=== PATIENT | male | born 1960 | race Caucasian/White ===

== ENCOUNTER → 2017-09-14 07:49 | Outpatient (CLI) | payer OTHER, SELFPAY ==
[2017-09-14 10:32] LABS: Hematocrit 46.1 % (40-54); Hemoglobin 15.4 g/dl (13.0-16.5); Mean Corp Hgb Conc 33.4 g/gl (32-36); Mean Corpuscular Hgb 30.4 pg (27.0-32.0); Mean Corpuscular Volume 90.9 fL (80-94); Mean Platelet Vol. 9.5 fl (6.2-12.0); Platelet Count 170 K/mm3 (150-450); RBC Distribution Width CV 12.9 % (11.6-14.6); RBC Distribution Width SD 42.3 fl (35.1-43.9); Red Blood Count 5.07 M/mm3 (4.6-6.2); White Blood Count 3.5 K/mm3 (4.4-11.0)
[2017-09-14 10:35] LABS: Scan Indicated on CBC? Y/N NO
[2017-09-14 10:45] LABS: ALB/GLOB Ratio 1.1 RATIO (0.9-2.4); AST(SGOT) 22 U/L (15-37); Alanine Aminotransfer ALT/SGPT 38 U/L (16-61); Albumin, Serum 3.7 g/dL (3.2-5.0); Alkaline Phosphatase 56 U/L (45-117); Anion Gap 8 (5-15); BUN 15 mg/dL (7-18); BUN/Creat Ratio 12.9 RATIO (10-20); Calcium,Total 9.2 mg/dL (8.5-10.1); Chloride 107 mmol/L (98-107); Cholesterol 218 mg/dL (200); Creatinine, Serum 1.16 mg/dL (0.70-1.30); EST Glomerular Filtration Rate 69 mL/min (>60); Est Glom Filt Rate - Afr Amer 84 mL/min (>60); Globulin 3.4 g/dL (2.2-4.2); Glucose 93 mg/dL (74-106); High Density Lipoprotein 44 mg/dL; PSA,Total - Annual Screen 3.37 ng/mL (0.00-4.00); Potassium 4.2 mmol/L (3.5-5.1); Protein, Total 7.1 g/dL (6.4-8.2); Sodium Level 145 mmol/L (136-145); Triglycerides 137 mg/dL; Very Low Density Lipoprotein 27 mg/dL (5-40)
== END ==
PROVIDERS: Family Provider Family Medicine; PCP Family Medicine; Visit Provider Family Medicine
DX: Z00.00 Encounter for general adult medical examination without abnormal findings (principal); Z12.5 Encounter for screening for malignant neoplasm of prostate
CPT/HCPCS: 36415; 80053; 80061; 84153; 85027; G0103

== ENCOUNTER → 2020-12-05 | Outpatient (CLI) | payer OTHER, SELFPAY | END | disposition home or self-care (01) | PROVIDERS: PCP Family Medicine; Visit Provider Family Medicine | DX: U07.1 COVID-19 (principal) | CPT/HCPCS: 87635; U0005; U0003 ==

== ENCOUNTER → 2021-01-06 08:56 | Outpatient (CLI) | payer OTHER, SELFPAY ==
[2021-01-06 10:45] LABS: Hematocrit 46.4 % (40-54); Mean Corp Hgb Conc 32.3 g/dL (32-36); Mean Corpuscular Hgb 29.9 pg (27.0-32.0); Mean Corpuscular Volume 92.6 fL (80-94); Platelet Count 156 K/mm3 (150-450); RBC Distribution Width CV 13.3 % (11.6-14.6); RBC Distribution Width SD 45.5 fl (35.1-43.9); Red Blood Count 5.01 M/mm3 (4.6-6.2); White Blood Count 4.5 K/mm3 (4.4-11.0)
[2021-01-06 11:26] LABS: ALB/GLOB Ratio 1.1 RATIO (0.9-2.4); AST(SGOT) 21 U/L (15-37); Alanine Aminotransfer ALT/SGPT 33 U/L (16-61); Albumin, Serum 3.8 g/dL (3.2-5.0); Alkaline Phosphatase 57 U/L (45-117); Anion Gap 5 (5-15); BUN 17 mg/dL (7-18); BUN/Creat Ratio 15.3 RATIO (10-20); Calcium,Total 8.9 mg/dL (8.5-10.1); Chloride 106 mmol/L (98-107); Cholesterol 234 mg/dL (200); Creatinine, Serum 1.11 mg/dL (0.70-1.30); EST Glomerular Filtration Rate 72 mL/min (>60); Est Glom Filt Rate - Afr Amer 87 mL/min (>60); Globulin 3.5 g/dL (2.2-4.2); Glucose 89 mg/dL (74-106); High Density Lipoprotein 46 mg/dL; PSA,Total - Annual Screen 3.95 ng/mL (0.00-4.00); Protein, Total 7.3 g/dL (6.4-8.2); Sodium Level 141 mmol/L (136-145); Triglycerides 169 mg/dL; Very Low Density Lipoprotein 34 mg/dL (5-40)
== END ==
PROVIDERS: PCP Family Medicine; Referring Provider Family Medicine; Visit Provider Family Medicine
DX: Z00.00 Encounter for general adult medical examination without abnormal findings (principal); Z13.1 Encounter for screening for diabetes mellitus; Z12.5 Encounter for screening for malignant neoplasm of prostate; Z13.220 Encounter for screening for lipoid disorders
CPT/HCPCS: 36415; 80053; 80061; 84153; 85027; G0103

== ENCOUNTER → 2022-03-31 | Outpatient (CLI) | payer OTHER, SELFPAY ==
[2022-03-31 08:12] LABS: Absolute Lymphocyte Count 1.12 X10^3/uL (0.83-4.51); Absolute Neutrophil Count 2.3 X10^3/uL (2.0-7.7); Basophil# 0.01 X10^3/uL; Basophil% 0.3 % (0-1); Eosinophil# 0.04 X10^3/uL; Hematocrit 47.8 % (40-54); Hemoglobin 15.8 g/dL (13.0-16.5); Lymphocyte # 1.12 X10^3/ul (0.83-4.51); Lymphocyte % 29.2 % (19-41); Mean Corp Hgb Conc 33.1 g/dL (32-36); Mean Corpuscular Hgb 30.7 pg (27.0-32.0); Monocyte# 0.33 X10^3/uL; Monocyte% 8.6 % (0-10); NRBC Flagged by Analyzer 0 % (0-5); Neutrophil # 2.33 X10^3/uL (2.7-7.7); Neutrophil % 60.6 % (47-70); Platelet Count 165 K/mm3 (150-450); RBC Distribution Width CV 12.7 % (11.6-14.6); RBC Distribution Width SD 43.7 fl (35.1-43.9); Red Blood Count 5.14 M/mm3 (4.6-6.2); White Blood Count 3.8 K/mm3 (4.4-11.0)
[2022-03-31 09:00] LABS: ALB/GLOB Ratio 1.3 RATIO (0.9-2.4); AST(SGOT) 18 U/L (15-37); Alanine Aminotransfer ALT/SGPT 23 U/L (16-61); Albumin, Serum 3.9 g/dL (3.2-5.0); Alkaline Phosphatase 50 U/L (45-117); Anion Gap 5 (5-15); BUN 19 mg/dL (7-18); BUN/Creat Ratio 14.7 RATIO (10-20); Calcium,Total 9.4 mg/dL (8.5-10.1); Chloride 107 mmol/L (98-107); Cholesterol 215 mg/dL (200); Creatinine, Serum 1.29 mg/dL (0.70-1.30); EST Glomerular Filtration Rate 60 mL/min (>60); Est Glom Filt Rate - Afr Amer 73 mL/min (>60); Globulin 3.1 g/dL (2.2-4.2); Glucose 107 mg/dL (74-106); High Density Lipoprotein 48 mg/dL; PSA,Total - Annual Screen 3.14 ng/mL (0.00-4.00); Potassium 3.9 mmol/L (3.5-5.1); Sodium Level 141 mmol/L (136-145); Triglycerides 131 mg/dL; Very Low Density Lipoprotein 26 mg/dL (5-40)
== END | disposition home or self-care (01) ==
LOC: LAB 07:41
PROVIDERS: PCP Family Medicine; Referring Provider Family Medicine; Visit Provider Family Medicine
DX: Z00.00 Encounter for general adult medical examination without abnormal findings (principal); Z13.1 Encounter for screening for diabetes mellitus; Z13.220 Encounter for screening for lipoid disorders; Z12.5 Encounter for screening for malignant neoplasm of prostate
CPT/HCPCS: 36415; 80053; 80061; 84153; 85025; G0103

== ENCOUNTER 2023-11-24 11:13 | Emergency (ER) | payer OTHER, SELFPAY ==
[2023-11-24] VITALS (10 sets, daily range): BP systolic 82–128; BP diastolic 39–85; PULSE 70–86; RESP 15–18; TEMP 36.4–36.6; O2SAT 92–99; BMI 31.0
--- NOTE | 2023-11-24 11:29 | EKG12_ITS ---
Test Reason : NEAR SYNCOPE Blood Pressure : / mmHG Vent. Rate : 072 BPM Atrial Rate : 072 BPM P-R Int : 168 ms QRS Dur : 114 ms QT Int : 414 ms P-R-T Axes : 022 -36 016 degrees QTc Int : 453 ms Normal sinus rhythm Left axis deviation Incomplete right bundle branch block Cannot rule out Anterior infarct , age undetermined Abnormal ECG Confirmed by Humberto Franco ([id number]), editor at large KELSY WANG ([id number]) on 11/25/2023 1:35:03 PM Referred By: Confirmed By:Humberto Franco
--- NOTE | 2023-11-24 11:29 | RAD_ITS ---
HISTORY: dyspnea. TECHNIQUE: XR Chest 1 View. COMPARISON: 12/02/2012. FINDINGS: CARDIOMEDIASTINAL BORDERS: Cardiac silhouette within normal limits in size. Mediastinal contour unremarkable. LUNGS: Radiographically clear. PLEURA: No pleural effusion or pneumothorax seen. OSSEOUS STRUCTURES: Unremarkable. RAD/Chest 1 View (Portable) IMPRESSION: No acute cardiopulmonary process identified. Electronically Signed: Erin Ceja MD at 12:23 EDT ,
--- NOTE | 2023-11-24 11:30 | EX.ED.DYSGE1 ---
HPI History of Present Illness Chief Complaint: Dizziness Informant: patient and EMS Narrative Narrative: 63-year-old male had a syncopal episode this morning. States he woke up this morning and got out of bed and felt lightheaded like he would faint. Therefore he laid back down in bed for a while until he felt better then he got up and walked to the kitchen with the intent of making breakfast and felt worse and passed out prior to making it there in the hallway. His caught him, he did not injure himself. He knows he lost consciousness for an unclear period of time. Once he regained consciousness he tried to sit up and felt some tingling in both of his hands and lay back down it went away and 911 was called at that point. States he does not have any chest discomfort but maybe had some dyspnea prior to his episode and states he feels some mild nonfocal upper back discomfort right now. Denies feeling either 1 of those right now. States he was having some chest tightness off-and-on this past week, oftentimes in the mornings when he would wake up and then it would last an hour before it went away. He has not had any of that before. He states other than a remote DVT that he relates to varicose veins in his legs, he has had no medical problems and takes no medications right now including anticoagulants which he has been off of for a long time. [facility] Medical History (Updated 11/24/23 @ 15:[address] Prieto Goddard MD) Varicose veins of legs DVT (deep venous thrombosis) Home Medications ?Medication ?Instructions ?Recorded ?Last Taken ?Type NK 11/24/23 Unknown History Allergy/AdvReac Type Severity Reaction Status Date / Time No Known Allergies Allergy Verified 11/24/23 11:18 Social History Smoking Status: Never smoker ROS ROS ED Constitutional Constitutional ED: Denies chills or fever(s) Eyes Eyes: Denies change in vision or diplopia ENT ENT ED: Denies rhinorrhea or sore throat Cardiovascular Cardiovascular: Reports syncope and other Details: Chest tightness off and on see HPI ; Denies palpitations or radiating jaw, neck or arm pain Respiratory/Chest Respiratory/Chest: Reports other Details: Brief dyspnea earlier he thinks, not currently ; Denies cough Gastrointestinal Gastrointestinal: Denies abdominal pain, diarrhea, nausea or vomiting Genitourinary Genitourinary ED: Denies dysuria or hematuria Musculoskeletal Musculoskeletal: Reports other Details: Mild upper back discomfort ; Denies neck pain Integumentary Denies abscess or rash Neurologic Neurologic: Denies headache(s), paresthesias or weakness Psychiatric Psychiatric: Denies anxiety or suicidal thoughts EXAM Physical Exam Const Vital Signs: 11/24/23 11:14 11/24/23 11:22 11/24/23 11:54 Temperature 97.6 F L Temperature Source Axillary Pulse Rate 70 75 Pulse Rate [Lying] Pulse Rate [Sitting (for 1 minute prior to obtaining)] Pulse Rate [Standing (for 1 minute prior to obtaining)] Respiratory Rate 15 16 Blood Pressure 114/76 114/76 Blood Pressure [Lying] Blood Pressure [Sitting (for 1 minute prior to obtaining)] Blood Pressure [Standing (for 1 minute prior to obtaining)] Blood Pressure Mean 88 88 Blood Pressure Mean [Lying] Blood Pressure Mean [Sitting (for 1 minute prior to obtaining)] Blood Pressure Mean [Standing (for 1 minute prior to obtaining)] Pulse Ox 92 96 99 Oxygen Delivery Method Room Air Nasal Cannula Room Air Oxygen Flow Rate (L/min) 2 11/24/23 12:04 11/24/23 12:21 11/24/23 13:00 Temperature Temperature Source Pulse Rate 73 76 Pulse Rate [Lying] 75 Pulse Rate [Sitting (for 1 minute prior to obtaining)] 82 Pulse Rate [Standing (for 1 minute prior to obtaining)] 86 Respiratory Rate 15 18 Blood Pressure 123/78 H 126/84 H Blood Pressure [Lying] 119/85 H Blood Pressure [Sitting (for 1 minute prior to obtaining)] 115/77 Blood Pressure [Standing (for 1 minute prior to obtaining)] 82/39 L Blood Pressure Mean 93 98 Blood Pressure Mean [Lying] 96 Blood Pressure Mean [Sitting (for 1 minute prior to obtaining)] 89 Blood Pressure Mean [Standing (for 1 minute prior to obtaining)] 53 Pulse Ox 99 97 Oxygen Delivery Method Room Air Room Air Oxygen Flow Rate (L/min) 11/24/23 14:00 11/24/23 14:40 11/24/23 15:00 Temperature Temperature Source Pulse Rate 70 74 Pulse Rate [Lying] 83 Pulse Rate [Sitting (for 1 minute prior to obtaining)] 73 Pulse Rate [Standing (for 1 minute prior to obtaining)] 70 Respiratory Rate 16 16 Blood Pressure 124/75 H 128/77 H Blood Pressure [Lying] 118/79 Blood Pressure [Sitting (for 1 minute prior to obtaining)] 124/80 H Blood Pressure [Standing (for 1 minute prior to obtaining)] 124/75 H Blood Pressure Mean 91 94 Blood Pressure Mean [Lying] 92 Blood Pressure Mean [Sitting (for 1 minute prior to obtaining)] 94 Blood Pressure Mean [Standing (for 1 minute prior to obtaining)] 91 Pulse Ox 98 97 Oxygen Delivery Method Room Air Room Air Oxygen Flow Rate (L/min) Positive well nourished and well developed General Appearance ED: well developed and NAD HEENT Reports moist mucous membranes normocephalic and atraumatic Eyes PERRL and EOMs intact bilaterally Neck full ROM and supple Resp normal respiratory effort and clear to auscultation bilaterally Cardio regular rate, regular rhythm and no murmurs GI non-tender and non-distended Auscultation: normoactive bowel sounds Palpation: soft Back/Spine no CVA tenderness General Back: other FROM Extremity normal to inspection Extremity Narrative: No calf tenderness or palpable cord or tender varicosities General Extremety ED: Negative for edema, pulses abnormal or tenderness General Extremity: Negative for edema or pulses abnormal Neuro oriented x3, CN's II-XII intact bilaterally and no sensory deficits noted Neuro Narrative: Normal speech nonfocal normal neuroexam Sensorium / Orientation: awake and alert Motor Exam: strength 5/5 throughout Psych mental status grossly normal Skin no rashes or lesions noted and no wounds MDM MDM MDM Narrative Medical decision making narrative: In performing workup, his orthostatics are very positive, with him being very symptomatic and becoming transiently hypotensive. He did not lose consciousness we laid him back down and gave him a liter of IV fluids. In the meantime his EKG is interpreted by myself shows no acute injury pattern, interpretation otherwise as below. There is no old for comparison. His D-dimer returns within normal limits ruling out PE for all intents and purposes, as well as an acute DVT, and his initial troponin is normal. While awaiting a delta, he got the IV fluids and we obtained a 1 view chest x-ray which on my interpretation is normal with a narrow mediastinum; radiology in agreement. Delta returned negative. He felt better after IV fluids, we rechecked orthostatics and they are negative/normal now and he has no lightheadedness. He and significant other provided more history. States he was shoveling mulch all day yesterday. He was drinking fluids but in retrospect he does not think he was drinking enough to keep up. He thinks that is why his chest and back feel little sore today. He agrees that this does not necessarily explain the episodes of chest tightness he was having for the past week. At this time, it appears that his symptoms this morning were most likely related to being dehydrated. His BUN/creatinine ratio was borderline abnormal. At this time with 2 negative troponins with the second 1 actually going down, and no telemetry events, comfortable with him being discharged home as is he. I recommend following up closely as an outpatient regarding the intermittent chest pain he was having. He is in agreement with that plan. Lab Data Attestation: I reviewed the patient's lab results. Labs: Laboratory Results - last 24 hr 11/24/23 11/24/23 11:06 13:51 WBC 4.5 RBC 5.31 Hgb 16.1 Hct 48.1 MCV 90.6 MCH 30.3 MCHC 33.5 RDW Std Deviation 41.3 RDW Coeff of Arlyn 12.6 Plt Count 178 MPV 9.4 Immature Gran % (Auto) 0.700 Neut % (Auto) 53.4 Lymph % (Auto) 33.0 [place] % (Auto) 11.2 H Eos % (Auto) 1.3 Baso % (Auto) 0.4 Absolute Neuts (auto) 2.4 Absolute Lymphs (auto) 1.47 Nucleated RBC % 0 D-Dimer Quant (PE/DVT) 0.36 Sodium 142 Potassium 3.7 Chloride 109 H Carbon Dioxide 28.0 Anion Gap 5 BUN 18 Creatinine 1.27 Estim Creat Clear Calc 73.01 Est GFR (MDRD) Af Amer 74 Est GFR (MDRD) Non-Af 61 BUN/Creatinine Ratio 14.2 Glucose 118 H Calcium 9.1 Troponin I High Sens 6 3 Radiography Diagnostic Testing: Clinical Impression(s) from Imaging Studies Chest X-Ray 11/24/23 11:29 IMPRESSION: No acute cardiopulmonary process identified. Electronically Signed: Erin Ceja MD at 12:23 EDT , Rhythm Strip Rhythm Strip: Sinus Rhythm Rate: 70 Ectopy: None EKG Initial EKG: Attestation: I personally reviewed and interpreted this EKG as follows: Interpretation: Sinus Rhythm, No Acute Injury Pattern and LAFB Comments: RSR', narrow QRS; poor R wave transition Prior EKG tracings: not available for review Prior: No Prior Discharge Plan Triage Chief Complaint: Dizziness ED Provider: Prieto Goddard Dx/Rx/DC Orders Clinical Impression: Syncope due to orthostatic hypotension, Acute dehydration, Intermittent chest pain Instructions: ED Chest Pain, Uncertain Cause, ED Hypotension, Orthostatic Prescriptions: No Action NK Primary Care Provider: Guerrero Rao Referrals: Guerrero Rao MD [Primary Care Provider] - As soon as possible Print Language: Luxembourgish Disposition Disposition: Home, Self Care
[2023-11-24 11:52] LABS: Absolute Lymphocyte Count 1.47 X10^3/uL (0.83-4.51); Absolute Neutrophil Count 2.4 X10^3/uL (2.0-7.7); Basophil# 0.02 X10^3/uL; Basophil% 0.4 % (0-1); Eosinophil# 0.06 X10^3/uL; Eosinophils% 1.3 % (0-5); Hematocrit 48.1 % (40-54); Hemoglobin 16.1 g/dL (13.0-16.5); Lymphocyte # 1.47 X10^3/ul (0.83-4.51); Mean Corp Hgb Conc 33.5 g/dL (32-36); Mean Corpuscular Hgb 30.3 pg (27.0-32.0); Mean Corpuscular Volume 90.6 fL (80-94); Mean Platelet Vol. 9.4 fl (6.2-12.0); Monocyte% 11.2 % (0-10); NRBC Flagged by Analyzer 0 % (0-5); Neutrophil # 2.37 X10^3/uL (2.7-7.7); Neutrophil % 53.4 % (47-70); Platelet Count 178 K/mm3 (150-450); RBC Distribution Width CV 12.6 % (11.6-14.6); RBC Distribution Width SD 41.3 fl (35.1-43.9); Red Blood Count 5.31 M/mm3 (4.6-6.2); White Blood Count 4.5 K/mm3 (4.4-11.0)
[2023-11-24 12:06] LABS: D-Dimer Quantitative (DVT/PE) 0.36 FEU/ug/m (0.27-0.49)
[2023-11-24 12:14] LABS: Anion Gap 5 (5-15); BUN 18 mg/dL (7-18); BUN/Creat Ratio 14.2 RATIO (10-20); Calcium,Total 9.1 mg/dL (8.5-10.1); Chloride 109 mmol/L (98-107); Creatinine, Serum 1.27 mg/dL (0.70-1.30); EST Glomerular Filtration Rate 61 mL/min (>60); Est Glom Filt Rate - Afr Amer 74 mL/min (>60); Estimated Creatinine Clearance 73.01 ml/min; Glucose 118 mg/dL (74-106); Potassium 3.7 mmol/L (3.5-5.1); Sodium Level 142 mmol/L (136-145); Troponin-I HS (w/2H Reflex) 6 pg/mL (3.0-78.0)
[2023-11-24] MEDS: 0.9% Normal Saline (1000mL) 1,000 ML 999 ML IV (12:45)
[2023-11-24 13:41] LABS: Reflex Troponin-HS? (from REC) Y
[2023-11-24 14:24] LABS: Troponin-I HS 3 pg/mL (3.0-78.0)
== END 2023-11-24 15:47 | disposition home or self-care (01) ==
PROVIDERS: Emergency Provider Emergency Medicine; PCP Family Medicine; Visit Provider Emergency Medicine
DX: I95.1 Orthostatic hypotension (principal); E86.0 Dehydration; R07.89 Other chest pain; I83.93 Asymptomatic varicose veins of bilateral lower extremities; Z86.718 Personal history of other venous thrombosis and embolism
CPT/HCPCS: 71045; 80048; 84484; 85025; 85379; 93005; 96360; 99285; J7030; A4216

== ENCOUNTER → 2023-12-15 | Outpatient (CLI) | payer OTHER, SELFPAY | END | disposition home or self-care (01) | LOC: CVS 06:03 | PROVIDERS: PCP Family Medicine; Referring Provider Family Medicine; Visit Provider Family Medicine | DX: Z01.810 Encounter for preprocedural cardiovascular examination (principal); R55 Syncope and collapse | CPT/HCPCS: 78452; 93017; 93306; A9500; A4216 ==

== ENCOUNTER 2023-12-23 07:17 | Day surgery (SDC) | payer OTHER, SELFPAY ==
[2023-12-22 11:13] VITALS: BMI 29.9
--- NOTE | 2023-12-23 09:11 | CASEMGMT ---
Tertiary facilities in-network with patient's insurance: [facility], [facility], [facility], [facility]
--- NOTE | 2023-12-23 09:24 | CL.D_ITS ---
Patient Name: MIO ISRAEL Study Date: 12/23/2023 Performing: London Monroe MD Ht: 71 inches 180.34 cm : 1960 Wt: 214.99 lbs 97.52 kg Age: 63 Gender: male BSA: 2.17 PROCEDURE(S) PERFORMED [id number])LHC/COR/LV CLINICAL PROFILE AND INDICATIONS Indications: Suspected CAD Heart Failure: None Stress/Imaging Date: 12/15/23Stress Test with SPECT MPI: Negative CAD Presentations: No Sxs, no angina. CONCLUSIONS Single-vessel disease predominantly involving the proximal to mid left anterior descending artery and diagonal vessel with mild disease noted in the right coronary artery and circumflex artery. RECOMMENDATIONS Referred for immediate PCI DESCRIPTION OF PROCEDURE The patient arrived to the procedure lab. The risks and benefits of the procedure as well as a full description of our services here and current unavailability of surgical backup were fully explained to the patient and/or their significant other prior to the catheterization. The Timeout was completed, verifying the correct patient and procedure. The patient's procedural site was prepped and draped in the usual fashion. Local anesthetic was given subcutaneously to right radial region with Lidocaine 2%. Using a modified Seldinger technique, arterial access was obtained via the right radial artery, a 6Fr sheath was inserted. Left Coronary Artery selective angiography was performed in multiple views using a 5 Fr. 4.0 [place] catheter. Right Coronary Artery selective angiography was then performed in multiple views using a 5 Fr. 4.0 [place] catheter. Left Ventriculography was performed in MONTES projection using a 5 Fr. [place] catheter. CORONARY ANGIOGRAPHY DOMINANCE: Right Dominant LEFT HEART ASSESSMENT Left Ventricular Ejection Fraction: by LV Gram 50 % Anterior Hypokinesis - Mild Normal Left Ventricular systolic function LEFT MAIN: Angiographically normal LEFT ANTERIOR DESCENDING ARTERY: Moderate calcification, Medium size vessel with moderate calcification in the first diagonal with an ostial 70% stenosis and an 80% stenosis of the left anterior descending artery close to the takeoff of the diagonal. The rest of the vessel appears to have mild disease. CIRCUMFLEX ARTERY: Mild luminal irregularities RIGHT CORONARY ARTERY: Mild luminal irregularities less than 30% VALVE FINDINGS: Normal Aortic Valve function AORTIC ROOT: Angiographically normal COMPLICATIONS PROCEDURE MEDICATIONS Fentanyl 50 mcg IV Versed 1 mg IV Versed 1 mg IV Oxygen: 2 L/min via nasal cannula Brilinta 180 mg PO @ 12/23/2023 08:42:24 Heparin given IA 12/23/2023 08:25:20 Verapamil 2.5mg, Ntg 100mcgs, 3000 units of Heparin given IA 12/23/2023 08:25:20 SUMMARY OF HEMODYNAMIC DATA Time AIR REST ECG 07:36:34 AO 110/62 (84) SA 08:30:01 LV 109/3, 15 08:37:27 LV 113/2, 11 08:37:33 LV 102/3, 13 08:38:22 LVp 102/0, 12 08:38:25 AOp 122/64 (91) 08:38:30 09:12:16 Signed By London Monroe MD On 12/23/2023 09:24:05 London Monroe MD
== END 2023-12-23 11:10 | disposition home or self-care (01) ==
PROVIDERS: PCP Family Medicine; Referring Provider Internal Medicine Cardiovascular Disease; Visit Provider Internal Medicine Cardiovascular Disease
DX: I25.10 Atherosclerotic heart disease of native coronary artery without angina pectoris (principal); R07.9 Chest pain, unspecified; I95.1 Orthostatic hypotension; R94.31 Abnormal electrocardiogram [ECG] [EKG]; Z86.718 Personal history of other venous thrombosis and embolism
CPT/HCPCS: 93458; 99152; 99153; J7040; Q9967; C1769; C1894

== ENCOUNTER → 2024-01-30 | Outpatient (CLI) | payer OTHER, SELFPAY ==
--- NOTE | 2024-01-30 08:01 | PCM.CR.HP2 ---
CR - History & Physical General Arrival date:: 01/30/24 Arrival time:: 08:01 Date of Referral:: 01/18/24 Date of CR Evaluation:: 01/30/24 Referring Physician: Dr. Clay Campbell Primary Diagnosis: PTCA or stent History of Present Cardiac Event Onset Date PTCA or coronary stenting:: Yes (01/13/24 onset) Vessel: LAD Medications Ambulatory Orders ?Medication ?Instructions ?Recorded sildenafil 50 mg tablet 50 mg PO QDAY PRN erectile 12/01/23 dysfunction krill oil 500 mg capsule 500 mg PO DAILY 12/13/23 multivitamin 1 tab PO QAM 12/13/23 psyllium husk 0.4 gram capsule 0.4 g PO QDAY 12/13/23 (Daily Fiber) aspirin 81 mg tablet,delayed 81 mg PO QDAY 12/16/23 release (Adult Aspirin Regimen) Allergies Allergies No Known Allergies Allergy (Verified 12/13/23 14:24) Sleep Disorder Evaluation Hx of Sleep Apnea: No Do you snore loudly (louder than talking or can be heard through closed doors)?: No Do you often feel tired/ fatigued/ sleepy during daytime?: No Has anyone observed you stop breathing during sleep?: No History of Hypertension (for STOP score): No STOP Results: Negative Advanced Directives Advanced Directives Power of Home Organizer: Yes Living Will: Yes Advance Directives Information Provided: No Advance Directives on File: No DNR Order?:: No Past Medical History Covid-19 Screening Physicial Symptoms Other Clinical Concerns Exposure Risk Pertinent Comorbidities Has a serious heart condition:: Yes Past Medical Illness Past Medical History Intermittent chest pain R07.9 Syncope due to orthostatic hypotension I95.1 Varicose veins of legs I83.93 DVT (deep venous thrombosis) I82.409 Past Surgical History Past Surgical History History of oral surgery Z98.890 Surgical History: noncontributory Family History Summary Family History Father Heart disease Cancer Mother Atrial fibrillation Social History Alcohol Use Alcohol Usage: No Occupation Occupation (List type of work in comments):: Employed (Pt is a Inspector [employer] ) Hobbies, Recreation, Social Activities Hobbies: Farm Recreational Activities: I am able to engage in all my recreational activities Social Environment Status Marital Status: Current Living Arrangements Living Environment:: Spouse Children How many children do you have?: 3 Do any of your children live nearby?: Yes Safety Do you feel safe in your surroundings?: Yes Assistance Do you need any assistance at home?: no Review of Systems Review of Systems Hints Review of Present Symptoms: Reports Appetite - Normal, Appetite - Special Diet and Sleep - Normal; Denies Shortness of Breath at Rest, Shortness of Breath with Exertion, PVD, Operative Discomfort, Angina, Wound Healing, Dizziness/Lightheadedness, Fatigue, Heart Arrhythmia/Irregularities or Sexual Changes Pain Is Patient Pain Free?: Yes Risk Factor Assessment Vital Signs Pulse Ox: 94 Blood Pressure: 119/74 Pulse Pulse Rate: 66 Hypertension Blood Pressure Sitting - Right Arm: 119/74 Stress Stress: Work-related Obesity Height: 5 ft 11 in Weight:: 208 lb Weight in Pounds: 208.0 lbs Body Mass Index (BMI): 29.0 Nutritional Referral for Obesity: No Physical Inactivity Physical Inactivity: None Risk Stratification Risk Guidelines: Lowest Risk: Risk Factor for Smoking and Moderate Risk: Risk Factor for Dyslipidemia, Risk Factor for Diabetes, Risk Factor for Obesity, Risk Factor for Hypertension, Risk Factor for Sedentary Lifestyle and Risk Factor for Depression For Smoking Smoking Risk Guidelines For Dyslipidemia Dyslipidemia Risk Guidelines For Diabetes Mellitus Diabetes Risk Guidelines For Obesity/Overweight Obesity/Overweight Risk Guidelines For Hypertension Hypertension Risk Guidelines For Sedentary Lifestyle Sedentary Lifestyle Risk Guidelines For Depression Depression Risk Guidelines Family History Family History Father Heart disease Cancer Mother Atrial fibrillation Motivation Motivation to Participate On a scale of 1 to 10, how prepared are you to commit to attending program?: 10 What do you see as barriers to successfully being able to complete the program?: nothing What do you see as the benefits of succesfully completing the program? In other words, what do you hope to get out of participating in the program?: get back in shape Are there issues you are dealing with that will interfere with completing the program?: no Do you have a spouse or signficant other, family or friends who will help support you to complete the program?: yes
[2024-01-30 08:08] VITALS: BP 119/74; PULSE 66; O2SAT 94
--- NOTE | 2024-01-30 08:08 | PCM.CR.ITP ---
Diagnosis General Information Admitting Diagnosis: PTCA or stent Personal Learning Style:: Audio/Visual Barriers to Learning: No Barriers Stage of change r/t lifestyle modifications:: Contemplation Gave educational material for:: Treating Heart Disease, How The Heart Works, What it means to have Heart Disease, How Coronary Artery Disease is Diagnosed, Heart Procedures, What Heart Medications Do, Risk Factors & Modifications, Living an Active Life, Nutrition, Emotions & Heart Disease, Stress Management & Relaxation and Sleep Disorders & Heart Disease Education/Goals Cardiac Rehabilitation Goals Personal Goals: Initial Assessment: Improve energy level, Participate in home exercise program, Get back to work, or to resume activities faster, Improve knowledge of cardiac disease, Improve muscle strength and endurance, Improve diet and eating habits (eat healthier) and Control risk factors (learn risk factor modification) Scale for measuring improvement of personal goals Diagnosis & Disease Process Outcomes/Goals: Pt IDs own risk factors & lifestyle modifications by Session 10, Verbalizes symptoms of angina & response by session 3., Pt independently manages and Other Additional Outcomes/Goals: Plan/Interventions: Assist Pt to ID & engage in lifestyle modification to reduce CVD risk, Instruct on individual risk factors, Review symptoms of angina & emergency actions, Review secondary diagnosis & identify educational needs. and Other see comment 30 day Reassessments:: Not Met 30 day Reassessments:: Not Met 30 day Reassessments:: Not Met 30 day Reassessments:: Not Met Final Reassessments:: Not Met Safety Referral to Physical Therapy: No Referral to [facility] Case Management: No Fall Risk Assessed:: Yes Assistive Devices:: None Exercise - Initial Assessment Visit Date of Eval: 01/30/24 (initial eval ) Mets: Pre-: >3 METS for 30 minutes by discharge, >5 METS for 30 minutes by discharge, >7 METS for 30 minutes by discharge and Unable to meet goal due to: (see comment below) Physician Prescribed Exercise Modalities: Treadmill, Rower, Schwinn Airdyne AD-7, SciFit Stepper, SciFit Pro-II Ergometer and SciFit Lateral Mortuary Operations Manager Frequency: 3x/week for 12 weeks [36 sessions] Intensity: 60-80% of age predicted maximum heart rate reserve Duration: 30 - 45 minutes Current METSs:: 3 Target Heart Rate:: 95-119 Resting Blood Pressure: 119/74 EKG Type: SB left axis deviation RBBB Outcomes & Goals Goals:: Verbalizes understanding of THR, RPE & goal METS by session 6, Documents in home exercise log/reports 30 min aerobic 5 day/wk by DC, Demonstrates accurate pulse taking by DC and Other additional outcome/goals: see below Intervention & Plan Exercise Program Goals: Instruct on personal THR & RPE, Instruct on MET level & personal MET goal, Show patient to take own pulse /validate performance until accurate, Instruct on home exercise and Other additional plan/int Physical Activity Home Exercise Physical Activity - Home Exercise: Safe Exercise, Warm-up, Self-monitoring, Cool-Down, Home Exercise > 30 min Daily and Sitting Time <3 hours/daily Outcomes & Goals Outcomes/Goals: Demonstrates correct Warm-up/exercise Cool-Down (S3) if = 2.5 METs, Verbalizes symptoms of exercise intolerance by Session 3 (S3), Demonstrate safe equipment use (S3) & follows exercise prescrition (6) and Other: See below Intervention & Plan Plan/Intervention: Instruct warm-up & cool-down if exercising at > 2 METs, Instruct on symptoms of exercise intolerance & actions to take, Instruct & monitor on saf, Assess intial functional capacity & safety risk and Other See below Nutrition - Initial Assessment Visit Date of Eval: 01/30/24 (initial eval ) Cholesterol/Lipids (Other Core Measures) Determine presence & major risk factors that modify LDL goal: Hypertension or hypertensive medication, Low HDL cholesterol <40 mg/dL*, Family history of premature CHD in Male < 55 years: female <65 yearsFa and Age men > 45 years; women >/= 55 years Outcomes/Goals: Pt IDs own risk factors & lifestyle modifications by Session 10, Verbalizes symptoms of angina & response by session 3., Pt independently manages and Other Additional Outcomes/Goals: Intervention/Plan: Advocate for lipid panel cholesterol medication if applicable, Instruct on personal lipid levels & lipid goals/NCEP guidelines, Instruct on cholesterol and Other additional plan/int Referral to dietitian:: No Diabetes (Other Core Measures) Diabetes Type: Not Applicable Weight Mgt (Other Care) Height: 5 ft 11 in Weight:: 208 lb BMI: 29.0 Diagnosis Overweight/Obesity BMI> 30% ICD-10 E66: No Diagnosis High BMI/Morbid Obesity BMI> 35% ICD-10 Z68: No Outcomes/Goals: Pt sets, maintains & shows weight loss goal & trend during rehab and Other additional outcomes/goals Intervention/Plan: Instruct on ideal BMI & set weight loss goal w/patient, Assist pt to ID & incorporate diet changes for weight loss by S9, Refer to Structured Weight Loss program as appropriate, Encourage goal of using 250-300dcal per session for weight loss and Other additional plan/interventions Healthy Eating Habits Will attend diet classes:: Yes Outcomes/Goals:: Consume diet rich in vegs,fruits,whole grain/high fiber,fish,lean meat, Limit sat/trans fats,cholesterol & added salts & sugars and Other additional outcome/goals: Intervention/Plan:: Assess current eating habits and Other Additional plan/interventions Education Gave educational materials for:: Signs & symptoms of hypoglycemia, Signs & symptoms of hyperglycemia, Relate diabetes to coronary artery disease and Healthy eating Core - Initial Assessment Visit Date of Eval: 01/30/24 (initial eval ) Medication Compliance Preventative Medication(s):: Aspirin, Clopidogrel/P2Y12 inhibit, Statin/lipid and Beta jose a H/O mental health issues: depression, anxiety, or addiction?: No Doesn?t believe in the benefits of treatment?: No Believes medications are unnecessary or harmful?: No Has a concern about medication side effects?: No Expresses concern over the cost of medications?: No Outcomes/Goals: Verbalizes medications,desired effect & common side effects @ DC, Pt self-reports following medication regimen, Keeps card in wallet w/medications listed by DC and Other additional outcome/goals: Interventions/plans: Instruct on medication effects & side effects, Review medication list w/patient every two weeks, Instruct importance of taking meds as ordered & assist problem solving and Other additional Tobacco Use Tobacco Use: Non-smoker Hypertension Resting Blood Pressure:: 119/74 [place] [employer] Hypertension Guidelines Outcomes/Goals: Able to verbalize/achieve optimal blood pressure <130/80, Incorporates diet changes & exercise for blood pressure control by DC and Other additional outcomes/goals Interventions/plan: Instruct on optimal blood pressure, hypertension & medications, Instruct on effects of sodium, alcohol, stress, exercise &hypertension and Other additional plan/interventions Tobacco Cessation Referral Smoking Cessation Referral:: No Individual Education/Counseling:: No Education Schedule Given:: Yes Psychosocial - Initial Assess VIsit Date of Eval: 01/30/24 (initial eval ) History of previous Mental disease:: No Target Goals Target Goals Psychosocial Test Tool Used:: [employer] QOL Cardiac and PHQ-9 Questionnaire phq-9 Severity Referral to Behavioral Health PS - Interventions: Yes: Attend Stress Management Classes Outcomes/Goals: See list Psychosocial Outcomes/Goals:: ID's personal stressors & 2 strategies to manage stress by discharge and Other Additional outcome/goals: Intervention/Plan: See List Interventions/Plan:: Assess stressors,coping strategies & signs of derpression on admission, Instruct/assist pt to develop coping & personal stress Mgt strategies, Refer to Behavioral Health if appropriate, Refer to Physician if appropriate, Instruct patient to recognize signs & symptoms of depression, Instruct patient to recog and Other additional plan/intervention Patient Health Questionnaire PHQ-9 Screening Initial Assessment: 1. Little interest or pleasure in doing things: Not at all 2. Feeling down, depressed, or hopeless: Not at all 3. Trouble falling or staying asleep, or sleeping too much: Not at all 4. Feeling tired or having little energy: Several days 5. Poor appetite or overeating: Several days 6. Feeling bad about yourself -- or that you are a failure or have let yourself or your family down: Not at all 7. Trouble concentrating on things, such as reading the newspaper or watching television: Not at all 8. Moving or speaking so slowly that other people could have noticed. Or the opposite - being so fidgety or restless that you have been moving around a lot more than usual: Not at all 9. Thoughts that you would be better off , or of hurting yourself in some way: Not at all How difficult have these problems made it for you to do your work, take care of things at home, or get along with other people?: Not difficult at all Total Score: 2 YAMILE-Q SV Test Statements CAD is a disease of the arteries in the heart: False Examples of risk factors for heart disease: True Angina is chest pain or discomfort: True The benefits of resistance training include: True Eating more meat and dairy products: False Anti-platelet medications such as aspirin are important: True The only effective way to manage stress: False An exercise warm-up slowly increases heart rate: I Don't Know Prepared, processed foods usually have high sodium: True Depression is common after a heart attack: True The statin medications lower cholesterol: True To control blood pressure, lower the amount of sodium: True If someone gets chest discomfort during walking: False Transfats are partially hydrogenated vegetable oils: True Sleep apnea that is not treated increases the risk: I Don't Know To control cholesterol, one should become a vegetarian: True Someone knows if he/she is exercising at the right level: True Diabetes cannot be prevented with exercise & health eating: False Stress is a large risk for heart attack: I Don't Know A diet that can help lower blood pressure is rich in: True Total Score Total Correct Responses: 16 Self-Efficacy 6-Item Scale Initial Assessment: We would like to know how confident you are in doing certain activities. Please select your confidence level for: Fatigue Select Number: 8 Physical Discomfort or Pain Select Number: 8 Emotional Distress Select Number: 10 Other Symptoms or Health Problems Select Number: 8 Different Tasks and Activities Select Number: 10 Medication Select Number: 10 Total Score:: 9 Nutrition Survey Nutrition Survey Instructions Scoring Instructions Nutrition Survey Initial: Have you lost >10 lbs over the past 2 months without trying?: No Are you following a special diet at home for diabetes, low fat, or low salt?: Yes Are you interested in meeting with a dietitian for help understanding your diet?: No Do you eat less than 3 meals a day?: No Do you eat fatty meats (arroyo, sausage, ribs, etc), fried foods, desserts, large amounts of salad dressings, margarine, butter, or cheese most days?: No Do you have food allergies? [Enter types in comment field]: No Do you eat in restaurants more than 3 times a week?: Yes Do you season food with salt, seasoning salt, or garlic salt?: No Do you used canned, boxed, frozen meals, or soups, seasoning packets?: Yes Total Score:: 3 Exercise - 30-day Assessment Physician Prescribed Exercise Modalities: Treadmill, Rower, Schwinn Airdyne AD-7, SciFit Stepper, SciFit Pro-II Ergometer and SciFit Lateral Mortuary Operations Manager Exercise - 60-day Assessment Physician Prescribed Exercise Modalities: Treadmill, Rower, Schwinn Airdyne AD-7, SciFit Stepper, SciFit Pro-II Ergometer and SciFit Lateral Mortuary Operations Manager Exercise - 90-day Assessment Physician Prescribed Exercise Modalities: Treadmill, Rower, Schwinn Airdyne AD-7, SciFit Stepper, SciFit Pro-II Ergometer and SciFit Lateral Mortuary Operations Manager Exercise - Final/Discharge Physician Prescribed Exercise Modalities: Treadmill, Rower, Schwinn Airdyne AD-7, SciFit Stepper, SciFit Pro-II Ergometer and SciFit Lateral Mortuary Operations Manager Frequency: 3x/week for 12 weeks [36 sessions] Intensity: 60-80% of age predicted maximum heart rate reserve Current METSs:: 3 Target Heart Rate:: 95-119 Nutrition - 30-Day Assessment Weight Mgt (Other Care) Height: 5 ft 11 in Weight:: 208 lb BMI: 29.0 Nutrition - 60-Day Assessment Weight Mgt (Other Care) Height: 5 ft 11 in Weight:: 208 lb BMI: 29.0 Core - Final Assessment Hypertension Resting Blood Pressure:: 119/74 [place] [employer] Hypertension Guidelines Core - 60-Day Assessment Hypertension Resting Blood Pressure:: 119/74 [place] [employer] Hypertension Guidelines Psychosocial - 30-Day Assess Target Goals Target Goals Referral to Behavioral Health PS - Interventions: Yes: Attend Stress Management Classes Psychosocial - 60-Day Assess Target Goals Target Goals Referral to Behavioral Health PS - Interventions: Yes: Attend Stress Management Classes Psychosocial - 90-Day Assess Target Goals Target Goals Referral to Behavioral Health PS - Interventions: Yes: Attend Stress Management Classes Psychosocial - Final Assessmen Target Goals Target Goals Referral to Behavioral Health PS - Interventions: Yes: Attend Stress Management Classes Nutrition - 90-Day Assessment Weight Mgt (Other Care) Height: 5 ft 11 in Weight:: 208 lb BMI: 29.0 Nutrition - Final Assessment Weight Mgt (Other Care) Height: 5 ft 11 in Weight:: 208 lb BMI: 29.0
[2024-01-30 08:10] VITALS: BP 119/74
[2024-01-30 08:46] VITALS: BP 119/74; BMI 29.0
[2024-01-30 08:47] VITALS: BMI 29.0
== END | disposition home or self-care (01) ==
PROVIDERS: PCP Family Medicine
DX: I20.9 Angina pectoris, unspecified (principal); Z95.5 Presence of coronary angioplasty implant and graft

== ENCOUNTER 2024-02-06 08:00 | Outpatient (RCR) | payer OTHER, SELFPAY ==
[2024-01-30 08:46] VITALS: BMI 29.0
[2024-03-07 17:33] LABS: Bedside Glucose 106 mg/dL (74-106)
== END 2024-02-07 23:59 ==
LOC: CR 08:00
PROVIDERS: PCP Family Medicine
DX: I20.9 Angina pectoris, unspecified (principal)
CPT/HCPCS: 82962; 93798

== ENCOUNTER 2024-03-05 08:00 | Outpatient (RCR) | payer OTHER, SELFPAY ==
[2024-01-30 08:46] VITALS: BMI 29.0
--- NOTE | 2024-03-01 07:34 | CR.ITP_ITS ---
Exercise - Initial Assessment Visit Session #:: 10 Physician Prescribed Exercise Modalities: Treadmill, Schwinn Airdyne AD-7 and SciFit Stepper Nutrition - Initial Assessment Weight Mgt (Other Care) Height: 5 ft 11 in Weight:: 218 lb BMI: 30.4 Psychosocial - Initial Assess Target Goals Target Goals Referral to Behavioral Health PS - Interventions: Yes: Attend Stress Management Classes Patient Health Questionnaire PHQ-9 Screening 30-Day Re-eval Assessment: 1. Little interest or pleasure in doing things: Not at all 2. Feeling down, depressed, or hopeless: Not at all 3. Trouble falling or staying asleep, or sleeping too much: Not at all 4. Feeling tired or having little energy: Several days 5. Poor appetite or overeating: Several days 6. Feeling bad about yourself -- or that you are a failure or have let yourself or your family down: Not at all 7. Trouble concentrating on things, such as reading the newspaper or watching television: Not at all 8. Moving or speaking so slowly that other people could have noticed. Or the opposite - being so fidgety or restless that you have been moving around a lot more than usual: Not at all 9. Thoughts that you would be better off , or of hurting yourself in some way: Not at all How difficult have these problems made it for you to do your work, take care of things at home, or get along with other people?: Not difficult at all Total Score: 2 Self-Efficacy 6-Item Scale 30-Day Re-eval Assessment: We would like to know how confident you are in doing certain activities. Please select your confidence level for: Fatigue Select Number: 8 Physical Discomfort or Pain Select Number: 8 Emotional Distress Select Number: 10 Other Symptoms or Health Problems Select Number: 8 Different Tasks and Activities Select Number: 10 Medication Select Number: 10 Total Score:: 9 Nutrition Survey Nutrition Survey Instructions Scoring Instructions Exercise - 30-day Assessment Visit Date of Eval: 03/01/24 Session #:: 10 Physician Prescribed Exercise Modalities: Treadmill, Schwinn Airdyne AD-7 and SciFit Stepper Frequency: 3x/week for 12 weeks [36 sessions] Intensity: 60-80% of age predicted maximum heart rate reserve Duration: 30 - 45 minutes Current METSs:: 5.7 Target Heart Rate:: 95-119 Current RPE:: 12 Maximum Excercise HR:: 106 Resting Blood Pressure: 100/62 Maximum Exercise Blood Pressure: 138/70 EKG Type: NSR with rare PVC, frequent PAC's, bigeminy of PAC's Outcomes & Goals Goals:: Verbalizes understanding of THR, RPE & goal METS by session 6, Documents in home exercise log/reports 30 min aerobic 5 day/wk by DC and Demonstrates accurate pulse taking by DC Intervention & Plan Exercise Program Goals: Instruct on personal THR & RPE, Instruct on MET level & personal MET goal, Show patient to take own pulse /validate performance until accurate and Instruct on home exercise 30-day Reassessments 30 day Reassessments:: Progressing Physical Activity Home Exercise Physical Activity - Home Exercise: Safe Exercise, Warm-up, Self-monitoring, Cool-Down, Home Exercise > 30 min Daily and Sitting Time <3 hours/daily Outcomes & Goals Outcomes/Goals: Demonstrates correct Warm-up/exercise Cool-Down (S3) if = 2.5 METs, Verbalizes symptoms of exercise intolerance by Session 3 (S3), Demonstrate safe equipment use (S3) & follows exercise prescrition (6) and Other: See below Intervention & Plan Plan/Intervention: Instruct warm-up & cool-down if exercising at > 2 METs, Instruct on symptoms of exercise intolerance & actions to take, Instruct & monitor on saf, Assess intial functional capacity & safety risk and Other See below 30-day Reassessments 30 day Reassessments:: Progressing Reassessment Notes & Comments:: RPE scale explained. Pt demonstrates understanding. Exercise - 60-day Assessment Physician Prescribed Exercise Modalities: Treadmill, Schwinn Airdyne AD-7 and SciFit Stepper Exercise - 90-day Assessment Physician Prescribed Exercise Modalities: Treadmill, Schwinn Airdyne AD-7 and SciFit Stepper Exercise - Final/Discharge Physician Prescribed Exercise Modalities: Treadmill, Schwinn Airdyne AD-7 and SciFit Stepper Nutrition - 30-Day Assessment Visit Date of Eval: 03/01/24 Session #:: 10 Cholesterol/Lipids (Other Core Measures) Determine presence & major risk factors that modify LDL goal: Hypertension or hypertensive medication, Low HDL cholesterol <40 mg/dL*, Family history of premature CHD in Male < 55 years: female <65 yearsFa and Age men > 45 years; women >/= 55 years Outcomes/Goals: Pt IDs own risk factors & lifestyle modifications by Session 10, Verbalizes symptoms of angina & response by session 3., Pt independently manages and Other Additional Outcomes/Goals: Intervention/Plan: Advocate for lipid panel cholesterol medication if applicable, Instruct on personal lipid levels & lipid goals/NCEP guidelines, Instruct on cholesterol and Other additional plan/int Diabetes (Other Core Measures) Diabetes Type: Not Applicable Weight Mgt (Other Care) Height: 5 ft 11 in Weight:: 218 lb BMI: 30.4 Diagnosis Overweight/Obesity BMI> 30% ICD-10 E66: Yes Diagnosis High BMI/Morbid Obesity BMI> 35% ICD-10 Z68: No Outcomes/Goals: Pt sets, maintains & shows weight loss goal & trend during rehab and Other additional outcomes/goals Intervention/Plan: Instruct on ideal BMI & set weight loss goal w/patient, Assist pt to ID & incorporate diet changes for weight loss by S9, Refer to Structured Weight Loss program as appropriate, Encourage goal of using 250- 300dcal per session for weight loss and Other additional plan/interventions 30 day Reassessments:: Progressing Reassessment Notes & Comments:: Pt scheduled to attend nutrition class. Encourage a heart healthy low sodium diet. Healthy Eating Habits Will attend diet classes:: Yes Outcomes/Goals:: Consume diet rich in vegs,fruits,whole grain/high fiber,fish,lean meat, Limit sat/trans fats,cholesterol & added salts & sugars and Other additional outcome/goals: Intervention/Plan:: Assess current eating habits and Other Additional plan/interventions 30-day Reassessments:: Progressing Reassessment Notes & Comments:: Pt scheduled to attend nutrition class. Encourage a heart healthy low sodium diet. Education Gave educational materials for:: Signs & symptoms of hypoglycemia, Signs & symptoms of hyperglycemia, Relate diabetes to coronary artery disease and Healthy eating Nutrition - 60-Day Assessment Weight Mgt (Other Care) Height: 5 ft 11 in Weight:: 218 lb BMI: 30.4 Core - 30-Day Assessment Visit Date of Eval: 03/01/24 Session #:: 10 Medication Compliance Preventative Medication(s):: Aspirin, Clopidogrel/P2Y12 inhibit, Statin/lipid and Beta jose a H/O mental health issues: depression, anxiety, or addiction?: No Doesn?t believe in the benefits of treatment?: No Believes medications are unnecessary or harmful?: No Has a concern about medication side effects?: No Expresses concern over the cost of medications?: No Outcomes/Goals: Verbalizes medications,desired effect & common side effects @ DC, Pt self-reports following medication regimen, Keeps card in wallet w/medications listed by DC and Other additional outcome/goals: Interventions/plans: Instruct on medication effects & side effects, Review medication list w/patient every two weeks, Instruct importance of taking meds as ordered & assist problem solving and Other additional 30-day Reassessments:: Progressing Reassessment Notes & Comments:: Pt had an episode of A-fib. Pt was seen by Dr. Franco. Lopressor increased to 50 mg BID Tobacco Use Tobacco Use: Non-smoker Hypertension Resting Blood Pressure:: 100/62 [place] [employer] Hypertension Guidelines Peak Exercise Blood Pressure:: 138/70 Outcomes/Goals: Able to verbalize/achieve optimal blood pressure <130/80, Incorporates diet changes & exercise for blood pressure control by DC and Other additional outcomes/goals Interventions/plan: Instruct on optimal blood pressure, hypertension & medications, Instruct on effects of sodium, alcohol, stress, exercise &hypertension and Other additional plan/interventions 30 day Reassessments:: Progressing Reassessment Notes & Comments:: Pt taking meds as prescribed. Will continue to monitor. Tobacco Cessation Referral Smoking Cessation Referral:: No Individual Education/Counseling:: No Education Schedule Given:: Yes Psychosocial - 30-Day Assess VIsit Date of Eval: 03/01/24 Session #:: 10 History of previous Mental disease:: No Target Goals Target Goals Psychosocial Test Tool Used:: [employer] QOL Cardiac and PHQ-9 Questionnaire phq-9 Severity Referral to Behavioral Health PS - Interventions: Yes: Attend Stress Management Classes Outcomes/Goals: See list Psychosocial Outcomes/Goals:: ID's personal stressors & 2 strategies to manage stress by discharge and Other Additional outcome/goals: Intervention/Plan: See List Interventions/Plan:: Assess stressors,coping strategies & signs of derpression on admission, Instruct/assist pt to develop coping & personal stress Mgt strategies, Refer to Behavioral Health if appropriate, Refer to Physician if appropriate, Instruct patient to recognize signs & symptoms of depression, Instruct patient to recog and Other additional plan/intervention 30-day Reassessments: 30 day Reassessments:: Met Reassessment Notes & Comments:: Pt denies any psychosocial issues at this time. Will continue to monitor Psychosocial - 60-Day Assess Target Goals Target Goals Referral to Behavioral Health PS - Interventions: Yes: Attend Stress Management Classes Outcomes/Goals: See list Psychosocial Outcomes/Goals:: ID's personal stressors & 2 strategies to manage stress by discharge and Other Additional outcome/goals: Psychosocial - 90-Day Assess Target Goals Target Goals Referral to Behavioral Health PS - Interventions: Yes: Attend Stress Management Classes Psychosocial - Final Assessmen Target Goals Target Goals Referral to Behavioral Health PS - Interventions: Yes: Attend Stress Management Classes Nutrition - 90-Day Assessment Weight Mgt (Other Care) Height: 5 ft 11 in Weight:: 218 lb BMI: 30.4 Nutrition - Final Assessment Weight Mgt (Other Care) Height: 5 ft 11 in Weight:: 218 lb BMI: 30.4
[2024-03-01 07:40] VITALS: BP 100/62
[2024-03-01 07:50] VITALS: BP 100/62; BMI 30.4
== END 2024-03-09 23:59 ==
LOC: CR 08:00
PROVIDERS: PCP Family Medicine
DX: I20.9 Angina pectoris, unspecified (principal)

== ENCOUNTER 2024-03-05 08:45 | Emergency (ER) | payer OTHER, SELFPAY ==
[2024-03-01 07:50] VITALS: BMI 30.4
[2024-03-05 08:46] VITALS: BP 119/79; PULSE 82; RESP 18; TEMP 36.6; O2SAT 95
[2024-03-05 08:49] VITALS: BMI 31.5
--- NOTE | 2024-03-05 09:04 | EKG12_ITS ---
Test Reason : SYNCOPE Blood Pressure : */* mmHG Vent. Rate : 80 BPM Atrial Rate : 80 BPM P-R Int : 176 ms QRS Dur : 112 ms QT Int : 370 ms P-R-T Axes : 12 -28 14 degrees QTcB Int : 426 ms Normal sinus rhythm Incomplete right bundle branch block Borderline ECG Confirmed by RASHEL CHASE, TANMAY ([id number]), design editor KELSY WANG ([id number]) on 03/07/2024 6:19:01 AM Referred By: UG/BB Confirmed By: TANMAY KISER MD
[2024-03-05 09:39] LABS: Anion Gap 5 (5-15); BUN 17 mg/dL (7-18); BUN/Creat Ratio 13.3 RATIO (10-20); Calcium,Total 9.4 mg/dL (8.5-10.1); Chloride 107 mmol/L (98-107); Creatinine, Serum 1.28 mg/dL (0.70-1.30); EST Glomerular Filtration Rate 60 mL/min (>60); Est Glom Filt Rate - Afr Amer 73 mL/min (>60); Estimated Creatinine Clearance 72.97 ml/min; Glucose 146 mg/dL (74-106); Sodium Level 140 mmol/L (136-145)
[2024-03-05 09:55] VITALS: BP 115/78; PULSE 63; RESP 10; O2SAT 93
[2024-03-05 11:00] VITALS: BP 115/81; PULSE 63; RESP 24; O2SAT 98
--- NOTE | 2024-03-05 11:16 | EDS_ITS ---
HPI History of Present Illness Chief Complaint: Syncope Detail of Chief Complaint: Rapid response from cardiac rehab Informant: patient and other (Hospitalist, Dr. Vega) Onset/Context/Timing Onset: Today Context: Sudden Onset Timing: Intermittent Quality: Lightheadedness, change in vision, low blood pressure and syncopal episode Location: Cardiac rehab Current Severity: Gone Maximum Severity: Severe Worsened by: Patient had no symptoms other than he felt he was going to pass out Relieved by: Not applicable Associated Symptoms Associated Symptoms: Vagal like symptoms Narrative Narrative: Patient is a 63-year-old male. He has history of paroxysmal atrial fibrillation, coronary disease, stent placement due to non-STEMI. He is presently on Plavix, aspirin, atorvastatin and metoprolol. He was at cardiac rehab. He had half of a piece of toast. He has been going to rehab since January. He has had no change in routine. Apparently had syncopal episode in November and this was due to orthostatic hypotension. Patient denies headache, visual changes, speech or swallowing. He denies neck pain. [place] paresthesia, anesthesia or motor weakness upper lower extremity. He denies chest discomfort or respiratory symptoms. He denies black or maroon- colored stool. Prior similar symptoms: Yes (November 2023) Recent Illness/Hospitalization: Yes (January for non-ST elevation [place]) [facility] Medical History History of left heart catheterization Intermittent chest pain Syncope due to orthostatic hypotension Varicose veins of legs DVT (deep venous thrombosis) Home Medications ?Medication ?Instructions ?Recorded ?Last Taken ?Type krill oil 500 mg capsule 500 mg PO DAILY 12/13/23 Unknown History multivitamin 1 tab PO QAM 12/13/23 Unknown History psyllium husk 0.4 gram capsule 0.4 g PO QDAY 12/13/23 Unknown History (Daily Fiber) aspirin 81 mg tablet,delayed 81 mg PO QDAY 12/16/23 12/23/23 History release (Adult Aspirin Regimen) atorvastatin 40 mg tablet mg PO DAILY 02/24/24 Unknown History clopidogrel 75 mg tablet 75 mg PO QDAY 02/24/24 Unknown History metoprolol tartrate 25 mg tablet mg PO BID 02/24/24 Unknown History Allergy/AdvReac Type Severity Reaction Status Date / Time No Known Allergies Allergy Verified 02/24/24 08:46 Family History Father Heart disease Cancer Mother Atrial fibrillation Surgical History History of coronary artery stent placement History of oral surgery Social History Smoking Status: Never smoker alcohol intake: never substance use type: does not use caffeine: Yes ROS ROS ED Constitutional Constitutional ED: Denies chills, fever(s), subjective or sweats Eyes Eyes: Reports other Details: Vision became dark and black as he passed out ; Denies blurry vision, change in vision or diplopia Cardiovascular Cardiovascular: Denies chest pain, palpitations or racing heartbeat Respiratory/Chest Respiratory/Chest: Denies cough, dyspnea or dyspnea on exertion Gastrointestinal Gastrointestinal: Denies abdominal pain, diarrhea, melena, nausea or vomiting Genitourinary Genitourinary ED: Denies hematuria Musculoskeletal Musculoskeletal: Denies back pain or neck pain Integumentary Denies Abrasions or rash Neurologic Neurologic: Denies headache(s), paresthesias or weakness Psychiatric Psychiatric: Denies anxiety or depression Endocrine Endocrinology: Denies cold intolerance or heat intolerance EXAM Physical Exam Const Vital Signs: 03/05/24 08:46 03/05/24 08:51 03/05/24 09:55 Temperature 97.9 F Temperature Source Temporal Pulse Rate 82 63 Respiratory Rate 18 10 L Respiratory Effort Normal Blood Pressure 119/79 115/78 Blood Pressure Mean 92 90 Pulse Ox 95 93 Oxygen Delivery Method Room Air Room Air 03/05/24 11:00 Temperature Temperature Source Pulse Rate 63 Respiratory Rate 24 H Respiratory Effort Blood Pressure 115/81 H Blood Pressure Mean 92 Pulse Ox 98 Oxygen Delivery Method Positive well nourished and well developed Constitutional Narrative: BMI is 31.5. General Appearance ED: well developed; Negative for pallor HEENT Reports moist mucous membranes HEENT Narrative: Head is atraumatic normocephalic. There is no abnormality of the ears. Nares patent. No dental trauma. Eyes PERRL and EOMs intact bilaterally General Eye ED: Negative for pale conjunctiva or scleral icterus Neck no lymphadenopathy, supple and no JVD Resp normal respiratory effort and clear to auscultation bilaterally Cardio regular rate, regular rhythm, S1 normal heart sound, S2 normal heart sound and no murmurs GI normal to inspection, nondistended, normoactive bowel sounds and non-tender Palpation: soft Extremity normal to inspection Neuro oriented x3 and CN's II-XII intact bilaterally Neuro Narrative: He moves all extremities. Sensorium / Orientation: alert Psych mental status grossly normal Skin no rashes or lesions noted, no wounds and skin turgor normal General Skin Exam: elasticity normal; Negative for jaundice or pallor [facility] MDM MDM Narrative Medical decision making narrative: Patient presents with syncopal episode need to determine whether this is vasovagal or other cause. Patient was wearing a monitor during cardiac rehab. Patient had episode of no cardiac activity for 12 seconds followed by 5-second pause followed by 3-second pause prior to returning to a normal sinus rhythm. Patient's symptoms are consistent with vasovagal. EKG was obtained postevent. Blood work was obtained to assess electrolytes and specifically potassium. Troponin was not obtained since she has no cardiorespiratory symptoms. Case discussed with Dr. Monroe. He agrees this is vasovagal. Patient been instructed to drink more fluids. At the time of disposition informing that he had 4 episodes of apnea. Respiratory alarm went off. Patient states he did doze off. Patient never been assessed for sleep apnea. Will contact his primary care physician to discuss outpatient workup for sleep apnea. Lab Data Attestation: I reviewed the patient's lab results. Lab results narrative: Blood sugar slightly elevated 146. He has had elevated blood sugars on prior labs. Labs: Laboratory Results - last 24 hr 03/05/24 09:15 Sodium 140 Potassium 4.0 Chloride 107 Carbon Dioxide 28.0 Anion Gap 5 BUN 17 Creatinine 1.28 Estim Creat Clear Calc 72.97 Est GFR (MDRD) Af Amer 73 Est GFR (MDRD) Non-Af 60 BUN/Creatinine Ratio 13.3 Glucose 146 H Calcium 9.4 EKG Initial EKG: Attestation: I personally reviewed and interpreted this EKG as follows: Interpretation: Sinus Rhythm (Rate is 80. Patient has RR prime in V1 and may represent an incomplete right bundle branch block. [place] interval is under 76 ms. QRS duration 112 ms. QT duration 370 ms. There is no acute ischemic changes noted.) Management Discussion w/another healthcare provider: Sales Analytics Manager ([employer] as noted in the MDM portion of the EMR) and PCP (Paged to arrange for outpatient workup for sleep apnea) Discharge Plan Triage Chief Complaint: Syncope ED Provider: Danny Gilman Dx/Rx/DC Orders Clinical Impression: Vasovagal syncope, Abnormal ECG, Episode of apnea Instructions: ED Sleep Apnea, Obstructive, ED Fainting, Vagal Reaction Prescriptions: No Action multivitamin Tablet 1 tab PO QAM psyllium husk [Daily Fiber] 0.4 gram capsule 0.4 g PO QDAY krill oil 500 mg capsule 500 mg PO DAILY atorvastatin 40 mg tablet PO DAILY metoprolol tartrate 25 mg tablet PO BID aspirin [Adult Aspirin Regimen] 81 mg tablet,delayed release (DR/EC) 81 mg PO QDAY clopidogrel 75 mg tablet 75 mg PO QDAY Primary Care Provider: Guerrero Rao Referrals: Guerrero Rao MD [Primary Care Provider] - 3-5 Days Humberto Franco MD [Med Staff - Active Staff] - As Needed Print Language: Azeri Disposition Disposition: Home, Self Care
[2024-03-05 11:39] VITALS: BP 107/63; PULSE 66; RESP 19; TEMP 36.6; O2SAT 100
== END 2024-03-05 11:48 | disposition home or self-care (01) ==
PROVIDERS: Emergency Provider Emergency Medicine; PCP Family Medicine; Visit Provider Emergency Medicine
DX: R55 Syncope and collapse (principal); I48.0 Paroxysmal atrial fibrillation; Z79.82 Long term (current) use of aspirin; R94.31 Abnormal electrocardiogram [ECG] [EKG]; I25.10 Atherosclerotic heart disease of native coronary artery without angina pectoris; Z79.02 Long term (current) use of antithrombotics/antiplatelets; R06.81 Apnea, not elsewhere classified; Z95.5 Presence of coronary angioplasty implant and graft; Z79.899 Other long term (current) drug therapy; Z86.718 Personal history of other venous thrombosis and embolism
CPT/HCPCS: 80048; 93005; 99284; A4216

== ENCOUNTER 2024-04-06 08:00 | Outpatient (RCR) | payer OTHER, SELFPAY ==
[2024-03-01 07:50] VITALS: BMI 30.4
[2024-03-10 02:31] VITALS: BP 100/62
--- NOTE | 2024-03-29 07:48 | CR.ITP_ITS ---
Exercise - Initial Assessment Physician Prescribed Exercise Modalities: Treadmill and SciFit Stepper Nutrition - Initial Assessment Weight Mgt (Other Care) Height: 5 ft 11 in Weight:: 217 lb BMI: 30.2 Core - Initial Assessment Hypertension Resting Blood Pressure:: 108/68 [place] [employer] Hypertension Guidelines Psychosocial - Initial Assess Target Goals Target Goals Referral to Behavioral Health PS - Interventions: Yes: Attend Stress Management Classes Patient Health Questionnaire PHQ-9 Screening 60-Day Re-eval Assessment: 1. Little interest or pleasure in doing things: Not at all 2. Feeling down, depressed, or hopeless: Not at all 3. Trouble falling or staying asleep, or sleeping too much: Not at all 4. Feeling tired or having little energy: Several days 5. Poor appetite or overeating: Several days 6. Feeling bad about yourself -- or that you are a failure or have let yourself or your family down: Not at all 7. Trouble concentrating on things, such as reading the newspaper or watching television: Not at all 8. Moving or speaking so slowly that other people could have noticed. Or the opposite - being so fidgety or restless that you have been moving around a lot more than usual: Not at all 9. Thoughts that you would be better off , or of hurting yourself in some way: Not at all How difficult have these problems made it for you to do your work, take care of things at home, or get along with other people?: Not difficult at all Total Score: 2 Self-Efficacy 6-Item Scale 60-Day Re-eval Assessment: We would like to know how confident you are in doing certain activities. Please select your confidence level for: Fatigue Select Number: 8 Physical Discomfort or Pain Select Number: 8 Emotional Distress Select Number: 10 Other Symptoms or Health Problems Select Number: 8 Different Tasks and Activities Select Number: 10 Medication Select Number: 10 Total Score:: 9 Nutrition Survey Nutrition Survey Instructions Scoring Instructions Exercise - 30-day Assessment Physician Prescribed Exercise Modalities: Treadmill and SciFit Stepper Exercise - 60-day Assessment Visit Date of Eval: 03/29/24 Session #:: 18 Physician Prescribed Exercise Modalities: Treadmill and SciFit Stepper Frequency: 3x/week for 12 weeks [36 sessions] Intensity: 60-80% of age predicted maximum heart rate reserve Duration: 30 - 45 minutes Current METSs:: 5.8 Target Heart Rate:: 95-119 Current RPE:: 12-13 Maximum Excercise HR:: 107 Resting Blood Pressure: 120/60 Maximum Exercise Blood Pressure: 158/70 EKG Type: NSR to ST with rare PVC and PAC Outcomes & Goals Goals:: Verbalizes understanding of THR, RPE & goal METS by session 6, Documents in home exercise log/reports 30 min aerobic 5 day/wk by DC, Demonstrates accurate pulse taking by DC and Other additional outcome/goals: see below Intervention & Plan Exercise Program Goals: Instruct on personal THR & RPE, Instruct on MET level & personal MET goal, Show patient to take own pulse /validate performance until accurate, Instruct on home exercise and Other additional plan/int Physical Activity Home Exercise Physical Activity - Home Exercise: Safe Exercise, Warm-up, Self-monitoring, Cool-Down, Home Exercise > 30 min Daily and Sitting Time <3 hours/daily Outcomes & Goals Outcomes/Goals: Demonstrates correct Warm-up/exercise Cool-Down (S3) if = 2.5 METs, Verbalizes symptoms of exercise intolerance by Session 3 (S3), Demonstrate safe equipment use (S3) & follows exercise prescrition (6) and Other: See below Intervention & Plan Plan/Intervention: Instruct warm-up & cool-down if exercising at > 2 METs, Instruct on symptoms of exercise intolerance & actions to take, Instruct & monitor on saf, Assess intial functional capacity & safety risk and Other See below 30-day Reassessments 30 day Reassessments:: Progressing Reassessment Notes & Comments:: Slow warm up and cool down reviewed with pt due to episode of syncope in CR. Pt understands the importance. Exercise - 90-day Assessment Physician Prescribed Exercise Modalities: Treadmill and SciFit Stepper Exercise - Final/Discharge Physician Prescribed Exercise Modalities: Treadmill and SciFit Stepper Nutrition - 30-Day Assessment Weight Mgt (Other Care) Height: 5 ft 11 in Weight:: 217 lb BMI: 30.2 Nutrition - 60-Day Assessment Visit Date of Eval: 03/29/24 Session #:: 18 Cholesterol/Lipids (Other Core Measures) Determine presence & major risk factors that modify LDL goal: Hypertension or hypertensive medication, Low HDL cholesterol <40 mg/dL*, Family history of premature CHD in Male < 55 years: female <65 yearsFa and Age men > 45 years; women >/= 55 years Outcomes/Goals: Pt IDs own risk factors & lifestyle modifications by Session 10, Verbalizes symptoms of angina & response by session 3., Pt independently manages and Other Additional Outcomes/Goals: Intervention/Plan: Advocate for lipid panel cholesterol medication if applicable, Instruct on personal lipid levels & lipid goals/NCEP guidelines, Instruct on cholesterol and Other additional plan/int Diabetes (Other Core Measures) Diabetes Type: Not Applicable Weight Mgt (Other Care) Height: 5 ft 11 in Weight:: 217 lb BMI: 30.2 Diagnosis Overweight/Obesity BMI> 30% ICD-10 E66: Yes Diagnosis High BMI/Morbid Obesity BMI> 35% ICD-10 Z68: No Outcomes/Goals: Pt sets, maintains & shows weight loss goal & trend during rehab and Other additional outcomes/goals Intervention/Plan: Instruct on ideal BMI & set weight loss goal w/patient, Assist pt to ID & incorporate diet changes for weight loss by S9, Refer to Structured Weight Loss program as appropriate, Encourage goal of using 250- 300dcal per session for weight loss and Other additional plan/interventions Healthy Eating Habits Will attend diet classes:: Yes Outcomes/Goals:: Consume diet rich in vegs,fruits,whole grain/high fiber,fi sh,lean meat, Limit sat/trans fats,cholesterol & added salts & sugars and Other additional outcome/goals: Intervention/Plan:: Assess current eating habits and Other Additional plan/interventions 30-day Reassessments:: Progressing Reassessment Notes & Comments:: Pt is attending nutrition class this week. Heart healthy diet encouraged. Education Gave educational materials for:: Signs & symptoms of hypoglycemia, Signs & symptoms of hyperglycemia, Relate diabetes to coronary artery disease and Healthy eating Core - Final Assessment Hypertension Resting Blood Pressure:: 108/68 [place] [employer] Hypertension Guidelines Core - 60-Day Assessment Visit Date of Eval: 03/29/24 Session #:: 18 Medication Compliance Preventative Medication(s):: Aspirin, Clopidogrel/P2Y12 inhibit, Statin/lipid and Beta jose a H/O mental health issues: depression, anxiety, or addiction?: No Doesn?t believe in the benefits of treatment?: No Believes medications are unnecessary or harmful?: No Has a concern about medication side effects?: No Expresses concern over the cost of medications?: No Outcomes/Goals: Verbalizes medications,desired effect & common side effects @ DC, Pt self-reports following medication regimen, Keeps card in wallet w/medications listed by DC and Other additional outcome/goals: Interventions/plans: Instruct on medication effects & side effects, Review medication list w/patient every two weeks, Instruct importance of taking meds as ordered & assist problem solving and Other additional Reassessment Notes & Comments:: metoprolol tartrate decreased to 25 mg due to episode of syncope in CR. Tobacco Use Tobacco Use: Non-smoker Hypertension Resting Blood Pressure:: 120/60 Resting Blood Pressure:: 108/68 [place] [employer] Hypertension Guidelines Peak Exercise Blood Pressure:: 158/70 Outcomes/Goals: Able to verbalize/achieve optimal blood pressure <130/80, Incorporates diet changes & exercise for blood pressure control by DC and Other additional outcomes/goals Interventions/plan: Instruct on optimal blood pressure, hypertension & medications, Instruct on effects of sodium, alcohol, stress, exercise &hypertension and Other additional plan/interventions 30 day Reassessments:: Progressing Reassessment Notes & Comments:: metoprolol tartrate decreased to 25 mg due to episode of syncope in CR. Tobacco Cessation Referral Smoking Cessation Referral:: No Individual Education/Counseling:: No Psychosocial - 30-Day Assess Target Goals Target Goals Referral to Behavioral Health PS - Interventions: Yes: Attend Stress Management Classes Outcomes/Goals: See list Psychosocial Outcomes/Goals:: ID's personal stressors & 2 strategies to manage stress by discharge and Other Additional outcome/goals: Psychosocial - 60-Day Assess VIsit Date of Eval: 03/29/24 Session #:: 18 History of previous Mental disease:: No Target Goals Target Goals Psychosocial Test Tool Used:: [employer] QOL Cardiac and PHQ-9 Questionnaire phq-9 Severity Referral to Behavioral Health PS - Interventions: Yes: Attend Stress Management Classes Outcomes/Goals: See list Psychosocial Outcomes/Goals:: ID's personal stressors & 2 strategies to manage stress by discharge and Other Additional outcome/goals: Intervention/Plan: See List Interventions/Plan:: Assess stressors,coping strategies & signs of derpression on admission, Instruct/assist pt to develop coping & personal stress Mgt strategies, Refer to Behavioral Health if appropriate, Refer to Physician if appropriate, Instruct patient to recognize signs & symptoms of depression, Instruct patient to recog and Other additional plan/intervention 30-day Reassessments: 30 day Reassessments:: Met Reassessment Notes & Comments:: Pt denies any psychosocial issues at this time. Psychosocial - 90-Day Assess Target Goals Target Goals Referral to Behavioral Health PS - Interventions: Yes: Attend Stress Management Classes Psychosocial - Final Assessmen Target Goals Target Goals Referral to Behavioral Health PS - Interventions: Yes: Attend Stress Management Classes Nutrition - 90-Day Assessment Weight Mgt (Other Care) Height: 5 ft 11 in Weight:: 217 lb BMI: 30.2 Nutrition - Final Assessment Weight Mgt (Other Care) Height: 5 ft 11 in Weight:: 217 lb BMI: 30.2
[2024-03-29 08:12] VITALS: BP 120/60
[2024-03-29 08:28] VITALS: BP 108/68; BP 120/60; BMI 30.2
== END 2024-04-06 23:59 ==
LOC: CR 08:00
PROVIDERS: PCP Family Medicine
DX: Z95.5 Presence of coronary angioplasty implant and graft (principal)
CPT/HCPCS: 93798

== ENCOUNTER 2024-05-07 08:00 | Outpatient (RCR) | payer OTHER, SELFPAY ==
[2024-03-29 08:28] VITALS: BMI 30.2
[2024-04-07 02:34] VITALS: BP 100/62; BP 108/68; BP 120/60
--- NOTE | 2024-04-26 07:07 | CR.ITP_ITS ---
Exercise - Initial Assessment Physician Prescribed Exercise Modalities: Treadmill, Schwinn Airdyne AD-7 and SciFit Stepper Nutrition - Initial Assessment Weight Mgt (Other Care) Height: 5 ft 11 in Weight:: 222 lb BMI: 30.9 Psychosocial - Initial Assess Target Goals Target Goals Referral to Behavioral Health PS - Interventions: Yes: Attend Stress Management Classes Patient Health Questionnaire PHQ-9 Screening 90-Day Re-eval Assessment: 1. Little interest or pleasure in doing things: Not at all 2. Feeling down, depressed, or hopeless: Not at all 3. Trouble falling or staying asleep, or sleeping too much: Not at all 4. Feeling tired or having little energy: Several days 5. Poor appetite or overeating: Several days 6. Feeling bad about yourself -- or that you are a failure or have let yourself or your family down: Not at all 7. Trouble concentrating on things, such as reading the newspaper or watching television: Not at all 8. Moving or speaking so slowly that other people could have noticed. Or the opposite - being so fidgety or restless that you have been moving around a lot more than usual: Not at all 9. Thoughts that you would be better off , or of hurting yourself in some way: Not at all How difficult have these problems made it for you to do your work, take care of things at home, or get along with other people?: Not difficult at all Total Score: 2 Self-Efficacy 6-Item Scale 90-Day Re-eval Assessment: We would like to know how confident you are in doing certain activities. Please select your confidence level for: Fatigue Select Number: 8 Physical Discomfort or Pain Select Number: 8 Emotional Distress Select Number: 10 Other Symptoms or Health Problems Select Number: 8 Different Tasks and Activities Select Number: 10 Medication Select Number: 10 Total Score:: 9 Nutrition Survey Nutrition Survey Instructions Scoring Instructions Exercise - 30-day Assessment Physician Prescribed Exercise Modalities: Treadmill, Schwinn Airdyne AD-7 and SciFit Stepper Exercise - 60-day Assessment Physician Prescribed Exercise Modalities: Treadmill, Schwinn Airdyne AD-7 and SciFit Stepper Exercise - 90-day Assessment Visit Date of Eval: 04/26/24 Session #:: 30 Physician Prescribed Exercise Modalities: Treadmill, Schwinn Airdyne AD-7 and SciFit Stepper Frequency: 3x/week for 12 weeks [36 sessions] Intensity: 60-80% of age predicted maximum heart rate reserve Duration: 30 - 45 minutes Current METSs:: 6.6 Target Heart Rate:: 95-126 Current RPE:: 13 Maximum Excercise HR:: 97 Resting Blood Pressure: 104/70 Maximum Exercise Blood Pressure: 142/74 EKG Type: NSR with rare PVC, PAC. No Afib on monitor 04/25/24 Outcomes & Goals Goals:: Verbalizes understanding of THR, RPE & goal METS by session 6, Documents in home exercise log/reports 30 min aerobic 5 day/wk by DC, Demonstrates accurate pulse taking by DC and Other additional outcome/goals: see below Intervention & Plan Exercise Program Goals: Instruct on personal THR & RPE, Instruct on MET level & personal MET goal, Show patient to take own pulse /validate performance until accurate, Instruct on home exercise and Other additional plan/int Physical Activity Home Exercise Physical Activity - Home Exercise: Safe Exercise, Warm-up, Self-monitoring, Cool-Down, Home Exercise > 30 min Daily and Sitting Time <3 hours/daily Outcomes & Goals Outcomes/Goals: Demonstrates correct Warm-up/exercise Cool-Down (S3) if = 2.5 METs, Verbalizes symptoms of exercise intolerance by Session 3 (S3), Demonstrate safe equipment use (S3) & follows exercise prescrition (6) and Other: See below Intervention & Plan Plan/Intervention: Instruct warm-up & cool-down if exercising at > 2 METs, Instr uct on symptoms of exercise intolerance & actions to take, Instruct & monitor on saf, Assess intial functional capacity & safety risk and Other See below 30-day Reassessments 30 day Reassessments:: Met Reassessment Notes & Comments:: Pt is doing very well. No more episodes of syncope since med changes and proper hydration. Pt has 6 sessions remaining. Pt understands safe exercise. Pt understands the benefits of exercise. Will continue to monitor. Exercise - Final/Discharge Physician Prescribed Exercise Modalities: Treadmill, Schwinn Airdyne AD-7 and SciFit Stepper Nutrition - 30-Day Assessment Weight Mgt (Other Care) Height: 5 ft 11 in Weight:: 222 lb BMI: 30.9 Nutrition - 60-Day Assessment Weight Mgt (Other Care) Height: 5 ft 11 in Weight:: 222 lb BMI: 30.9 Core - 30-Day Assessment Hypertension [place] [employer] Hypertension Guidelines Reassessment Notes & Comments:: Pt's BP's are within AHA normal limits. Will continue to monitor. Core - Final Assessment Hypertension [place] [employer] Hypertension Guidelines Reassessment Notes & Comments:: Pt's BP's are within AHA normal limits. Will continue to monitor. Core - 90 Day Assessment Visit Date of Eval: 04/26/24 Session #:: 30 Medication Compliance Preventative Medication(s):: Aspirin, Clopidogrel/P2Y12 inhibit, Statin/lipid and Beta jose a H/O mental health issues: depression, anxiety, or addiction?: No Doesn?t believe in the benefits of treatment?: No Believes medications are unnecessary or harmful?: No Has a concern about medication side effects?: No Expresses concern over the cost of medications?: No Outcomes/Goals: Verbalizes medications,desired effect & common side effects @ DC, Pt self-reports following medication regimen, Keeps card in wallet w/medications listed by DC and Other additional outcome/goals: Interventions/plans: Instruct on medication effects & side effects, Review medication list w/patient every two weeks, Instruct importance of taking meds as ordered & assist problem solving and Other additional Tobacco Use Tobacco Use: Non-smoker Hypertension Resting Blood Pressure:: 104/70 [place] [employer] Hypertension Guidelines Peak Exercise Blood Pressure:: 142/74 Outcomes/Goals: Able to verbalize/achieve optimal blood pressure <130/80, Incorporates diet changes & exercise for blood pressure control by DC and Other additional outcomes/goals Interventions/plan: Instruct on optimal blood pressure, hypertension & medications, Instruct on effects of sodium, alcohol, stress, exercise &hypertension and Other additional plan/interventions 30 day Reassessments:: Met Reassessment Notes & Comments:: Pt's BP's are within AHA normal limits. Will continue to monitor. Tobacco Cessation Referral Smoking Cessation Referral:: No Individual Education/Counseling:: No Education Schedule Given:: Yes Psychosocial - 30-Day Assess Target Goals Target Goals Referral to Behavioral Health PS - Interventions: Yes: Attend Stress Management Classes Psychosocial - 60-Day Assess Target Goals Target Goals Referral to Behavioral Health PS - Interventions: Yes: Attend Stress Management Classes Psychosocial - -Day Assess VIsit Date of Eval: 04/26/24 Session #:: 30 History of previous Mental disease:: No Target Goals Target Goals Psychosocial Test Tool Used:: ev3, [employer] Power QOL Cardiac and PHQ-9 Questionnaire phq-9 Severity Referral to Behavioral Health PS - Interventions: Yes: Attend Stress Management Classes Outcomes/Goals: See list Psychosocial Outcomes/Goals:: ID's personal stressors & 2 strategies to manage stress by discharge and Other Additional outcome/goals: Intervention/Plan: See List Interventions/Plan:: Assess stressors,coping strategies & signs of derpression on admission, Instruct/assist pt to develop coping & personal stress Mgt strategies, Refer to Behavioral Health if appropriate, Refer to Physician if appropriate, Instruct patient to recognize signs & symptoms of depression, Instruct patient to recog and Other additional plan/intervention 30-day Reassessments: 30 day Reassessments:: Met Reassessment Notes & Comments:: Pt denies any psychosocial issues at this time. Will continue to monitor. Psychosocial - Final Assessmen Target Goals Target Goals Referral to Behavioral Health PS - Interventions: Yes: Attend Stress Management Classes Nutrition - 90-Day Assessment Program Goals Nutrition Program Goals Patient has diagnosis of Hyperlipidemia (ICD E78)?: No Visit Date of Eval: 04/26/24 Session #:: 30 Cholesterol/Lipids (Other Core Measures) Determine presence & major risk factors that modify LDL goal: Hypertension or hypertensive medication, Low HDL cholesterol <40 mg/dL*, Family history of premature CHD in Male < 55 years: female <65 yearsFa and Age men > 45 years; women >/= 55 years Outcomes/Goals: Pt IDs own risk factors & lifestyle modifications by Session 10, Verbalizes symptoms of angina & response by session 3., Pt independently manages and Other Additional Outcomes/Goals: Intervention/Plan: Advocate for lipid panel cholesterol medication if applicable, Instruct on personal lipid levels & lipid goals/NCEP guidelines, Instruct on cholesterol and Other additional plan/int Diabetes (Other Core Measures) Diabetes Type: Not Applicable Weight Mgt (Other Care) Height: 5 ft 11 in Weight:: 222 lb BMI: 30.9 Diagnosis Overweight/Obesity BMI> 30% ICD-10 E66: Yes Diagnosis High BMI/Morbid Obesity BMI> 35% ICD-10 Z68: No Outcomes/Goals: Pt sets, maintains & shows weight loss goal & trend during rehab and Other additional outcomes/goals Intervention/Plan: Instruct on ideal BMI & set weight loss goal w/patient, Assist pt to ID & incorporate diet changes for weight loss by S9, Refer to Structured Weight Loss program as appropriate, Encourage goal of using 250- 300dcal per session for weight loss and Other additional plan/interventions Healthy Eating Habits Outcomes/Goals:: Consume diet rich in vegs,fruits,whole grain/high fiber,fish,lean meat, Limit sat/trans fats,cholesterol & added salts & sugars and Other additional outcome/goals: Intervention/Plan:: Assess current eating habits and Other Additional plan/interventions 30-day Reassessments:: Progressing Reassessment Notes & Comments:: Pt with recent weight gain. Will reweigh in 2 days and report to physician if necessary. Pt states increased food intake due to family being back in town. Will continue to monitor. Education Gave educational materials for:: Signs & symptoms of hypoglycemia, Signs & symptoms of hyperglycemia, Relate diabetes to coronary artery disease and Healthy eating Nutrition - Final Assessment Weight Mgt (Other Care) Height: 5 ft 11 in Weight:: 222 lb BMI: 30.9
[2024-04-26 07:19] VITALS: BP 104/70; BMI 30.9
== END 2024-05-07 23:59 ==
LOC: CR 08:00
PROVIDERS: PCP Family Medicine
DX: Z95.5 Presence of coronary angioplasty implant and graft (principal)
CPT/HCPCS: 93798

== ENCOUNTER 2024-05-09 06:58 | Outpatient (RCR) | payer OTHER, SELFPAY ==
[2024-04-26 07:19] VITALS: BMI 30.9
[2024-05-08 00:56] VITALS: BP 100/62; BP 104/70; BP 108/68; BP 120/60
== END 2024-06-06 23:59 ==
LOC: CR 06:58
PROVIDERS: PCP Family Medicine
DX: Z95.5 Presence of coronary angioplasty implant and graft (principal)
CPT/HCPCS: 93798

== ENCOUNTER 2024-06-05 08:00 | Outpatient (RCR) | payer SELFPAY ==
[2024-04-26 07:19] VITALS: BMI 30.9
== END 2024-06-06 23:59 ==
LOC: CR 08:00
PROVIDERS: PCP Family Medicine; Referring Provider Internal Medicine Cardiovascular Disease; Visit Provider Internal Medicine Cardiovascular Disease
DX: Z00.00 Encounter for general adult medical examination without abnormal findings (principal)

== ENCOUNTER 2024-06-21 08:00 | Outpatient (RCR) | payer SELFPAY ==
[2024-04-26 07:19] VITALS: BMI 30.9
== END 2024-07-07 23:59 ==
LOC: CR 08:00
PROVIDERS: PCP Family Medicine; Referring Provider Internal Medicine Cardiovascular Disease; Visit Provider Internal Medicine Cardiovascular Disease
DX: Z00.00 Encounter for general adult medical examination without abnormal findings (principal)

== ENCOUNTER → 2024-07-06 | Outpatient (CLI) | payer OTHER, SELFPAY ==
[2024-04-26 07:19] VITALS: BMI 30.9
[2024-07-06 09:18] LABS: Mucous, Urine 0 SEEN /hpf (<or=2+); Red Blood Cells-Urine 0 SEEN /hpf (0-5); Squamous Epithelial Cells - UA 0 SEEN /hpf (0-5); White Blood Cells 0 SEEN /hpf (0-5)
[2024-07-06 10:59] LABS: Color, Urine Yellow (Yellow); Glucose, Dipstick Normal (Normal); Ketone-Dipstick Negative (Negative); Leukocyte Esterase-Dipstick Negative /ul (Negative); Nitrite-Dipstick Negative (Negative); Occult Blood-Urine Negative /ul (Negative); Protein-Dipstick 15 mg/dl (Negative); Urine Bilirubin Dipstick Negative (Negative); Urine Clarity Clear (Clear); Urine Urobilinogen Normal (Normal)
[2024-07-06 11:07] LABS: Absolute Lymphocyte Count 0.77 X10^3/uL (0.83-4.51); Absolute Neutrophil Count 2.2 X10^3/uL (2.0-7.7); Basophil# 0.02 X10^3/uL; Basophil% 0.6 % (0-1); Eosinophil# 0.05 X10^3/uL; Eosinophils% 1.5 % (0-5); Hematocrit 40.5 % (40-54); Hemoglobin 13.5 g/dL (13.0-16.5); Lymphocyte # 0.77 X10^3/ul (0.83-4.51); Lymphocyte % 22.7 % (19-41); Mean Corp Hgb Conc 33.3 g/dL (32-36); Mean Corpuscular Volume 93.1 fL (80-94); Mean Platelet Vol. 9.7 fl (6.2-12.0); Monocyte# 0.33 X10^3/uL; Monocyte% 9.7 % (0-10); NRBC Flagged by Analyzer 0 % (0-5); Neutrophil # 2.21 X10^3/uL (2.7-7.7); Neutrophil % 65.2 % (47-70); Platelet Count 136 K/mm3 (150-450); RBC Distribution Width SD 44.3 fl (35.1-43.9); Red Blood Count 4.35 M/mm3 (4.6-6.2); White Blood Count 3.4 K/mm3 (4.4-11.0)
[2024-07-06 11:20] LABS: Erythrocyte Sedimentation Rate < 1 mm/hr (0-20)
[2024-07-06 12:03] LABS: Bacteria RARE /hpf (None Seen)
[2024-07-06 12:07] LABS: ALB/GLOB Ratio 1.9 RATIO (0.9-2.4); AST(SGOT) 25 U/L (<=37); Alanine Aminotransfer ALT/SGPT 25 U/L (<=46); Albumin, Serum 4.1 g/dL (3.4-4.8); Alkaline Phosphatase 59 U/L (40-129); Anion Gap 10 (5-15); BUN 21 mg/dL (4-19); BUN/Creat Ratio 17.3 RATIO (10-20); Calcium,Total 9.6 mg/dL (7.6-11.0); Carbon Dioxide 24.7 mmol/L (21.0-32.0); Chloride 104 mmol/L (98-108); Cholesterol 120 mg/dL (<=200); Creatinine, Serum 1.24 mg/dL (0.70-1.20); EST Glomerular Filtration Rate 66 (>60); Globulin 2.2 g/dL (2.2-4.2); Glucose 118 mg/dL (70-99); High Density Lipoprotein 38 mg/dL; Low Density Lipoprotein Calc. 65 mg/dL; Magnesium 2.2 mg/dL (1.5-2.2); PSA,Total - Annual Screen 2.82 ng/mL (0.02-4.00); Potassium 4.9 mmol/L (3.3-5.1); Protein, Total 6.3 g/dL (5.9-8.4); Sodium Level 139 mmol/L (133-145); Total Bilirubin 0.44 mg/dL (0.00-1.30); Triglycerides 85 mg/dL; Very Low Density Lipoprotein 17 mg/dL (5-40); cholesterol:hdl ratio screen 3.14
== END | disposition home or self-care (01) ==
LOC: MFPLAB 09:12
PROVIDERS: PCP Family Medicine; Visit Provider Family Medicine
DX: Z13.220 Encounter for screening for lipoid disorders (principal); R55 Syncope and collapse; Z12.5 Encounter for screening for malignant neoplasm of prostate; R10.11 Right upper quadrant pain
CPT/HCPCS: 36415; 80053; 80061; 81001; 83735; 84153; 84443; 85025; 85652; G0103

== ENCOUNTER → 2024-07-13 | Outpatient (CLI) | payer OTHER, SELFPAY ==
[2024-04-26 07:19] VITALS: BMI 30.9
--- OUTSIDE RECORDS SUMMARY | 2024-07-13 07:44 | XMS RPT_ITS | CCD ---
Author Organization [facility] Care Team Providers Care Razor Sharpener Name Role Phone Bonita Rao MD Primary Care Provider NOMAN BARAJAS Admitting Unavailable BONITA RAO Primary Care Unavailabl e MARIELA PENA Attending Unavailable NOMAN BARAJAS Consulting Unavailable Bonita Rao MD Primary Care Provider Dr. Bonita Rao MD Primary Care Provider NOMAN BARAJAS Attending Provider [phone] NOMAN BARAJAS Referring Provider [phone] Bonita Rao MD Referring Provider [phone] Salvador CHASE, Dr. Paul Attending Provider Mukul CHASE, Dr. Delgado Attending Provider Mukul CHASE, Dr. Delgado Emergency Provider Salvador CHASE, Dr. Paul Referring Provider MERVAT HOFFMANN Referring Unavailable BONITA RAO Primary Care Unavailabl e MERVAT HOFFMANN Referring Unavailable BONITA RAO Primary Care Unavailabl e BONITA RAO Primary Care Unavailabl e BONITA RAO Primary Care Unavailabl e BONITA RAO Primary Care Unavailabl e BONITA RAO Primary Care Unavailabl e MADELIN SCHAFER Referring Unavailable BONITA RAO Primary Care Unavailabl e CONNIE TAYLOR Attending Unavailable BONITA RAO Referring Unavailabl e BONITA RAO Primary Care Unavailabl CONNIE Perea Referring Unavailable BONITA RAO Primary Care Unavailabl e MERVAT HOFFMANN Attending Unavailable MERVAT HOFFMANN Referring Unavailable RANNEY, CHRISTOPHER B Primary Care UnavailCONNIE Mchugh Attending Unavailable CONNIE TAYLOR Referring Unavailable RANNEY, CHRISTOPHER B Primary Care Unavailjoselito Rao MD, Dr. Masters Primary Care Provider NOMAN BARAJAS Attending Provider NOMAN BARAJAS Referring Provider [phone] Salvador CHASE, Dr. Paul Attending Provider Maira CHASE, Dr. Masters Attending Provider [phone] Navidney, Christopher Primary Care Unavailable KATHYA, ONE Attending Unavailable KATHAY, NOE Referring Unavailable Ranney, Christopher Primary Care Unavailable Danny Gilman Attending Unavailable Humberto Franco Referring Unavailable Salvador, Humberto Attending Unavailable Ranney, Christopher Primary Care Unavailable Fer, London Referring Unavailable Fer, London Attending Unavailable Ranney, Christopher Primary Care Unavailable Ranney, Christopher Primary Care Unavailable KATHYA, NOE Attending Unavailable KATHYA, NOE Referring Unavailable Ranney, Christopher Primary Care Unavailable Prieto Goddard Attending Unavailable Humberto Franco Attending Unavailable Salvador, Humberto Referring Unavailable Ranney, Christopher Primary Care Unavailable Salvador, Humberto Attending Unavailable Humberto Franco Referring Unavailable Ranney, Christopher Primary Care Unavailable Ranney, Christopher Primary Care Unavailable Ranney, Christopher Referring Unavailable Humberto Franco Attending Unavailable Ranney, Christopher Referring Unavailable Salvador, Humberto Attending Unavailable Ranney, Christopher Primary Care Unavailable Ranney, Christopher Referring Unavailable Ainsley Espinosa Attending Unavailable Ranney, Christopher Consulting Unavailable Ranney, Christopher Primary Care Unavailable Fer, London Attending Unavailable Ranney, Christopher Primary Care Unavailable Salvador, Humberto Attending Unavailable Salvador, Humberto Referring Unavailable Ranney, Christopher Primary Care Unavailable Ranney, Christopher Primary Care Unavailable Humberto Franco Attending Unavailable Salvador, Humberto Referring Unavailable Ranney, Christopher Primary Care Unavailable KATHYA, NOE Attending Unavailable KATHYA, NOE Referring Unavailable Ranney, Christopher Referring Unavailable Ranney, Christopher Attending Unavailable Ranney, Christopher Primary Care Unavailable Ranney, Christopher Attending Unavailable Ranney, Christopher Primary Care Unavailable Ranney, Christopher Primary Care Unavailable KATHYANOE Attending Unavailable KATHYA, NOE Referring Unavailable Bonita Rao Referring Unavailable Bonita Rao Attending Unavailable Navidspencer, [facility] Unavailable Randanica, [facility] Unavailable KATHYA, NOE Referring Unavailable KATHYA, NOE Attending Unavailable Salvador, Humberto Attending Unavailable Humberto Franco Referring Unavailable Maira, [facility] Unavailable Randanica, [facility] Unavailable KATHYA, NOE Attending Unavailable KATHYA, NOE Referring Unavailable Maira, [facility] Unavailable KATHYA, NOE Attending Unavailable KATHYA, NOE Referring Unavailable Medications Current Medications Medication Drug Class(es) Dates Sig (Normalized) Sig (Original) amoxicillin 875 mg oral tablet (1 source) Penicillin-class Antibacterial Start: 05-11-2021 End: 05-18-2021 take 1 tablet by mouth twice daily amoxicillin (AMOXIL) 875 mg tablet Take 1 tablet by mouth twice daily for 7 days. 14 tablet 0 05/11/2021 05/18/2021 Active Comment on above: Take 1 tablet by kaylan th twice daily for 7 days. aspirin 81 mg delayed release oral tablet (19 sources) Platelet Aggregation Inhibitor, Nonsteroidal Anti-inflammatory Drug Start: 12-16-2023 take 1 tablet by mouth once daily Aspirin (Adult Aspirin Regimen) 81 mg tablet,delayed release (DR/EC) Active 81 mg PO daily December 16, 2023 1:00am take 81 mg by mouth once daily a spirin (ASPIR-81 ORAL) Take 81 mg by mouth once daily. Active atorvastatin 40 mg oral tablet (20 sources) HMG-CoA Reductase Inhibitor Start: 04-20-2024 take 2 tablets by mouth once daily Atorvastatin 40 mg tablet Active 80 mg PO DAILY April 20, 2024 1:27pm Start: 04-11-2024 End: 04-11-2025 take 1 tablet by mouth once daily atorvastatin (LIPITOR) 80 mg tablet Take 1 tablet by mouth once daily. 90 tablet 3 04/11/2024 04/11/2025 Active Start: 01-02-2024 End: 04-03-2025 take 1 mg by mouth once daily Atorvastatin 40 mg table t Discontinued mg PO DAILY February 24, 2024 1:00am April 20, 2024 1:28pm clopidogrel 75 mg oral tablet (19 sources) [id number] Platelet Inhibitor Start: 01-02-2024 End: 06-30-2024 take 1 tablet by mouth once daily Clopidogrel 75 mg tablet Active 75 mg PO daily February 24, 2024 1:00am krill oil 500 mg oral capsule (19 sources) Start: 12-13-2023 take 1 capsule by mouth once daily Krill Oil 500 mg capsule Active 500 mg PO DAILY December 13, 2023 1:00am metoprolol tartrate 50 mg oral tablet (20 sources) beta-Adrenergic Jose A Start: 04-20-2024 take 1 tablet by mouth twice daily Metoprolol Tartrate 50 mg tablet Active 50 mg PO TWICE A DAY 180 April 20, 2024 1:27pm Start: 04-03-2024 metoprolol tar trate, short acting, (LOPRESSOR) 25 mg tablet Indications: Coronary artery disease involving [place] coronary artery of [place] heart without angina pectoris , PAF (paroxysmal atrial fibrillation) (HCC) 50 in the am, then 25 mg in the pm 04/03/2024 Active Start: 03-12-2024 End: 03-12-2024 take 2 tablets by mouth twice daily Metoprolol Tartrate 25 mg tablet Discontinued 50 mg PO TWICE A DAY March 12, 2024 11:12am March 12, 2024 11:14am Start: 02-27-2024 End: 04-03-2024 take 2 tablets by mouth every twelve hours metoprolol tartrate, short acting, (LOPRESSOR) 25 mg tablet Indications: Coronary artery disease involving [place] coronary artery of [place] heart without angina pectoris , PAF (paroxysmal atrial fibrillation) (HCC) Take 2 tablets by mouth every 12 hours. 02/27/2024 04/03/2024 Discontinued (Adjust Sig - Block E-Cancel) Start: 02-24-2024 End: 04-20-2024 take 1 tablet by mouth in the evening Metoprolol Tartrate 25 mg tablet Discontinued 25 mg PO .COMPLEX March 30, 2024 10:00am April 20, 2024 1:28pm 25 mg orally 2 tablets (50 mg) in am and 1 tablets in pm; Start: 01-14-2024 End: 02-10-2024 take 1 tablet by mouth every twelve hours metoprolol tartrate, short acting, (LOPRESSOR) 25 mg tablet Indications: Coronary artery disease involving [place] coronary artery of [place] heart without angina pectoris , PAF (paroxysmal atrial fibrillation) ([facility]) Take 1 tablet by mouth every 12 hours. 180 tablet 3 02/10/2024 Active MULTIVITAMIN ORAL (12 sources) MULTIVITAMIN ORA L Take by mouth. Active multivitamin tablet (2 sources) Start: 12-13-19 take 1 tablet by mouth once daily multivitamin tablet Take 1 tablet by mouth once daily. 12/13/2023 Active Multivitamin tablet (2 sources) Start: 12-13-19 Multivitamin tablet Active 1 {tbl} PO EVERY MORNING December 13, 2023 1:00am nitroglycerin 0.4 mg sublingual tablet (15 sources) Nitrate Vasodilator Start: 01-14-20 nitroglycerin sublingual (NITROQUICK) 0.4 mg SL tablet Dissolve 1 tablet under the tongue as needed for chest pain. 25 tablet 2 01/14/2024 Active predniSONE 20 mg oral tablet (6 sources) Start: 08-09-19 End: 08-13-19 take 2 tablets by mouth once daily at mealtime predniSONE (DELTASONE) 20 mg tablet Take 2 tablets by mouth once daily for 4 days. Take daily with food. 8 tablet 0 08/09/2023 08/13/2023 Active Start: 07-12-2023 End: 08-09-2023 predniSONE (DELTASONE) 10 mg tablet Take 4 tabs daily for 3 days, then 2 tabs daily for 3 days, then 1 tab daily for 3 days with food. 21 tablet 07/12/2023 08/09/2023 Discontinued (Course of therapy completed) Start: 07-28-2021 End: 08-06-2021 predniSONE (DELTASONE) 10 mg tablet Take 4 tabs daily for 3 days, then 2 tabs daily for 3 days, then 1 tab daily for 3 days with food. 21 tablet 0 07/28/2021 08/06/2021 Active Comment on above: Take 4 tabs daily fo r 3 days, then 2 tabs daily for 3 days, then 1 tab daily for 3 days with food. psyllium 400 mg oral capsule (19 sources) Start: 12-13-2023 Psyllium Husk (Daily Fiber) 0.4 gram capsule Active 0.4 g PO daily December 13, 2023 1:00am Completed/Discontinued Medications Medication Drug Class(es) Dates Sig (Normalized) Sig (Original) [id number] actuat albuterol 0.09 mg/actuat metered dose inhaler (7 sources) beta2-Adrenergic Agonist Start: 09-11-2015 End: 06-04-2023 take 2 puff(s) by inhalation every four hours as needed for wheezing albuterol HFA (VENTOLIN HFA) 90 mcg/actuation inhaler Inhale 2 Puffs as instructed every 4 hours as needed for Wheezing/Shortness of Breath. 1 Inhaler 0 09/11/2015 06/04/2023 Discontinued Comment on above: Inhale 2 Puffs as in structed every 4 hours as needed for Wheezing/Shortness of Breath. apixaban 5 mg oral tablet (3 sources) Factor Xa Inhibitor Start: 09-18-2016 End: 11-24-2023 take 2 tablets by mouth once daily Apixaban (Eliquis) 5 MG tablet Discontinued 10 mg PO TWICE A DAY September 18, 2016 12:00am November 24, 2023 12:38pm need to see PCP for further meds after first week of treatment benzonatate 100 mg oral capsule (10 sources) Non-narcotic Antitussive Start: 08-09-2023 End: 01-02-2024 take 1 capsule by mouth every eight hours as needed benzonatate (TESSALON PERLE) 100 mg capsule Take 1 capsule by mouth three times a day as needed. 21 capsule 08/09/2023 01/02/2024 Discontinued Start: 12-28-2017 End: 06-04-2023 take 2 capsules by mouth every eight hours as needed benzonatate (TESSALON PERLE) 100 mg capsule Take 2 capsules by mouth three times daily as needed. 30 capsule 0 12/23/2020 06/04/2023 Discontinued Comment on above: Take 2 capsules by m outh three times daily as needed. brompheniramine maleate 0.4 mg/ml / dextromethorphan hydrobromide 2 mg/ml / pseudoephedrine hydrochloride 6 mg/ml oral solution (1 source) alpha-Adrenergic Agonist, Uncompetitive E-empvan-R-aspartate Receptor Antagonist, Sigma-1 Agonist Start: 018 End: take 5-10 mL by mouth every six hours as needed Brompheniramine-Pse udoeph-DM (BROMFED DM) 2-30-10 mg/5 mL syrup Take 5-10 ml po q6h prn 150 mL 12/20/2017 12/23/2020 Discontinued famotidine 20 mg oral tablet (6 sources) Histamine-2 Receptor Antagonist Start: End: take 1 tablet by mouth every twenty-four hours as needed famotidine (PEPCID) 20 mg tablet Take 1 tablet by mouth at bedtime as needed. 14 tablet 07/12/2023 01/02/2024 Discontinued fluticasone propionate 0.05 mg/actuat metered dose nasal spray (7 sources) Corticosteroid Start: End: take 2 spray(s) by mouth once daily fluticasone (FLONASE) 50 mcg/actuation nasal spray Indications: ETD (Eustachian tube dysfunction), bilateral Use 2 Sprays in each nostril once daily. Rinse mouth after use. 1 Bottle 1 02/01/2019 06/04/2023 Discontinued Comment on above: Use 2 Sprays in each nostril once daily. Rinse mouth after use. sildenafil 50 mg oral tablet (4 sources) Phosphodiesterase 5 Inhibitor Start: End: Sildenafil 50 mg tablet Discontinued 50 mg PO daily as needed for erectile dysfunction December 01, 2023 12:00am February 24, 2024 9:47am administer 30 minutes to 4 hours before activity triamcinolone acetonide 1 mg/ml topical cream (7 sources) Corticosteroid Start: 017 End: triamcinolone acetonide (KENALOG) 0.1 % cream Indications: Poison sandra dermatitis Apply 1 application to affected area three times daily. Apply sparingly to area for rash/itching. 30 g 08/14/2016 06/04/2023 Discontinued Comment on above: Apply 1 application to affected area three times daily. Apply sparingly to area for rash/itching. Problems Active Problems Problem Classification Problem Date Documented Da te Episodic/Chronic Allergic reactions (1 source) Contact dermatitis due to plants; Translations: [Unspecified contact dermatitis due to plants, except food] 07-12-2023 Episodic Cardiac dysrhythmias (20 sources) Paroxysmal atrial fibrillation; Translations: [Paroxysmal atrial fibrillation] Onset: 01-02-2024 01-02-2024 Chronic Coronary atherosclerosis and other heart disease (20 sources) Coronary arteriosclerosis; Translations: [Atherosclerotic heart disease of [place] coronary artery without angina pectoris] Onset: 01-02-2024 01-02-2024 Chronic Disorders of lipid metabolism (20 sources) Pure hypercholesterolemia ; Translations: [Pure hypercholesterolemia , unspecified] Onset: 01-02-2024 01-02-2024 Chronic Fluid and electrolyte disorders (2 sources) Dehydration; Translations: [Dehydration] 12-02-2023 Episodic Immunizations and screening for infectious disease (1 source) Suspected disease caused by 2019-nCoV; Translations: [Suspected COVID-19 virus infection] Episodic Influenza (1 source) Influenza due to Influenza A virus; Translations: [Influenza due to other identified influenza virus with other respiratory manifestations] 08-09-2023 Episodic Other circulatory disease (2 sources) Syncope due to orthostatic hypotension; Translations: [Orthostatic hypotension] 12-13-2023 Episodic Other ear and sense organ disorders (1 source) Impacted cerumen in left ear; Translations: [Impacted cerumen, left ear] 06-04-2023 Episodic Other lower respiratory disease (2 sources) Cough; Translations: [Acute cough] 08-09-2023 Episodic Other lower respiratory disease (1 source) Persistent cough; Translations: [Persistent cough for 3 weeks or longer] 12-23-2020 Episodic Other lower respiratory disease (2 sources) Apnea; Translations: [Apnea, not elsewhere classified] 03-13-2024 Episodic Other screening for suspected conditions (not mental disorders or infectious disease) (7 sources) Abnormal result of other cardiovascular function study; Translations: [Cardiovascular stress test abnormal] Onset: 01-13-2024 12-16-2023 Episodic Other skin disorders (1 source) Eruption; Translations: [Rash and other nonspecific skin eruption] Episodic Other upper respiratory infections (2 sources) Viral upper respiratory tract infection; Translations: [Acute upper respiratory infection, unspecified] Episodic Otitis media and related conditions (1 source) Acute suppurative otitis media without spontaneous rupture of ear drum; Translations: [Acute suppurative otitis media without spontaneous rupture of ear drum, left ear] Episodic Unclassified (1 source) Acute cough; Translations: [Acute cough] Onset: 08-09-2023 Past or Other Problems Problem Classification Problem Date Documented Da te Episodic/Chronic Conditions associated with dizziness or vertigo (1 source) Dizziness and giddiness; Translations: [Dizziness and giddiness] Onset: 12-17-2023 Episodic Coronary atherosclerosis and other heart disease (3 sources) Stented coronary artery; Translations: [Presence of coronary angioplasty implant and graft] Onset: 03-07-2024 04-03-2024 Episodic Nonspecific chest pain (3 sources) Chest pain; Translations: [Chest pain, unspecified] Onset: 02-24-2024 12-13-2023 Episodic Other circulatory disease (1 source) Orthostatic hypotension; Translations: [Orthostatic hypotension] Onset: 02-24-2024 Episodic Other lower respiratory disease (1 source) Apnea, not elsewhere classified; Translations: [Apnea, not elsewhere classified] Onset: 03-07-2024 Episodic Syncope (20 sources) Vasovagal syncope; Translations: [Syncope and collapse] Onset: 01-02-2024 01-02-2024 Episodic Results Test Name Value Interpretation Reference Range Facility Absolute lymphocyte countOrd ered By: Bonita Rao on 07-06-2024 Lymphocytes Auto (Unsp spec) [#/Vol] 0.77 10*3/uL Low 0.83-4.51 [facility] Absolute neutrophil countOrd ered By: Bonita Rao on 07-06-2024 Neutrophils (Bld) [#/Vol] 2.2 10*3/uL 2.0-7.7 [facility] Anion gap in Serum or Plasma Ordered By: Bonita Rao on 07-06-2024 Anion gap [Moles/Vol] 10 mmol/L 5- [facility] Automated lymphocyte count a s percentage of total leukocytesOrdered By: Bonita Rao on 07-06-2024 Lymphocytes/100 WBC Auto (Unsp spec) 22.7 % - [facility] BUN/creatinine ratioOrdered By: Bonita Rao on 07-06-2024 Urea nitrogen/Creatinine [Mass ratio] 17.3 mg/mg 10-20 [facility] Basophil percentageOrdered B y: Bonita Rao on 07-06-2024 Basophils/100 WBC (Bld) 0.6 % 0-1 [facility] Bilirubin Test strip Ql (U)O rdered By: Bonita Rao on 07-06-2024 Bilirubin Ql (U) Negative Negative [facility] Bilirubin, totalOrdered By: Bonita Rao on 07-06-2024 Bilirubin [Mass/Vol] 0.44 mg/dL 0.00-1.30 [facility] CBC W/Diff, Automatedon 06-09 0 Absolute Lymph 0.77 X10 3/uL Low 0.83-4.51 [facility] Comment on above: Order Comment: Order Date: 07/06/24 Order Info: [id number] - CBCD Order Info: [id number] - SED Performed By: #### L 101.9900, L100.0100, L400.0001, L500.4050 #### [facility] [address] [place], [address] Absolute Neut 2.2 X10 3/uL Normal 2.0-7.7 [facility] Comment on above: Order Comment: Order Date: 07/06/24 Order Info: [id number] - CBCD Order Info: [id number] - SED Performed By: #### L 101.9900, L100.0100, L400.0001, L500.4050 #### [facility] [address] [place], [address] Basophils/100 WBC (Bld) 0.6 % Normal 0-1 [facility] Comment on above: Order Comment: Order Date: 07/06/24 Order Info: [id number] - CBCD Order Info: [id number] - SED Performed By: #### L 101.9900, L100.0100, L400.0001, L500.4050 #### [facility] [address] [place], [address] Eosinophils/100 WBC (Bld) 1.5 % Normal 0-5 [facility] Comment on above: Order Comment: Order Date: 07/06/24 Order Info: [id number] - CBCD Order Info: [id number] - SED Performed By: #### L 101.9900, L100.0100, L400.0001, L500.4050 #### [facility] [address] [place], [address] Erythrocyte distribution width (RBC) [Ratio] 13.0 % Normal 11.6-14.6 [facility] Comment on above: Order Comment: Order Date: 07/06/24 Order Info: [id number] - CBCD Order Info: [id number] - SED Performed By: #### L 101.9900, L100.0100, L400.0001, [id number] #### [facility] [address] [place], [address] Hematocrit (Bld) [Volume fraction] 40.5 % Normal 40-54 [facility] Comment on above: Order Comment: Order Date: 07/06/24 Order Info: [id number] - CBCD Order Info: [id number] - SED Performed By: #### L 101.9900, L100.0100, L400.0001, [id number] #### [facility] [address] [place], [address] Hemoglobin (Bld) [Mass/Vol] 13.5 g/dL Normal 13.0-16.5 [facility] Comment on above: Order Comment: Order Date: 07/06/24 Order Info: [id number] - CBCD Order Info: [id number] - SED Performed By: #### L 101.9900, L100.0100, L400.0001, L500.4050 #### [facility] [address] [place], [address] IG% 0.300 Normal 0.0-0.9 [facility] Comment on above: Order Comment: Order Date: 07/06/24 Order Info: [id number] - CBCD Order Info: [id number] - SED Result Comment: IG% - Immature Granulocytes (promyelocytes, myelocytes and metamyelocytes) > 1% indicates that a LEFT SHIFT is Present. Performed By: #### L 101.9900, L100.0100, L400.0001, L500.4050 #### [facility] [address] [place], [address] Lymphocytes/100 WBC (Bld) 22.7 % Normal 19-41 [facility] Comment on above: Order Comment: Order Date: 07/06/24 Order Info: [id number] - CBCD Order Info: [id number] - SED Performed By: #### L 101.9900, L100.0100, L400.0001, [id number] #### [facility] [address] [place], [address] MCH (RBC) [Entitic mass] 31.0 pg Normal 27.0-32.0 [facility] Comment on above: Order Comment: Order Date: 07/06/24 Order Info: [id number] - CBCD Order Info: [id number] - SED Performed By: #### L 101.9900, L100.0100, L400.0001, [id number] #### [facility] [address] [place], [address] MCHC (RBC) [Mass/Vol] 33.3 g/dL Normal 32-36 [facility] Comment on above: Order Comment: Order Date: 07/06/24 Order Info: [id number] - CBCD Order Info: [id number] - SED Performed By: #### L 101.9900, L100.0100, L400.0001, [id number] #### [facility] [address] [place], [address] MCV (RBC) [Entitic vol] 93.1 fL Normal 80-94 [facility] Comment on above: Order Comment: Order Date: 07/06/24 Order Info: [id number] - CBCD Order Info: [id number] - SED Performed By: #### L 101.9900, L100.0100, L400.0001, L500.4050 #### [facility] [address] [place], [address] Monocytes/100 WBC (Bld) 9.7 % Normal 0-10 [facility] Comment on above: Order Comment: Order Date: 07/06/24 Order Info: [id number]- - CBCD Order Info: [id number] - SED Performed By: #### L 101.9900, L100.0100, L400.0001, [id number] #### [facility] [address] [place], [address] Neutrophils/100 WBC (Bld) 65.2 % Normal 47-70 [facility] Comment on above: Order Comment: Order Date: 07/06/24 Order Info: [id number] - CBCD Order Info: [id number] - SED Performed By: #### L 101.9900, L100.0100, L400.0001, [id number] #### [facility] [address] [place], [address] Nucleated RBC (Bld) [#/Vol] 0 10*3/uL Normal 0-5 [facility] Comment on above: Order Comment: Order Date: 07/06/24 Order Info: [id number] - CBCD Order Info: [id number] - SED Performed By: #### L 101.9900, L100.0100, L400.0001, [id number] #### [facility] [address] [place], [address] Platelet mean volume (Bld) [Entitic vol] 9.7 fL Normal 6.2-12.0 [facility] Comment on above: Order Comment: Order Date: 07/06/24 Order Info: [id number] - CBCD Order Info: [id number] - SED Performed By: #### L 101.9900, L100.0100, L400.0001, L500.4050 #### [facility] [address] [place], [address] Platelets (Bld) [#/Vol] 136 10*3/uL Low 150-450 [facility] Comment on above: Order Comment: Order Date: 07/06/24 Order Info: [id number] - CBCD Order Info: [id number] - SED Performed By: #### L 101.9900, L100.0100, L400.0001, [id number] #### [facility] [address] [place], [address] RBC (Bld) [#/Vol] 4.35 10*6/uL Low 4.6-6.2 [facility] Comment on above: Order Comment: Order Date: 07/06/24 Order Info: [id number]- - CBCD Order Info: [id number] - SED Performed By: #### L 101.9900, L100.0100, L400.0001, [id number] #### [facility] [address] [place], [address] RDW SD 44.3 fl High 35.1-43.9 [facility] Comment on above: Order Comment: Order Date: 07/06/24 Order Info: 0184- - CBCD Order Info: [id number] - SED Performed By: #### L 101.9900, L100.0100, L400.0001, L500.4050 #### [facility] [address] [place], [address] WBC (Bld) [#/Vol] 3.4 10*3/uL Low 4.4-11.0 [facility] Comment on above: Order Comment: Order Date: 07/06/24 Order Info: [id number] - CBCD Order Info: [id number] - SED Performed By: #### L 101.9900, L100.0100, L400.0001, L500.4050 #### [facility] [address] [place], [address] Calculated very low density lipoprotein (VLDL) cholesterol measurementOrdered By: Bonita Rao on 07-06-2024 Calculated very low density lipoprotein (VLDL) cholesterol measurement 17 mg/dL 5-40 [facility] Carbon dioxide, total [Moles /volume] in Central venous bloodOrdered By: Bonita Rao on 07-06-2024 CO2 [Moles/Vol] 24.7 mmol/L 21.0-32.0 [facility] Chloride assayOrdered By: Mark Rao on 07-06-2024 Chloride [Moles/Vol] 104 mmol/L 98-108 [facility] Comprehensive Metabolic Prof ilon 07-06-2024 Albumin [Mass/Vol] 4.1 g/dL Normal 3.4-4.8 [facility] Comment on above: Order Comment: Order Date: 07/06/24 Order Info: [id number] - CMP Order Date: 11/30/23 Order Info: [id number] - LIPID Order Info: [id number] - MG Order Info: 3015-3 - TSH Order Info: 2857-1 - PSA Performed By: #### L 101.9900, L100.0100, L400.0001, L500.4050 #### [facility] [address] [place], [address] Albumin/Globulin [Mass ratio] 1.9 {ratio} Normal 0.9-2.4 [facility] Comment on above: Order Comment: Order Date: 07/06/24 Order Info: [id number] - CMP Order Date: 11/30/23 Order Info: [id number] - LIPID Order Info: [id number] - MG Order Info: [id number] - TSH Order Info: 2857-1 - PSA Performed By: #### L 101.9900, L100.0100, L400.0001, L500.4050 #### [facility] [address] [place], [address] ALK PHOS 59 U/L Normal 40-129 [facility] Comment on above: Order Comment: Order Date: 07/06/24 Order Info: [id number] - CMP Order Date: 11/30/23 Order Info: [id number] - LIPID Order Info: [id number] - MG Order Info: [id number] - TSH Order Info: 2856-1 - PSA Performed By: #### L 101.9900, L100.0100, L400.0001, L500.4050 #### [facility] [address] [place], [address] ALT [Catalytic activity/Vol] 25 U/L Normal <=46 [facility] Comment on above: Order Comment: Order Date: 07/06/24 Order Info: 86-1 - CMP Order Date: 11/30/23 Order Info: [id number] - LIPID Order Info: [id number] - MG Order Info: 3 - TSH Order Info: 1 - PSA Performed By: #### L 101.9900, L100.0100, L400.0001, L500.4050 #### [facility] [address] [place], [place], [id number] AST [Catalytic activity/Vol] 25 U/L Normal <=37 [facility] Comment on above: Order Comment: Order Date: 07/06/24 Order Info: 86-1 - CMP Order Date: 11/30/23 Order Info: [id number] - LIPID Order Info: [id number] - MG Order Info: 3 - TSH Order Info: 1 - PSA Performed By: #### L 101.9900, L100.0100, L400.0001, L500.4050 #### [facility] [address] [place], [place], [address] Bilirubin [Mass/Vol] 0.44 mg/dL Normal 0.00-1.30 [facility] Comment on above: Order Comment: Order Date: 07/06/24 Order Info: [id number] - CMP Order Date: 11/30/23 Order Info: [id number] - LIPID Order Info: [id number] - MG Order Info: 3 - TSH Order Info: 7-1 - PSA Performed By: #### L 101.9900, L100.0100, L400.0001, L500.4050 #### [facility] [address] [place], [address] BUN/CRE 17.3 RATIO Normal 10-20 [facility] Comment on above: Order Comment: Order Date: 07/06/24 Order Info: [id number] - CMP Order Date: 11/30/23 Order Info: [id number] - LIPID Order Info: [id number] - MG Order Info: 3016-3 - TSH Order Info: 2857-1 - PSA Performed By: #### L 101.9900, L100.0100, L400.0001, L500.4050 #### [facility] [address] [place], [address] Calcium [Mass/Vol] 9.6 mg/dL Normal 7.6-11.0 [facility] Comment on above: Order Comment: Order Date: 07/06/24 Order Info: [id number] - CMP Order Date: 11/30/23 Order Info: [id number] - LIPID Order Info: [id number] - MG Order Info: 3016-3 - TSH Order Info: 2857-1 - PSA Performed By: #### L 101.9900, L100.0100, L400.0001, L500.4050 #### [facility] [address] [place], [address] Chloride [Moles/Vol] 104 mmol/L Normal 98-108 [facility] Comment on above: Order Comment: Order Date: 07/06/24 Order Info: [id number] - CMP Order Date: 11/30/23 Order Info: [id number] - LIPID Order Info: [id number] - MG Order Info: 3016-3 - TSH Order Info: 2857-1 - PSA Performed By: #### L 101.9900, L100.0100, L400.0001, L500.4050 #### [facility] [address] [place], [address] CO2 [Moles/Vol] 24.7 mmol/L Normal 21.0-32.0 [facility] Comment on above: Order Comment: Order Date: 07/06/24 Order Info: [id number] - CMP Order Date: 11/30/23 Order Info: [id number] - LIPID Order Info: [id number] - MG Order Info: 3016-3 - TSH Order Info: 2857-1 - PSA Performed By: #### L 101.9900, L100.0100, L400.0001, L500.4050 #### [facility] [address] [place], [address] Creatinine [Mass/Vol] 1.24 mg/dL High 0.70-1.20 [facility] Comment on above: Order Comment: Order Date: 07/06/24 Order Info: [id number] - CMP Order Date: 11/30/23 Order Info: [id number] - LIPID Order Info: 43245-0 - MG Order Info: 6-3 - TSH Order Info: 2857-1 - PSA Performed By: #### L 101.9900, L100.0100, L400.0001, L500.4050 #### [facility] [address] [place], [address] GAP 10 Normal 5-15 [facility] Comment on above: Order Comment: Order Date: 07/06/24 Order Info: [id number] - CMP Order Date: 11/30/23 Order Info: [id number] - LIPID Order Info: [id number] - MG Order Info: 3016-3 - TSH Order Info: 2857-1 - PSA Performed By: #### L 101.9900, L100.0100, L400.0001, L500.4050 #### [facility] [address] [place], [address] GFR/1.73 sq M.predicted among non-blacks MDRD (S/P/Bld) [Vol rate/Area] 66 mL/min/{1.73_m2} Normal >60 [facility] Comment on above: Order Comment: Order Date: 07/06/24 Order Info: [id number] - CMP Order Date: 11/30/23 Order Info: [id number] - LIPID Order Info: [id number] - MG Order Info: 3015-3 - TSH Order Info: 7-1 - PSA Result Comment: mL/m in/1.73m2 CKD-EPI Creatinine Equation (2020) Performed By: #### L 101.9900, L100.0100, L400.0001, L500.4050 #### [facility] [address] [place], [address] Globulin (S) [Mass/Vol] 2.2 g/dL Normal 2.2-4.2 [facility] Comment on above: Order Comment: Order Date: 07/06/24 Order Info: [id number] - CMP Order Date: 11/30/23 Order Info: [id number] - LIPID Order Info: [id number] - MG Order Info: 3 - TSH Order Info: 2856-1 - PSA Performed By: #### L 101.9900, L100.0100, L400.0001, L500.4050 #### [facility] [address] [place], [address] Glucose [Mass/Vol] 118 mg/dL High 70-99 [facility] Comment on above: Order Comment: Order Date: 07/06/24 Order Info: [id number] - CMP Order Date: 11/30/23 Order Info: [id number] - LIPID Order Info: [id number] - MG Order Info: 3015-3 - TSH Order Info: 7-1 - PSA Performed By: #### L 101.9900, L100.0100, L400.0001, L500.4050 #### [facility] [address] [place], [address] Potassium [Moles/Vol] 4.9 mmol/L Normal 3.3-5.1 [facility] Comment on above: Order Comment: Order Date: 07/06/24 Order Info: [id number] - CMP Order Date: 11/30/23 Order Info: [id number] - LIPID Order Info: [id number] - MG Order Info: 3015-3 - TSH Order Info: 2857-1 - PSA Performed By: #### L 101.9900, L100.0100, L400.0001, L500.4050 #### [facility] [address] [place], [address] Sodium [Moles/Vol] 139 mmol/L Normal 133-145 [facility] Comment on above: Order Comment: Order Date: 07/06/24 Order Info: [id number] - CMP Order Date: 11/30/23 Order Info: [id number] - LIPID Order Info: [id number] - MG Order Info: 3016-3 - TSH Order Info: 2857-1 - PSA Performed By: #### L 101.9900, L100.0100, L400.0001, L500.4050 #### [facility] [address] [place], [address] T PROT 6.3 g/dL Normal 5.9-8.4 [facility] Comment on above: Order Comment: Order Date: 07/06/24 Order Info: [id number] - CMP Order Date: 11/30/23 Order Info: [id number] - LIPID Order Info: [id number] - MG Order Info: 3016-3 - TSH Order Info: 2857-1 - PSA Performed By: #### L 101.9900, L100.0100, L400.0001, L500.4050 #### [facility] [address] [place], [address] Urea nitrogen [Mass/Vol] 21 mg/dL High 4-19 [facility] Comment on above: Order Comment: Order Date: 07/06/24 Order Info: [id number] - CMP Order Date: 11/30/23 Order Info: [id number] - LIPID Order Info: [id number] - MG Order Info: 3016-3 - TSH Order Info: 2857-1 - PSA Performed By: #### L 101.9900, L100.0100, L400.0001, L500.4050 #### [facility] [address] [place], [place], [address] Eosinophil percentageOrdered By: Bonita Rao on 07-06-2024 Eosinophils/100 WBC (Bld) 1.5 % 0-5 [facility] Erythrocyte Sed Rateon 07-06 SED RATE < 1 Normal 0-20 [facility] Comment on above: Order Comment: Order Date: 07/06/24 Order Info: [id number] - CBCD Order Info: [id number] - SED Performed By: #### L 101.9900, L100.0100, L400.0001, L500.4050 #### [facility] [address] [place], [place], [address] Erythrocyte distribution wid th ratioOrdered By: Bonita Rao on 07-06-2024 Erythrocyte distribution width (RBC) [Ratio] 13.0 % 11.6-14.6 [facility] Erythrocyte distribution wid th standard deviationOrdered By: Bonita Rao on 07-06-2024 Erythrocyte distribution width (RBC) [Ratio] 44.3 fl High 35.1-43.9 [facility] Erythrocyte sedimentation ra teOrdered By: Bonita Rao on 07-06-2024 ESR (Bld) [Velocity] mm/h 0-20 [facility] Glomerular filtration rate ( GFR) estimation/1.73 sq m using serum, plasma, or whole bOrdered By: Bonita Rao on 07-06-2024 GFR/1.73 sq M.predicted among non-blacks MDRD (S/P/Bld) [Vol rate/Area] 66 mL/min/{1.73_m2} >60 [facility] Comment on above: mL/min/1.73m2 CKD-EP I Creatinine Equation (2020) Hematocrit Auto (Bld) [Volum e fraction]Ordered By: Bonita Rao on 07-06-2024 Hematocrit (Bld) [Volume fraction] 40.5 % 40-54 [facility] Hemoglobin measurementOrdere d By: Bonita Rao on 07-06-2024 Hemoglobin (Bld) [Mass/Vol] 13.5 g/dL 13.0-16.5 [facility] Immature granulocytes/100 WB C Auto (Bld)Ordered By: Bonita Rao on 07-06-2024 Immature granulocytes/100 WBC (Bld) 0.300 % 0.0-0.9 [facility] Comment on above: IG% - Immature Granu locytes (promyelocytes, myelocytes and metamyelocytes) > 1% indicates that a LEFT SHIFT is Present. Ketones Test strip Ql (U)Ord ered By: Bonita Rao on 07-06-2024 Ketones Ql (U) Negative Negative [facility] LDL calc ser/plasOrdered By: Bonita Rao on 07-06-2024 Cholesterol in LDL [Mass/Vol] 65 mg/dL [facility] Comment on above: Ohwisacvfo=894-658 m g/dL & Higher Kuay=552 mg/dL or greater Laboratory - Chemistry and C hemistry - challengeOrdered By: Bonita Rao on 07-06-2024 AST [Catalytic activity/Vol] 25 U/L <38 [facility] Lipid Profileon 07-06-2024 CHOL:HDL 3.14 Normal [facility] Comment on above: Order Comment: Order Date: 07/06/24Order Info: [id number] - CMPOrder Date: 11/30/23Order Info: [id number] - LIPIDOrder Info: [id number] - MGOrder Info: 301-3 - TSHOrder Info: 2857-1 - PSA Performed By: #### L 501.9910, L501.9520, L501.5200, L500.4100 ####[facility] [address] [place], [address] Cholesterol [Mass/Vol] 120 mg/dL Normal <=200 [facility] Comment on above: Order Comment: Order Date: 07/06/24Order Info: [id number] - CMPOrder Date: 11/30/23Order Info: [id number] - LIPIDOrder Info: [id number] - MGOrder Info: 6-3 - TSHOrder Info: 2857-1 - PSA Result Comment: Chol esterol level, Desirable <200 mg/dL Borderline high cholesterol 200-239 mg/dL High cholesterol >=240 mg/dL Recommendations of the NCEP Adult Treatment Panel for the following risk-cutoff thresholds for the [place] population. Performed By: #### L 501.9910, L501.9520, L501.5200, L500.4100 ####[facility] [address] [place], [address] Cholesterol in HDL [Mass/Vol] 38 mg/dL Low [facility] Comment on above: Order Comment: Order Date: 07/06/24Order Info: 07-1 - CMPOrder Date: 11/30/23Order Info: [id number] - LIPIDOrder Info: [id number] - MGOrder Info: 3016-3 - TSHOrder Info: 2851 - PSA Result Comment: [place] on[place] Cholesterol Education Program (NCEP) guidelines: <40 mg/dL: Low HDL-cholesterol (major risk factor for CHD) >= 60 mg/dL: High HDL-cholesterol (negative risk factor for CHD) HDL-cholesterol is affected by a number of factors, e.g. smoking, exercise, hormones, sex and age. Performed By: #### L 501.9910, L501.9520, L501.5200, L500.4100 ####[facility] [address] [place], [address] Cholesterol in LDL [Mass/Vol] 65 mg/dL Normal [facility] Comment on above: Order Comment: Order Date: 07/06/24Order Info: [id number] - CMPOrder Date: 11/30/23Order Info: [id number] - LIPIDOrder Info: [id number] - MGOrder Info: 3 - TSHOrder Info: [id number] - PSA Result Comment: Bord wikgen=201-267 mg/dL Higher Zobh=629 mg/dL or greater Performed By: #### L 501.9910, L501.9520, L501.5200, L500.4100 ####[facility] [address] [place], [address] Cholesterol in VLDL [Mass/Vol] 17 mg/dL Normal 5-40 [facility] Comment on above: Order Comment: Order Date: 07/06/24Order Info: 07-1 - CMPOrder Date: 11/30/23Order Info: [id number] - LIPIDOrder Info: [id number] - MGOrder Info: [id number] - TSHOrder Info: 2856-02 - PSA Performed By: #### L 501.9910, L501.9520, L501.5200, L500.4100 ####[facility] [address] [place], [address] Triglyceride [Mass/Vol] 85 mg/dL Normal [facility] Comment on above: Order Comment: Order Date: 07/06/24Order Info: 07- - CMPOrder Date: 11/30/23Order Info: [id number] - LIPIDOrder Info: - MGOrder Info: [id number] - TSHOrder Info: [id number] - PSA Result Comment: The drugs N-Acetylcysteine and Metamizole may falsely depress this assay. Normal range: <150 mg/dL Borderline High: 150-199 mg/dL High: 200-499 mg/dL Very High: >500 mg/dL Performed By: #### L 501.9910, L501.9520, L501.5200, L500.4100 ####[facility] [address] [place], [address] MCV (mean corpuscular volume ) determinationOrdered By: Bonita Rao on 07-06-2024 MCV (RBC) [Entitic vol] 93.1 fL 80-94 [facility] Magnesiumon 07-06-2024 Magnesium [Mass/Vol] 2.2 mg/dL Normal 1.5-2.2 [facility] Comment on above: Order Comment: Order Date: 07/06/24Order Info: 07- - CMPOrder Date: 11/30/23Order Info: [id number] - LIPIDOrder Info: - MGOrder Info: [id number] - TSHOrder Info: 2856-02 - PSA Performed By: #### L 501.9910, L501.9520, L501.5200, L500.4100 ####[facility] [address] [place], [address] Magnesium measurement (mass/ volume)Ordered By: Bonita Rao on 07-06-2024 Magnesium (Unsp spec) [Mass/Vol] 2.2 mg/dL 1.5-2.2 [facility] Mean corpuscular hemoglobin (MCH) determinationOrdered By: Bonita Rao on 07-06-2024 MCH (RBC) [Entitic mass] 31.0 pg 27.0-32.0 [facility] Mean corpuscular hemoglobin concentration (MCHC) determinationOrdered By: Bonita Rao on 07-06-2024 MCHC (RBC) [Mass/Vol] 33.3 g/dL 32-36 [facility] Mean platelet volume determi nationOrdered By: Bonita Rao on 07-06-2024 Platelet mean volume (Bld) [Entitic vol] 9.7 fL 6.2-12.0 [facility] Microscopic analysis of urin e for red blood cells (RBC)Ordered By: Bonita Rao on 07-06-2024 Microscopic analysis of urine for red blood cells (RBC) 0 SEEN /hpf 0-5 [facility] Monocyte percentageOrdered B y: Bonita Rao on 07-06-2024 Monocytes/100 WBC (Bld) 9.7 % 0-10 [facility] Mucus LM Ql (Urine sed)Order ed By: Bonita Rao on 07-06-2024 Mucus Ql (Urine sed) 0 SEEN /hpf [facility] Neutrophil percentageOrdered By: Bonita Rao on 07-06-2024 Neutrophils/100 WBC (Bld) 65.2 % 47-70 [facility] Nitrite Test strip Ql (U)Ord ered By: Bonita Rao on 07-06-2024 Nitrite Ql (U) Negative Negative [facility] Nucleated red blood cell per centageOrdered By: Bonita Rao on 07-06-2024 Nucleated RBC/100 WBC (Bld) [Ratio] 0 % 0- [facility] PSA,Total - Annual Screenon 07-06-2024 PSA,TOT SCREEN 2.82 ng/mL Normal 0.02-4.00 [facility] Comment on above: Order Comment: Order Date: 07/06/24Order Info: [id number] - CMPOrder Date: 11/30/23Order Info: [id number] - LIPIDOrder Info: [id number] - MGOrder Info: [id number] - TSHOrder Info: 2857-1 - PSA Result Comment: This test was performed using the [facility] tPSA method. Measured values of a patient??sample can vary depending on the testing procedure used. PSA values determined on patient samples by different testing procedures cannot be used interchangeably. If there is a change in PSA assays while monitoring therapy, sequential testing should be performed to confirm baseline values. Performed By: #### L 501.9910, L501.9520, L501.5200, L500.4100 ####[facility] [address] [place], [address] Platelet countOrdered By: Mark Rao on 07-06-2024 Platelets (Bld) [#/Vol] 136 10*3/uL Low 150-450 [facility] Potassium measurement (mass/ volume)Ordered By: Bonita Rao on 07-06-2024 Potassium (Unsp spec) [Mass/Vol] 4.9 mmol/L 3.3-5.1 [facility] Protein Test strip Ql (U)Ord ered By: Bonita Rao on 07-06-2024 Protein Ql (U) 15 mg/dl High Negative [facility] RBC Auto (Bld) [#/Vol]Ordere d By: Bonita Rao on 07-06-2024 RBC (Bld) [#/Vol] 4.35 10*6/uL Low 4.6-6.2 [facility] Screening total cholesterol/ high density lipoprotein (HDL) cholesterol ratioOrdered By: Bonita Rao on 07-06-2024 Cholesterol.total/Elana sterol in HDL [Mass ratio] 3.14 {ratio} [facility] Serum creatinine measurement (mass/volume)Ordered By: Bonita Rao on 07-06-2024 Creatinine [Mass/Vol] 1.24 mg/dL High 0.70-1.20 [facility] Serum globulin measurementOr dered By: Bonita Rao on 07-06-2024 Globulin (S) [Mass/Vol] 2.2 g/dL 2.2-4.2 [facility] Serum glucose measurement (m ass/volume)Ordered By: Bonita Rao on 07-06-2024 Glucose [Mass/Vol] 118 mg/dL High 70-99 [facility] Serum or plasma alanine richter otransferase (ALT) measurementOrdered By: Bonita Rao on 07-06-2024 ALT [Catalytic activity/Vol] 25 U/L <47 [facility] Serum or plasma albumin kaleb urement (mass/volume)Ordered By: Bonita Rao on 07-06-2024 Albumin [Mass/Vol] 4.1 g/dL 3.4-4.8 [facility] Serum or plasma albumin/glob ulin mass ratioOrdered By: Bonita Rao on 07-06-2024 Albumin/Globulin [Mass ratio] 1.9 {ratio} 0.9-2.4 [facility] Serum or plasma alkaline enmanuel sphatase measurementOrdered By: Bonita Rao on 07-06-2024 ALP [Catalytic activity/Vol] 59 U/L 40-129 [facility] Serum or plasma calcium kaleb urement (mass/volume)Ordered By: Bonita Rao on 07-06-2024 Calcium [Mass/Vol] 9.6 mg/dL 7.6-11.0 [facility] Serum or plasma cholesterol in HDL measurement (mass/volume)Ordered By: Bonita Rao on 07-06-2024 Cholesterol in HDL [Mass/Vol] 38 mg/dL Low >40 [facility] Comment on above: National Cholesterol Education Program (NCEP) guidelines:<40 mg/dL: Low HDL-cholesterol (major risk factor for CHD)>= 60 mg/dL: High HDL-cholesterol (negative risk factor for CHD)HDL-cholesterol is affected by a number of factors, e.g. smoking, exercise, hormones, sex and age. Serum or plasma cholesterol measurement (mass/volume)Ordered By: Bonita Rao on 07-06-2024 Cholesterol [Mass/Vol] 120 mg/dL <201 [facility] Comment on above: Cholesterol level, D esirable <200 mg/dLBorderline high cholesterol 200-239 mg/dLHigh cholesterol >=240 mg/dLRecommendations of the NCEP Adult Treatment Panel for the following risk-cutoff thresholds for the [place] population. Serum or plasma urea nitroge n measurement (mass/volume)Ordered By: Bonita Rao on 07-06-2024 Urea nitrogen [Mass/Vol] 21 mg/dL High 4-19 [facility] Sodium levelOrdered By: Lexa Rao on 07-06-2024 Sodium [Moles/Vol] 139 mmol/L 133-145 [facility] Squamous epithelial cells de tection in urine sediment by light microscopyOrdered By: Bonita Rao on 07-06-2024 Epithelial cells.squamous LM Ql (Urine sed) 0 SEEN /hpf 0-5 [facility] TSH DL <= 0.005 mIU/L QnOrde red By: Bonita Rao on 07-06-2024 TSH Qn 1.600 uIU/mL 0.300-4.200 [facility] Thyroid Stim Hormone (TSH)on 07-06-2024 TSH 1.600 uIU/mL Normal 0.300-4.200 [facility] Comment on above: Order Comment: Order Date: 07/06/24Order Info: [id number] - CMPOrder Date: 11/30/23Order Info: [id number] - LIPIDOrder Info: [id number] - MGOrder Info: [id number] - TSHOrder Info: 2857-1 - PSA Performed By: #### L 501.9910, L501.9520, L501.5200, L500.4100 ####[facility] [address] [place], [place], [id number] Total proteinOrdered By: Anival Rao on 07-06-2024 Protein [Mass/Vol] 6.3 g/dL 5.9-8.4 [facility] Triglycerides measurementOrd ered By: Bonita Rao on 07-06-2024 Triglyceride [Mass/Vol] 85 mg/dL <199 [facility] Comment on above: The drugs N-Acetylcy steine and Metamizole may falsely depress this assay. Normal range: <150 mg/dLBorderline High: 150-199 mg/dLHigh: 200-499 mg/dLVery High: >500 mg/dL Urinalysis, Completeon 07-06 BACTERIA RARE Normal None Seen [facility] Comment on above: Order Comment: Order Date: 07/06/24 Order Info: [id number] ART PROFESSOR TO SPECIFY Performed By: #### L 101.9900, L100.0100, L400.0001, L500.4050 #### [facility] [address] [place], [address] EPI,SQUAMOUS 0 SEEN Normal 0-5 [facility] Comment on above: Order Comment: Order Date: 07/06/24 Order Info: [address] [place] [address] ART PROFESSOR TO SPECIFY Performed By: #### L 101.9900, L100.0100, L400.0001, L500.4050 #### [facility] [address] [place], [address] Mucus Ql (Urine sed) 0 SEEN Normal [facility] Comment on above: Order Comment: Order Date: 07/06/24 Order Info: [id number] ART PROFESSOR TO SPECIFY Performed By: #### L 101.9900, L100.0100, L400.0001, L500.4050 #### [facility] [address] [place], [address] RBC 0 SEEN Normal [address] [place] [address] Comment on above: Order Comment: Order Date: 07/06/24 Order Info: [id number] [place] [address] ART PROFESSOR TO SPECIFY Performed By: #### L 101.9900, L100.0100, L400.0001, L500.4050 #### [facility] [address] [place], [address] WBC 0 SEEN Normal [address] [place] [address] Comment on above: Order Comment: Order Date: 07/06/24 Order Info: [id number] [place] [address] ART PROFESSOR TO SPECIFY Performed By: #### L 101.9900, L100.0100, L400.0001, L500.4050 #### [facility] [address] [place], [address] Urine clarityOrdered By: Anival Rao on 07-06-2024 Clarity (U) Clear Clear [facility] Urine color determinationOrd ered By: Bonita Rao on 07-06-2024 Color (U) Yellow Yellow [facility] Urine glucose detectionOrder ed By: Bonita Rao on 07-06-2024 Glucose Ql (U) Normal mg/dl Normal [facility] Urine leukocyte esterase det ection by dipstickOrdered By: Bonita Rao on 07-06-2024 Leukocyte esterase Test strip Ql (U) Negative Negative [facility] Urine pHOrdered By: Tari Rao on 07-06-2024 pH (U) 6.0 [pH] 5.0 - 8.0 [facility] Urine sediment bacteria coun t by microscopy (number/high power field)Ordered By: Bonita Roa on 07-06-2024 Bacteria LM.HPF (Urine sed) [#/Area] RARE /hpf None Seen [facility] Urine specific gravity measu rementOrdered By: Bonita Rao on 07-06-2024 Specific gravity (U) [Rel density] 1.020 1.002-1.030 [facility] Urine urobilinogen measureme ntOrdered By: Bonita Rao on 07-06-2024 Urobilinogen Ql (U) Normal mg/dl Normal [facility] White blood cell (WBC) count Ordered By: Bonita Rao on 07-06-2024 WBC (Bld) [#/Vol] 3.4 10*3/uL Low 4.4-11.0 [facility] White blood cell countOrdere d By: Bonita Rao on 07-06-2024 White blood cell count 0 SEEN /hpf 0-5 [facility] CNPElena 05-25-2024 CNPN Telephone ([facility]) MIO SIMMONS ([id number]) 1960 M Date Time Provider Department 05/25/24 HUSEYIN MEEHAN During your visit today, we recorded the following information about you: Dale Devries 05/25/2024 9:32 AM Signed Called and spoke with patient to schedule CASE MONITOR appt with Dr. Meehan per Dr. Taylor referral for AFIB. CARO Ramon Allergies As of Date: 05/25/2024 (No Known Allergies) Date Reviewed: 04/03/2024 Reviewed by: Kayden Borjas MA - Fully Assessed Reason for Visit: Appointment [186] Prescriptions as of 05/25/2024 - atorvastatin (LIPITOR) 80 mg tablet Take 1 tablet by mouth once daily. - metoprolol tartrate, short acting, (LOPRESSOR) 25 mg tablet 50 in the am, then 25 mg in the pm - clopidogrel (PLAVIX) 75 mg tablet Take 1 tablet by mouth once daily. - MULTIVITAMIN ORAL Take by mouth. - nitroglycerin sublingual (NITROQUICK) 0.4 mg SL tablet Dissolve 1 tablet under the tongue as needed for chest pain. - aspirin (ASPIR-81 ORAL) Take 81 mg by mouth once daily. - krill oil 500 mg cap Take 500 mg by mouth once daily. - psyllium husk 0.4 gram cap Take 0.4 g by mouth once daily. Problem List As Of Date 05/25/2024 Noted Resolved Coronary artery disease involving [place] olivas*01/02/2024 Vasovagal syncope [R55] 01/02/2024 PAF (paroxysmal atrial fibrillation) (HCC) [I48*01/02/2024 PVC (premature ventricular contraction) [I49.3] 01/02/2024 Pure hypercholesterolemia [E78.00] 01/02/2024 Encounter Status:Closed by DALE DEVRIES on 05/25/24 [facility] Lakia 05-22-2024 CNPN Telephone (CARDBD) LINDYMIO Trixie ([id number]) 1960 M Date Time Provider Department 05/22/24 CONNIE TAYLOR During your visit today, we recorded the following information about you: Yolanda Canas RN 05/22/2024 8:32 AM Signed [facility] mobile Cardiac telemetry report from 05/22/24 received via fax and placed in Dr. Taylor's office for review. Copy to scanning. Yolanda Canas RN Allergies As of Date: 05/22/2024 (No Known Allergies) Date Reviewed: 04/03/2024 Reviewed by: Kayden Borjas MA - Fully Assessed Reason for Visit: Results [95] Prescriptions as of 05/22/2024 - atorvastatin (LIPITOR) 80 mg tablet Take 1 tablet by mouth once daily. - metoprolol tartrate, short acting, (LOPRESSOR) 25 mg tablet 50 in the am, then 25 mg in the pm - clopidogrel (PLAVIX) 75 mg tablet Take 1 tablet by mouth once daily. - MULTIVITAMIN ORAL Take by mouth. - nitroglycerin sublingual (NITROQUICK) 0.4 mg SL tablet Dissolve 1 tablet under the tongue as needed for chest pain. - aspirin (ASPIR-81 ORAL) Take 81 mg by mouth once daily. - krill oil 500 mg cap Take 500 mg by mouth once daily. - psyllium husk 0.4 gram cap Take 0.4 g by mouth once daily. Problem List As Of Date 05/22/2024 Noted Resolved Coronary artery disease involving [place] olivas*01/02/2024 Vasovagal syncope [R55] 01/02/2024 PAF (paroxysmal atrial fibrillation) (HCC) [I48*01/02/2024 PVC (premature ventricular contraction) [I49.3] 01/02/2024 Pure hypercholesterolemia [E78.00] 01/02/2024 Encounter Status:Closed by YOLANDA CANAS on 05/22/24 Normal [facility] Lipid 1996 panelon 5 Cholesterol [Mass/Vol] 107 mg/dL Normal <200 Cl [facility] Comment on above: Order Comment: Speci men Type: BLOOD SPECIMENOrdering Facility: [facility] Address: [address] [place] [address] Result Comment: <200 mg/dL, Desirable 200-239 mg/dL, Borderline high >239 mg/dL, High Performed By: #### 2 4331-1 ####[facility] LABCLIA [id number] [facility] [id number] [place] [address] [place] Cholesterol in HDL [Mass/Vol] 36 mg/dL Low >39 [facility] Comment on above: Order Comment: Speci men Type: BLOOD SPECIMENOrdering Facility: [facility] Address: [address] [place] [address] Result Comment: 40-5 9 mg/dL, Acceptable >59 mg/dL, High: Negative risk factor for coronary heart disease <40 mg/dL, Low: Positive risk factor for coronary heart disease Performed By: #### 2 4331-1 ####[facility] LABCLIA [id number] [address], [place] [address] [place] Cholesterol in LDL [Mass/Vol] 50 mg/dL Normal <100 [facility] Comment on above: Order Comment: Speci men Type: BLOOD SPECIMENOrdering Facility: [facility] Address: [address] [place] [address] Result Comment: <100 mg/dL, Optimal 100-129 mg/dL, Near optimal/above optimal 130-159 mg/dL, Borderline high 160-189 mg/dL, High >189 mg/dL, Very high Secondary prevention optimal LDL Cholesterol levels are recommended to be < 70 mg/dL Performed By: #### 2 4331-1 ####[facility] LABCLIA [id number] [facility] [place] [id number] [place] Cholesterol in LDL/Cholesterol in HDL [Mass ratio] 1.39 {ratio} Normal <2.54 [facility] Comment on above: Order Comment: Speci men Type: BLOOD SPECIMENOrdering Facility: [facility] Address: [address] [place] [address] Result Comment: Nolvia duque: 1. National Cholesterol Education Program ATP III Guideline At-A-Glance Quick Desk Reference: National Heart, Lung, and Blood [place]. National Institutes of Health. 2001: NIH Publication No. 01-3305. 2. An International Atherosclerosis Society position paper: global recommendations for the management of dyslipidemia: executive summary, Atherosclerosis. 2014: 232(2):410-413. Performed By: #### 2 4331-1 ####[facility] LABCLIA [id number] [place] [address] [place] Cholesterol in VLDL [Mass/Vol] 21 mg/dL Normal <30 [facility] Comment on above: Order Comment: Speci men Type: BLOOD SPECIMENOrdering Facility: [facility] Address: [address] [place] [address] Performed By: #### 2 4331-1 ####[facility] LABCLIA [id number] [place] [address] [place] Cholesterol non HDL [Mass/Vol] 71 mg/dL Normal <130 [facility] Comment on above: Order Comment: Ronan guzman Type: BLOOD SPECIMENOrdering Facility: [facility] Address: [address] [place] [address] Result Comment: <130 mg/dL, Optimal 130-159 mg/dL, Near optimal/above optimal 160-189 mg/dL, Borderline high 190-219 mg/dL, High >219 mg/dL, Very high Secondary prevention optimal non HDL Cholesterol levels are recommended to be <100 mg/dL Performed By: #### 2 4331-1 ####[facility] LABCLIA [id number] [address] [address] [place] Cholesterol.total/Elana sterol in HDL [Mass ratio] 2.97 {ratio} Normal <5.10 [facility] Comment on above: Order Comment: Yuei men Type: BLOOD SPECIMENOrdering Facility: [facility] Address: [address] [place] [address] Performed By: #### 2 4331-1 ####[facility] LABCLIA [id number] [address] [place] FASTING TIME 12 hrs Normal [facility] Comment on above: Order Comment: Speci men Type: BLOOD SPECIMENOrdering Facility: [facility] Address: [address] [place] [address] Performed By: #### 2 4331-1 ####[facility] LABCLIA [id number] [place] [address] [place] Triglyceride [Mass/Vol] 104 mg/dL Normal <150 [facility] Comment on above: Order Comment: Speci men Type: BLOOD SPECIMENOrdering Facility: [facility] Address: [address] [place] [address] Result Comment: <150 mg/dL, Normal 150-199 mg/dL, Borderline high 200-499 mg/dL, High >499 mg/dL, Very high Performed By: #### 2 4331-1 ####[facility] LABCLIA [id number] [address] [place] CNPNon 05-09-2024 CNPN Telephone (CARDBD) MIO SIMMONS ([id number]) 1960 M Date Time Provider Department 05/09/24 CONNIE TAYLOR CARDBD During your visit today, we recorded the following information about you: Harihs Erwin RN 05/09/2024 11:58 AM Signed [facility] mobile Cardiac telemetry report from 04/06/24-04/19/24 received via fax and placed in Dr. Taylor's office for review. Copy to scanning. Harish Erwin RN Allergies As of Date: 05/09/2024 (No Known Allergies) Date Reviewed: 04/03/2024 Reviewed by: Kayden Borjas MA - Fully Assessed Reason for Visit: Results [95] Cmt: Suzannebuck MCOT report Prescriptions as of 05/09/2024 - atorvastatin (LIPITOR) 80 mg tablet Take 1 tablet by mouth once daily. - metoprolol tartrate, short acting, (LOPRESSOR) 25 mg tablet 50 in the am, then 25 mg in the pm - clopidogrel (PLAVIX) 75 mg tablet Take 1 tablet by mouth once daily. - MULTIVITAMIN ORAL Take by mouth. - nitroglycerin sublingual (NITROQUICK) 0.4 mg SL tablet Dissolve 1 tablet under the tongue as needed for chest pain. - aspirin (ASPIR-81 ORAL) Take 81 mg by mouth once daily. - krill oil 500 mg cap Take 500 mg by mouth once daily. - psyllium husk 0.4 gram cap Take 0.4 g by mouth once daily. Problem List As Of Date 05/09/2024 Noted Resolved Coronary artery disease involving [place] olivas*01/02/2024 Vasovagal syncope [R55] 01/02/2024 PAF (paroxysmal atrial fibrillation) (HCC) [I48*01/02/2024 PVC (premature ventricular contraction) [I49.3] 01/02/2024 Pure hypercholesterolemia [E78.00] 01/02/2024 Encounter Status:Closed by HARISH ERWIN on 05/09/24 [facility] No Panel InformationOrdered By: Hilton Reinoso on 04-26-2024 [facility] [address] [place] [address] CR - Individual Treatment Plan MR#: [id number] Acct: [id number] Name: MIO SIMMONS Rep #:[id number] 1 : 1960 63 From: Hilton Sinclair BS, RVT PCP: Dr. Bonita Rao MD DOS: 04/25/24 Exercise - Initial Assessment Physician Prescribed Exercise Modalities: Treadmill, Schwinn Airdyne AD-7 and SciFit Stepper Nutrition - Initial Assessment Weight Mgt (Other Care) Height: 5 ft 11 in Weight:: 222 lb BMI: 30.9 Psychosocial - Initial Assess Target Goals Target Goals Referral to Behavioral Health PS - Interventions: Yes: Attend Stress Management Classes Patient Health Questionnaire PHQ-9 Screening 90-Day Re-eval Assessment: 1. Little interest or pleasure in doing things: Not at all 2. Feeling down, depressed, or hopeless: Not at all 3. Trouble falling or staying asleep, or sleeping too much: Not at all 4. Feeling tired or having little energy: Several days 5. Poor appetite or overeating: Several days 6. Feeling bad about yourself -- or that you are a failure or have let yourself or your family down: Not at all 7. Trouble concentrating on things, such as reading the newspaper or watching television: Not at all 8. Moving or speaking so slowly that other people could have noticed. Or the opposite - being so fidgety or restless that you have been moving around a lot more than usual: Not at all 9. Thoughts that you would be better off , or of hurting yourself in some way: Not at all How difficult have these problems made it for you to do your work, take care of things at home, or get along with other people?: Not difficult at all Total Score: 2 Self-Efficacy 6-Item Scale 90-Day Re-eval Assessment: We would like to know how confident you are in doing certain activities. Please select your confidence level for: Fatigue Select Number: 8 Physical Discomfort or Pain Select Number: 8 Emotional Distress Select Number: 10 Other Symptoms or Health Problems Select Number: 8 Different Tasks and Activities Select Number: 10 Medication Select Number: 10 Total Score:: 9 Nutrition Survey Nutrition Survey Instructions Scoring Instructions Exercise - 30-day Assessment Physician Prescribed Exercise Modalities: Treadmill, Schwinn Airdyne AD-7 and SciFit Stepper Exercise - 60-day Assessment Physician Prescribed Exercise Modalities: Treadmill, Schwinn Airdyne AD-7 and SciFit Stepper Exercise - 90-day Assessment Visit Date of Eval: 04/26/24 Session #:: 30 Physician Prescribed Exercise Modalities: Treadmill, Schwinn Airdyne AD-7 and SciFit Stepper Frequency: 3x/week for 12 weeks [36 sessions] Intensity: 60-80% of age predicted maximum heart rate reserve Duration: 30 - 45 minutes Current METSs:: 6.6 Target Heart Rate:: 95-126 Current RPE:: 13 Maximum Excercise HR:: 97 Resting Blood Pressure: 104/70 Maximum Exercise Blood Pressure: 142/74 EKG Type: NSR with rare PVC, PAC. No Afib on monitor 04/25/24 Outcomes & Goals Goals:: Verbalizes understanding of THR, RPE & goal METS by session 6, Documentsin home exercise log/reports 30 min aerobic 5 day/wk by DC, Demonstrates accurate pulse taking by DC and Other additional outcome/goals: see below Intervention & Plan Exercise Program Goals: Instruct on personal THR & RPE, Instruct on MET level & personal MET goal, Show patient to take own pulse /validate performance until accurate, Instruct on home exercise and Other additional plan/int Physical Activity Home Exercise Physical Activity - Home Exercise: Safe Exercise, Warm-up, Self-monitoring, Cool-Down, Home Exercise > 30 min Daily and Sitting Time <3 hours/daily Outcomes & Goals Outcomes/Goals: Demonstrates correct Warm-up/exercise Cool-Down (S3) if = 2.5 METs, Verbalizes symptoms of exercise intolerance by Session 3 (S3), Demonstratesafe equipment use (S3) & follows exercise prescrition (6) and Other: See below Intervention & Plan Plan/Intervention: Instruct warm-up & cool-down if exercising at > 2 METs, Instruct on symptoms of exercise intolerance & actions to take, Instruct & monitor on saf, Assess intial functional capacity & safety risk and Other See below 30-day Reassessments 30 day Reassessments:: Met Reassessment Notes & Comments:: Pt is doing very well. No more episodes of syncope since med changes and proper hydration. Pt has 6 sessions remaining. Pt understands safe exercise. Pt understands the benefits of exercise. Will continue to monitor. Exercise - Final/Discharge Physician Prescribed Exercise Modalities: Treadmill, Schwinn Airdyne AD-7 and SciFit Stepper Nutrition - 30-Day Assessment Weight Mgt (Other Care) Height: 5 ft 11 in Weight:: 222 lb BMI: 30.9 Nutrition - 60-Day Assessment Weight Mgt (Other Care) Height: 5 ft 11 in Weight:: 222 lb BMI: 30.9 Core - 30-Day Assessment Hypertension [place] [employer] Hypertension Guidelines Reassessment Notes & Comments:: Pt's BP's are within AHA normal limits. Will continue to monitor. Core - Final Assessment Hypertension Trinidadian (more content not included)... [facility] ALT SerPl-cCncon 04-03-2024 ALT [Catalytic activity/Vol] 18 U/L Normal 10-54 [facility] Comment on above: Order Comment: Speci men Type: BLOOD SPECIMENOrdering Facility: [facility] Address: [address] [place] [address] Performed By: #### 1 742-6, 1919-09 ####ERIC REPLACED BY [facility] LABCLIA [id number] [place] [id number] [place] AST SerPl-cCncon 04-03-2024 AST [Catalytic activity/Vol] 17 U/L Normal 14-40 [facility] Comment on above: Order Comment: Speci men Type: BLOOD SPECIMENOrdering Facility: [facility] Address: [address] [place] [address] Performed By: #### 1 742-6, 1919-09 ####ERIC REPLACED BY [facility] LABCLIA [id number] [place] [id number] [facility] [place] CNOVon 04-03-2024 CNOV Office Visit (CARDBD ) MIO SIMMONS ([id number]) 1960 M Date Time Provider Department 04/03/24 12:00 PM CONNIE TAYLOR CARDBD During your visit today, we recorded the following information about you: Pulse Blood pressure Weight Height 64/minute 112/70 97 kg 1.803 m Connie Taylor MD 04/03/2024 12:34 PM Signed [facility] [place] Oksana Zhao Department of Cardiovascular Medicine SECTION OF CLINICAL CARDIOLOGY OUTPATIENT VISIT DATE April 03, 2024 OUTPATIENT VISIT TYPE ESTABLISHED PATIENT: Mio Simmons DATE OF : 1960 DATE: 04/03/2024 INTERVAL HISTORY: Mr. Simmons comes for a follow up visit for CAD, PAF, syncope. The last visit with me was prior to his stent in January. He has been doing well. He had an episode of syncope at cardiac rehab in [place] and went to the ER. This was felt to be vasovagal syncope - he was on the monitor at the time and had a several second pause. He had a prodrome for a few minutes prior to syncope where he felt very fatigued and light headed and then the staff was unable to measure blood pressure just before he had syncope. He was tested for sleep apnea and has been diagnosed with central sleep apnea - he has not yet been started on PAP therapy. He continues to have episodes of atrial fibrillation - he feels mild palpitations. Episodes typically resolve after about 30 minutes. ROS: Negative for cough, wheezing, shortness of breath and chest pain Negative for leg swelling, palpitations, claudication, orthopnea, paroxysmal nocturnal dyspnea, syncope. All other reviewed and negative other than HPI. CURRENT MEDICATIONS: clopidogrel (PLAVIX) 75 mg tablet Take 1 tablet by mouth once daily. metoprolol tartrate, short acting, (LOPRESSOR) 25 mg tablet Take 2 tablets by mouth every 12 hours. MULTIVITAMIN ORAL Take by mouth. atorvastatin (LIPITOR) 40 mg tablet Take 1 tablet by mouth once daily. nitroglycerin sublingual (NITROQUICK) 0.4 mg SL tablet Dissolve 1 tablet under the tongue as needed for chest pain. (Patient not taking: Reported on 01/25/2024) aspirin (ASPIR-81 ORAL) Take 81 mg by mouth once daily. krill oil 500 mg cap Take 500 mg by mouth once daily. psyllium husk 0.4 gram cap Take 0.4 g by mouth once daily. PHYSICAL EXAMINATION: General: No distress, alert and oriented Vital signs: BP 112/70 Pulse 64 Ht 5' 11 (1.80m) Wt 213 lb 13.5 oz (97.0kg) BMI 29.84 kg/(m2). Neck: no JVD Lungs: clear to auscultation Cardiac exam: RRR normal S1, S2 no murmurs Extremities: warm, well perfused, no edema EKG: normal sinus rhythm and left axis deviation and low voltage; rate of 64 ECG at [facility] ER Feb 24 2024 CARDIAC STUDIES: Treadmill nuclear stress test 12/15/2023 @[facility] Echocardiogram 12/15/2023 @[facility]-images personally reviewed Normal LVEF 65% no regional wall motion abnormalities Normal RV size and function No significant valvular heart disease Left heart catheterization December 23 2023 LAST LABS: Latest Ref Rng AND Units 01/02/2024 01/14/2024 CMP Sodium 136 - 144 mmol/L 140 140 Potassium 3.7 - 5.1 mmol/L 4.6 3.8 Chloride 98 - 107 mmol/L 102 105 CO2 22 - 30 mmol/L 27 27 Glucose 74 - 99 mg/dL 89 104 BUN 9 - 24 mg/dL 19 14 Creatinine 0.73 - 1.22 mg/dL 1.25 1.13 EGFR >=60 mL/min/1.73m? 65 73 Protein, Total 6.3 - 8.0 g/dL 7.1 Albumin 3.9 - 4.9 g/dL 4.4 Calcium 8.5 - 10.2 mg/dL 9.9 9.0 Bilirubin, Total 0.2 - 1.3 mg/dL 0.4 AST 14 - 40 U/L 19 ALT 10 - 54 U/L 13 Alkaline Phosphatase 38 - 113 U/L 51 Hemoglobin (g/dL) Date Value 01/14/2024 13.8 Hematocrit (%) Date Value 01/14/2024 41.2 WBC (k/uL) Date Value 01/14/2024 5.80 Impression: Encounter Diagnosis ICD-10-CM 1. Coronary artery disease involving [place] coronary artery of [place] heart without angina pectoris I25.10 2. Stented coronary artery - MARCIAL to LAD 01/13/24 Z95.5 3. PAF (paroxysmal atrial fibrillation) ([facility]) I48.0 4. PVC (premature ventricular contraction) I49.3 5. Vasovagal syncope R55 6. Pure hypercholesterolemia E78.00 7. Central sleep apnea associated with atrial fibrillation (HCC) ([facility]) I48.91 G47.37 Plan: Patient Instructions You are doing very well from a heart standpoint No angina since your stent in January No bleeding on dual anti-platelet therapy Tolerating a good dose of atorvastatin Blood pressure is normal You are still experiencing intermittent episodes of atrial fibrillation with good control of your heart rate and mild symptoms of palpitations; I do not think that you need additional anticoagulation due lack of stroke risk factors (CHADS-VASc = 1) Atrial fibrillation may improve with treatment of your central sleep apnea I agree with the 14 day Zio monitor ordered by Dr. Franco I would recommend: No changes to medications Have bl (more content not included)... Normal [facility] ECG COMPLETEon 04-03-2024 Atrial Rate 64 BPM [facility] Calculated P [place] 31 degrees [facility] Calculated R [place] -31 degrees [facility] Calculated T [place] 2 degrees [facility] P-R Interval 182 ms [facility] QRS Duration 112 ms [facility] QT Interval 404 ms [facility] QTC Calculation (Bazett) 416 ms [facility] Ventricular Rate 64 BPM [facility] NORMAL SINUS RHYTHM LEFT AXIS DEVIATION LOW VOLTAGE QRS, CONSIDER PULMONARY DISEASE, PERICARDIAL EFFUSION, OR NORMAL VARIANT INCOMPLETE RIGHT BUNDLE BRANCH BLOCK CANNOT EXCLUDE ANTERIOR MYOCARDIAL INFARCTION , AGE UNDETERMINED ABNORMAL ECG Confirmed by MD TAYLOR MATTHEW ([id number]), clinical editor KAYDEN BORJAS ([id number]) on 04/03/2024 1:23:37 PM [facility] NAME : MIO SIMMONS PID : [id number] : 1960 Gender : Male Race : ORD : [id number] Procedure Date : Apr 03 2024 12:03:58 Edit Date : Apr 03 2024 13:23:42 Diagnosis: NORMAL SINUS RHYTHM LEFT AXIS DEVIATION LOW VOLTAGE QRS, CONSIDER PULMONARY DISEASE, PERICARDIAL EFFUSION, OR NORMAL VARIANT INCOMPLETE RIGHT BUNDLE BRANCH BLOCK CANNOT EXCLUDE ANTERIOR MYOCARDIAL INFARCTION , AGE UNDETERMINED ABNORMAL ECG Confirmed by MD TAYLOR MATTHEW ([id number]), clinical editor KAYDEN BORJAS ([id number]) on 04/03/2024 1:23:37 PM Test Reason : I25.10 Coronary artery disease involving [place] coronary artery of [place] heart Location : 503 : [facility] Overread By : MD TAYLOR MATTHEW Edited By : KAYDEN BORJAS Referred By : CONNIE TAYLOR Acquired by : [facility] ECG COMPLETE Ventricular Rate : 6 4 BPM Atrial Rate : 64 BPM P-R Interval : 182 ms QRS Duration : 112 ms Q-T Interval : 404 ms QTC Calculation(Bazett) : 416 ms Calculated P [place] : 31 degrees Calculated R [place] : -31 degrees Calculated T [place] : 2 degrees NORMAL SINUS RHYTHM LEFT AXIS DEVIATION LOW VOLTAGE QRS, CONSIDER PULMONARY DISEASE, PERICARDIAL EFFUSION, OR NORMAL VARIANT INCOMPLETE RIGHT BUNDLE BRANCH BLOCK CANNOT EXCLUDE ANTERIOR MYOCARDIAL INFARCTION , AGE UNDETERMINED ABNORMAL ECG Confirmed by MD TAYLOR MATTHEW ([id number]), KAYDEN Marc ([id number]) on 04/03/2024 1:23:37 PM NAME : MIO SIMMONS PID : [id number] : 1960 Gender : Male Race : ORD : [id number] Procedure Date : Apr 03 2024 12:03:58 Edit Date : Apr 03 2024 13:23:42 Diagnosis: NORMAL SINUS RHYTHM LEFT AXIS DEVIATION LOW VOLTAGE QRS, CONSIDER PULMONARY DISEASE, PERICARDIAL EFFUSION, OR NORMAL VARIANT INCOMPLETE RIGHT BUNDLE BRANCH BLOCK CANNOT EXCLUDE ANTERIOR MYOCARDIAL INFARCTION , AGE UNDETERMINED ABNORMAL ECG Confirmed by MD TAYLOR MATTHEW ([id number]), clinical editor KAYDEN BORJAS ([id number]) on 04/03/2024 1:23:37 PM Test Reason : I25.10 Coronary artery disease involving coyote valley coronary artery of coyote [place] heart Location : 503 : BWCARD Overread By : MD TAYLOR MATTHEW Edited By : KAYDEN BORJAS Referred By : CONNIE TAYLOR Acquired by : Radha hickman [facility] LIPID PANEL, NONFASTINGon Cholesterol [Mass/Vol] 135 mg/dL Normal <200 [facility] Comment on above: Order Comment: Specjohanna guzman Type: BLOOD SPECIMENOrdering Facility: [facility] Address: [address] [place] [address] Result Comment: <200 mg/dL, Desirable 200-239 mg/dL, Borderline high >239 mg/dL, High Performed By: #### L IPNF ####[facility] LABIA [id number] [place] [address] [place] HDL CHOLESTEROL, NF 36 mg/dL Low >39 [facility] Comment on above: Order Comment: Ronan guzman Type: BLOOD SPECIMENOrdering Facility: [facility] Address: [address] [place] [address] Result Comment: 40-5 9 mg/dL, Acceptable >59 mg/dL, High: Negative risk factor for coronary heart disease <40 mg/dL, Low: Positive risk factor for coronary heart disease Performed By: #### L IPNF ####[facility] LABIA [id number] [place] [address] [place] LDL CHOLESTEROL, NF 74 mg/dL Normal <100 [facility] Comment on above: Order Comment: Yuejohanna guzman Type: BLOOD SPECIMENOrdering Facility: [facility] Address: [address] [place] [address] Result Comment: <100 mg/dL, Optimal 100-129 mg/dL, Near optimal/above optimal 130-159 mg/dL, Borderline high 160-189 mg/dL, High >189 mg/dL, Very high Secondary prevention optimal LDL Cholesterol levels are recommended to be < 70 mg/dL Performed By: #### L IPNF ####[facility] LABCLIA [id number] [address] OF [facility] LDL/HDL RATIO, NF 2.06 mg/dL Normal <2.54 [facility] Comment on above: Order Comment: Ronan thomas Type: BLOOD SPECIMENOrdering Facility: [facility] Address: [address] [place] [address] Result Comment: Refe rence: 1. National Cholesterol Education Program ATP III Guideline At-A-Glance Quick Desk Reference: National Heart, Lung, and Blood [place]. National Institutes of Health. 2001: NIH Publication No. 01-3305. 2. An International Atherosclerosis Society position paper: global recommendations for the management of dyslipidemia: executive summary, Atherosclerosis. 2014: 232(2):410-413. Performed By: #### L IPNF ####[facility] LABIA [id number] [address] STATES OF [facility] NON HDL CHOL, NF 99 mg/dL Normal <130 [facility] Comment on above: Order Comment: Yuejohanna guzman Type: BLOOD SPECIMENOrdering Facility: [facility] Address: [address] [place] [address] Result Comment: <130 mg/dL, Optimal 130-159 mg/dL, Near optimal/above optimal 160-189 mg/dL, Borderline high 190-219 mg/dL, High >219 mg/dL, Very high Secondary prevention optimal non HDL Cholesterol levels are recommended to be <100 mg/dL Performed By: #### L IPNF ####[facility] LABCLIA [id number] [address] [place] T CHOL/HDL RATIO NF 3.75 mg/dL Normal <5.10 [facility] Comment on above: Order Comment: Speci men Type: BLOOD SPECIMENOrdering Facility: [facility] Address: [address] [place] [address] Performed By: #### L IPNF ####[facility] LABCLIA [id number] [place] [address] [place] TRIGLYCERIDES, NF 123 mg/dL Normal <150 [facility] Comment on above: Order Comment: Speci men Type: BLOOD SPECIMENOrdering Facility: [facility] Address: [address] [place] [address] Result Comment: <150 mg/dL, Normal 150-199 mg/dL, Borderline high 200-499 mg/dL, High >499 mg/dL, Very high Performed By: #### L IPNF ####[facility] LABCLIA [id number] [place] [address] [place] VLDL CHOLESTEROL, NF 25 mg/dL Normal <30 [facility] Comment on above: Order Comment: Speci men Type: BLOOD SPECIMENOrdering Facility: [facility] Address: [address] [place] [address] Performed By: #### L IPNF ####[facility] LABCLIA [id number] [address] [place] 04-02-2024 CNPN Telephone (CARDBD) MIO SIMMONS ([id number]) 1960 M Date Time Provider Department 04/02/24 CONNIE TAYLOR During your visit today, we recorded the following information about you: Harish Erwin RN 04/02/2024 2:19 PM Signed [facility] cardiac rehab report and ED visit from 03/05/2024 placed in appointment folder for OV 04/03/2024. Harish Erwin RN Allergies As of Date: 04/02/2024 (No Known Allergies) Date Reviewed: 01/25/2024 Reviewed by: Pau Mclaughlin MA - Fully Assessed Prescriptions as of 04/02/2024 - clopidogrel (PLAVIX) 75 mg tablet Take 1 tablet by mouth once daily. - metoprolol tartrate, short acting, (LOPRESSOR) 25 mg tablet Take 2 tablets by mouth every 12 hours. - MULTIVITAMIN ORAL Take by mouth. - atorvastatin (LIPITOR) 40 mg tablet Take 1 tablet by mouth once daily. - nitroglycerin sublingual (NITROQUICK) 0.4 mg SL tablet Dissolve 1 tablet under the tongue as needed for chest pain. - aspirin (ASPIR-81 ORAL) Take 81 mg by mouth once daily. - krill oil 500 mg cap Take 500 mg by mouth once daily. - psyllium husk 0.4 gram cap Take 0.4 g by mouth once daily. Problem List As Of Date 04/02/2024 Noted Resolved Coronary artery disease involving [place] olivas*01/02/2024 Vasovagal syncope [R55] 01/02/2024 PAF (paroxysmal atrial fibrillation) (HCC) [I48*01/02/2024 PVC (premature ventricular contraction) [I49.3] 01/02/2024 Pure hypercholesterolemia [E78.00] 01/02/2024 Encounter Status:Closed by HARISH ERWIN on 04/02/24 Normal [facility] Bedside Glucoseon 03-07-2024 FINGERSTICK GLU 106 mg/dL Normal 74-106 [facility] Comment on above: Result Comment: NAHOMI FOREMAN OF PATIENT CARE PER NURSING PROTOCOL Performed By: #### L 501.080 ####[facility] [address] [facility] [place], [address] 12 Lead EKGon 03-05-2024 12 Lead EKG [facility] [address] [place] [address] 12 Lead EKG 03/05/24 0846 MR#: [id number] Acct: [id number] Name: MIO SIMMONS Rep #: [id number] : 1960 63 From: Darya Mc MD Attending Dr: Status: DEP ER Ordering Dr: Danny Gilman MD Date: 03/05/24 Location: ED Sex: M C Admitted: Test Reason : SYNCOPE Blood Pressure : */* mmHG Vent. Rate : 80 BPM Atrial Rate : 80 BPM P-R Int : 176 ms QRS Dur : 112 ms QT Int : 370 ms P-R-T Axes : 12 -28 14 degrees QTcB Int : 426 ms Normal sinus rhythm Incomplete right bundle branch block Borderline ECG Confirmed by RASHEL CHASE, TANMAY ([id number]), clinical editor KELSY WANG ([id number]) on 03/07/2024 6:19:01 AM Referred By: UG/BB Confirmed By: TANMAY MC MD 03/07/24 0619 Date Darya Mc MD CC: Dr. Bonita Rao MD; Dr. Danny Gilman MD Signed Normal [facility] Basic Metabolic Profile (BMP )on 03-05-2024 BUN/CRE 13.3 RATIO Normal 10-20 [facility] Comment on above: Performed By: #### L 500.2500 ####[facility] [address] [place], [address] CA,Total 9.4 mg/dL Normal 8.5-10.1 [facility] Comment on above: Performed By: #### L 500.2500 ####[facility] [address] [place], [address] Chloride [Moles/Vol] 107 mmol/L Normal 98-107 [facility] Comment on above: Performed By: #### L 500.2500 ####[facility] [address] [place], [address] CO2 [Moles/Vol] 28.0 mmol/L Normal 21.0-32.0 [facility] Comment on above: Performed By: #### L 500.2500 ####[facility] [address] [place], [address] Creatinine [Mass/Vol] 1.28 mg/dL Normal 0.70-1.30 [facility] Comment on above: Result Comment: The validity of the calculated GFR GFRAA in patients over 70 years has not been determined. Clinical correlation is essential. Performed By: #### L 500.2500 ####[facility] [address] [place], [address] ECRCL 72.97 ml/min Normal [facility] Comment on above: Performed By: #### L 500.2500 ####[facility] [address] [place], [address] EST GFR - AA 73 mL/min Normal >60 [facility] Comment on above: Result Comment: Afri can Trin[place]adian GFR Calc Performed By: #### L 500.2500 ####[facility] [address] [place], [address] GAP 5 Normal 5-15 [facility] Comment on above: Performed By: #### L 500.2500 ####[facility] [address] [place], [address] GFR/1.73 sq M.predicted among non-blacks MDRD (S/P/Bld) [Vol rate/Area] 60 mL/min/{1.73_m2} Normal >60 [facility] Comment on above: Result Comment: Non- GFR Calc Performed By: #### L 500.2500 ####[facility] [address] [place], [address] Glucose [Mass/Vol] 146 mg/dL High 74-106 [facility] Comment on above: Result Comment: Fast ing Glucose result greater than or equal to 126 mg/dL suggests DIABETES MELLITUS per A.D.A. criteria. Performed By: #### L 500.2500 ####[facility] [address] [place], [address] Potassium [Moles/Vol] 4.0 mmol/L Normal 3.5-5.1 [facility] Comment on above: Performed By: #### L 500.2500 ####[facility] [address] [place], [address] Sodium [Moles/Vol] 140 mmol/L Normal 136-145 [facility] Comment on above: Performed By: #### L 500.2500 ####[facility] [address] [place], [address] Urea nitrogen [Mass/Vol] 17 mg/dL Normal 7-18 [facility] Comment on above: Performed By: #### L 500.2500 ####[facility] [address] [place], [address] Blood urea nitrogen (BUN)/cr eatinine ratioOrdered By: Danny Gilman on 03-05-2024 Urea nitrogen/Creatinine [Mass ratio] 13.3 mg/mg 10-20 [facility] Carbon dioxide measurementOr dered By: Danny Gilman on 03-05-2024 CO2 [Moles/Vol] 28.0 mmol/L 21.0-32.0 [facility] Chloride measurementOrdered By: Danny Gilman on 03-05-2024 Chloride [Moles/Vol] 107 mmol/L 98-107 [facility] Emergency Department Summary on 03-05-2024 Emergency Department Summary [facility] Medical Records Department [address] [place] [address] Emergency Department Summary 03/05/24 MR#: [id number] Acct: [id number] Name: MIO SIMMONS Rep #: [id number] : 1960 63 From: Danny Gilman MD PCP: Dr. Bonita Rao MD Status:REG ER Location: ED HPI History of Present Illness Chief Complaint: Syncope Detail of Chief Complaint: Rapid response from cardiac rehab Informant: patient and other (Hospitalist, Dr. Vega) Onset/Context/Timing Onset: Today Context: Sudden Onset Timing: Intermittent Quality: Lightheadedness, change in vision, low blood pressure and syncopal episode Location: Cardiac rehab Current Severity: Gone Maximum Severity: Severe Worsened by: Patient had no symptoms other than he felt he was going to pass out Relieved by: Not applicable Associated Symptoms Associated Symptoms: Vagal like symptoms Narrative Narrative: Patient is a 63-year-old male. He has history of paroxysmal atrial fibrillation, coronary disease, stent placement due to non-STEMI. He is presently on Plavix, aspirin, atorvastatin and metoprolol. He was at cardiac rehab. He had half of a piece of toast. He has been going to rehab since January. He has had no change in routine. Apparently had syncopal episode in November and this was due to orthostatic hypotension. Patient denies headache, visual changes, speech or swallowing. He denies neck pain. Nuys paresthesia, anesthesia or motor weakness upper lower extremity. He denies chest discomfort or respiratory symptoms. He denies black or maroon-colored stool. Prior similar symptoms: Yes (November 2023) Recent Illness/Hospitalization : Yes (January for non-ST elevation [place]) [facility] Medical History History of left heart catheterization Intermittent chest pain Syncope due to orthostatic hypotension Varicose veins of legs DVT (deep venous thrombosis) Home Medications ???Medication ???Instructions ???Recorded ???Last Taken ???Type krill oil 500 mg capsule 500 mg PO DAILY 12/13/23 Unknown History multivitamin 1 tab PO QAM 12/13/23 Unknown History psyllium husk 0.4 gram capsule 0.4 g PO QDAY 12/13/23 Unknown History (Daily Fiber) aspirin 81 mg tablet,delayed 81 mg PO QDAY 12/16/23 12/23/23 History release (Adult Aspirin Regimen) atorvastatin 40 mg tablet mg PO DAILY 02/24/24 Unknown History clopidogrel 75 mg tablet 75 mg PO QDAY 02/24/24 Unknown History metoprolol tartrate 25 mg tablet mg PO BID 02/24/24 Unknown History Allergy/AdvReac Type Severity Reaction Status Date / Time No Known Allergies Allergy Verified 02/24/24 08:46 Family History Father Heart disease Cancer Mother Atrial fibrillation Surgical History History of coronary artery stent placement History of oral surgery Social History Smoking Status: Never smoker alcohol intake: never substance use type: does not use caffeine: Yes ROS ROS ED Constitutional Constitutional ED: Denies chills, fever(s), subjective or sweats Eyes Eyes: Reports other Details: Vision became dark and black as he passed out ; Denies blurry vision, change in vision or diplopia Cardiovascular Cardiovascular: Denies chest pain, palpitations or racing heartbeat Respiratory/Chest Respiratory/Chest: Denies cough, dyspnea or dyspnea on exertion Gastrointestinal Gastrointestinal: Denies abdominal pain, diarrhea, melena, nausea or vomiting Genitourinary Genitourinary ED: Denies hematuria Musculoskeletal Musculoskeletal: Denies back pain or neck pain Integumentary Denies Abrasions or rash Neurologic Neurologic: Denies headache(s), paresthesias or weakness Psychiatric Psychiatric: Denies anxiety or depression Endocrine Endocrinology: Denies cold intolerance or heat intolerance EXAM Physical Exam Const Vital Signs: 03/05/24 08:46 03/05/24 08:51 03/05/24 09:55 Temperature 97.9 F Temperature Source Temporal Pulse Rate 82 63 Respiratory Rate 18 10 L Respiratory Effort Normal Blood Pressure 119/79 115/78 Blood Pressure Mean 92 90 Pulse Ox 95 93 Oxygen Delivery Method Room Air Room Air 03/05/24 11:00 Temperature Temperature Source Pulse Rate 63 Respiratory Rate 24 H Respiratory Effort Blood Pressure 115/81 H Blood Pressure Mean 92 Pulse Ox 98 Oxygen Delivery Method Positive well nourished and well developed Constitutional Narrative: BMI is 31.5. General Appearance ED: well developed; Negative for pallor HEENT Reports moist mucous membranes HEENT Narrative: Head is atraumatic normocephalic. There is no abnormality (more content not included)... Normal [facility] Estimated glomerular filtrat ion rate (GFR) AmericanOrdered By: Danny Gilman on 03-05-2024 Estimated GFR (MDRD) Amer 73 mL/min >60 [facility] Comment on above: GFR Calc Estimation of creatinine jasmin aranceOrdered By: Danny Gilman on 03-05-2024 Estimated Creatinine Clearance Calc 72.97 ml/min [facility] Glomerular filtration rate ( GFR) estimationOrdered By: Danny Gilman on 03-05-2024 Estimated GFR (MDRD) Non-Af Amer 60 mL/min >60 [facility] Comment on above: Non- GFR Calc Glucose measurementOrdered B y: Danny Gilman on 03-05-2024 Glucose [Mass/Vol] 146 mg/dL High 74-106 [facility] Comment on above: Fasting Glucose resu lt greater than or equal to 126 mg/dL suggests DIABETES MELLITUS per A.D.A. criteria. Glucose measurement at [facility] 03-05-2024 Bedside Glucose (Misc Panel) 106 mg/dL 74-106 [facility] Comment on above: MANAGEMENT OF PATIEN T CARE PER NURSING PROTOCOL Potassium measurementOrdered By: Danny Gilman on 03-05-2024 Potassium [Moles/Vol] 4.0 mmol/L 3.5-5.1 [facility] Serum anion gap measurementO rdered By: Danny Gilman on 03-05-2024 Anion gap [Moles/Vol] 5 mmol/L 5-15 [facility] Serum or plasma calcium kaleb urement (mass/volume)Ordered By: Danny Gilman on 03-05-2024 Calcium [Mass/Vol] 9.4 mg/dL 8.5-10.1 [facility] Serum or plasma creatinine m easurement (mass/volume)Ordered By: Danny Gilman on 03-05-2024 Creatinine [Mass/Vol] 1.28 mg/dL 0.70-1.30 [facility] Comment on above: The validity of the calculated GFR & GFRAA in patients over 70 years has not been determined. Clinical correlation is essential. Serum or plasma urea nitroge n measurement (mass/volume)Ordered By: Danny Gilman on 03-05-2024 Urea nitrogen [Mass/Vol] 17 mg/dL 7-18 [facility] Sodium levelOrdered By: Danny Gilman on 03-05-2024 Sodium [Moles/Vol] 140 mmol/L 136-145 [facility] 02-27-2024 CNPN Telephone (CARDBD) MIO SIMMONS ([id number]) 1960 M Date Time Provider Department 02/27/24 CONNIE TAYLOR During your visit today, we recorded the following information about you: Harish Erwin RN 02/27/2024 2:28 PM Signed Fax received from [facility] from Dr. Humberto Franco noting an emergent visit on 02/24/2024 due to patient going in to afib RVR in 120 bpm range during a cardiac rehab session. Per Dr. Franco note, he recommended increasing metoprolol to 50 mg twice daily and monitor heart rate with possible cardioversion if patient does not convert. Ankit score noted at [address] Franco with no anticoagulation recommended. Patient on aspirin and plavix s/p MARCIAL to LAD 01/13/2024. Also noted follow up with Dr. Taylor in March 2024. No follow up appointment in chart. Spoke to patient who states he went home after cardiac rehab and took a nap. After he nap he was in Sinus rhythm per his apple watch and has had no recurrence of afib. He states he thinks it was due to dehydration. Patient states someone from our office called him scheduling him for 04/03 appointment (see telephone encounter per Dr. Taylor). Note from PSS in encounter states waiting insurance approval. Placed patient on schedule for 04/03 at noon and notified patient to contact his insurance to assure that it is approved. Update sent to Dr. Taylor regarding afib episode and med increase to 50mg Lopressor twice daily. Patient states resting heart rate in 59 with up to 118 at cardiac rehab today with exercise. Med update to Dr. Taylor. Note from Dr. Franco sent for scanning and copy in file cabinet for 04/03/[address] Taylor. JIGAR Keith Matthew A, MD 02/28/2024 4:09 PM Signed Agree with taking metoprolol 50 mg twice daily. I see that this has been updated in his chart. I would not do anything differently for the time being unless he has recurrent atrial fibrillation prior to our appointment in March. Thank you Makayla Hodge RN 02/28/2024 4:37 PM Signed [employer] message sent to patient. JIGAR Glass Nicolette, RN 03/02/2024 10:47 AM Signed Patient did not read his [employer] message. I spoke with him and relayed Dr. Taylor's message. Makayla Hodge RN Allergies As of Date: 02/27/2024 (No Known Allergies) Date Reviewed: 01/25/2024 Reviewed by: Pau Mclaughlin MA - Fully Assessed Prescriptions as of 03/02/2024 - metoprolol tartrate, short acting, (LOPRESSOR) 25 mg tablet Take 2 tablets by mouth every 12 hours. - MULTIVITAMIN ORAL Take by mouth. - atorvastatin (LIPITOR) 40 mg tablet Take 1 tablet by mouth once daily. - nitroglycerin sublingual (NITROQUICK) 0.4 mg SL tablet Dissolve 1 tablet under the tongue as needed for chest pain. - aspirin (ASPIR-81 ORAL) Take 81 mg by mouth once daily. - clopidogrel (PLAVIX) 75 mg tablet Take 1 tablet by mouth once daily. - krill oil 500 mg cap Take 500 mg by mouth once daily. - psyllium husk 0.4 gram cap Take 0.4 g by mouth once daily. Problem List As Of Date 02/27/2024 Noted Resolved Coronary artery disease involving [place] olivas*01/02/2024 Vasovagal syncope [R55] 01/02/2024 PAF (paroxysmal atrial fibrillation) (HCC) [I48*01/02/2024 PVC (premature ventricular contraction) [I49.3] 01/02/2024 Pure hypercholesterolemia [E78.00] 01/02/2024 Encounter Status:Closed by HARISH ERWIN on 02/28/24 Normal [facility] 12 Lead EKG performed by [facility] [place] 02-24-2024 12 Lead EKG performed by [facility] [address] [place] [address] 12 Lead EKG performed by [facility] 02/24/24 0849 MR#: [id number] Acct: [id number] Name: MIO SIMMONS Rep #: [id number] : 1960 63 From: Humberto Franco MD Attending Dr: Dr. Humberto Franco MD Status: DE P AMB Ordering Dr: Humberto Franco MD Date: 02/24/24 [place] [facility] Sex: M C Admitted: BMS/12 Lead EKG performed by [facility] ECG Report Interpretation ---Atrial fibrillation Low voltage in precordial leads. -Incomplete right bundle branch block. ABNORMAL Electronically signed on 02/24/2024 at 10:[address] Humberto Franco [employer] Version 8610 02/24/24 1024 Date Humberto Franco MD CC: Dr. Bonita Rao MD Date Dictated: 02/24/2449 Date Transcribed: 02/24/24848 Church Worker: Signed Normal [facility] Cardiology Visit Reporton Cardiology Visit Report [facility] [address] [place] [address] OFFICE VISIT Date of Service: 02/24/24 MR#: [id number] Acct: [id number] Name: MIO SIMMONS Rep #: [id number] : 1960 Provider: Dr. 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 The patient was in cardiac rehab and was noted to be in atrial fibrillation with rapid trickle response and the heart rate in the 120 bpm range. The patient was brought to the office and EKG was performed which showed atrial fibrillation with a heart rate of 88 bpm and incomplete right bundle branch block. The patient is status post atherec kandice assisted stenting of the left anterior descending January 13, 2024 at the [facility]. He has been in cardiac rehab and been tolerating activities without incident. The patient did have a fever this morning that resolved who is slightly clammy and he noticed something just was not right and his iWatch told him he was in atrial fibs. The patient's heart rate was 90- 100 after he sat down in rehab it was 135 when he first walked in the door. The patient is on metoprolol 25 mg twice daily. Patient denies any anginal type symptoms. 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 The patient does have a history of orthostatic hypotension in the past his chest discomfort that was occurring intermittently prior to his catheterization has resolved. Patient's [id number] score equals 1. This is really for his vascular disease is his only risk. He is currently on aspirin and Plavix which should not be interrupted for any reason until 2024. Intake Vital Signs 01/30/24 08:46 02/24/24 08:48 02/24/24 08:49 Height 5 ft 11 in 5 ft 11 in 5 ft 11 in Weight: 216 lb BMI 30.1 BP 124/90 H Blood Pressure Location Lt brachial Position Sitting Respiration 18 Pulse 76 Pulse Source Monitor Pulse Oximetry (%) 94 Oxygen Delivery Method room air Intake Visit Reasons: Tachycardia Heel Emery Buffer Required: No Accompanied by: Self Is patient in pain?: No Allergies No Known Allergies Allergy (Verified 02/24/24 08:46) Medications ???Medication ???Instructions ???Recorded ???Confirmed ???Type krill oil 500 mg capsule 500 mg PO DAILY 12/13/23 02/24/24 History multivitamin 1 tab PO QAM 12/13/23 02/24/24 History psyllium husk 0.4 gram capsule 0.4 g PO QDAY 12/13/23 02/24/24 History (Daily Fiber) aspirin 81 mg tablet,delayed 81 mg PO QDAY 12/16/23 02/24/24 History release (Adult Aspirin Regimen) atorvastatin 40 mg tablet mg PO DAILY 02/24/24 02/24/24 History clopidogrel 75 mg tablet 75 mg PO QDAY 02/24/24 02/24/24 History metoprolol tartrate 25 mg tablet mg PO BID 02/24/24 02/24/24 History Ejection fraction %: 50 Have you fallen in the past year?: No PFSH Medical History History of left heart catheterization Intermittent chest pain Syncope due to orthostatic hypotension Varicose veins of legs DVT (deep venous thrombosis) Surgical History History of coronary artery stent placement History of oral surgery Family History Father Heart disease Cancer Mother Atrial fibrillation Social History Smoking Status: Never smoker alcohol intake: never substance use type: does not use caffeine: Yes ROS Const Const: Positive for fatigue; Negative for weakness ENT ENT: Negative for dizziness or balance problems Cardio Chest Pain: No Palpitations: No Edema: None Muscle aches with walking: None Resp Respiratory: Negative for SOB with activity, SOB at rest or SOB orthopnea SOB lying down GI GI: Negative nausea, vomiting or heartburn Musc Musc: Negative for muscle weakness or balance problems Neuro Neuro: Negative for dizziness, lightheadedness, near syncope, syncope or weakness Endo Endo: Positive for fatigue Cardiology Exam Const Appearance: cooperative, healthy appearing, comfortable, no acute distress and well developed Head Head: normal to inspection Eyes General: appearance normal, both eyes and all related structures Neck Neck: normal visual inspection and no JVD Carotids: Negative bruit Chest Chest inspection: normal inspection of the chest Auscultation: Bilateral: Clear to Auscultation Cardio Rate: regular rate Rhythm: irregularly irregular Heart sounds: S1 normal and S2 normal; Negative rub, gallop or murmur GI GI: normal to ins (more content not included)... Normal [facility] CR - History AND Physicalon 01-30-2024 CR - History & Physical [facility] Cardiac Rehab [address] [place] [address] CR - History Physical MR#: [id number] Acct: [id number] Name: MIO SIMMONS Rep #: [id number] : 1960 63 From: Hilton DUPREE, RVT PCP: Dr. Bonita Rao MD DOS: 01/30/24 CR - History Physical General Arrival date:: 01/30/24 Arrival time:: 08:01 Date of Referral:: 01/18/24 Date of CR Evaluation:: 01/30/24 Referring Physician: Dr. Noman Barajas Primary Diagnosis: PTCA or stent History of Present Cardiac Event Onset Date PTCA or coronary stenting:: Yes (01/13/24 onset) Vessel: LAD Medications Ambulatory Orders ???Medication ???Instructions ???Recorded sildenafil 50 mg tablet 50 mg PO QDAY PRN erectile 12/01/23 dysfunction krill oil 500 mg capsule 500 mg PO DAILY 12/13/23 multivitamin 1 tab PO QAM 12/13/23 psyllium husk 0.4 gram capsule 0.4 g PO QDAY 12/13/23 (Daily Fiber) aspirin 81 mg tablet,delayed 81 mg PO QDAY 12/16/23 release (Adult Aspirin Regimen) Allergies Allergies No Known Allergies Allergy (Verified 12/13/23 14:24) Sleep Disorder Evaluation Hx of Sleep Apnea: No Do you snore loudly (louder than talking or can be heard through closed doors)?: No Do you often feel tired/ fatigued/ sleepy during daytime?: No Has anyone observed you stop breathing during sleep?: No History of Hypertension (for STOP score): No STOP Results: Negative Advanced Directives Advanced Directives Power of Dressing Room Porter: Yes Living Will: Yes Advance Directives Information Provided: No Advance Directives on File: No DNR Order?:: No Past Medical History Covid-19 Screening Physicial Symptoms Other Clinical Concerns Exposure Risk Pertinent Comorbidities Has a serious heart condition:: Yes Past Medical Illness Past Medical History Intermittent chest pain R07.9 Syncope due to orthostatic hypotension I95.1 Varicose veins of legs I83.93 DVT (deep venous thrombosis) I82.409 Past Surgical History Past Surgical History History of oral surgery Z98.890 Surgical History: noncontributory Family History Summary Family History Father Heart disease Cancer Mother Atrial fibrillation Social History Alcohol Use Alcohol Usage: No Occupation Occupation (List type of work in comments):: Employed (Pt is a Art Professor ) Hobbies, Recreation, Social Activities Hobbies: Farm Recreational Activities: I am able to engage in all my recreational activities Social Environment Status Marital Status: Current Living Arrangements Living Environment:: Spouse Children How many children do you have?: 3 Do any of your children live nearby?: Yes Safety Do you feel safe in your surroundings?: Yes Assistance Do you need any assistance at home?: no Review of Systems Review of Systems Hints Review of Present Symptoms: Reports Appetite - Normal, Appetite - Special Diet and Sleep - Normal; Denies Shortness of Breath at Rest, Shortness of Breath with Exertion, PVD, Operative Discomfort, Angina, Wound Healing, Dizziness/Lightheadedne ss, Fatigue, Heart Arrhythmia/Irregulariti es or Sexual Changes Pain Is Patient Pain Free?: Yes Risk Factor Assessment Vital Signs Pulse Ox: 94 Blood Pressure: 119/74 Pulse Pulse Rate: 66 Hypertension Blood Pressure Sitting - Right Arm: 119/74 Stress Stress: Work-related Obesity Height: 5 ft 11 in Weight:: 208 lb Weight in Pounds: 208.0 lbs Body Mass Index (BMI): 29.0 Nutritional Referral for Obesity: No Physical Inactivity Physical Inactivity: None Risk Stratification Risk Guidelines: Lowest Risk: Risk Factor for Smoking and Moderate Risk: Risk Factor for Dyslipidemia, Risk Factor for Diabetes, Risk Factor for Obesity, Risk Factor for Hypertension, Risk Factor for Sedentary Lifestyle and Risk Factor for Depression For Smoking Smoking Risk Guidelines For Dyslipidemia Dyslipidemia Risk Guidelines For Diabetes Mellitus Diabetes Risk Guidelines For Obesity/Overweight Obesity/Overweight Risk Guidelines For Hypertension Hypertension Risk Guidelines For Sedentary Lifestyle Sedentary Lifestyle Risk Guidelines For Depression Depression Risk Guidelines Family History Family History Father Heart disease Cancer Mother Atrial fibrillation Motivation Motivation to Participate On a scale of 1 to 10, how prepared are you to commit to attending program?: 10 What do you see as barriers to successfully being able to complete the program?: nothing What do you see as the benefits of succesfully completing the program? In other words, what do you hope to get out of participating in the program?: get back in s (more content not included)... Normal [facility] CNOVon 01-25-2024 CNOV Office Visit (CRDTWN ) MIO SIMMONS ([id number]) 1960 M Date Time Provider Department 01/25/24 2:30 PM MERVAT HOFFMANN CRDTWN During your visit today, we recorded the following information about you: Pulse Blood pressure Weight 68/minute 120/74 100 kg Mervat Hoffmann APRN.VICE PRESIDENT B[employer]STATISTICS 01/25/2024 2:29 PM Signed - Continue current medications - Mediterranean diet - Cardiac rehab - Fasting labs in March prior to appt with Mervat Alcala APRN.VICE PRESIDENT BIOSTATISTICS 01/25/2024 2:34 PM Signed [facility] [place] Oksana Zhao Department of Cardiovascular Medicine SECTION OF REGIONAL CARDIOLOGY Mio Simmons is a 63 year old male here today for follow up cardiac cath/PCI. HPI: Mio Simmons is a (an) 63 year old year old male patient of Dr. Taylor with PMH: CAD s/p MARCIAL to LAD 01/13/24, pAfib, PVC, vasovagal syncope, dyslipidemia . Last visit 01/02/24 Today, patient denies exertional chest pain/tightness, worsening SOB, palpitations, pre-syncope, syncope, and edema. Planning to complete cardiac rehab at [facility] PAST MEDICAL HISTORY Diagnosis Date Abnormal cardiovascular function study Abnormal ECG Deep vein thrombosis (DVT) (HCC) Incomplete right bundle branch block (RBBB) Intermittent chest pain Syncope Syncope due to orthostatic hypotension Varicose veins of legs No past surgical history on file. FAMILY HISTORY Problem Relation Age of Onset other (atrial fibirillation) Mother Heart disease Father Cancer Father other (atrial fib) Brother SOCIAL HISTORY Social History Tobacco Use Smoking status: Never Smokeless tobacco: Never Vaping Use Vaping status: Never Used Substance Use Topics Alcohol use: Never Drug use: Never ALLERGIES: Patient has no known allergies. CURRENT MEDICATIONS: Current Outpatient Medications Medication Sig atorvastatin (LIPITOR) 40 mg tablet Take 1 tablet by mouth once daily. metoprolol tartrate, short acting, (LOPRESSOR) 25 mg tablet Take 1 tablet by mouth every 12 hours. nitroglycerin sublingual (NITROQUICK) 0.4 mg SL tablet Dissolve 1 tablet under the tongue as needed for chest pain. aspirin (ASPIR-81 ORAL) Take 81 mg by mouth once daily. clopidogrel (PLAVIX) 75 mg tablet Take 1 tablet by mouth once daily. krill oil 500 mg cap Take 500 mg by mouth once daily. psyllium husk 0.4 gram cap Take 0.4 g by mouth once daily. No current facility-administered medications for this visit. CARDIAC TESTING: Last EKG Result Conclusion ECG COMPLETE Collected: 01/14/2024 8:34 AM (Final result) Impression: SINUS BRADYCARDIA LEFT AXIS DEVIATION RIGHT BUNDLE BRANCH BLOCK ABNORMAL ECG WHEN COMPARED WITH ECG OF 13-Jan-2024 11:52, RIGHT BUNDLE BRANCH BLOCK IS NOW PRESENT Confirmed by CRUZITO BYERS M.D. ([id number]) on 01/16/2024 9:34:44 AM 01/13/24 Cardiac Cath Intervention LAD Lesion Type: Class C Guiding Catheter(s): EBU 3.5 90% Stenosis Location: Proximal, Mid, Calcified Pre IGNACIO Blood Flow: 3 Using 0.012 Viperwire advanced to distal segment of the vessel and orbital atherectomy was done using 1.25 mm Dae, 4 passes at 80,000 RPM, and 1 pass at 120,000 RPM. Pre Dilatation Balloon Size: 3.0 mm X 15 mm score flex balloon Proximal mid Stent Placed: Type: Xience (Drug Eluting Stent) Size: 3.0 mm Length: 32 mm Post Dilatation Balloon Size: 3.75 mm X 12 mm Post IGNACIO Blood Flow: 3 Result: Successful. ADDITIONAL PROCEDURES INTERROGATION AND ASSESSMENT OF LESION: The guidewire engaged the LAD. The guide wire was advanced crossing the lesion and OCT device was advanced over the guide wire. The lesion was interrogated; images were obtained and recorded. Measurements were completed for lumen and vessel diameter/area, greater than 270 degree calcified arc with nodule noted. Post stent deployment OCT revealed well-expanded and deployed stent except in the ostial proximal segment of the stent was slightly under deployed for which PTCA using 3.75 x 12 mm NC balloon was done. The sheath was removed and hemostatsis was established using manual pressure using wrist band. There was no bleeding at the end of the procedure. The pt was returned to the recovery room in a stable condition. ESTIMATED BLOOD LOSS: Less Than Minimal Unless Noted Here. COMPLICATIONS: None SPECIMENS: No specimens obtained unless noted here. CONDITION: Stable RECOMMENDATIONS: Follow protocol of post-op orders. Aggressive modification of risk factors. 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 [facility]. Stop aspirin following the initiation of apixaban. LABS: No results found for: CHOL, HDL, LDL, TG AST (U/L) Date Value 01/02/2024 19 ALT (U/L) Date Value (more content not included)... [facility] [facility] ([id number]) 1960 M Date Time Provider Department 01/23/24 CONNIE TAYLOR During your visit today, we recorded the following information about you: Connie Taylor MD 01/23/2024 5:25 PM Signed Patient had PCI to his LAD with Dr. Barajas earlier in January. 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 I could accommodate him noon on Apr 03 Thanks Yolanda Covarrubias RN 01/25/2024 1:06 PM Signed Per Zahra PSS - Waiting on referral to be approved pt knows about appt Yolanda Canas RN Allergies As of Date: 01/23/2024 (No Known Allergies) Date Reviewed: 01/13/2024 Reviewed by: Narcisa Lee RN - Fully Assessed Reason for Visit: Appointment [186] Prescriptions as of 01/25/2024 - atorvastatin (LIPITOR) 40 mg tablet Take 1 tablet by mouth once daily. - metoprolol tartrate, short acting, (LOPRESSOR) 25 mg tablet Take 1 tablet by mouth every 12 hours. - nitroglycerin sublingual (NITROQUICK) 0.4 mg SL tablet Dissolve 1 tablet under the tongue as needed for chest pain. - aspirin (ASPIR-81 ORAL) Take 81 mg by mouth once daily. - clopidogrel (PLAVIX) 75 mg tablet Take 1 tablet by mouth once daily. - krill oil 500 mg cap Take 500 mg by mouth once daily. - psyllium husk 0.4 gram cap Take 0.4 g by mouth once daily. Problem List As Of Date 01/23/2024 Noted Resolved Coronary artery disease involving [place]*01/02/2024 Vasovagal syncope [R55] 01/02/2024 PAF (paroxysmal atrial fibrillation) (HCC) [I48*01/02/2024 PVC (premature ventricular contraction) [I49.3] 01/02/2024 Pure hypercholesterolemia [E78.00] 01/02/2024 Encounter Status:Closed by YOLANDA CANAS on 01/25/24 [facility] 01-18-2024 [facility] Telephone ([employer]) MIO SIMMONS ([id number]) 1960 M Date Time Provider Department 01/18/24 TERESITA PADILLA During your visit today, we recorded the following information about you: Teresita Padilla 01/18/2024 9:08 AM Signed Spoke with patient regarding Cardiac Rehab referral. Patient prefers [facility]. Sent via FAX. Allergies As of Date: 01/18/2024 (No Known Allergies) Date Reviewed: 01/13/2024 Reviewed by: Narcisa Lee RN - Fully Assessed Reason for Visit: Cardiac Rehab [5709] Cmt: Pt prefers [facility] Prescriptions as of 01/18/2024 - atorvastatin (LIPITOR) 40 mg tablet Take 1 tablet by mouth once daily. - metoprolol tartrate, short acting, (LOPRESSOR) 25 mg tablet Take 1 tablet by mouth every 12 hours. - nitroglycerin sublingual (NITROQUICK) 0.4 mg SL tablet Dissolve 1 tablet under the tongue as needed for chest pain. - aspirin (ASPIR-81 ORAL) Take 81 mg by mouth once daily. - clopidogrel (PLAVIX) 75 mg tablet Take 1 tablet by mouth once daily. - krill oil 500 mg cap Take 500 mg by mouth once daily. - psyllium husk 0.4 gram cap Take 0.4 g by mouth once daily. Problem List As Of Date 01/18/2024 Noted Resolved Coronary artery disease involving [place]*01/02/2024 Vasovagal syncope [R55] 01/02/2024 PAF (paroxysmal atrial fibrillation) (HCC) [I48*01/02/2024 PVC (premature ventricular contraction) [I49.3] 01/02/2024 Pure hypercholesterolemia [E78.00] 01/02/2024 Encounter Status:Closed by TERESITA PADILLA on 01/18/24 [facility] Telephone (CARDBD) MIO SIMMONS ([id number]) 1960 M Date Time Provider Department 01/18/24 CONNIE TAYLOR During your visit today, we recorded the following information about you: Connie Haskins Karla 01/18/2024 1:05 PM Signed Pt called as he just had a cardiac procedure and was told to see dr taylor within 2 weeks. As there are no openings with or the tem during this time (or ANYTIME soon) pT would lieka call re: what should be done. Please call pt at [phone] Bre Bacon, JIGAR 01/18/2024 2:10 PM Signed Contacted patient, scheduled for hospital follow up with Mervat on 01/24 at 2:30pm. No further questions at this time. Bre Bacon RN Allergies As of Date: 01/18/2024 (No Known Allergies) Date Reviewed: 01/13/2024 Reviewed by: Narcisa Lee RN - Fully Assessed Reason for Visit: Future Appointment [256] Prescriptions as of 01/18/2024 - atorvastatin (LIPITOR) 40 mg tablet Take 1 tablet by mouth once daily. - metoprolol tartrate, short acting, (LOPRESSOR) 25 mg tablet Take 1 tablet by mouth every 12 hours. - nitroglycerin sublingual (NITROQUICK) 0.4 mg SL tablet Dissolve 1 tablet under the tongue as needed for chest pain. - aspirin (ASPIR-81 ORAL) Take 81 mg by mouth once daily. - clopidogrel (PLAVIX) 75 mg tablet Take 1 tablet by mouth once daily. - krill oil 500 mg cap Take 500 mg by mouth once daily. - psyllium husk 0.4 gram cap Take 0.4 g by mouth once daily. Problem List As Of Date 01/18/2024 Noted Resolved Coronary artery disease involving [place]*01/02/2024 Vasovagal syncope [R55] 01/02/2024 PAF (paroxysmal atrial fibrillation) (HCC) [I48*01/02/2024 PVC (premature ventricular contraction) [I49.3] 01/02/2024 Pure hypercholesterolemia [E78.00] 01/02/2024 Encounter Status:Closed by BRE BACON on 01/18/24 Normal [facility] Basic metabolic 2000 panelon 01-14-2024 Anion gap [Moles/Vol] 8 mmol/L Normal 8-15 [facility] Comment on above: Order Comment: Speci men Type: BLOOD SPECIMEN Ordering Facility: [facility] Address: [address] [place] [address] Performed By: #### 2 4321-2 #### [facility] CLIA [id number] [address] [place] [address] [place] Calcium [Mass/Vol] 9.0 mg/dL Normal 8.5-10.2 [facility] Comment on above: Order Comment: Speci men Type: BLOOD SPECIMEN Ordering Facility: [facility] Address: [address] [place] [address] Performed By: #### 2 4321-2 #### [facility] CLIA [id number] [address] [place] [address] [place] Chloride [Moles/Vol] 105 mmol/L Normal 98-107 [facility] Comment on above: Order Comment: Speci men Type: BLOOD SPECIMEN Ordering Facility: [facility] Address: [address] [place] [address] Performed By: #### 2 4321-2 #### [facility] CLIA [id number] [address] [place] [address] [place] CO2 [Moles/Vol] 27 mmol/L Normal 22-30 [facility] Comment on above: Order Comment: Speci men Type: BLOOD SPECIMEN Ordering Facility: [facility] Address: [address] [place] [address] Performed By: #### 2 4321-2 #### [facility] CLIA [id number] [address] [place] [address] [place] Creatinine [Mass/Vol] 1.13 mg/dL Normal 0.73-1.22 [facility] Comment on above: Order Comment: Speci men Type: BLOOD SPECIMEN Ordering Facility: [facility] Address: [address] [place] [address] Performed By: #### 2 4321-2 #### [facility] CLIA [id number] [address] [place] [address] [place] Creatinine and Glomerular filtration rate.predicted panel (S/P/Bld) 73 mL/min/1.73m??? Normal >=60 [facility] Comment on above: Order Comment: Ronan guzman Type: BLOOD SPECIMEN Ordering Facility: [facility] Address: [address] [place] [address] Result Comment: [facility] Glomerular Filtration Rate (eGFR) is calculated using the 2020 CKD-EPI creatinine equation. This equation utilizes serum creatinine, sex, and age as parameters. The creatinine assay has traceable calibration to isotope dilution-mass spectrometry. Refer to KDIGO guidelines for clinical interpretation. In patients with unstable renal function, e.g. those with acute kidney injury, the eGFR may not accurately reflect actual GFR. Performed By: #### 2 4321-2 #### [facility] CLIA [id number] [address] [place] [address] [place] Glucose [Mass/Vol] 104 mg/dL High 74-99 [facility] Comment on above: Order Comment: Ronan guzman Type: BLOOD SPECIMEN Ordering Facility: [facility] Address: [address] [place] [address] Result Comment: The [place] Diabetes Association (ADA) provides guidance for cutoff values for fasting glucose and random glucose. The ADA defines fasting as no caloric intake for at least 8 hours. Fasting plasma glucose results between 100 to 125 mg/dL indicate increased risk for diabetes (prediabetes). Fasting plasma glucose results greater than or equal to 126 mg/dL meet the criteria for diagnosis of diabetes. In the absence of unequivocal hyperglycemia, results should be confirmed by repeat testing. In a patient with classic symptoms of hyperglycemia or hyperglycemic crisis, random plasma glucose results greater than or equal to 200 mg/dL meet the criteria for diagnosis of diabetes. Reference: Standards of Medical Care in Diabetes 2016, [place] [employer] Association. Diabetes Care. 2016.39(Suppl 1). Performed By: #### 2 4321-2 #### [facility] CLIA [id number] [address] [place] [address] [place] Potassium [Moles/Vol] 3.8 mmol/L Normal 3.7-5.1 [facility] Comment on above: Order Comment: Speci men Type: BLOOD SPECIMEN Ordering Facility: [facility] Address: [address] [place] [address] Performed By: #### 2 4321-2 #### [facility] CLIA [id number] [address] [place] [address] [place] Sodium [Moles/Vol] 140 mmol/L Normal 136-144 [facility] Comment on above: Order Comment: Speci men Type: BLOOD SPECIMEN Ordering Facility: [facility] Address: [address] [place] [address] Performed By: #### 2 4321-2 #### [facility] CLIA [id number] [address] [place] [address] [place] Urea nitrogen [Mass/Vol] 14 mg/dL Normal 9-24 [facility] Comment on above: Order Comment: Speci men Type: BLOOD SPECIMEN Ordering Facility: [facility] Address: [address] [place] [address] Performed By: #### 2 4321-2 #### [facility] CLIA [id number] [address] [place] [address] [place] CBC panel Auto (Bld)on 01-13 Erythrocyte distribution width (RBC) [Ratio] 12.7 % Normal 11.5-15.0 [facility] Comment on above: Order Comment: Speci men Type: BLOOD SPECIMEN Ordering Facility: [facility] Address: [address] [place] [address] Performed By: #### 5 8410-2 #### [facility] CLIA [id number] [address] [place] [address] [place] Hematocrit (Bld) [Volume fraction] 41.2 % Normal 39.0-51.0 [facility] Comment on above: Order Comment: Speci men Type: BLOOD SPECIMEN Ordering Facility: [facility] Address: [address] [place] [address] Performed By: #### 5 8410-2 #### [facility] CLIA [id number] [address] [place] [address] [place] Hemoglobin (Bld) [Mass/Vol] 13.8 g/dL Normal 13.0-17.0 [facility] Comment on above: Order Comment: Speci men Type: BLOOD SPECIMEN Ordering Facility: [facility] Address: [address] [place] [address] Performed By: #### 5 8410-2 #### [facility] CLIA [id number] [address] [place] [address] [place] MCH (RBC) [Entitic mass] 29.9 pg Normal 26.0-34.0 [facility] Comment on above: Order Comment: Speci men Type: BLOOD SPECIMEN Ordering Facility: [facility] Address: [address] [place] [address] Performed By: #### 5 8410-2 #### [facility] CLIA [id number] [address] [place] [address] [place] MCHC (RBC) [Mass/Vol] 33.5 g/dL Normal 30.5-36.0 [facility] Comment on above: Order Comment: Speci men Type: BLOOD SPECIMEN Ordering Facility: [facility] Address: [address] [place] [address] Performed By: #### 5 8410-2 #### [facility] CLIA [id number] [address] [place] [address] [place] MCV (RBC) [Entitic vol] 89.2 fL Normal 80.0-100.0 [facility] Comment on above: Order Comment: Speci men Type: BLOOD SPECIMEN Ordering Facility: [facility] Address: [address] [place] [address] Performed By: #### 5 8410-2 #### [facility] CLIA [id number] [address] [place] [address] [place] Nucleated RBC (Bld) [#/Vol] 10*3/uL Normal <0.01 [facility] Comment on above: Order Comment: Speci men Type: BLOOD SPECIMEN Ordering Facility: [facility] Address: [address] [place] [address] Performed By: #### 5 8410-2 #### [facility] CLIA [id number] [address] [place] [address] [place] Platelet mean volume (Bld) [Entitic vol] 9.1 fL Normal 9.0-12.7 [facility] Comment on above: Order Comment: Speci men Type: BLOOD SPECIMEN Ordering Facility: [facility] Address: [address] [place] [address] Performed By: #### 5 8410-2 #### [facility] IA [id number] [address] [place] [address] [place] Platelets (Bld) [#/Vol] 144 10*3/uL Low 150-400 [facility] Comment on above: Order Comment: Speci men Type: BLOOD SPECIMEN Ordering Facility: [facility] Address: [address] [place] [address] Result Comment: No c lot detected. Performed By: #### 5 8410-2 #### [facility] IA [id number] [address] [place] [address] [place] RBC (Bld) [#/Vol] 4.62 10*6/uL Normal 4.20-6.00 [facility] Comment on above: Order Comment: Speci men Type: BLOOD SPECIMEN Ordering Facility: [facility] Address: [address] [place] [address] Performed By: #### 5 8410-2 #### [facility] [place] [id number] [address] [place] [address] [place] WBC (Bld) [#/Vol] 5.80 10*3/uL Normal 3.70-11.00 [facility] Comment on above: Order Comment: Speci men Type: BLOOD SPECIMEN Ordering Facility: [facility] Address: [address] [place] [address] Performed By: #### 5 8410-2 #### [facility] CLIA [id number] [address] [place] [address] [place] CNDSon 01-14-2024 CNDS HNO ID: [id number] Author: MARIELA PENA MD Service: General Internal Medicine Author Type: Physician Type: Discharge Summary Filed: 01/14/2024 12:36 Note Text: DISCHARGE SUMMARY PATIENT NAME: Mio Simmons ADMISSION DATE: 01/13/2024 DISCHARGE DATE: 01/14/2024 Attending Physician: Attending provider: Mariela Pena ([phone]) Reason for Hospitalization: Active Problems: * No active hospital problems. * Resolved Problems: * No resolved hospital problems. * Operations During Hospitalization: To list. Procedures During Hospitalization: To list. Labs and Procedures Pending at Discharge: No pending results. Unless otherwise specified. Consulting Teams During Hospitalization: Cardiology Patient Condition @ Discharge: Stable Discharge Disposition: Home with Self Care Discharge Physical Exam: VITAL SIGNS: BP 119/74 Pulse 66 Temp 36.6 ?C (97.9 ?F) (Oral) Resp 18 Ht 180.3 cm (5' 11) Wt 94.3 kg (208 lb) SpO2 94% BMI 29.01 kg/m? Extremities: Ecchymosis rest Hospital Course: CAD -12/22 LHC: single-vessel disease with severe 80% stenosis of the proximal LAD -01/12 LHC: PCI and orbital atherectomy to LAD -lipitor -plavix Complete RBBB Afib -12/28 echo 65% -lopressor -eliquis DVT () Discharge Medications: Medication List START taking these medications metoprolol tartrate (short acting) 25 mg tablet Commonly known as: LOPRESSOR Take 1 tablet by mouth every 12 hours. nitroglycerin sublingual 0.4 mg SL tablet Commonly known as: NITROQUICK Dissolve 1 tablet under the tongue as needed for chest pain. CONTINUE taking these medications ASPIR-81 ORAL atorvastatin 40 mg tablet Commonly known as: LIPITOR Take 1 tablet by mouth once daily. clopidogrel 75 mg tablet Commonly known as: PLAVIX Take 1 tablet by mouth once daily. krill oil 500 mg Cap psyllium husk 0.4 gram Cap STOP taking these medications multivitamin tablet sildenafil 50 mg tablet Commonly known as: VIAGRA Where to Get Your Medications These medications were sent to [id number] [place] [address] - [address] [facility] - [phone] [place] [id number] metoprolol tartrate (short acting) 25 mg tablet nitroglycerin sublingual 0.4 mg SL tablet Future Appointments: Follow Up with PCP: Bonita Rao MD I have performed the huht-hy-hokk and relevant services for a total of < 30 minutes. SIGNATURE: Mariela Pena MD DATE: January 14, 2024 TIME: 12:34 PM [facility] ECG COMPLETEon 01-14-2024 ECG COMPLETE Ventricular Rate : 5 9 BPM Atrial Rate : 59 BPM P-R Interval : 178 ms QRS Duration : 116 ms Q-T Interval : 412 ms QTC Calculation(Bazett) : 407 ms Calculated P [place] : 20 degrees Calculated R [place] : -31 degrees Calculated T [place] : -7 degrees SINUS BRADYCARDIA LEFT AXIS DEVIATION RIGHT BUNDLE BRANCH BLOCK ABNORMAL ECG WHEN COMPARED WITH ECG OF 13-Jan-2024 11:52, RIGHT BUNDLE BRANCH BLOCK IS NOW PRESENT Confirmed by CRUZITO BYERS M.D. ([id number]) on 01/16/2024 9:34:44 AM NAME : MIO SIMMONS PID : [id number] : 1960 Gender : Male Race : ORD : [id number] Procedure Date : Jan 14 2024 08:34:59 Edit Date : Jan 16 2024 09:34:46 Diagnosis: SINUS BRADYCARDIA LEFT AXIS DEVIATION RIGHT BUNDLE BRANCH BLOCK ABNORMAL ECG WHEN COMPARED WITH ECG OF 13-Jan-2024 11:52, RIGHT BUNDLE BRANCH BLOCK IS NOW PRESENT Confirmed by CRUZITO BYERS M.D. ([id number]) on 01/16/2024 9:34:44 AM Test Reason : Post-OP Location : 49 : [facility] 421 Overread By : CRUZITO BYERS M.D. Edited By : CRUZITO BYERS M.D. Referred By : , Acquired by : BRITTANY GALLOWAY [facility] NURSING PROGon 01-14-2024 NURSING PROG HNO ID: [id number] Author: PRAKASH WARNER RN Service: Nursing Author Type: Registered Nurse Type: Nursing Progress Note Filed: 01/14/2024 13:20 Note Text: Other: 1310 Discharge informative gave to patient by nurse Everett.Patient discharged and left the floor with his .Refused wheel chair. Normal [facility] PT EDon 01-14-2024 PT ED HNO ID: [id number] Author: MATHEUS RIVERA RD Service: Nutrition Therapy Author Type: Registered Dietitian Type: Patient Education Filed: 01/14/2024 09:45 Note Text: NUTRITION THERAPY PATIENT EDUCATION SERVICE DATE: 01/14/2024 SERVICE TIME: 8:30 am TOPIC: Diet: Heart Healthy LEARNING ASSESSMENT Individuals Assessed: Patient Preferred Learning Method: Written Instruction Barriers to Learning: None Evident LEARNING RESPONSE Instruction Provided to: Patient Patient / Family Response: Verbalizes Understanding Method of Instruction: Written instruction/Handouts Material(s) Provided to Patient: Heart Healthy MyPlate, Your Sodium-Controlled Diet, Heart Healthy Eating for Lowering Cholesterol Levels Follow-Up Plan: Complete - No need for follow-up Referral (Recommendation): Nutrition - Outpatient, as needed - Scheduling number attached to handouts MNT Billing: $ Initial Assessment: 1-15 minutes SIGNATURE: Matheus Rivera RD PATIENT NAME: Mio Simmons DATE: January 14, 2024 TIME: 9:43 AM PAGER: [facility] ECG COMPLETEon 01-13-2024 ECG COMPLETE Ventricular Rate : 7 2 BPM Atrial Rate : 72 BPM P-R Interval : 176 ms QRS Duration : 112 ms Q-T Interval : 396 ms QTC Calculation(Bazett) : 433 ms Calculated P [place] : 38 degrees Calculated R [place] : -41 degrees Calculated T [place] : 12 degrees NORMAL SINUS RHYTHM LEFT AXIS DEVIATION ABNORMAL ECG NO PREVIOUS ECGS AVAILABLE Confirmed by TAVIA FALLON MD ([id number]) on 01/13/2024 12:33:07 PM NAME : MIO SIMMONS PID : [id number] : 1960 Gender : Male Race : ORD : [id number] Procedure Date : Jan 13 2024 11:52:06 Edit Date : Jan 13 2024 12:33:08 Diagnosis: NORMAL SINUS RHYTHM LEFT AXIS DEVIATION ABNORMAL ECG NO PREVIOUS ECGS AVAILABLE Confirmed by TAVIA FALLON MD ([id number]) on 01/13/2024 12:33:07 PM Test Reason : Post OP Location : 49 : [facility] Overread By : TAVIA FALLON MD Edited By : TAVIA FALLON MD Referred By : , Acquired by : SHAYNA SIMON [facility] HISTORY PHYSICALon 4 HISTORY PHYSICAL HNO ID: [id number] Author: MARIELA PENA MD Service: General Internal Medicine Author Type: Physician Type: H&P Filed: 01/14/2024 12:34 Note Text: HISTORY AND PHYSICAL EXAMINATION PATIENT NAME: Mio Simmons SERVICE DATE: 01/13/2024 SERVICE TIME: 2:25 PM PRIMARY CARE PHYSICIAN: Bonita Rao MD ASSESSMENT AND PLAN: CAD -12/22 LHC: single-vessel disease with severe 80% stenosis of the proximal LAD -01/12 LHC: PCI and orbital atherectomy to LAD -lipitor -plavix Complete RBBB Afib -12/28 echo 65% -lopressor -eliquis DVT () DVT Prophylaxis: priyaqumiguel I have reviewed the history, examination and progress note obtained and documented by the CASSIA, and I personally participated in the meredith components. I have discussed the case and management of the patient's care. The following comments revise or confirm relevant meredith components of the CASSIA's note. Mariela Pena MD SUBJECTIVE CHIEF COMPLAINT: abnormal stress test HPI: This is a 63 year old male with a PMH of CAD, DVT, afib, and complete RBBB who presents for scheduled PCI orbital atherectomy to LAD. Pt had syncopal episode leading to cardiac workup. On 12/22 he had a LHC at [facility] that showed single-vessel disease with severe 80% stenosis of the proximal LAD. PCI scheduled for 01/12 and was admitted post procedure. PAST MEDICAL HISTORY: PAST MEDICAL HISTORY Diagnosis Date Abnormal cardiovascular function study Abnormal ECG Deep vein thrombosis (DVT) (HCC) Incomplete right bundle branch block (RBBB) Intermittent chest pain Syncope Syncope due to orthostatic hypotension Varicose veins of legs PAST SURGICAL HISTORY: No past surgical history on file. FAMILY HISTORY: FAMILY HISTORY Problem Relation Age of Onset other (atrial fibirillation) Mother Heart disease Father Cancer Father other (atrial fib) Brother SOCIAL HISTORY: Social History Tobacco Use Smoking status: Never Smokeless tobacco: Never Vaping Use Vaping status: Never Used Substance Use Topics Alcohol use: Never Drug use: Never MEDICATIONS: Prior to Admission Medications aspirin (ASPIR-81 ORAL), Take 81 mg by mouth once daily., Disp: , Rfl: , 01/13/2024 atorvastatin (LIPITOR) 40 mg tablet, Take 1 tablet by mouth once daily., Disp: 90 tablet, Rfl: 3, 01/13/2024 clopidogrel (PLAVIX) 75 mg tablet, Take 1 tablet by mouth once daily., Disp: 90 tablet, Rfl: 1, 01/13/2024 krill oil 500 mg cap, Take 500 mg by mouth once daily., Disp: , Rfl: , 01/13/2024 psyllium husk 0.4 gram cap, Take 0.4 g by mouth once daily., Disp: , Rfl: , 01/13/2024 multivitamin tablet, Take 1 tablet by mouth once daily., Disp: , Rfl: , 01/13/2024 sildenafil (VIAGRA) 50 mg tablet, Take 50 mg by mouth as needed., Disp: , Rfl: , Unknown CURRENT ALLERGIES: ALLERGIES No Known Allergies COMPLETE REVIEW OF SYSTEMS: PAIN ASSESSMENT: Negative for pain, history of chronic pain, or current treatment for a chronic pain condition. GENERAL: No weight loss, malaise or fevers HEENT: Negative for frequent or significant headaches, No changes in hearing or vision, no nose bleeds or other nasal problems NECK: Negative for lumps, goiter, pain and significant neck swelling RESPIRATORY: Negative for cough, hemoptysis, wheezing or shortness of breath CARDIOVASCULAR: Negative for chest pain, GI: No nausea, vomiting, or diarrhea : No history of dysuria, MUSCULOSKELETAL: Negative for joint pain or swelling, SKIN: Negative for lesions, rash, and itching NEURO: No history of headaches, paralysis, seizures or tremors. +syncope All other reviewed and negative other than HPI. OBJECTIVE PHYSICAL EXAM: Patient Vitals for the past 24 hrs: BP Temp Temp src Pulse Resp SpO2 Height Weight 01/13/24 1415 -- -- -- -- 20 -- -- -- 01/13/24 1400 110/63 -- -- 68 21 95 % -- -- 01/13/24 1345 116/67 -- -- 67 15 95 % -- -- 01/13/24 1330 116/72 -- -- 67 16 95 % -- -- 01/13/24 1315 114/73 -- -- 69 24 96 % -- -- 01/13/24 1300 125/82 -- -- 72 24 96 % -- -- 01/13/24 1245 123/83 -- -- 73 18 95 % -- -- 01/13/24 1230 117/81 -- -- 73 27 95 % -- -- 01/13/24 1215 114/74 -- -- 71 17 94 % -- -- 01/13/24 1200 125/77 -- -- 74 21 94 % -- -- 01/13/24 1145 137/79 -- -- 74 18 94 % -- -- 01/13/24 1144 137/78 -- -- 72 18 96 % -- -- 01/13/24 0928 142/70 36.6 ?C (97.9 ?F) Oral 71 20 96 % 180.3 cm (5' 11) 94.3 kg (208 lb) Body mass index is 29.01 kg/m?. GENERAL: alert, no distress, cooperative SKIN: Skin color, texture, turgor normal. No rashes or lesions. NECK: no jugulovenous distention BACK: Back symmetric, Normal curvature, ROM normal LUNGS: Lungs clear to auscultation. Good diaphragmatic excursion. CARDIAC: Normal S1 and S2; no rubs, murmurs, or gallops ABDOMEN: Abdomen soft, non-tender. BS normal. EXTREMITIES: BLE trace edema NEURO: Grossly normal cognition, motor function PULSES: 2+ radial, 2+ carotid DATA: Diagnostic tests revie (more content not included)... Normal [facility] HISTORY PHYSICAL HNO ID: [id number] Author: NOMAN BARAJAS MD Service: Interventional Cardiology Author Type: Physician Type: H&P Filed: 01/13/2024 09:25 Note Text: UPDATED HISTORY AND PHYSICAL EXAMINATION SERVICE DATE: 01/13/2024 SERVICE TIME: 9:25 AM SENSITIVE EXAMINATION CONSENT: The sensitive examination was discussed with the Patient or Patient's Authorized Landfill Gas Collection Operator. As applicable, any other physician, advance practice provider, medical student, or other health professional student that will be observing or involved in the sensitive examination for educational or training purposes was discussed with the Patient or Authorized Landfill Gas Collection Operator. The Patient or Authorized Landfill Gas Collection Operator has agreed to proceed with the sensitive examination. (Sensitive examination includes inspection and/or palpation of the breasts, pelvis, prostate and anorectal regions) PHYSICAL EXAM MUST BE COMPLETED ON ADMISSION The History and Physical (completed in the past 30 days) has been reviewed and the patient has been examined. The contents accurately reflect the patient's condition with the following additions or revisions since the HANDP was completed. Examination indicates no changes. This HANDP can be found in the Electronic Medical Record dated 01.02.24. SIGNATURE: Noman Barajas MD PATIENT NAME: Mio Simmons DATE: January 13, 2024 TIME: 9:25 AM [facility] OPERATIVE NOon 01-13-2024 OPERATIVE NO HNO ID: [id number] Author: NOMAN BARAJAS MD Service: Interventional Cardiology Author Type: Physician Type: Operative Report Filed: 01/13/2024 12:30 Note Text: [facility] [employer] PROCEDURE REPORT SERVICE DATE: 01/13/2024 SERVICE TIME: 11:52 AM MANAGER COMPLIANCE: Noman Barajas MD ATTENDING: Noman Barajas MD PRIMARY CARE PHYSICIAN: Bonita Rao MD REFERRING PROVIDER: Connie Taylor MD [employer] HE[employer] and AGING SCALE:2=Well CARDIOVASCULAR INSTABILITY:No PRE-PROCEDURE DIAGNOSIS: Abnormal Stress Test Anginal Equivalent Arrhythmia Cardiac POST PROCEDURE DIAGNOSIS: Successful PCI of LAD PROCEDURE: Orbital atherectomy followed by angioplasty and Xience (Drug Eluting Stent) Placement in Proximal and Mid LAD OCT in LAD MODERATE SEDATION: Moderate Sedation provided by Cardiology Nursing Staff. Moderate sedation consisting of continuous ECG, pulse oximetry and cardiopulmonary monitoring was performed by the Cardiology Nurse, overseen by supervising physician, for an intra-service time of 1 hr. 17 min. Sedative Medications: Drug: Versed Dose: 2 mg Route: IV Drug: Fentanyl Dose: 50 mcg Route: IV PRIORITY AT TIME OF PROCEDURE: Elective SITE OF ENTRY: Radial:Right Radial CONTRAST: Omnipaque 350 mg Iodine/mL (iohexol injection, solution): 195 mL PERCUTANEOUS CORONARY INTERVENTION: The catheterization angiogram was reviewed affirming the patient was indicated for PCI. The patient was taken to the cardiac curb and gutter laborer where the entry site was prepped and draped in a sterile manner. Heparin was given for anticoagulation. Under local anesthesic with 2% Lidocaine, the vessel was cannulated with micropuncture technique using an arterial needle and a 5F sheath was introduced. A guiding catheter was advanced under fluoroscopy and the vessel was engaged. Using standard protocol, angioplasty was performed and cardiac stent(s) were placed in the following vessel(s). LAD Lesion Type: Class C Guiding Catheter(s): EBU 3.5 90% Stenosis Location: Proximal, Mid, Calcified Pre IGNACIO Blood Flow: 3 Using 0.012 Viperwire advanced to distal segment of the vessel and orbital atherectomy was done using 1.25 mm [place], 4 passes at 80,000 RPM, and 1 pass at 120,000 RPM. Pre Dilatation Balloon Size: 3.0 mm X 15 mm score flex balloon Proximal mid Stent Placed: Type: Xience (Drug Eluting Stent) Size: 3.0 mm Length: 32 mm Post Dilatation Balloon Size: 3.75 mm X 12 mm Post IGNACIO Blood Flow: 3 Result: Successful. ADDITIONAL PROCEDURES INTERROGATION AND ASSESSMENT OF LESION: The guidewire engaged the LAD. The guide wire was advanced crossing the lesion and OCT device was advanced over the guide wire. The lesion was interrogated; images were obtained and recorded. Measurements were completed for lumen and vessel diameter/area, greater than 270 degree calcified arc with nodule noted. Post stent deployment OCT revealed well-expanded and deployed stent except in the ostial proximal segment of the stent was slightly under deployed for which PTCA using 3.75 x 12 mm NC balloon was done. The sheath was removed and hemostatsis was established using manual pressure using wrist band. There was no bleeding at the end of the procedure. The pt was returned to the recovery room in a stable condition. ESTIMATED BLOOD LOSS: Less Than Minimal Unless Noted Here. COMPLICATIONS: None SPECIMENS: No specimens obtained unless noted here. CONDITION: Stable RECOMMENDATIONS: Follow protocol of post-op orders. Aggressive modification of risk factors. 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 [facility]. Stop aspirin following the initiation of apixaban. SIGNATURE: Noman Barajas MD PATIENT NAME: Mio Simmons DATE: January 13, 2024 TIME: 11:52 AM Normal [facility] CBC panel Auto (Bld)on 01-01 Erythrocyte distribution width (RBC) [Ratio] 12.4 % 11.5 - 15.0 % [facility] Hematocrit (Bld) [Volume fraction] 44.3 % 39.0 - 51.0 % [facility] Hemoglobin (Bld) [Mass/Vol] 14.8 g/dL 13.0 - 17.0 g/dL [facility] Interpretation and review of laboratory results Abnormal [facility] MCH (RBC) [Entitic mass] 30.5 pg 26.0 - 34.0 pg [facility] MCHC (RBC) [Mass/Vol] 33.4 g/dL 30.5 - 36.0 g/dL [facility] MCV (RBC) [Entitic vol] 91.2 fL 80.0 - 100.0 fL [facility] Nucleated RBC (Bld) [#/Vol] NINF [facility] Platelet mean volume (Bld) [Entitic vol] 8.7 fL Low 9.0 - 12.7 fL [facility] Platelets (Bld) [#/Vol] 144 10*3/uL Low [facility] RBC (Bld) [#/Vol] 4.86 10*6/uL 4.20 - 6.0 0 m/uL [facility] WBC (Bld) [#/Vol] 4.48 10*3/uL [facility] Erythrocyte distribution width (RBC) [Ratio] 12.4 % Normal 11.5-15.0 [facility] Comment on above: Order Comment: Speci men Type: BLOOD SPECIMENOrdering Facility: [facility] Address: [address] [place] [address] Performed By: #### 5 8410-2 ####[facility] LABIA [id number] [place] [id number] [place] Hematocrit (Bld) [Volume fraction] 44.3 % Normal 39.0-51.0 [facility] Comment on above: Order Comment: Speci men Type: BLOOD SPECIMENOrdering Facility: [facility] Address: [address] [place] [id number] Performed By: #### 5 8410-2 ####[facility] LABCLIA [id number] [place] [id number] [place] Hemoglobin (Bld) [Mass/Vol] 14.8 g/dL Normal 13.0-17.0 [facility] Comment on above: Order Comment: Speci men Type: BLOOD SPECIMENOrdering Facility: [facility] Address: [address] [place] [address] Performed By: #### 5 8410-2 ####[facility] LABCLIA [id number] [place] [id number] [place] MCH (RBC) [Entitic mass] 30.5 pg Normal 26.0-34.0 [facility] Comment on above: Order Comment: Speci men Type: BLOOD SPECIMENOrdering Facility: [facility] Address: [address] [place] [address] Performed By: #### 5 8410-2 ####[facility] LABCLIA [id number] [place] [id number] [place] MCHC (RBC) [Mass/Vol] 33.4 g/dL Normal 30.5-36.0 [facility] Comment on above: Order Comment: Speci men Type: BLOOD SPECIMENOrdering Facility: [facility] Address: [address] [place] [address] Performed By: #### 5 8410-2 ####[facility] LABIA [id number] [place] [id number] [place] MCV (RBC) [Entitic vol] 91.2 fL Normal 80.0-100.0 [facility] Comment on above: Order Comment: Speci men Type: BLOOD SPECIMENOrdering Facility: [facility] Address: [address] [place] [address] Performed By: #### 5 8410-2 ####[facility] LABCLIA [id number] [place] [id number] [place] Nucleated RBC (Bld) [#/Vol] 10*3/uL Normal <0.01 [facility] Comment on above: Order Comment: Speci men Type: BLOOD SPECIMENOrdering Facility: [facility] Address: [address] [place] [address] Performed By: #### 5 8410-2 ####[facility] LABCLIA [id number] [place] [id number] [place] Platelet mean volume (Bld) [Entitic vol] 8.7 fL Low 9.0-12.7 [facility] Comment on above: Order Comment: Speci men Type: BLOOD SPECIMENOrdering Facility: [facility] Address: [address] [place] [address] Performed By: #### 5 8410-2 ####[facility] LABCLIA [id number] [place] [id number] [facility] Platelets (Bld) [#/Vol] 144 10*3/uL Low 150-400 [facility] Comment on above: Order Comment: Speci men Type: BLOOD SPECIMENOrdering Facility: [facility] Address: [address] [place] [address] Performed By: #### 5 8410-2 ####[facility] LABCLIA [id number] [place] [id number] [facility] RBC (Bld) [#/Vol] 4.86 10*6/uL Normal 4.20-6.00 [facility] Comment on above: Order Comment: Speci men Type: BLOOD SPECIMENOrdering Facility: [facility] Address: [address] [place] [address] Performed By: #### 5 8410-2 ####[facility] LABIA [id number] [place] [id number] [facility] WBC (Bld) [#/Vol] 4.48 10*3/uL Normal 3.70-11.00 [facility] Comment on above: Order Comment: Speci men Type: BLOOD SPECIMENOrdering Facility: [facility] Address: [address] [place] [address] Performed By: #### 5 8410-2 ####[facility] LABCLIA [id number] [place] [id number] [facility] CNOVon 01-02-2024 CNOV Office Visit (CARDBD ) MIO SIMMONS ([id number]) 1960 M Date Time Provider Department 01/02/24 1:40 PM CONNIE TAYLOR During your visit today, we recorded the following information about you: Pulse Blood pressure Weight Height 74/minute 120/80 96 kg 1.803 m Connie Taylor MD 01/02/2024 5:00 PM Count Includes [facility] [place] Oksana Zhao Department of Cardiovascular Medicine SECTION OF CLINICAL CARDIOLOGY OUTPATIENT VISIT DATE January 02, 2024 OUTPATIENT VISIT TYPE CONSULTATION PRIMARY CARE PHYSICIAN: Bonita Rao (Rachel) [address] [place] [id number] REFERRING PHYSICIAN Bonita Rao (Rachel) [address] [place] [id number] CHIEF COMPLAINT: Coronary artery disease HISTORY OF PRESENT ILLNESS: Cardiac consultation at the request of Dr. Bonita Rao. A copy of this consultation note will be provided to the requesting physician by way of shared Medical record or letter to requesting physician via US mail. Mr. Simmons is a 63 year old male who is seen today for CAD. 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 This was felt to be a vasovagal episode after evaluation in the emergency department. 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 He was noted to have a complete right bundle branch block on ECG. Due to the syncope and abnormal EKG, he underwent consultation with a local real estate coordinator at [facility], Dr. Humberto Franco. He subsequently had an echocardiogram and stress test. During the stress test, he had short self terminating runs of atrial fibrillation in the recovery period. He also had nuclear SPECT images suggestive of a small territory of inferior wall ischemia. Echocardiogram showed preserved LV systolic function with no wall motion abnormalities and no valve disease. He subsequently underwent left heart catheterization on December 22 at [facility]. This showed single-vessel disease with severe 80% stenosis of the proximal LAD. The procedure was terminated at this point with intent for further discussion as to the best mode of revascularization-percu taneous versus surgical. Due to the stress test findings, he subsequently wore a Holter monitor. I reviewed a report of this monitor. The patient wore a Holter for 7 days with 6 days and 20 hours available for analysis. This occurred between November 29 and December 07, 2023. He was in sinus rhythm but did have 2.6% atrial fibrillation. There were a total of 4 episodes with the longest episode lasting 4.2 hours with heart rate ranging between 70 to 174 bpm with an average heart rate of 96 bpm. He had 16% PACs and 1.3% PVCs. The patient currently has no symptoms of angina even with heavy exertion. He denies any shortness of breath. He has had no further episodes of syncope. He denies any palpitations and his Apple Watch has not alerted him to any episodes of atrial fibrillation. He comes today for a second opinion regarding the optimal mode of revascularization for his coronary artery disease. I did have a chance to review his films with 2 of our interventional cardiologists at [facility] last week, both who felt that percutaneous revascularization was feasible and the best option for him. He denies chest pain, shortness of breath, orthopnea, cough, edema, palpitations, PND, lightheadedness or syncope. PAST CARDIAC HISTORY: None PAST MEDICAL HISTORY Diagnosis Date Abnormal cardiovascular function study Abnormal ECG Deep vein thrombosis (DVT) (HCC) Incomplete right bundle branch block (RBBB) Intermittent chest pain Syncope Syncope due to orthostatic hypotension Varicose veins of legs No past surgical history on file. SOCIAL HISTORY Social History Tobacco Use Smoking status: Never Smokeless tobacco: Never Vaping Use Vaping status: Never Used Substance Use Topics Alcohol use: Never Drug use: Never FAMILY HISTORY Problem Relation Age of Onset other (atrial fibirillation) Mother Heart disease Father Cancer Father ALLERGIES: ALLERGIES No Known Allergies MEDICATIONS: aspirin (ASPIR-81 ORAL) Take 81 mg by mouth once daily. krill oil 500 mg cap Take 500 mg by mouth once daily. psyllium husk 0.4 gram cap Take 0.4 g by mouth once daily. multivitamin tablet Take 1 tablet by mouth once daily. sildenafil (VIAGRA) 50 mg tablet Take 50 mg by mouth as needed. REVIEW OF SYSTEMS: GENERAL: Negative for: Weight loss or gain, Fever or Chills, Weakness and Sleep difficulties. HEENT: Negative for: Headache, Impaired Vision, Glasses, Hearing Impairment, Ringing in Ears, Nosebleeds, Poor dental care, Bleeding Gums, Dentures NECK: Negative for: Swelling, Pain, Stiffness RESPIRATORY: Negative (more content not included)... Normal [facility] CNPNon 01-02-2024 CNPN Telephone (CARDBD) MIO SIMMONS ([id number]) 1960 M Date Time Provider Department 01/02/24 CONNIE TAYLOR CARDDEYANIRA During your visit today, we recorded the following information about you: Bre Bacon RN 01/02/2024 3:[address] Taylor spoke with Maritza at [facility] to schedule patient for catheterization. Spoke with patient in office and relayed date/time and instructions. Patient understood and had no additional questions at this time. Instructions sent via [employer] for additional review. Bre Bacon RN Cardiac Catheterization at [facility] Address: [address] [place] [address], [place] [address] Date: 01/13/24 Time: 10:30am, 9am arrival Physician: Dr Barajas Contrast Dye/Iodine allergy: No Arrive one and a half hours prior to procedure time and [facility] You need to have a designated food mobile driver to take you home. If you have a coronary intervention (angioplasty/stent) you will stay overnight, otherwise you will be discharged home later that day. Please have lab work drawn within 1 week prior to procedure. Nothing to eat or drink after midnight except medications with a small sip of water. Please take Aspirin if prescribed. If you need to cancel or have any questions/concerns please call the [place] cardiology office at [phone]. Connie Taylor MD 01/02/2024 5:02 PM Signed He will also need to start clopidogrel prior to his heart catheterization and stent.. I sent in a 90-day supply for him to his local pharmacy. He should start taking 75 mg once daily once he picks this up this week. He should take this along with aspirin 81 mg daily thanks Connie Taylor MD 01/02/2024 5:02 PM Signed Addended by: CONNIE TAYLOR on: 01/02/2024 05:02 PM Modules accepted: Yolanda Sotelo RN 01/03/2024 8:41 AM Signed Spoke with pt and relayed Dr. Taylor's recommendations. He stated he picked up the plavix, but left it at home o go out of town as he thought it was for after the procedure. He will be back home Tuesday and can start the plavix. If that is not okay, we will try to coordinate a pharmacy to send a short [place] [address]. Routing to JIGAR Gabriel Mia, RN 01/03/2024 9:[address] Taylor - chitraay to start plavix on Tuesday Left detailed VM for pt. Will attempt again. JIGAR Amos Mia, RN 01/03/2024 11:41 AM Signed Spoke with patient and confirmed Dr. Taylor's recommendation to start plavix Tuesday. He is also curious if he needs to stop it a certain amount of days prior to his procedure on 01/12, I stated Dr. Taylor did not specify that so I am assuming he is to continue it uninterrupted. His second question is, is this due to his cath that he had done already? Will specify with JIGAR Gabriel Mia, RN 01/03/2024 11:54 AM Signed Spoke with Dr. Taylor who advised since we know he is getting a stent on 01/12, it is typical to start DAPT therapy now to derease stent occlusion risk. Spoke with patient to confirm he will start plavix, and not stop it before his procedure, and relayed why we are starting DAPT therapy now. He had no further questions. Yolanda Canas RN Allergies As of Date: 01/02/2024 (No Known Allergies) Date Reviewed: 01/02/2024 Reviewed by: Kayden Borjas MA - Fully Assessed Reason for Visit: Cardiac Catheterization at [facility] [Other] Order(s):clopidogrel (PLAVIX) 75 mg tabletTake 1 tablet by mouth once daily.Disp: 90 tabletRfl: 1 Prescriptions as of 01/03/2024 - aspirin (ASPIR-81 ORAL) Take 81 mg by mouth once daily. - atorvastatin (LIPITOR) 40 mg tablet Take 1 tablet by mouth once daily. - clopidogrel (PLAVIX) 75 mg tablet Take 1 tablet by mouth once daily. - krill oil 500 mg cap Take 500 mg by mouth once daily. - psyllium husk 0.4 gram cap Take 0.4 g by mouth once daily. - multivitamin tablet Take 1 tablet by mouth once daily. - sildenafil (VIAGRA) 50 mg tablet Take 50 mg by mouth as needed. Problem List As Of Date 01/02/2024 Noted Resolved Coronary artery disease involving [place]*01/02/2024 Vasovagal syncope [R55] 01/02/2024 PAF (paroxysmal atrial fibrillation) (HCC) [I48*01/02/2024 PVC (premature ventricular contraction) [I49.3] 01/02/2024 Pure hypercholesterolemia [E78.00] 01/02/2024 Prescriptions ordered this encounter Disp Refills Start End CLOPIDOGREL 75 MG TABLET 90 t* 1 01/02/2024 06/30/2024 Route: ORAL Sig: Take 1 tablet by mouth once daily. Encounter Status:Closed by BRE BACON on 01/02/24 Normal [facility] Comprehensive metabolic 2000 panelon 01-02-2024 Albumin [Mass/Vol] 4.4 g/dL Normal 3.9-4.9 [facility] Comment on above: Order Comment: Speci men Type: BLOOD SPECIMENOrdering Facility: [facility] Address: [address] [place] [address] Performed By: #### 2 4323-8 ####[facility] LABCLIA [id number] [place] [address] [place] ALP [Catalytic activity/Vol] 51 U/L Normal 38-113 [facility] Comment on above: Order Comment: Speci men Type: BLOOD SPECIMENOrdering Facility: [facility] Address: [address] [id number] Performed By: #### 2 4323-8 ####[facility] LABCLIA [id number] [place] [address] [place] ALT [Catalytic activity/Vol] 13 U/L Normal 10-54 [facility] Comment on above: Order Comment: Speci men Type: BLOOD SPECIMENOrdering Facility: [facility] Address: [address] [place] [address] Performed By: #### 2 4323-8 ####[facility] LABCLIA [id number] [place] [address] [place] Anion gap [Moles/Vol] 11 mmol/L Normal 8-15 [facility] Comment on above: Order Comment: Speci men Type: BLOOD SPECIMENOrdering Facility: [facility] Address: [address] [place] [address] Performed By: #### 2 4323-8 ####[facility] LABCLIA [id number] [place] [address] [place] AST [Catalytic activity/Vol] 19 U/L Normal 14-40 [facility] Comment on above: Order Comment: Speci men Type: BLOOD SPECIMENOrdering Facility: [facility] Address: [address] [place], [place] [address] Performed By: #### 2 4323-8 ####[facility] LABCLIA [id number] [place] [address] [place] Bilirubin [Mass/Vol] 0.4 mg/dL Normal 0.2-1.3 [facility] Comment on above: Order Comment: Speci men Type: BLOOD SPECIMENOrdering Facility: [facility] Address: [address] [place], [place] [address] Performed By: #### 2 4323-8 ####[facility] LABCLIA [id number] [address] [address] [place] Calcium [Mass/Vol] 9.9 mg/dL Normal 8.5-10.2 [facility] Comment on above: Order Comment: Speci men Type: BLOOD SPECIMENOrdering Facility: [facility] Address: [address] [place] [address] Performed By: #### 2 4323-8 ####[facility] LABCLIA [id number] [place] [address] [place] Chloride [Moles/Vol] 102 mmol/L Normal 98-107 [facility] Comment on above: Order Comment: Speci men Type: BLOOD SPECIMENOrdering Facility: [facility] Address: [address] [place] [address] Performed By: #### 2 4323-8 ####[facility] LABCLIA [id number] [place] [address] [place] CO2 [Moles/Vol] 27 mmol/L Normal 22-30 [facility] Comment on above: Order Comment: Speci men Type: BLOOD SPECIMENOrdering Facility: [facility] Address: [address] [place] [address] Performed By: #### 2 4323-8 ####[facility] LABCLIA [id number] [place] [address] [place] Creatinine [Mass/Vol] 1.25 mg/dL High 0.73-1.22 [facility] Comment on above: Order Comment: Speci men Type: BLOOD SPECIMENOrdering Facility: [facility] Address: [address] [place] [address] Performed By: #### 2 4323-8 ####[facility] LABCLIA [id number] [place] [address] [place] Creatinine and Glomerular filtration rate.predicted panel (S/P/Bld) 65 mL/min/1.73m??? Normal >=60 [facility] Comment on above: Order Comment: Speci men Type: BLOOD SPECIMENOrdering Facility: [facility] Address: [address] [place] [address] Result Comment: Katherine mated Glomerular Filtration Rate (eGFR) is calculated using the 2020 CKD-EPI creatinine equation. This equation utilizes serum creatinine, sex, and age as parameters. The creatinine assay has traceable calibration to isotope dilution-mass spectrometry. Refer to KDIGO guidelines for clinical interpretation. In patients with unstable renal function, e.g. those with acute kidney injury, the eGFR may not accurately reflect actual GFR. Performed By: #### 2 4323-8 ####[facility] LABCLIA [id number] [place] [address] [place] Glucose [Mass/Vol] 89 mg/dL Normal 74-99 [facility] Comment on above: Order Comment: Speci men Type: BLOOD SPECIMENOrdering Facility: [facility] Address: [address] [place] [address] Result Comment: The [place] Diabetes Association (ADA) provides guidance for cutoff values for fasting glucose and random glucose. The ADA defines fasting as no caloric intake for at least 8 hours. Fasting plasma glucose results between 100 to 125 mg/dL indicate increased risk for diabetes (prediabetes). Fasting plasma glucose results greater than or equal to 126 mg/dL meet the criteria for diagnosis of diabetes. In the absence of unequivocal hyperglycemia, results should be confirmed by repeat testing. In a patient with classic symptoms of hyperglycemia or hyperglycemic crisis, random plasma glucose results greater than or equal to 200 mg/dL meet the criteria for diagnosis of diabetes. Reference: Standards of Medical Care in Diabetes 2016, [place] Diabetes Association. Diabetes Care. 2016.39(Suppl 1). Performed By: #### 2 4323-8 ####[facility] LABCLIA [id number] [place] [address] [place] Potassium [Moles/Vol] 4.6 mmol/L Normal 3.7-5.1 [facility] Comment on above: Order Comment: Speci men Type: BLOOD SPECIMENOrdering Facility: [facility] Address: [address] [place] [address] Performed By: #### 2 4323-8 ####[facility] LABCLIA [id number] [place] [address] [place] Protein [Mass/Vol] 7.1 g/dL Normal 6.3-8.0 [facility] Comment on above: Order Comment: Speci men Type: BLOOD SPECIMENOrdering Facility: [facility] Address: [address] [place] [address] Performed By: #### 2 4323-8 ####[facility] LABCLIA [id number] [place] [address] [place] Sodium [Moles/Vol] 140 mmol/L Normal 136-144 [facility] Comment on above: Order Comment: Speci men Type: BLOOD SPECIMENOrdering Facility: [facility] Address: [address] [place] [address] Performed By: #### 2 4323-8 ####[facility] LABCLIA [id number] [place] [address] [place] Urea nitrogen [Mass/Vol] 19 mg/dL Normal 9-24 [facility] Comment on above: Order Comment: Speci men Type: BLOOD SPECIMENOrdering Facility: [facility] Address: [address] [place] [address] Performed By: #### 2 4323-8 ####[facility] LABCLIA [id number] [place] [address] [place] ECG COMPLETEon 01-02-2024 Atrial Rate 63 BPM [facility] Calculated P [place] 41 degrees [facility] Calculated R [place] -35 degrees [facility] Calculated T [place] 17 degrees [facility] P-R Interval 178 ms [facility] QRS Duration 118 ms [facility] QT Interval 404 ms [facility] QTC Calculation (Bazett) 413 ms [facility] Ventricular Rate 63 BPM [facility] NORMAL SINUS RHYTHM LEFT AXIS DEVIATION COMPLETE RIGHT BUNDLE BRANCH BLOCK ABNORMAL ECG Confirmed by MD CLAUDIA, CONNIE ([id number]), clinical editor KAYDEN BORJAS ([id number]) on 01/02/2024 3:55:43 PM [facility] NAME : MIO SIMMONS PID : [id number] : 1960 Gender : Male Race : ORD : Procedure Date : Jan 02 2024 15:01:12 Edit Date : Jan 02 2024 15:55:46 Diagnosis: NORMAL SINUS RHYTHM LEFT AXIS DEVIATION COMPLETE RIGHT BUNDLE BRANCH BLOCK ABNORMAL ECG Confirmed by MD TAYLOR MATTHEW ([id number]), clinical editor KAYDEN BORJAS ([id number]) on 01/02/2024 3:55:43 PM Test Reason : Location : 503 : [facility] Overread By : MD TAYLOR MATTHEW Edited By : KAYDEN BORJAS Referred By : BONITA RAO Acquired by : vick [facility] [id number] 01-02-2024 ECG01 Ventricular Rate : 6 3 BPM Atrial Rate : 63 BPM P-R Interval : 178 ms QRS Duration : 118 ms Q-T Interval : 404 ms QTC Calculation(Bazett) : 413 ms Calculated P [place] : 41 degrees Calculated R [place] : -35 degrees Calculated T [place] : 17 degrees NORMAL SINUS RHYTHM LEFT AXIS DEVIATION COMPLETE RIGHT BUNDLE BRANCH BLOCK ABNORMAL ECG Confirmed by MD TAYLOR MATTHEW ([id number]), clinical editor KAYDEN BORJAS ([id number]) on 01/02/2024 3:55:43 PM NAME : MIO SIMMONS PID : [id number] : 1960 Gender : Male Race : ORD : Procedure Date : Jan 02 2024 15:01:12 Edit Date : Jan 02 2024 15:55:46 Diagnosis: NORMAL SINUS RHYTHM LEFT AXIS DEVIATION COMPLETE RIGHT BUNDLE BRANCH BLOCK ABNORMAL ECG Confirmed by MD TAYLOR MATTHEW ([id number]), clinical editor KAYDEN BORJAS ([id number]) on 01/02/2024 3:55:43 PM Test Reason : Location : 503 : [facility] Overread By : MD TAYLOR MATTHEW Edited By : KAYDEN BORJAS Referred By : BONITA RAO Acquired by : Radha hickman [facility] CNCOon 12-30-2023 CNCO Letter Text Letter Text Normal [facility] CNPNon 12-26-2023 CNPN Telephone (CARDBD) MIO SIMMONS ([id number]) 1960 M Date Time Provider Department 12/26/23 CONNIE TAYLOR During your visit today, we recorded the following information about you: Connie Taylor MD 12/26/2023 11:49 AM Signed This patient is going to drop off a CD of his heart catheterization that was done recently. He wants a second opinion from [facility] Please schedule him with me next week on Tuesday or Tuesday at 1:40 PM in the afternoon either day. Yolanda Canas RN 12/26/2023 11:54 AM Signed Spoke with pt and added on Tuesday at 1:40pm - will have PSS add pt to schedule as I am unable JIGAR Amos Matthew D 12/26/2023 12:38 PM Signed PT was scheduled as requested Allergies As of Date: 12/26/2023 (No Known Allergies) Date Reviewed: 08/09/2023 Reviewed by: Teresita Montesinos MA - Fully Assessed Reason for Visit: Appointment [186] Prescriptions as of 12/26/2023 - benzonatate (TESSALON PERLE) 100 mg capsule Take 1 capsule by mouth three times a day as needed. - famotidine (PEPCID) 20 mg tablet Take 1 tablet by mouth at bedtime as needed. Problem List As Of Date: 12/26/2023 (None) Encounter Status:Closed by CONNIE HASKINS on 12/26/23 Normal [facility] Cardiac Cath Diagnosticon Cardiac Cath Diagnostic [facility] Imaging Services [address] [place] [address] Cardiac Cath Diagnostic MR#: [id number] Acct: [id number] Name: MIO SIMMONS Rep #: [id number] : 1960 63 From: London Monroe MD PCP: Dr. Bonita Rao MD Status:[facility] Patient Name: MIO SIMMONS Study Date: 12/23/2023 Performing: London Monroe MD Ht: 71 inches 180.34 cm : 1960 Wt: 214.99 lbs 97.52 kg Age: 63 Gender: male BSA: 2.17 PROCEDURE(S) PERFORMED DC01-(11566)LHC/COR/LV CLINICAL PROFILE AND INDICATIONS Indications: Suspected CAD Heart Failure: None Stress/Imaging Date: 12/15/23Stress Test with SPECT MPI: Negative CAD Presentations: No Sxs, no angina. CONCLUSIONS Single-vessel disease predominantly involving the proximal to mid left anterior descending artery and diagonal vessel with mild disease noted in the right coronary artery and circumflex artery. RECOMMENDATIONS Referred for immediate PCIvrs consideration for CABG DESCRIPTION OF PROCEDURE The patient arrived to the procedure lab. The risks and benefits of the procedure as well as a full description of our services here and current unavailability of surgical backup were fully explained to the patient and/or their significant other prior to the catheterization. The Timeout was completed, verifying the correct patient and procedure. The patient's procedural site was prepped and draped in the usual fashion. Local anesthetic was given subcutaneously to right radial region with Lidocaine 2%. Using a modified Seldinger technique, arterial access was obtained via the right radial artery, a 6Fr sheath was inserted. Left Coronary Artery selective angiography was performed in multiple views using a 5 Fr. 4.0 Line [place] catheter. Right Coronary Artery selective angiography was then performed in multiple views using a 5 Fr. 4.0 Line [place] catheter. Left Ventriculography was performed in MONTES projection using a 5 Fr. Pigtail catheter.The arterial sheath was pulled and a TR Band was applied for hemostasis CORONARY ANGIOGRAPHY DOMINANCE: Right Dominant LEFT HEART ASSESSMENT Left Ventricular Ejection Fraction: by LV Gram 50 % Anterior Hypokinesis - Mild Normal Left Ventricular systolic function LEFT MAIN: Angiographically normal LEFT ANTERIOR DESCENDING ARTERY: Moderate calcification, Medium size vessel with moderate calcification in the first diagonal with an ostial 70% stenosis and an 80% stenosis of the left anterior descending artery close to the takeoff of the diagonal. The rest of the vessel appears to have mild disease. CIRCUMFLEX ARTERY: Mild luminal irregularities RIGHT CORONARY ARTERY: Mild luminal irregularities less than 30% VALVE FINDINGS: Normal Aortic Valve function AORTIC ROOT: Angiographically normal COMPLICATIONS No Complications PROCEDURE MEDICATIONS Fentanyl 50 mcg IV Versed 1 mg IV Versed 1 mg IV Oxygen: 2 L/min via nasal cannula Brilinta 180 mg PO @ 12/23/2023 08:42:24 Heparin given IA 12/23/2023 08:25:20 Verapamil 2.5mg, Ntg 100mcgs, 3000 units of Heparin given IA 12/23/2023 08:25:20 SUMMARY OF HEMODYNAMIC DATA Time AIR REST ECG 07:36:34 AO 110/62 (84) SA 08:30:01 LV 109/3, 15 08:37:27 LV 113/2, 11 08:37:33 LV 102/3, 13 08:38:22 LVp 102/0, 12 08:38:25 AOp 122/64 (91) 08:38:30 AIR REST 09:12:16 Signed By London Monroe MD On 12/23/2023 09:31:35 Signed By London Monroe MD On 12/23/2023 09:24:05 London Monroe MD 12/23/23 0932 Date London Davis Signature: Date (if indicated) CC: Dr. Bonita Rao MD; Dr. London Monroe MD Date Dictated: 12/23/23824 Date Transcribed: 12/23/23930 Church Worker: [place] Signed [facility] Echo Completeon 12-15-2023 Echo [facility] [address] [place] [address] Echo Complete 12/15/23803 MR#: [id number] Acct: [id number] Name: MIO SIMMONS Rep #: [id number] : 1960 63 From: [place] Espinosa MD Attending Dr: Dr. Bonita Rao MD Status: REG CLI Ordering Dr: Bonita Rao MD Date: 12/15/23 Location: [facility] Sex: M C Admitted: Reason For Study: SYNCOPE Procedure This was a 2D Doppler, Color Flow transthoracic echocardiogram. Exam performed in department. Left Ventricle Normal size and thickness. The left ventricular ejection fraction is 65 %. Normal diastololic function. Right Ventricle Normal right ventricle. Atria The left and right atria are normal. Mitral Valve Trivial mitral valve insufficiency. Tricuspid Valve Trivial tricuspid valve insufficiency. Normal pulmonary artery pressure. Aortic Valve Trisinus/trileaflet aortic valve. Pulmonic Valve The pulmonic valve is not well visualized. Trivial pulmonic valve insufficiency. Great Vessels Normal sized aortic root. Pericardium/Pleural No pericardial effusion. MMode/2D Measurements Calculations LVIDd: 4.3 cm IVSd: 1.1 cm LVOT diam: 1.9 cm LVIDs: 2.6 cm LVPWd: 1.0 cm LVOT area: 2.8 cm2 RVDd: 3.8 cm FS: 38.3 % asc Aorta Diam: 3.2 cm LAV(MOD-bp): 40.3 ml LVAd ap4: 21.1 cm2 LAV(MOD-bp) Indexed: 18.7 ml/m2 LVLd ap4: 7.3 cm LAV(MOD-sp2): 41.7 ml EDV(MOD-sp4): 49.8 ml LAV(MOD-sp4): 36.6 ml EDV(sp4-el): 51.8 ml LVAs ap4: 12.0 cm2 LVLs ap4: 6.2 cm ESV(MOD-sp4): 19.9 ml ESV(sp4-el): 19.8 ml EF(MOD-sp4): 60.0 % EF(sp4-el): 61.8 % LVAd ap2: 23.2 cm2 SV(MOD-sp4): 29.9 ml SV(MOD-sp2): 38.9 ml LVLd ap2: 7.5 cm SI(MOD-sp4): 13.9 ml/m2 SI(MOD-sp2): 18.1 ml/m2 EDV(MOD-sp2): 59.9 ml EDV(sp2-el): 60.8 ml LVAs ap2: 11.9 cm2 LVLs ap2: 5.8 cm ESV(MOD-sp2): 21.0 ml ESV(sp2-el): 20.5 ml EF(MOD-sp2): 65.0 % SV(sp4-el): 32.1 ml Ao sinus diam: 3.[address] Junction: 2.6 cm LA dimension(2D): 3.9 cm LA A4 area: 15.1 cm2 RA A4 area: 11.8 cm2 TAPSE: 2.2 cm Time Measurements MV dec time: 0.21 sec Doppler Measurements Calculations MV E max renae: 71.2 cm/sec Lat Peak E' Renae: 9.8 cm/sec Med Peak E' Renae: 9.4 cm/sec MV A max renae: 66.1 cm/sec E/E' lat: 7.3 E/E' med: 7.6 MV E/A: 1.1 MV dec slope: 346.6 cm/sec2 Ao V2 max: 126.7 cm/sec LV V1 max: 109.8 cm/sec Ao max P.4 mmHg LV V1 max P.8 mmHg Ao V2 mean: 88.9 cm/sec LV V1 mean P.4 mmHg Ao mean P.4 mmHg LV V1 mean: 70.7 cm/sec Ao V2 VTI: 25.4 cm LV V1 VTI: 23.6 cm AV (velocity ratio): 0.93 RENO(I,D): 2.6 cm2 RENO(V,D): 2.4 cm2 SV(LVOT): 65.9 ml PA V2 max: 140.8 cm/sec PI end-d renae: 101.9 cm/sec TR max renae: 239.9 cm/sec TR max P.0 mmHg ECHO/Echo Complete Interpretation Summary The left ventricular ejection fraction is 65 %. Ordering Physician: Bonita Rao Referring Physician: Bonita Rao Performed By: Denita Navarro RDCS 12/15/23 1156 Date Ainsley Espinosa MD CC: Dr. Bonita Rao MD Date Dictated: 12/15/23803 Date Transcribed: 12/15/23 115 Church Worker: Signed Normal [facility] Stress Reporton 12-15-2023 Stress Report [facility] Cardiovascular Services [address] [place] [address] MR#: [id number] Acct: [id number] Name: MIO SIMMONS Rep #: [id number] : 1960 63 From: Ainsley Espinosa MD Primary Care: Dr. Bonita Rao MD Status: REG CLI Referring Dr: Bonita Rao MD Sex: M C Stress Test Report Date: 12/15/2023 Procedure: Exercise tolerance test/imaging study Indications: Syncope Consent: Per the patient Procedure: The patient exercised on a Chandler protocol for 10 minutes achieving a peak heart rate of 200 bpm (126% predicted maximal heart rate) with a peak blood pressure 188/48 mmHg and a peak MET capacity of 13.4 METs. The baseline ECG demonstrated sinus rhythm. The peak exercise ECG demonstrated no ischemic changes. Run of atrial fibrillation noted in recovery. Self terminating. Frequent PVCs noted at peak exercise.. The functional capacity was considered excellent. There was no complaint of chest discomfort during exercise or recovery. The examination was discontinued secondary to target heart rate being achieved. The patient was injected with 10.8 mCi of technetium 99m Cardiolite and subsequently rest SPECT Cardiolite nuclear imaging was obtained in the horizontal long, vertical long, and short axis views. Post-exercise, the patient was injected with 33.9 mCi of technetium 99m Cardiolite and subsequently stress SPECT Cardiolite nuclear imaging was obtained in the horizontal long, vertical long, and short axis views. A gated Cardiolite study at peak stress was obtained. Rest and stress SPECT Cardiolite nuclear imaging status post realignment, normalization, and attenuation correction, demonstrates mildly reduced perfusion of the inferior wall post stress. Suggestive of ischemia. There is end systolic thickening and brightening. The gated Cardiolite study demonstrates myocardial thickening and inward wall motion. The reported LVEF is 78%. Impression: 1. Technically adequate (percent predicted maximal heart rate greater than 85%) exercise tolerance test 2. Peak exercise ECG with no ischemic changes 3. Self terminating run of atrial fibrillation with rapid ventricular response noted in recovery. Frequent PVCs at peak exercise 4. Rest and stress SPECT Cardiolite nuclear imaging demonstrate mildly reduced perfusion of the inferior wall post stress, suggestive of ischemia. 5. The gated Cardiolite study reports an LVEF of 78%. This note was generated with [employer] software. It may contain incorrect words, spelling, and punctuation that were not noted in checking the note before signing. 12/15/23 1132 Date Ainsley Espinosa MD CC: Dr. Bonita Rao MD Date Dictated: 12/15/231128 Date Transcribed: 12/15/231128 Church Worker: DENEEN Signed Normal [facility] 12 Lead [place] [facility] [place] 12-13-2023 12 Lead EKG performed by [facility] [address] [place] [address] 12 Lead EKG performed [place] [facility] 11/07/01 807 MR#: [id number] Acct: [id number] Name: MIO SIMMONS Rep #: [id number] : 1960 63 From: Humberto Franco MD Attending Dr: Dr. Humberto Franco MD Status: DE P AMB Ordering Dr: Humberto Franco MD Date: 12/13/23 [place] [facility] Sex: M C Admitted: BMS/12 Lead EKG performed by [facility] ECG Report Interpretation ---Sinus Rhythm with PACs-Incomplete right bundle branch block. ABNORMALIncomplete Right bundle branch block is old Electronically signed on 12/13/2023 at 15:[address] Humberto Franco [employer] Version 8610 12/13/234 Date Humberto Franco MD CC: Dr. Bonita Rao MD Date Dictated: 12/13/23807 Date Transcribed: 12/13/23807 Church Worker: Signed Normal [facility] Cardiology Visit Reporton Cardiology Visit Report [facility] [address] [place] [address] OFFICE VISIT Date of Service: 12/13/23 MR#: [id number] Acct: [id number] Name: MIO SIMMONS Rep #: [id number] : 1960 Provider: Dr. Humberto boucher MD Age/Sex: 63/M [place] [facility] Status: Signed with Addenda ADDENDUM by Dr. Humberto Franco MD on 12/13/23 at 1518 Addendum Addendum Details:: Patient's flight surgeon is Dr. Jim Jiménez???phone number [phone]. Assessment and Plan Assessment and Plan (1) Abnormal ECG: Status: Acute (2) Syncope due to orthostatic hypotension: Status: Acute (3) Intermittent chest pain: Status: Acute Orders: Orders 12 Lead EKG performed by [facility] Today R55 - Syncope and collapse Plan Details Follow Up: 3 Years (As needed with Dr. Franco) 12/13/23 1518 Date Humberto Franco MD cc: Jim Marquez; Dr. 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 He comes in for an urgent visit due to a syncopal spell that occurred November 24, 2023. The patient had been working all day out [place] without much oral intake. He came into the kitchen where his was felt dizzy and went out. He was evaluated in the emergency department where his EKG showed a normal sinus rhythm and is chronic incomplete right bundle branch block. He also has left axis deviation which is chronic. He has some poor R wave progression across the precordium. The patient has had a history of some intermittent chest discomfort and has had stress test done in the past. His last stress test was November 2012 where he did 10 minutes on the treadmill achieving 110% of age-predicted heart rate. This was read as a normal stress test. His last echocardiogram done December 04, 2012 showed normal LV size and normal left-ventricular systolic function with an ejection fraction of 60% and no regional wall motion abnormalities. Right ventricle was normal both atria were normal in size the mitral valve was normal there was mild tricuspid insufficiency the aortic valve was trileaflet pulmonic valve is normal the great vessels showed a normal aortic root the pulmonary artery was normal in size and is normal inferior vena cava with no pericardial effusion. After evaluation emergency room it was felt that his syncope was related to dehydration and orthostatic changes. He has had no recurrence. EKG done in the office today shows sinus rhythm with frequent PACs. He did have caffeine this morning and he has his incomplete right bundle branch block which is unchanged. The patient is not aware of the PACs. The patient does have a family history of coronary disease in his dad he does have a history of hyperlipidemia he treats that with Krill oil. Last lipids March 2022 total cholesterol was 215 HDL 48 LDL 141 and triglycerides 131 which is managed through the primary service. The patient does not have a history of hypertension diabetes and he has never smoked. The patient is scheduled to have a nuclear stress test and echocardiogram in 48 hours. After results of these test are known further recommendations will be made. The patient is also being evaluated by Dr. Jim Jiménez, the flight surgeon. His contact phone number is [phone]. Intake Vital Signs 11/24/23 11:14 12/13/23 14:18 Height 5 ft 11 in 5 ft 11 in Weight: 215 lb BMI 29.9 BP 137/82 H Blood Pressure Location Rt brachial Position Sitting Respiration 16 Pulse 46 L Pulse Source Monitor Pulse Oximetry (%) 94 Oxygen Delivery Method room air Intake Visit Reasons: Syncope (Ranney) Heel Emery Buffer Required: No Accompanied by: Self Is patient in pain?: No Allergies No Known Allergies Allergy (Verified 12/13/23 14:24) Medications ???Medication ???Instructions ???Recorded ???Confirmed ???Type sildenafil 50 mg tablet 50 mg PO QDAY PRN 12/01/23 12/01/23 History krill oil 500 mg capsule mg PO DAILY 12/13/23 12/13/23 History multivitamin 1 tab PO QAM 12/13/23 12/13/23 History psyllium husk 0.4 gram capsule 0.4 g PO QDAY 12/13/23 12/13/23 History (Daily Fiber) [facility] Medical History (Updated 12/13/23 @ 15:[address] Humberto Franco MD) Intermittent chest pain Syncope due to orthostatic hypotension Varicose veins of legs DVT (deep venous thrombosis) Surgical History History of oral surgery Family History Father Heart disease Cancer Mother Atrial fibrillation Social History Smoking Status: Never smoker alc (more content not included)... Normal [facility] 12 Lead EKGon 11-24-2023 12 Lead EKG [facility] Cardiovascular Services [address] [place] [address] 12 Lead EKG 11/24/23 1117 MR#: [id number] Acct: [id number] Name: MIO SIMMONS Rep #: [id number] : 1960 63 From: Humberto Franco MD Attending Dr: Status: DEP ER Ordering Dr: Prieto Goddard MD Date: 11/24/23 Location: ED Sex: M C Admitted: Test Reason : NEAR SYNCOPE Blood Pressure : / mmHG Vent. Rate : 072 BPM Atrial Rate : 072 BPM P-R Int : 168 ms QRS Dur : 114 ms QT Int : 414 ms P-R-T Axes : 022 -36 016 degrees QTc Int : 453 ms Normal sinus rhythm Left axis deviation Incomplete right bundle branch block Cannot rule out Anterior infarct , age undetermined Abnormal ECG Confirmed by Humberto Franco ([id number]), clinical editor KELSY WANG ([id number]) on 11/25/2023 1:35:03 PM Referred By: Confirmed By:Humberto Franco 11/25/23 1335 Date Humberto Franco MD CC: Dr. Prieto Goddard MD; Dr. Bonita Rao MD Signed Normal [facility] Basic Metabolic Profile (BMP )on 11-24-2023 BUN/CRE 14.2 RATIO Normal - [facility] Comment on above: Order Comment: 1Y Performed By: #### L 501.5425, L300.8000, L500.2500, L100.0100 ####[facility] [address] [place], [address] CA,Total 9.1 mg/dL Normal 8.5-10.1 [facility] Comment on above: Order Comment: 1Y Performed By: #### L 501.5425, L300.8000, L500.2500, L100.0100 ####[facility] [address] [place], [address] Chloride [Moles/Vol] 109 mmol/L High 98-107 [facility] Comment on above: Order Comment: 1Y Performed By: #### L 501.5425, L300.8000, L500.2500, L100.0100 ####[facility] [address] [place], [address] CO2 [Moles/Vol] 28.0 mmol/L Normal 21.0-32.0 [facility] Comment on above: Order Comment: 1Y Performed By: #### L 501.5425, L300.8000, L500.2500, L100.0100 ####[facility] [address] [place], [address] Creatinine [Mass/Vol] 1.27 mg/dL Normal 0.70-1.30 [facility] Comment on above: Order Comment: 1Y Result Comment: The validity of the calculated GFR GFRAA in patients over 70 years has not been determined. Clinical correlation is essential. Performed By: #### L 501.5425, L300.8000, L500.2500, L100.0100 ####[facility] [address] [place], [address] ECRCL 73.01 ml/min Normal [facility] Comment on above: Order Comment: 1Y Performed By: #### L 501.5425, L300.8000, L500.2500, L100.0100 ####[facility] [address] [place], [address] EST GFR - AA 74 mL/min Normal >60 [facility] Comment on above: Order Comment: 1Y Result Comment: Afri can Trinidadian GFR Calc Performed By: #### L 501.5425, L300.8000, L500.2500, L100.0100 ####[facility] [address] [place], [address] GAP 5 Normal 5-15 [facility] Comment on above: Order Comment: 1Y Performed By: #### L 501.5425, L300.8000, L500.2500, L100.0100 ####[facility] [address] [place], [address] GFR/1.73 sq M.predicted among non-blacks MDRD (S/P/Bld) [Vol rate/Area] 61 mL/min/{1.73_m2} Normal >60 [facility] Comment on above: Order Comment: 1Y Result Comment: Non- GFR Calc Performed By: #### L 501.5425, L300.8000, L500.2500, L100.0100 ####[facility] [address] [place], [address] Glucose [Mass/Vol] 118 mg/dL High 74-106 [facility] Comment on above: Order Comment: 1Y Result Comment: Fast ing Glucose result from 100 to 125 mg/dL suggests IMPAIRED HOMEOSTASIS per A.D.A. criteria. Performed By: #### L 501.5425, L300.8000, L500.2500, L100.0100 ####[facility] [address] [place], [address] Potassium [Moles/Vol] 3.7 mmol/L Normal 3.5-5.1 [facility] Comment on above: Order Comment: 1Y Performed By: #### L 501.5425, L300.8000, L500.2500, L100.0100 ####[facility] [address] [place], [address] Sodium [Moles/Vol] 142 mmol/L Normal 136-145 [facility] Comment on above: Order Comment: 1Y Performed By: #### L 501.5425, L300.8000, L500.2500, L100.0100 ####[facility] [address] [place], [address] Urea nitrogen [Mass/Vol] 18 mg/dL Normal 7-18 [facility] Comment on above: Order Comment: 1Y Performed By: #### L 501.5425, L300.8000, L500.2500, L100.0100 ####[facility] [address] [place], [address] CBC W/Diff, Automatedon 11-07 Absolute Lymph 1.47 X10 3/uL Normal 0.83-4.51 [facility] Comment on above: Performed By: #### L 501.5425, L300.8000, L500.2500, L100.0100 ####[facility] [address] [place], [address] Absolute Neut 2.4 X10 3/uL Normal 2.0-7.7 [facility] Comment on above: Performed By: #### L 501.5425, L300.8000, L500.2500, L100.0100 ####[facility] [address] [place], [address] Basophils/100 WBC (Bld) 0.4 % Normal 0-1 [facility] Comment on above: Performed By: #### L 501.5425, L300.8000, L500.2500, L100.0100 ####[facility] [address] [place], [address] Eosinophils/100 WBC (Bld) 1.3 % Normal 0-5 [facility] Comment on above: Performed By: #### L 501.5425, L300.8000, L500.2500, L100.0100 ####[facility] [address] [place], [address] Erythrocyte distribution width (RBC) [Ratio] 12.6 % Normal 11.6-14.6 [facility] Comment on above: Performed By: #### L 501.5425, L300.8000, L500.2500, L100.0100 ####[facility] [address] [place], [address] Hematocrit (Bld) [Volume fraction] 48.1 % Normal 40-54 [facility] Comment on above: Performed By: #### L 501.5425, L300.8000, L500.2500, L100.0100 ####[facility] [address] [place], [address] Hemoglobin (Bld) [Mass/Vol] 16.1 g/dL Normal 13.0-16.5 [facility] Comment on above: Performed By: #### L 501.5425, L300.8000, L500.2500, L100.0100 ####[facility] [address] [place], [address] IG% 0.700 Normal 0.0-0.9 [facility] Comment on above: Result Comment: IG% - Immature Granulocytes (promyelocytes, myelocytes and metamyelocytes) > 1% indicates that a LEFT SHIFT is Present. Performed By: #### L 501.5425, L300.8000, L500.2500, L100.0100 ####[facility] [address] [place], [address] Lymphocytes/100 WBC (Bld) 33.0 % Normal 19-41 [facility] Comment on above: Performed By: #### L 501.5425, L300.8000, L500.2500, L100.0100 ####[facility] [address] [place], [address] MCH (RBC) [Entitic mass] 30.3 pg Normal 27.0-32.0 [facility] Comment on above: Performed By: #### L 501.5425, L300.8000, L500.2500, L100.0100 ####[facility] [address] [place], [address] MCHC (RBC) [Mass/Vol] 33.5 g/dL Normal 32-36 [facility] Comment on above: Performed By: #### L 501.5425, L300.8000, L500.2500, L100.0100 ####[facility] [address] [place], [address] MCV (RBC) [Entitic vol] 90.6 fL Normal 80-94 [facility] Comment on above: Performed By: #### L 501.5425, L300.8000, L500.2500, L100.0100 ####[facility] [address] [place], [address] Monocytes/100 WBC (Bld) 11.2 % High 0-10 [facility] Comment on above: Performed By: #### L 501.5425, L300.8000, L500.2500, L100.0100 ####[facility] [address] [place], [address] Neutrophils/100 WBC (Bld) 53.4 % Normal 47-70 [facility] Comment on above: Performed By: #### L 501.5425, L300.8000, L500.2500, L100.0100 ####[facility] [address] [place], [address] Nucleated RBC (Bld) [#/Vol] 0 10*3/uL Normal 0-5 [facility] Comment on above: Performed By: #### L 501.5425, L300.8000, L500.2500, L100.0100 ####[facility] [address] [place], [address] Platelet mean volume (Bld) [Entitic vol] 9.4 fL Normal 6.2-12.0 [facility] Comment on above: Performed By: #### L 501.5425, L300.8000, L500.2500, L100.0100 ####[facility] [address] [place], [address] Platelets (Bld) [#/Vol] 178 10*3/uL Normal 150-450 [facility] Comment on above: Performed By: #### L 501.5425, L300.8000, L500.2500, L100.0100 ####[facility] [address] [place], [address] RBC (Bld) [#/Vol] 5.31 10*6/uL Normal 4.6-6.2 [facility] Comment on above: Performed By: #### L 501.5425, L300.8000, L500.2500, L100.0100 ####[facility] [address] [place], [address] RDW SD 41.3 fl Normal 35.1-43.9 [facility] Comment on above: Performed By: #### L 501.5425, L300.8000, L500.2500, L100.0100 ####[facility] [address] [place], [address] WBC (Bld) [#/Vol] 4.5 10*3/uL Normal 4.4-11.0 [facility] Comment on above: Performed By: #### L 501.5425, L300.8000, L500.2500, L100.0100 ####[facility] [address] [place], [address] Chest 1 View (Portable)on Chest 1 View (Portable) [facility] Imaging Services [address] [place] [address] Chest 1 View (Portable) MR#: [id number] Acct: [id number] Name: MIO SIMMONS Rep #: [id number] : 1960 M 63 From: Erin vincent MD PCP: Dr. Bonita Rao MD Status: PRE ER Study: Chest 1 View (Portable) Date of Exam: 11/24/23 Exam# [id number] Ordering Dr: [place] [id number] HISTORY: dyspnea. TECHNIQUE: XR Chest 1 View. COMPARISON: 12/02/2012. FINDINGS: CARDIOMEDIASTINAL BORDERS: Cardiac silhouette within normal limits in size. Mediastinal contour unremarkable. LUNGS: Radiographically clear. PLEURA: No pleural effusion or pneumothorax seen. OSSEOUS STRUCTURES: Unremarkable. RAD/Chest 1 View (Portable) IMPRESSION: No acute cardiopulmonary process identified. Electronically Signed: Erin Ceja MD at 12:23 EDT , CC: Dr. Prieto Goddard MD; Dr. Bonita Rao MD Church Worker: Signed Normal [facility] D-Dimer Quantitative (DVT/PE )on 11-24-2023 D-DIMER QUANT 0.36 FEU/ug/m Normal 0.27-0.49 [facility] Comment on above: Result Comment: NORM AL D-Dimer level (<0.50) indicates no DVT or PE. Performed By: #### L 501.5425, L300.8000, L500.2500, L100.0100 ####[facility] [address] [facility] [place], [address] Emergency Department Summary on 11-24-2023 Emergency Department Summary [facility] Medical Records Department [address] [place] [address] Emergency Department Summary 11/24/23 MR#: [id number] Acct: [id number] Name: MIO SIMMONS Rep #: [id number] : 1960 63 From: Prieto Goddard MD PCP: Dr. Bonita Rao MD Status:REG ER Location: ED HPI History of Present Illness Chief Complaint: Dizziness Informant: patient and EMS Narrative Narrative: 63-year-old male had a syncopal episode this morning. States he woke up this morning and got out of bed and felt lightheaded like he would faint. Therefore he laid back down in bed for a while until he felt better then he got up and walked to the kitchen with the intent of making breakfast and felt worse and passed out prior to making it there in the hallway. His caught him, he did not injure himself. He knows he lost consciousness for an unclear period of time. Once he regained consciousness he tried to sit up and felt some tingling in both of his hands and lay back down it went away and 911 was called at that point. States he does not have any chest discomfort but maybe had some dyspnea prior to his episode and states he feels some mild nonfocal upper back discomfort right now. Denies feeling either 1 of those right now. States he was having some chest tightness off-and-on this past week, oftentimes in the mornings when he would wake up and then it would last an hour before it went away. He has not had any of that before. He states other than a remote DVT that he relates to varicose veins in his legs, he has had no medical problems and takes no medications right now including anticoagulants which he has been off of for a long time. [facility] Medical History (Updated 11/24/23 @ 15:[address] Prieto Goddard MD) Varicose veins of legs DVT (deep venous thrombosis) Home Medications ???Medication ???Instructions ???Recorded ???Last Taken ???Type NK 11/24/23 Unknown History Allergy/AdvReac Type Severity Reaction Status Date / Time No Known Allergies Allergy Verified 11/24/23 11:18 Social History Smoking Status: Never smoker ROS [facility] ED Constitutional Constitutional ED: Denies chills or fever(s) Eyes Eyes: Denies change in vision or diplopia ENT ENT ED: Denies rhinorrhea or sore throat Cardiovascular Cardiovascular: Reports syncope and other Details: Chest tightness off and on see HPI ; Denies palpitations or radiating jaw, neck or arm pain Respiratory/Chest Respiratory/Chest: Reports other Details: Brief dyspnea earlier he thinks, not currently ; Denies cough Gastrointestinal Gastrointestinal: Denies abdominal pain, diarrhea, nausea or vomiting Genitourinary Genitourinary ED: Denies dysuria or hematuria Musculoskeletal Musculoskeletal: Reports other Details: Mild upper back discomfort ; Denies neck pain Integumentary Denies abscess or rash Neurologic Neurologic: Denies headache(s), paresthesias or weakness Psychiatric Psychiatric: Denies anxiety or suicidal thoughts EXAM Physical Exam Const Vital Signs: 11/24/23 11:14 11/24/23 11:22 11/24/23 11:54 Temperature 97.6 F L Temperature Source Axillary Pulse Rate 70 75 Pulse Rate [Lying] Pulse Rate [Sitting (for 1 minute prior to obtaining)] Pulse Rate [Standing (for 1 minute prior to obtaining)] Respiratory Rate 15 16 Blood Pressure 114/76 114/76 Blood Pressure [Lying] Blood Pressure [Sitting (for 1 minute prior to obtaining)] Blood Pressure [Standing (for 1 minute prior to obtaining)] Blood Pressure Mean 88 88 Blood Pressure Mean [Lying] Blood Pressure Mean [Sitting (for 1 minute prior to obtaining)] Blood Pressure Mean [Standing (for 1 minute prior to obtaining)] Pulse Ox 92 96 99 Oxygen Delivery Method Room Air Nasal Cannula Room Air Oxygen Flow Rate (L/min) 2 11/24/23 12:04 11/24/23 12:21 11/24/23 13:00 Temperature Temperature Source Pulse Rate 73 76 Pulse Rate [Lying] 75 Pulse Rate [Sitting (for 1 minute prior to obtaining)] 82 Pulse Rate [Standing (for 1 minute prior to obtaining)] 86 Respiratory Rate 15 18 Blood Pressure 123/78 H 126/84 H Blood Pressure [Lying] 119/85 H Blood Pressure [Sitting (for 1 minute prior to obtaining)] 115/77 Blood Pressure [Standing (for 1 minute prior to obtaining)] 82/39 L Blood Pressure Mean 93 98 Blood Pressure Mean [Lying] 96 Blood Pressure Mean [Sitting (for 1 minute prior to obtaining)] 89 Blood Pressure Mean [Standing (for 1 minute prior to obtaining)] 53 Pulse Ox 99 97 Oxygen Delivery Method Room Air Room Air Oxygen Flow Rate (L/min) 11/24/23 14:00 11/24/23 14:40 11/24/23 15:00 Temperature Temperature Source Pulse Rate 70 74 Pulse Rate [Lying] 8 (more content not included)... Normal [facility] L501.4020on 11-24-2023 TROPONIN-I HS 3 pg/mL Normal 3.0-78.0 [facility] Comment on above: Result Comment: Sarah valles Note: New Test Units and Gender Specific Reference Ranges. For more information see Policy Stat Procedure [place] High Sensitivity Troponin (TNIH) and attachments. Performed By: #### L 501.4020 ####[facility] [id number] [place], [address] L501.5425on 11-24-2023 TROPONIN-I HS 6 pg/mL Normal 3.0-78.0 [facility] Comment on above: Order Comment: 1Y Result Comment: Sarah valles Note: New Test Units and Gender Specific Reference Ranges. For more information see Policy Stat Procedure [place] High Sensitivity Troponin (TNIH) and attachments. Performed By: #### L 501.5425, L300.8000, L500.2500, L100.0100 ####[facility] [id number] [place], [address] CNOVon 08-09-2023 [facility]OV [facility] MIO SIMMONS ([id number]) 1960 M Date Time Provider Department 08/09/23 3:30 PM [facility] During your visit today, we recorded the following information about you: Temperature Pulse Respiration Blood pressure 97.3 degrees 90/minute 16/minute 108/66 Weight 96.9 kg Madelin Schafer PA 08/09/2023 4:01 PM Signed This note was created using [employer]. Subjective Mio Simmons is a 62 year old male. HPI 62-year-old male presents for cough, fatigue, congestion x 10 days. Patient states that he started getting sick about 10 days ago. He was seen here on 07/30 and diagnosed with influenza A. He was not treated with Tamiflu as he was out of the window. Patient states that his cough is persistent and not getting any better. He states he occasionally he gets into coughing fits. His cough is dry. No chest pain or shortness of breath. No history of pneumonia, COPD or asthma. He denies any fevers. He states that he just feels rundown still as well. He has a little bit of nasal congestion. He has not taken any medications [id number] for the past several days. No other complaint. No past medical history on file. No past surgical history on file. ALLERGIES Patient has no known allergies. MEDICATIONS predniSONE (DELTASONE) 10 mg tablet Take 4 tabs daily for 3 days, then 2 tabs daily for 3 days, then 1 tab daily for 3 days with food. (Patient not taking: Reported on 07/31/2023) famotidine (PEPCID) 20 mg tablet Take 1 tablet by mouth at bedtime as needed. (Patient not taking: Reported on 07/31/2023) No family history on file. Social History Tobacco Use Smoking status: Never Smokeless tobacco: Never Review of Systems Constitutional: Positive for fatigue. Negative for chills and fever. HENT: Positive for congestion. Negative for sore throat. Respiratory: Positive for cough. Negative for shortness of breath. Gastrointestinal: Negative for diarrhea and vomiting. Objective BP 108/66 Pulse 90 Temp 36.3 ?C (97.3 ?F) Resp 16 Wt 96.9 kg (213 lb 10 oz) SpO2 97% Physical Exam Vitals and nursing note reviewed. Constitutional: General: He is not in acute distress. Appearance: Normal appearance. He is not toxic-appearing. HENT: Right Ear: Tympanic membrane and ear canal normal. Left Ear: Tympanic membrane and ear canal normal. Nose: Nose normal. No congestion. Mouth/Throat: Mouth: Mucous membranes are moist. Pharynx: Oropharynx is clear. No oropharyngeal exudate or posterior oropharyngeal erythema. Eyes: Conjunctiva/sclera: Conjunctivae normal. Cardiovascular: Rate and Rhythm: Normal rate and regular rhythm. Pulmonary: Effort: Pulmonary effort is normal. Breath sounds: Normal breath sounds. No wheezing, rhonchi or rales. Skin: General: Skin is warm and dry. Neurological: Mental Status: He is alert. Assessment and Plan ASSESSMENT/PLAN: 1. Acute cough - ICD9: 786.2, ICD10: R05.1 (primary diagnosis) - XR CHEST 2V FRONTAL/LAT-no acute radiographic abnormality. -Diagnosed with influenza A 10 days ago. -No pneumonia on CXR. -Suspect bronchitis. Rx for prednisone. Rx for Tessalon Perles. 2. Influenza A - ICD9: 487.1, ICD10: J10.1 -See above. Diagnosis and treatment plan were discussed and questions were answered to the patient's satisfaction. Pt acknowledged understanding of concepts and follow up plan. Specific signs and symptoms that would indicate the need for higher level of care were discussed in detail warranting prompt ER evaluation. BA Carter Allergies As of Date: 08/09/2023 (No Known Allergies) Date Reviewed: 08/09/2023 Reviewed by: Teresita Montesinos MA - Fully Assessed Reason for Visit: Nasal Congestion [235] Cmt: chest congestion, cough, fatigue x 10 days, seen on 07/30 dx with flu A Primary Visit Diagnosis:Acute cough [R05.1] Other Visit Diagnosis:Influenza A [J10.1] Order(s):XR CHEST 2V FRONTAL/LAT [[id number]] Order #: [id number] FUTURE predniSONE (DELTASONE) 20 mg tabletTake 2 tablets by mouth once daily for 4 days. Take daily with food.Disp: 8 tabletRfl: 0 benzonatate (TESSALON PERLE) 100 mg capsuleTake 1 capsule by mouth three times a day as needed.Disp: 21 capsuleRfl: 0 Prescriptions as of 08/09/2023 - predniSONE (DELTASONE) 20 mg tablet Take 2 tablets by mouth once daily for 4 days. Take daily with food. - benzonatate (TESSALON PERLE) 100 mg capsule Take 1 capsule by mouth three times a day as needed. - famotidine (PEPCID) 20 mg tablet Take 1 tablet by mouth at bedtime as needed. Problem List As Of Date: 08/09/2023 (None) Prescriptions ordered this encounter Disp Refills Start End PREDNISONE 20 MG TABLET 8 ta* 0 08/09/2023 08/13/2023 Route: ORAL Sig: Take 2 tablets by mouth once daily for 4 days. Take daily with food. BENZONATATE 100 MG CAPSULE 21 c* 0 08/09/2023 Route: OR (more content not included)... Normal [facility] XR CHEST 2V FRONTAL/LATon XR CHEST 2V FRONTAL/LAT * * *Final Repor t* * * DATE OF EXAM: Aug 09 2023 3:48PM WOX [id number] - XR CHEST 2V FRONTAL/LAT / PROCEDURE REASON: Acute cough * * * * Physician Interpretation * * * * EXAMINATION: CHEST RADIOGRAPH (2 VIEW FRONTAL and LATERAL) CLINICAL HISTORY: Acute cough MQ: XC2_6 EXAM DATE/TIME: 08/09/2023 3:48 PM COMPARISON: Chest x-ray dated 12/23/2020 RESULT: Lines, tubes, and devices: None. Lungs and pleura: No consolidation. No lung mass. No pleural effusion. No pneumothorax. Cardiomediastinal silhouette: Normal cardiomediastinal silhouette. Bones and soft tissues: Degenerative changes are present within the thoracic spine. IMPRESSION: No acute radiographic abnormality. Church Worker: [facility] Transcribe Date/Time: Aug 09 2023 3:55P Dictated by : JUANA HOFFMAN MD This examination was interpreted and the report reviewed and electronically signed by: JUANA HOFFMAN MD on Aug 09 2023 3:55PM EST [id number] Normal [facility] XR Chest PA and Lateralon IMPRESSION: No acute radiographic abnormality. Church Worker: [facility] Transcribe Date/Time: Aug 09 2023 3:55P Dictated by : JUANA HOFFMAN MD This examination was interpreted and the report reviewed and electronically signed by: JUANA HOFFMAN MD on Aug 09 2023 3:55PM EST DIVISION OF RADIOLOGY * * *Final Report* * * DATE OF EXAM: Aug 09 2023 3:48PM WOX [id number] - XR CHEST 2V FRONTAL/LAT / PROCEDURE REASON: Acute cough * * * * Physician Interpretation * * * * EXAMINATION: CHEST RADIOGRAPH (2 VIEW FRONTAL & LATERAL) CLINICAL HISTORY: Acute cough MQ: XC2_6 EXAM DATE/TIME: 08/09/2023 3:48 PM COMPARISON: Chest x-ray dated 12/23/2020 RESULT: Lines, tubes, and devices: None. Lungs and pleura: No consolidation. No lung mass. No pleural effusion. No pneumothorax. Cardiomediastinal silhouette: Normal cardiomediastinal silhouette. Bones and soft tissues: Degenerative changes are present within the thoracic spine. DIVISION OF RADIOLOGY Provider, [facility] Darwin Vaz - 08/09/2023 * * *Final Report* * * DATE OF EXAM: Aug 09 2023 3:48PM WOX 5291 - XR CHEST 2V FRONTAL/LAT / PROCEDURE REASON: Acute cough * * * * Physician Interpretation * * * * EXAMINATION: CHEST RADIOGRAPH (2 VIEW FRONTAL & LATERAL) CLINICAL HISTORY: Acute cough MQ: XC2_6 EXAM DATE/TIME: 08/09/2023 3:48 PM COMPARISON: Chest x-ray dated 12/23/2020 RESULT: Lines, tubes, and devices: None. Lungs and pleura: No consolidation. No lung mass. No pleural effusion. No pneumothorax. Cardiomediastinal silhouette: Normal cardiomediastinal silhouette. Bones and soft tissues: Degenerative changes are present within the thoracic spine. IMPRESSION IMPRESSION: No acute radiographic abnormality. Church Worker: [facility] Transcribe Date/Time: Aug 09 2023 3:55P Dictated by : JUANA HOFFMAN MD This examination was interpreted and the report reviewed and electronically signed by: JUANA HOFFMAN MD on Aug 09 2023 3:55PM EST [facility] Radiology Study observation (narrative) Luis Felipe idaz [facility] XR Chest PA and LateralOrder ed By: [facility] Provider on 08-09-2023 [facility] CNOVon 07-31-2023 CNOV Office Visit ([facility] ) MIO SIMMONS ([id number]) 1960 M Date Time Provider Department 07/31/23 9:30 AM [facility] During your visit today, we recorded the following information about you: Temperature Pulse Respiration Blood pressure 97.8 degrees 97/minute 18/minute 125/86 Weight 95 kg Hilton Cleveland APRN.CNP 07/31/2023 9:55 AM Signed This note was created using [employer]. Subjective Mio Simmons is a 62 year old male. HPI About three days ago pt started with cough and sore throat. Over the last day or so he has developed fever, chills and ear pain. Patient did test for COVID yesterday but he notes that the test was old. Review of Systems Constitutional: Positive for fatigue and fever. HENT: Positive for ear pain and sore throat. Respiratory: Positive for cough. Musculoskeletal: Positive for arthralgias. Objective BP 125/86 Pulse 97 Temp 36.6 ?C (97.8 ?F) Resp 18 Wt 95 kg (209 lb 7 oz) SpO2 98% Physical Exam Vitals and nursing note reviewed. Constitutional: General: He is not in acute distress. Appearance: Normal appearance. He is not ill-appearing. HENT: Head: Normocephalic. Mouth/Throat: Mouth: Mucous membranes are moist. Pharynx: No posterior oropharyngeal erythema. Eyes: Conjunctiva/sclera: Conjunctivae normal. Cardiovascular: Rate and Rhythm: Normal rate and regular rhythm. Pulmonary: Effort: Pulmonary effort is normal. Breath sounds: Normal breath sounds. Musculoskeletal: General: Normal range of motion. Cervical back: Normal range of motion. Skin: General: Skin is warm and dry. Neurological: General: No focal deficit present. Mental Status: He is alert. Psychiatric: Mood and Affect: Mood normal. Behavior: Behavior normal. Assessment and Plan ASSESSMENT/PLAN: 1. URI, acute - ICD9: 465.9, ICD10: J06.9 - Discussed viral etiology and rationale for treatment. - Symptomatic treatment with prn analgesia - Supportive care with fluids and rest - Follow up in one week if symptoms persist or sooner if worsening of symptoms -Patient tested for influenza and COVID. - COVID AND INFLUENZA A/B AND RSV NAAT, ROUTINE Hilton Cleveland APRN.CNP Allergies As of Date: 07/31/2023 (No Known Allergies) Date Reviewed: 07/31/2023 Reviewed by: Hilton Cleveland APRN.CNP - Fully Assessed Reason for Visit: Cough [28] Cmt: Chest congestion, fever, chills, dry cough, ear pain, bilat, x 3 days increasing Has been traveling Primary Visit Diagnosis:URI, acute [J06.9] Order(s):COVID AND INFLUENZA A/B AND RSV NAAT, ROUTINE [[id number]] Order #: [id number]. #:[id number] Prescriptions as of 08/03/2023 - predniSONE (DELTASONE) 10 mg tablet Take 4 tabs daily for 3 days, then 2 tabs daily for 3 days, then 1 tab daily for 3 days with food. - famotidine (PEPCID) 20 mg tablet Take 1 tablet by mouth at bedtime as needed. Problem List As Of Date: 07/31/2023 (None) Letter Text Encounter Status:Closed by HILTON [place] on 07/31/23 Normal [facility] COVID AND INFLUENZA A/B AND RSV NAAT, ROUTINEon 07-31-2023 SARS-CoV-2 (COVID-19) RNA ABY+probe Ql (Unsp spec) COVID 19 RESULT: Not detected The method used is RT-PCR or an equivalent NAAT method. Reference Range (the expected result in uninfected individuals): Not detected INFLUENZA A PCR: Detected INFLUENZA B PCR: Not detected RSV PCR: Not detected Abnormal [facility] Comment on above: Performed By: #### C VFLRS ####[facility] LABCLIA [id number] [address] OF [facility] CNOVon 07-12-2023 CNOV Office Visit ([facility] ) MIO SIMMONS ([id number]) 1960 M Date Time Provider Department 07/12/23 9:00 AM [facility] During your visit today, we recorded the following information about you: Temperature Pulse Respiration Blood pressure 97.4 degrees 50/minute 16/minute 118/78 Weight 100.6 kg Olivia Moreno APRN.CNP 07/12/2023 9:13 AM Signed This note was created using [employer]. Subjective Mio Simmons is a 62 year old male. 62 year old male with no PMH presents for rash. Acute onset of symptoms was yesterday Left hand +red and itchy rash States that he was working in the garden the day prior +exposure to poison sandra Denies URI sx Denies fever or chills Denies malaise or fatigue Denies new lotions, soaps, or medicines The history is provided by the patient. No cotton bag clipper was used. Rash This is a new problem. The current episode started yesterday. The problem is unchanged. Location: left hand. The rash is characterized by redness and itchiness. He was exposed to plant contact. Pertinent negatives include no anorexia, congestion, cough, diarrhea, eye pain, facial edema, fatigue, fever, joint pain, nail changes, rhinorrhea, shortness of breath, sore throat or vomiting. Past treatments include nothing. The treatment provided no relief. There is no history of allergies, asthma, eczema or varicella. No past medical history on file. No past surgical history on file. ALLERGIES Patient has no known allergies. MEDICATIONS predniSONE (DELTASONE) 10 mg tablet Take 4 tabs daily for 3 days, then 2 tabs daily for 3 days, then 1 tab daily for 3 days with food. famotidine (PEPCID) 20 mg tablet Take 1 tablet by mouth at bedtime as needed. No family history on file. Social History Tobacco Use Smoking status: Never Smokeless tobacco: Never Review of Systems Constitutional: Negative for activity change, appetite change, fatigue and fever. HENT: Negative for congestion, rhinorrhea and sore throat. Eyes: Negative for pain, discharge and itching. Respiratory: Negative for apnea, cough, chest tightness and shortness of breath. Cardiovascular: Negative for chest pain, palpitations and leg swelling. Gastrointestinal: Negative for anorexia, diarrhea and vomiting. Musculoskeletal: Negative for arthralgias, back pain, gait problem and joint pain. Skin: Positive for rash. Negative for nail changes. Allergic/Immunologic: Negative for environmental allergies, food allergies and immunocompromised state. Neurological: Negative for dizziness, facial asymmetry, light-headedness and headaches. Hematological: Negative for adenopathy. Does not bruise/bleed easily. Psychiatric/Behavioral: Negative for agitation and behavioral problems. Objective BP 118/78 Pulse (!) 50 Temp 36.3 ?C (97.4 ?F) (Tympanic) Resp 16 Wt 100.6 kg (221 lb 12.5 oz) SpO2 97% Physical Exam Vitals and nursing note reviewed. Constitutional: General: He is not in acute distress. Appearance: Normal appearance. He is not ill-appearing, toxic-appearing or diaphoretic. HENT: Head: Normocephalic and atraumatic. Right Ear: External ear normal. Left Ear: External ear normal. Nose: Nose normal. No congestion or rhinorrhea. Mouth/Throat: Mouth: Mucous membranes are moist. Pharynx: Oropharynx is clear. No oropharyngeal exudate or posterior oropharyngeal erythema. Eyes: General: Right eye: No discharge. Left eye: No discharge. Extraocular Movements: Extraocular movements intact. Conjunctiva/sclera: Conjunctivae normal. Pupils: Pupils are equal, round, and reactive to light. Cardiovascular: Rate and Rhythm: Normal rate and regular rhythm. Pulses: Normal pulses. Heart sounds: Normal heart sounds. No murmur heard. No friction rub. No gallop. Pulmonary: Effort: Pulmonary effort is normal. No respiratory distress. Breath sounds: Normal breath sounds. No stridor. No wheezing, rhonchi or rales. Chest: Chest wall: No tenderness. Abdominal: General: Abdomen is flat. There is no distension. Palpations: Abdomen is soft. There is no mass. Tenderness: There is no abdominal tenderness. There is no guarding or rebound. Hernia: No hernia is present. Musculoskeletal: General: No swelling, tenderness, deformity or signs of injury. Normal range of motion. Cervical back: Normal range of motion and neck supple. No rigidity or tenderness. Right lower leg: No edema. Left lower leg: No edema. Lymphadenopathy: Cervical: No cervical adenopathy. Skin: General: Skin is warm and dry. Capillary Refill: Capillary refill takes less than 2 seconds. Coloration: Skin is not jaundiced or pale. Findings: Rash (Left middle finger with pruritic erythemetic streak like rash. Similiar noted to index finger and thumb) present. No bruising or lesion. Neurological: General: No focal deficit p (more content not included)... Normal [facility] CNOVon 06-04-2023 CNOV Office Visit ([facility] ) MIO SIMMONS ([id number]) 1960 M Date Time Provider Department 06/04/23 10:15 AM INOCENCIO RIVERA [facility] During your visit today, we recorded the following information about you: Temperature Pulse Respiration Blood pressure 97.8 degrees 78/minute 16/minute 124/64 Weight 99 kg Inocencio Rivera MD 06/04/2023 10:54 AM Signed Patient presents with: Ear Pain: left x this am HPI: Left ear pain: Duration: woke him up overnight Location: left ear Character: aching Radiation: No. Relieving: peroxide Pain relievers: none Associated: Hx of cerumen impaction Pertinent negatives: Denies otorrhea, fever, hearing loss, nasal congestion, sinus pressure, sore throat, cough MEDICATIONS: No prescriptions on file. ALLERGIES: ALLERGIES No Known Allergies VITALS: BP 124/64 Pulse 78 Temp 36.6 ?C (97.8 ?F) Resp 16 Wt 99 kg (218 lb 4.1 oz) SpO2 95% PHYSICAL EXAM: GEN: pleasant, alert, no acute distress Eyes: PERRL, EOMI, sclera clear Ears: left Canal clear. No TMJ tenderness. TMs without erythema, bulge, or effusion after removal. Sinuses: non-tender frontal, non-tender maxillary Mouth/throat: MMM, no pharyngeal erythema or exudate Neck: Supple, no thyromegaly, nontender, no lymphadenopathy Heart: regular rate and rhythm, no murmurs Lungs: clear to auscultation ASSESSMENT/PLAN: 1. Impacted cerumen of left ear - ICD9: 380.4, ICD10: H61.22 - AMBULATORY EAR LAVAGE/IRRIGATION -successful removal by staff water lavage. Symptoms improved after procedure. Inocencio Rivera MD Allergies As of Date: 06/04/2023 (No Known Allergies) Date Reviewed: 06/04/2023 Reviewed by: Teresita Montesinos MA - Fully Assessed Reason for Visit: Ear Pain [817] Cmt: left x this am Primary Visit Diagnosis:Impacted cerumen of left ear [H61.22] Order(s):AMBULATORY EAR LAVAGE/IRRIGATION [[id number]] Order #: [id number] Problem List As Of Date: 06/04/2023 (None) Medications Discontinued During This Encounter Prescriptions - benzonatate (TESSALON PERLE) 100 mg capsule (Discontinued) Reported on 05/11/2021 - fluticasone (FLONASE) 50 mcg/actuation nasal spray (Discontinued) Reported on 05/11/2021 - triamcinolone acetonide (KENALOG) 0.1 % cream (Discontinued) Reported on 12/20/2017 - albuterol HFA (VENTOLIN HFA) 90 mcg/actuation inhaler (Discontinued) Reported on 08/14/2016 Encounter Status:Closed by INOCENCIO RIVERA on 06/04/23 Normal [facility] Absolute lymphocyte countOrd ered By: Dr. Rao on 03-31-2022 Lymphocytes Auto (Unsp spec) [#/Vol] 1.12 10*3/uL 0.83-4.51 [facility] Basophil percentageOrdered B y: Dr. Rao on 03-31-2022 Basophils/100 WBC (Bld) 0.3 % 0-1 [facility] Bilirubin [Mass/Vol] 0.60 mg/dL 0.20-1.00 [facility] Comment on above: For patients on eltr ombopag therapy, use of Dimension [place] TBIL is not recommended. Chloride [Moles/Vol] 107 mmol/L 98-107 [facility] Cholesterol [Mass/Vol] 215 mg/dL <200 [facility] Comment on above: <200 mg/dL Desirable 200-240 mg/dL Borderline >240 mg/dL High Risk Eosinophils/100 WBC (Bld) 1.0 % 0-5 [facility] Glucose [Mass/Vol] 107 mg/dL 74-106 [facility] Comment on above: Fasting Glucose resu lt from 100 to 125 mg/dL suggests IMPAIRED HOMEOSTASIS per A.D.A. criteria. Neutrophils (Bld) [#/Vol] 2.3 10*3/uL 2.0-7.7 [facility] Neutrophils/100 WBC (Bld) 60.6 % 47-70 [facility] Potassium [Moles/Vol] 3.9 mmol/L 3.5-5.1 [facility] Protein [Mass/Vol] 7.0 g/dL 6.4-8.2 [facility] Sodium [Moles/Vol] 141 mmol/L 136-145 [facility] Triglyceride [Mass/Vol] 131 mg/dL <199 [facility] Comment on above: The drugs N-Acetylcy steine and Metamizole may falsely depress this assay.Serum Triglycerides Reference Interval Normal <150 mg/dL Borderline high 150 - 199 mg/dL High 200 - 499 mg/dL Very High > or = 500 mg/dL WBC (Bld) [#/Vol] 3.8 10*3/uL 4.4-11.0 [facility] Blood erythrocytes count (nu mber/volume)Ordered By: Dr. Rao on 03-31-2022 RBC (Bld) [#/Vol] 5.14 10*6/uL 4.6-6.2 [facility] Blood hemoglobin measurement (mass/volume)Ordered By: Dr. Rao on 03-31-2022 Hemoglobin (Bld) [Mass/Vol] 15.8 g/dL 13.0-16.5 [facility] Blood lymphocytes/100 leukoc ytesOrdered By: Dr. Rao on 03-31-2022 Lymphocytes/100 WBC (Bld) 29.2 % 19-41 [facility] Blood monocytes/100 leukocyt esOrdered By: Dr. Rao on 03-31-2022 Monocytes/100 WBC (Bld) 8.6 % 0-10 [facility] Blood platelet mean volumeOr dered By: Dr. Rao on 03-31-2022 Platelet mean volume (Bld) [Entitic vol] 9.0 fL 6.2-12.0 [facility] Determination of erythrocyte mean corpuscular volume (MCV)Ordered By: Dr. Rao on 03-31-2022 MCV (RBC) [Entitic vol] 93.0 fL 80-94 [facility] Hematocrit Auto (Bld) [Volum e fraction]Ordered By: Dr. Rao on 03-31-2022 Hematocrit (Bld) [Volume fraction] 47.8 % 40-54 [facility] Laboratory - Chemistry and C hemistry - challengeOrdered By: Dr. Rao on 03-31-2022 ALP [Catalytic activity/Vol] 50 U/L 45-117 [facility] ALT [Catalytic activity/Vol] 23 U/L 16-61 [facility] CO2 [Moles/Vol] 29.0 mmol/L 21.0-32.0 [facility] Globulin (S) [Mass/Vol] 3.1 g/dL 2.2-4.2 [facility] Urea nitrogen/Creatinine [Mass ratio] 14.7 mg/mg 10-20 [facility] Laboratory - Hematology and Cell countsOrdered By: Dr. Rao on 03-31-2022 Erythrocyte distribution width (RBC) [Entitic vol] 43.7 fL 35.1-43.9 [facility] Erythrocyte distribution width (RBC) [Ratio] 12.7 % 11.6-14.6 [facility] Immature granulocytes/100 WBC (Bld) 0.300 % 0.0-0.9 [facility] Comment on above: IG% - Immature Granu locytes (promyelocytes, myelocytes and metamyelocytes) > 1% indicates that a LEFT SHIFT is Present. MCH (RBC) [Entitic mass] 30.7 pg 27.0-32.0 [facility] Nucleated RBC/100 WBC (Bld) [Ratio] 0 % 0-5 [facility] MCHC Auto (RBC) [Mass/Vol]Or dered By: Dr. Rao on 03-31-2022 MCHC (RBC) [Mass/Vol] 33.1 g/dL 32-36 [facility] No Panel InformationOrdered By: Dr. Rao on 03-31-2022 Estimated GFR (MDRD) Amer 73 mL/min >60 [facility] Comment on above: GFR Calc Estimated GFR (MDRD) Non-Af Amer 60 mL/min >60 [facility] Comment on above: Non- GFR Calc Prostate Specific Antigen Screen 3.14 ng/mL 0.00-4.00 [facility] Comment on above: This test was perfor med using the TPSA assay method for the[facility] chemistry system. Values obtained with differentassay methods cannot be used interchangably.When changing PSA assays in the course of monitoring apatient, additional sequential testing should be carriedout to confirm baseline values. Platelets bldOrdered By: Dr. Rao on 03-31-2022 Platelets (Bld) [#/Vol] 165 10*3/uL 150-450 [facility] Serum or plasma albumin kaleb urement (mass/volume)Ordered By: Dr. Rao on 03-31-2022 Albumin [Mass/Vol] 3.9 g/dL 3.2-5.0 [facility] Serum or plasma albumin/glob ulin mass ratioOrdered By: Dr. Rao on 03-31-2022 Albumin/Globulin [Mass ratio] 1.3 {ratio} 0.9-2.4 [facility] Serum or plasma calcium kaleb urement (mass/volume)Ordered By: Dr. Rao on 03-31-2022 Calcium [Mass/Vol] 9.4 mg/dL 8.5-10.1 [facility] Serum or plasma cholesterol in HDL measurement (mass/volume)Ordered By: Dr. Rao on 03-31-2022 Cholesterol in HDL [Mass/Vol] 48 mg/dL >40 [facility] Comment on above: The drugs N-Acetylcy steine and Metamizole may falsely depress this assay. Reference Range HDL <40 mg/dL Low HDL Cholesterol HDL >or= 60 mg/dL High HDL Cholesterol Serum or plasma cholesterol in VLDL measurement (mass/volume)Ordered By: Dr. Rao on 03-31-2022 Cholesterol in VLDL [Mass/Vol] 26 mg/dL 5-40 [facility] Serum or plasma creatinine m easurement (mass/volume)Ordered By: Dr. Rao on 03-31-2022 Creatinine [Mass/Vol] 1.29 mg/dL 0.70-1.30 [facility] Comment on above: The validity of the calculated GFR & GFRAA in patients over 70 years has not been determined. Clinical correlation is essential. Serum or plasma low density lipoprotein (LDL) cholesterol measurement (mass/volume)Ordered By: Dr. Rao on 03-31-2022 Cholesterol in LDL [Mass/Vol] 141 mg/dL 0-130 [facility] Serum or plasma urea nitroge n measurement (mass/volume)Ordered By: Dr. Rao on 03-31-2022 Urea nitrogen [Mass/Vol] 19 mg/dL 7-18 [facility] Thin prep Papanicolaou smear with manual screeningOrdered By: Dr. Rao on 03-31-2022 Thin prep Papanicolaou smear with manual screening 18 U/L 15-37 [facility] Thin prep Papanicolaou smear with manual screening 5 5-15 [facility] XR Chest PA and Lateralon IMPRESSION: No acute radiographic abnormality. Church Worker: [email or web address] Transcribe Date/Time: Dec 23 2020 10:34A Dictated by : PAT OSORIO MD This examination was interpreted and the report reviewed and electronically signed by: PAT OSORIO MD on Dec 23 2020 10:36AM [facility] DIVISION OF RADIOLOGY * * *Final Report* * * DATE OF EXAM: Dec 23 2020 10:32AM [id number] - XR CHEST 2V FRONTAL/LAT / PROCEDURE REASON: Persistent cough for 3 weeks or longer * * * * Physician Interpretation * * * * EXAMINATION: CHEST RADIOGRAPH (2 VIEW FRONTAL & LATERAL) CLINICAL HISTORY: Persistent cough for 3 weeks or longer MQ: XC2_6 EXAM DATE/TIME: 12/23/2020 10:32 AM COMPARISON: No relevant prior studies available. RESULT: Lines, tubes, and devices: None. Lungs and pleura: No focal consolidation, pleural effusion or pneumothorax. Cardiomediastinal silhouette: Within normal limits. Bones and soft tissues: No acute osseous abnormality. DIVISION OF RADIOLOGY Provider, [facility] - 12/23/2020 * * *Final Report* * * DATE OF EXAM: Dec 23 2020 10:32AM [id number] - XR CHEST 2V FRONTAL/LAT / PROCEDURE REASON: Persistent cough for 3 weeks or longer * * * * Physician Interpretation * * * * EXAMINATION: CHEST RADIOGRAPH (2 VIEW FRONTAL & LATERAL) CLINICAL HISTORY: Persistent cough for 3 weeks or longer MQ: XC2_6 EXAM DATE/TIME: 12/23/2020 10:32 AM COMPARISON: No relevant prior studies available. RESULT: Lines, tubes, and devices: None. Lungs and pleura: No focal consolidation, pleural effusion or pneumothorax. Cardiomediastinal silhouette: Within normal limits. Bones and soft tissues: No acute osseous abnormality. IMPRESSION IMPRESSION: No acute radiographic abnormality. Church Worker: [email or web address] Transcribe Date/Time: Dec 23 2020 10:34A Dictated by : PAT OSORIO MD This examination was interpreted and the report reviewed and electronically signed by: PAT OSORIO MD on Dec 23 2020 10:36AM EST [facility] Radiology Study observation (narrative) Luis Felipe diaz [facility] XR Chest PA and LateralOrder ed By: [facility] Provider on 12-23-2020 [facility] Vital Signs Date Time Vital Sign Value Performing Clinician Estradai nereyda 05-08-2024 00:56-0400 Body weight 100.[address] Bonita Rao MD Work Phone: [facility] 04-26-2024 07:19-0400 Body height 180.[address] Bonita Rao MD Work Phone: [facility] 04-26-2024 07:19-0400 Body weight 100.[address] Bonita Rao MD Work Phone: [facility] 04-03-2024 11:58-0500 Body height 180.3 cm Connie Taylor MD Work Phone: [facility] 04-03-2024 11:58-0500 Body mass index (BMI) [Ratio] 29.83 kg/m2 Connie Taylor MD Work Phone: [facility] 04-03-2024 11:58-0500 Body weight 97 kg Connie Taylor MD Work Phone: [facility] 04-03-2024 11:58-0500 Diastolic blood pressure 70 mm[Hg] Connie Taylor MD Work Phone: [facility] 04-03-2024 11:58-0500 Heart rate 64 /min Connie Taylor MD Work Phone: [facility] 04-03-2024 11:58-0500 Systolic blood pressure 112 mm[Hg] Connie Taylor MD Work Phone: [facility] 03-29-2024 08:28-0500 Body weight 98.[address] Bonita Rao MD Work Phone: [facility] 03-05-2024 11:39-0500 Body temperature 97.8 [degF] Dr. Bonita Rao MD Work Phone: [facility] 03-05-2024 11:39-0500 Diastolic blood pressure 63 mm[Hg] Dr. Bonita Rao MD Work Phone: [facility] 03-05-2024 11:39-0500 Heart rate 66 /min Dr. Bonita Rao MD Work Phone: 5(395)211-362883 [place] [address] 03-05-2024 11:39-0500 Respiratory rate 19 /min Dr. Bonita Rao MD Work Phone: 1(000)518-189983 [place] [address] 03-05-2024 11:39-0500 SaO2% (BldA) [Mass fraction] 100 % Dr. Bonita Rao MD Work Phone: 1(298)571-754883 [place] [address] 03-05-2024 11:39-0500 Systolic blood pressure 107 mm[Hg] Dr. Bonita Rao MD Work Phone: 5(676)278-845383 [place] [address] 03-05-2024 08:49-0500 Body mass index (BMI) [Ratio] 31.5 kg/m2 Dr. Bonita Rao MD Work Phone: 7(467)747-454383 [place] [address] 03-05-2024 08:49-0500 Body weight 102.[address] Bonita Rao MD Work Phone: 7(104)909-759483 [place] [address] 03-01-2024 07:50-0500 Body weight 98.[address] Bonita Rao MD Work Phone: 7(375)517-303483 [place] [address] 02-24-2024 08:48-0500 Body mass index (BMI) [Ratio] 30.1 kg/m2 Dr. Bonita Rao MD Work Phone: 5(846)241-466283 [place] [address] 02-24-2024 08:48-0500 Body weight 97.[address] Bonita Rao MD Work Phone: 0(098)385-799683 [place] [address] 02-24-2024 08:48-0500 Diastolic blood pressure 90 mm[Hg] Dr. Bonita Rao MD Work Phone: [facility] 02-24-2024 08:48-0500 Heart rate 76 /min Dr. Bonita Rao MD Work Phone: [facility] 02-24-2024 08:48-0500 Respiratory rate 18 /min Dr. Bonita Rao MD Work Phone: [facility] 02-24-2024 08:48-0500 SaO2% (BldA) [Mass fraction] 94 % Dr. Bonita Rao MD Work Phone: [facility] 02-24-2024 08:48-0500 Systolic blood pressure 124 mm[Hg] Dr. Bonita Rao MD Work Phone: 7(080)[phone] [address] 01-30-2024 08:47-0500 Body mass index (BMI) [Ratio] 29 kg/m2 Dr. Bonita Rao MD Work Phone: 0(579)934-446980 [place] [address] 01-30-2024 08:46-0500 Body weight 94.[address] Bonita Rao MD Work Phone: [facility] 01-30-2024 08:08-0500 Diastolic blood pressure 74 mm[Hg] Dr. Bonita Rao MD Work Phone: [facility] 01-30-2024 08:08-0500 Heart rate 66 /min Dr. Bonita Rao MD Work Phone: [facility] 01-30-2024 08:08-0500 SaO2% (BldA) [Mass fraction] 94 % Dr. Bonita Rao MD Work Phone: [facility] 01-30-2024 08:08-0500 Systolic blood pressure 119 mm[Hg] Dr. Bonita Rao MD Work Phone: [facility] 01-25-2024 14:12-0500 Body mass index (BMI) [Ratio] 30.75 kg/m2 Mervat Hoffmann APRN.CNP Work Phone: [facility] 01-25-2024 14:12-0500 Body weight 100 kg Mervatpatt Martino MUSIC VIDEO DIRECTOR.VICE PRESIDENT BIOSTATISTICS Work Phone: [facility] 01-25-2024 14:12-0500 Diastolic blood pressure 74 mm[Hg] Mervat Tahira MUSIC VIDEO DIRECTOR.VICE PRESIDENT BIOSTATISTICS Work Phone: [facility] 01-25-2024 14:12-0500 Heart rate 68 /min Mervat Tahira MUSIC VIDEO DIRECTOR.VICE PRESIDENT BIOSTATISTICS Work Phone: [facility] 01-25-2024 14:12-0500 Systolic blood pressure 120 mm[Hg] Mervat Tahira MUSIC VIDEO DIRECTOR.VICE PRESIDENT BIOSTATISTICS Work Phone: [facility] 01-02-2024 13:41-0500 Body height 180.3 cm Connie Taylor MD Work Phone: [facility] 01-02-2024 13:41-0500 Body mass index (BMI) [Ratio] 29.52 kg/m2 Connie Taylor MD Work Phone: [facility] 01-02-2024 13:41-0500 Body weight 96 kg Connie Taylor MD Work Phone: [facility] 01-02-2024 13:41-0500 Diastolic blood pressure 80 mm[Hg] Connie Taylor MD Work Phone: [facility] 01-02-2024 13:41-0500 Heart rate 74 /min Connie Taylor MD Work Phone: [facility] 01-02-2024 13:41-0500 Systolic blood pressure 120 mm[Hg] Connie Taylor MD Work Phone: [facility] 08-09-2023 15:30-0400 Body temperature 97.3 [degF] Krislyn Aberegg PA Work Phone: [facility] 08-09-2023 15:30-0400 Body weight 96.9 kg Krislyn Aberegg PA Work Phone: [facility] 08-09-2023 15:30-0400 Diastolic blood pressure 66 mm[Hg] Krislyn Aberegg PA Work Phone: [facility] 08-09-2023 15:30-0400 Heart rate 90 /min Krislyn Aberegg PA Work Phone: [facility] 08-09-2023 15:30-0400 Respiratory rate 16 /min Krislyn Aberegg PA Work Phone: [facility] 08-09-2023 15:30-0400 SaO2% (BldA) [Mass fraction] 97 % Krislyn Aberegg PA Work Phone: [facility] 08-09-2023 15:30-0400 Systolic blood pressure 108 mm[Hg] Krislyn Aberegg PA Work Phone: [facility] 07-31-2023 09:29-0400 Body temperature 97.81 [degF] Hilton Moomaw MUSIC VIDEO DIRECTOR.VICE PRESIDENT BIOSTATISTICS Work Phone: [facility] 07-31-2023 09:29-0400 Body weight 95 kg Hilton Moomaw MUSIC VIDEO DIRECTOR.VICE PRESIDENT BIOSTATISTICS Work Phone: [facility] 07-31-2023 09:29-0400 Diastolic blood pressure 86 mm[Hg] Hilton Moomaw MUSIC VIDEO DIRECTOR.VICE PRESIDENT BIOSTATISTICS Work Phone: [facility] 07-31-2023 09:29-0400 Heart rate 97 /min Hilton Moomaw MUSIC VIDEO DIRECTOR.VICE PRESIDENT BIOSTATISTICS Work Phone: [facility] 07-31-2023 09:29-0400 Respiratory rate 18 /min Hilton Moomaw MUSIC VIDEO DIRECTOR.VICE PRESIDENT BIOSTATISTICS Work Phone: [facility] 07-31-2023 09:29-0400 SaO2% (BldA) [Mass fraction] 98 % Hilton Moomaw MUSIC VIDEO DIRECTOR.VICE PRESIDENT BIOSTATISTICS Work Phone: [facility] 07-31-2023 09:29-0400 Systolic blood pressure 125 mm[Hg] Hilton Moomaw MUSIC VIDEO DIRECTOR.VICE PRESIDENT BIOSTATISTICS Work Phone: [facility] 07-12-2023 08:55-0400 Body temperature 97.39 [degF] Olivia Moreno MUSIC VIDEO DIRECTOR.VICE PRESIDENT BIOSTATISTICS Work Phone: [facility] 07-12-2023 08:55-0400 Body weight 100.6 kg Olivia Moreno MUSIC VIDEO DIRECTOR.VICE PRESIDENT BIOSTATISTICS Work Phone: [facility] 07-12-2023 08:55-0400 Diastolic blood pressure 78 mm[Hg] Olivia Moreno MUSIC VIDEO DIRECTOR.VICE PRESIDENT BIOSTATISTICS Work Phone: [facility] 07-12-2023 08:55-0400 Heart rate 50 /min Olivia Moreno MUSIC VIDEO DIRECTOR.VICE PRESIDENT BIOSTATISTICS Work Phone: [facility] 07-12-2023 08:55-0400 Respiratory rate 16 /min Olivia Moreno MUSIC VIDEO DIRECTOR.VICE PRESIDENT BIOSTATISTICS Work Phone: [facility] 07-12-2023 08:55-0400 SaO2% (BldA) [Mass fraction] 97 % Olivia Moreno MUSIC VIDEO DIRECTOR.VICE PRESIDENT BIOSTATISTICS Work Phone: [facility] 07-12-2023 08:55-0400 Systolic blood pressure 118 mm[Hg] Olivia Moreno MUSIC VIDEO DIRECTOR.VICE PRESIDENT BIOSTATISTICS Work Phone: [facility] 06-04-2023 10:20-0400 Body temperature 97.81 [degF] Inocencio Rivera MD Work Phone: [facility] 06-04-2023 10:20-0400 Body weight 99 kg Inocencio Rivera MD Work Phone: [facility] 06-04-2023 10:20-0400 Diastolic blood pressure 64 mm[Hg] Inocencio Rivera MD Work Phone: [facility] 06-04-2023 10:20-0400 Heart rate 78 /min Inocencio Rivera MD Work Phone: [facility] 06-04-2023 10:20-0400 Respiratory rate 16 /min Inocencio Rivera MD Work Phone: [facility] 06-04-2023 10:20-0400 SaO2% (BldA) [Mass fraction] 95 % Inocencio Rivera MD Work Phone: [facility] 06-04-2023 10:20-0400 Systolic blood pressure 124 mm[Hg] Inocencio Rivera MD Work Phone: [facility] 05-03-2022 11:49-0400 Body temperature 97 [degF] Chelsey Praisler-Wood MUSIC VIDEO DIRECTOR.VICE PRESIDENT BIOSTATISTICS Work Phone: [facility] 05-03-2022 11:49-0400 Body weight 96.71 kg Chelsey Praisler-Wood MUSIC VIDEO DIRECTOR.VICE PRESIDENT BIOSTATISTICS Work Phone: [facility] 05-03-2022 11:49-0400 Diastolic blood pressure 64 mm[Hg] Chelsey Praisler-Wood MUSIC VIDEO DIRECTOR.VICE PRESIDENT BIOSTATISTICS Work Phone: [facility] 05-03-2022 11:49-0400 Heart rate 80 /min Chelsey Praisler-Wood MUSIC VIDEO DIRECTOR.VICE PRESIDENT BIOSTATISTICS Work Phone: [facility] 05-03-2022 11:49-0400 Respiratory rate 21 /min Chelsey Praisler-Wood MUSIC VIDEO DIRECTOR.VICE PRESIDENT BIOSTATISTICS Work Phone: [facility] 05-03-2022 11:49-0400 SaO2% (BldA) [Mass fraction] 99 % Chelsey Praisler-Wood MUSIC VIDEO DIRECTOR.VICE PRESIDENT BIOSTATISTICS Work Phone: [facility] 05-03-2022 11:49-0400 Systolic blood pressure 104 mm[Hg] Chelsey Praisler-Wood MUSIC VIDEO DIRECTOR.VICE PRESIDENT BIOSTATISTICS Work Phone: [facility] 01-11-2022 07:08-0500 Body temperature 98.1 [degF] Sean Pendlebury MUSIC VIDEO DIRECTOR.VICE PRESIDENT BIOSTATISTICS Work Phone: [facility] 01-11-2022 07:08-0500 Body weight 93.89 kg Sean Pink MUSIC VIDEO DIRECTOR.VICE PRESIDENT BIOSTATISTICS Work Phone: [facility] 01-11-2022 07:08-0500 Diastolic blood pressure 80 mm[Hg] Sean Pendlebury MUSIC VIDEO DIRECTOR.VICE PRESIDENT BIOSTATISTICS Work Phone: [facility] 01-11-2022 07:08-0500 Heart rate 92 /min Sean Pink MUSIC VIDEO DIRECTOR.VICE PRESIDENT BIOSTATISTICS Work Phone: [facility] 01-11-2022 07:08-0500 Respiratory rate 16 /min Sean Joesph MUSIC VIDEO DIRECTOR.VICE PRESIDENT BIOSTATISTICS Work Phone: [facility] 01-11-2022 07:08-0500 SaO2% (BldA) [Mass fraction] 98 % Sean Pink MUSIC VIDEO DIRECTOR.VICE PRESIDENT BIOSTATISTICS Work Phone: [facility] 01-11-2022 07:08-0500 Systolic blood pressure 132 mm[Hg] Sean Pink MUSIC VIDEO DIRECTOR.VICE PRESIDENT BIOSTATISTICS Work Phone: [facility] 07-28-2021 07:10-0400 Body temperature 98.29 [degF] Radha Bhat APRN.VICE PRESIDENT BIOSTATISTICS Work Phone: [facility] 07-28-2021 07:10-0400 Body weight 91.44 kg Radha Bhat APRN.VICE PRESIDENT BIOSTATISTICS Work Phone: [facility] 07-28-2021 07:10-0400 Diastolic blood pressure 78 mm[Hg] Radha Bhat APRN.VICE PRESIDENT BIOSTATISTICS Work Phone: [facility] 07-28-2021 07:10-0400 Heart rate 62 /min Radha Bhat APRN.VICE PRESIDENT BIOSTATISTICS Work Phone: [facility] 07-28-2021 07:10-0400 Respiratory rate 18 /min Radha Bhat APRN.VICE PRESIDENT BIOSTATISTICS Work Phone: [facility] 07-28-2021 07:10-0400 SaO2% (BldA) [Mass fraction] 99 % Radha Bhat APRN.VICE PRESIDENT BIOSTATISTICS Work Phone: [facility] 07-28-2021 07:10-0400 Systolic blood pressure 128 mm[Hg] Radha Bhat APRN.VICE PRESIDENT BIOSTATISTICS Work Phone: [facility] 05-11-2021 08:52-0400 Body temperature 96.49 [degF] Radha Bhat APRN.VICE PRESIDENT BIOSTATISTICS Work Phone: [facility] 05-11-2021 08:52-0400 Body weight 97.52 kg Radha Bhat APRN.VICE PRESIDENT BIOSTATISTICS Work Phone: [facility] 05-11-2021 08:52-0400 Diastolic blood pressure 82 mm[Hg] Radha Bhat APRN.VICE PRESIDENT BIOSTATISTICS Work Phone: [facility] 05-11-2021 08:52-0400 Heart rate 76 /min Radha Bhat APRN.VICE PRESIDENT BIOSTATISTICS Work Phone: [facility] 05-11-2021 08:52-0400 Respiratory rate 21 /min Radha Bhat APRN.VICE PRESIDENT BIOSTATISTICS Work Phone: [facility] 05-11-2021 08:52-0400 SaO2% (BldA) [Mass fraction] 98 % Radha Bhat APRN.VICE PRESIDENT BIOSTATISTICS Work Phone: [facility] 05-11-2021 08:52-0400 Systolic blood pressure 118 mm[Hg] Radha Bhat APRN.VICE PRESIDENT BIOSTATISTICS Work Phone: [facility] Encounters Encounter Date Encounter Type Care Provider Facility Start: 07-18-2024 ambulatory Humberto Franco Facility :[facility] Start: 07-13-2024 ambulatory Bonita Ng lity:[facility] Start: 07-06-[address] Merly Rao MD -Laboratory [facility] Start: 07-06-2024 End: 07-06-2024 ambulatory Bonita Rao Facility:[facility] Start: 06-21-2024 End: 07-07-[address] Bonita Rao MD Work Phone: [facility] Work Phone: Start: 06-21-2024 End: 07-07-[address] Humberto Franco MD -Cardiac Rehab Work Phone: Start: 06-17-2024 ambulatory Bonita Ng lity:[facility] Start: 06-05-2024 End: 06-06-2024 ambulatory Humberto Franco Facility:[facility] Start: 06-05-2024 End: 06-06-[address] Humberto Franco MD -Cardiac Rehab Work Phone: Start: 05-25-2024 End: 05-25-2024 Telephone encounter Huseyin Meehan MD Work Phone: Cardiology Comment on above: Appointment Start: 05-23-2024 End: 05-24-2024 ambulatory Connie Taylor MD Work Phone: Cardiology Comment on above: 14 Holter monitor re sults: Dr. Franco, [facility] Start: 05-22-2024 End: 05-22-2024 Telephone encounter Connie Taylor MD Work Phone: Cardiology Comment on above: Results Start: 05-17-2024 End: 05-17-2024 ambulatory MERVAT Maldonado TAHIRA Facility:[facility] Start: 05-09-2024 End: 05-09-2024 Telephone encounter Connie Taylor MD Work Phone: Cardiology Comment on above: Results ([employer] report) Start: 05-09-2024 End: 06-06-[address] Bonita Rao MD Work Phone: -Cardiac Rehab Work Phone: Start: 05-09-2024 End: 06-06-2024 ambulatory Bonita Rao Facility:[facility] Start: 05-07-2024 End: 05-07-[address] Bonita Rao MD Work Phone: [facility] Work Phone: Start: 05-07-2024 End: 05-07-[address] Bonita Rao MD Work Phone: -Cardiac Rehab Work Phone: Start: 04-11-2024 End: 04-11-2024 ambulatory [facility] Provider [facility] Provider Adult Start: 04-11-2024 End: 04-11-2024 E-mail encounter from caregiver [facility] Provider [facility] Provider Adult Start: 04-06-[address] Blayne Franco MD -Cardiovascular Services Work Phone: Start: 04-06-2024 End: 04-06-2024 ambulatory [facility] [place] Facility:[facility] Start: 04-06-2024 End: 04-06-[address] Bonita Rao MD Work Phone: -Cardiac Rehab Work Phone: Start: 04-03-2024 End: 04-03-2024 ambulatory MERVAT HOFFMANN Facility:[facility] Start: 04-03-2024 End: 04-03-2024 Office outpatient visit 25 minutes Connie Taylor MD Work Phone: Cardiology Comment on above: Coronary artery dise ase involving [place] coronary artery of [place] heart without angina pectoris (Primary Dx); Stented coronary artery - MARCIAL to LAD 01/13/24; PAF (paroxysmal atrial fibrillation) (HCC); PVC (premature ventricular contraction); Vasovagal syncope; Pure hypercholesterolemia; Central sleep apnea associated with atrial fibrillation (HCC) (HCC) Start: 04-02-2024 End: 04-02-2024 Telephone encounter Connie Taylor MD Work Phone: Cardiology Start: 03-28-2024 End: 03-29-2024 Refill Connie Taylor MD Work Phone: Cardiology Comment on above: Refill Request Start: 03-21-2024 ambulatory [facility] Faci lity:[facility] Start: 03-05-2024 End: 03-05-2024 Emergency department patient visit Dr. Danny Gilman MD -Emergency Department Work Phone: Start: 03-05-2024 End: 03-09-2024 ambulatory Bonita Rao Facility:[facility] Start: 03-05-2024 End: 03-09-[address] Bonita Rao MD Work Phone: -Cardiac Rehab Work Phone: Start: 02-27-2024 End: 02-28-2024 Telephone encounter Connie Taylor MD Work Phone: Cardiology Start: 02-24-2024 End: 02-24-[address] Humberto Franco MD -[facility] Work Phone: Start: 02-24-2024 End: 02-24-2024 [facility] [place] Start: 02-10-2024 End: 02-10-2024 Refill Connie Taylor MD Work Phone: Cardiology Comment on above: Refill Request Start: 02-06-2024 End: 02-07-[address] Bonita Rao MD Work Phone: -Cardiac Rehab Work Phone: Start: 02-06-2024 End: 02-07-2024 Refill Mariela Pena MD Work Phone: [employer] Comment on above: Refill Request Start: 01-30-2024 End: 01-30-[address] Bonita Rao MD Work Phone: -Cardiac Rehab Work Phone: Start: 01-30-2024 End: 01-30-2024 [facility] Facility[facility] Start: 01-25-2024 End: 01-25-2024 ambulatory MERVAT HOFFMANN Facility:[facility] Start: 01-25-2024 End: 01-25-2024 Patient encounter procedure Mervat Hoffmann MUSIC VIDEO DIRECTOR.VICE PRESIDENT BIOSTATISTICS Work Phone: Cardiology Comment on above: Coronary artery dise ase involving coyote valley coronary artery of coyote valley heart without angina pectoris (Primary Dx); PAF (paroxysmal atrial fibrillation) (HCC); Pure hypercholesterolemia Start: 01-23-2024 End: 01-25-2024 Telephone encounter Connie Taylor MD Work Phone: Cardiology Comment on above: Appointment Start: 01-18-2024 End: 01-18-2024 Telephone encounter [facility] Comment on above: Cardiac Rehab (Pt pr eric [place]) Future Appointment Start: 01-13-2024 End: 01-14-2024 ambulatory AMIR TARABEN Facility:[facility] Start: 01-11-2024 Encounter for prepro cedural cardiovascular examination Bonita Rao [facility] Start: 01-02-2024 End: 01-02-2024 ambulatory CONNIE TAYLOR Facility:[facility] Start: 01-02-2024 End: 01-02-2024 Telephone encounter Connie Taylor MD Work Phone: Cardiology Comment on above: Cardiac Catheterizat ion at [facility] Start: 01-02-2024 End: 01-02-2024 Office consultation new/estab patient 80 min Connie Taylor MD Work Phone: Cardiology Comment on above: Coronary artery dise ase involving coyote valley coronary artery of coyote valley heart without angina pectoris (Primary Dx); PAF (paroxysmal atrial fibrillation) (HCC); PVC (premature ventricular contraction); Vasovagal syncope; Pure hypercholesterolemia Start: 01-02-2024 End: 01-02-2024 ambulatory CONNIE TAYLOR Facility:[facility] Start: 12-26-2023 End: 12-26-2023 Telephone encounter Connie Taylor MD Work Phone: Cardiology Comment on above: Appointment Start: 12-23-2023 ambulatory [facility] Start: 12-23-2023 End: 12-23-2023 ambulatory [facility] Facility:[facility] Start: 12-15-2023 ambulatory Bonita Rao Faci lity:[facility] Start: 12-15-2023 End: 12-15-2023 ambulatory Bonita Rao Facility:[facility] Start: 12-13-2023 End: 12-13-2023 ambulatory Bonita Rao [place] Start: 11-24-2023 End: 11-24-2023 Emergency department patient visit Bonita Rao Facility:[facility] Start: 08-09-2023 End: 08-09-2023 Subsequent hospital visit by physician Jarad [facility] Work Phone: Radiology Comment on above: Acute cough [R05.1] Start: 08-09-2023 End: 08-09-2023 ambulatory BONITA RAO Facility:[facility] Start: 08-09-2023 End: 08-09-2023 Patient encounter procedure Madelin COSME Work Phone: [facility] Comment on above: Acute cough (Primary Dx); Influenza A Start: 07-31-2023 End: 07-31-2023 ambulatory [facility] Facility:[facility] Start: 07-31-2023 End: 07-31-2023 Patient encounter procedure Hilton Cleveland MUSIC VIDEO DIRECTOR.VICE PRESIDENT BIOSTATISTICS Work Phone: [facility] Comment on above: URI, acute (Primary Dx) Start: 07-12-2023 End: 07-12-2023 [facility] Facility:[facility] Start: 07-12-2023 End: 07-12-2023 Patient encounter procedure Olivia Moreno MUSIC VIDEO DIRECTOR.VICE PRESIDENT BIOSTATISTICS Work Phone: [facility] Comment on above: Contact dermatitis d ue to plant (Primary Dx) Start: 06-04-2023 End: 06-04-2023 [facility] Facility:[facility] Start: 06-04-2023 End: 06-04-2023 Patient encounter procedure Inocencio Rivera MD Work Phone: [facility] Comment on above: Impacted cerumen of left ear (Primary Dx) Start: 05-03-2022 End: 05-03-2022 Patient encounter procedure Chelsey Guadalupe MUSIC VIDEO DIRECTOR.VICE PRESIDENT BIOSTATISTICS Work Phone: [facility] Comment on above: Viral URI with cough (Primary Dx) Start: 03-31-2022 End: 03-31-2022 ambulatory [facility] Work Phone: Start: 03-31-2022 End: 03-31-2022 Patient encounter procedure [facility] Start: 01-12-2022 Telephone encounter Radha Bhat APRN.VICE PRESIDENT BIOSTATISTICS Work Phone: [facility] Comment on above: Results Start: 01-11-2022 End: 01-11-2022 Patient encounter procedure Sean Pink MUSIC VIDEO DIRECTOR.VICE PRESIDENT BIOSTATISTICS Work Phone: [facility] Comment on above: Suspected COVID-19 v irus infection (Primary Dx) Start: 07-28-2021 End: 07-28-2021 Patient encounter procedure Radha Bhat MUSIC VIDEO DIRECTOR.VICE PRESIDENT BIOSTATISTICS Work Phone: [facility] Comment on above: Rash (Primary Dx) Start: 05-11-2021 End: 05-11-2021 Patient encounter procedure Radha Bhat MUSIC VIDEO DIRECTOR.VICE PRESIDENT BIOSTATISTICS Work Phone: [facility] Comment on above: Non-recurrent acute suppurative otitis media of left ear without spontaneous rupture of tympanic membrane (Primary Dx) Start: 12-23-2020 End: 12-23-2020 Subsequent hospital visit by physician Xr [facility] Work Phone: Radiology Comment on above: Persistent cough for 3 weeks or longer [R05.3] Procedures Date Procedure Procedure Detail Performing Clinician Start: 07-06-2024 Urnls dip stick/tabl et reagent auto microscopy Dr. Bonita Rao MD Work Phone: Start: 07-06-2024 Prostate specific antigen measurement Dr. Bonita Rao MD Work Phone: Comment on above: This test was perfor med using the [employer] tPSA method. Measured values of a patient sample can vary depending on the testing procedure used. PSA values determined on patient samples by different testing procedures cannot be used interchangeably. If there is a change in PSA assays while monitoring therapy, sequential testing should be performed to confirm baseline values. Start: 05-17-2024 Lipid 1996 panel - Serum or Plasma Connie Taylor MD Work Phone: Start: 04-03-2024 Ecg routine ecg w/le ast 12 lds i&r only Connie Taylor MD Work Phone: Start: 04-03-2024 Lipid 1996 panel - Serum or Plasma [facility] Provider Start: 02-24-2024 Evaluation of diagnostic study results Dr. Bonita Rao MD Work Phone: Start: 01-13-2024 History of placement of stent for coronary artery disease History of coronary artery stent placement Dr. Bonita Rao MD Work Phone: Comment on above: 12/6/24 PCI of LAD, [facility] Start: 01-02-2024 Ecg routine ecg w/le ast 12 lds i&r only [facility] Provider Start: 08-09-2023 Radiologic exam ches t 2 views Madelin COSME Work Phone: Start: 12-23-2020 Radiologic exam ches t 2 views Chelsey Guadalupe APRN.CANDI Work Phone: Start: 04-09-2014 Carson Bhat APRN.VICE PRESIDENT BIOSTATISTICS Work Phone: Plan of Treatment Date Care Activity Detail Author Start: 2036 RSV Vaccine (1 - 1-dose 75+ series) RSV Vaccine (1 - 1-dose 75+ series) [facility] Start: 05-17-2029 Lipid panel Lipid Screening [facility] Start: 04-03-2029 Lipid panel Lipid Screening [facility] Start: 01-13-2027 Diabetes Screening Diabetes Screening [facility] Start: 05-17-2025 Hepatitis B surface antibody level LDL Cholesterol [facility] Start: 04-03-2025 Hepatitis B surface antibody level LDL Cholesterol [facility] Start: 10-12-2024 End: 01-11-2025 LIPID PANEL, NONFASTING LIPID PANEL, NONFASTING Lab Routine Coronary artery disease involving coyote valley coronary artery of coyote valley heart without angina pectoris Expected: 10/12/2024 (Approximate), Expires: 01/11/2025 [facility] Work Phone: Comment on above: Expected: 10/12/2024 (Approximate), Expi res: 01/11/2025 Start: 10-03-2024 End: 10-03-2024 Patient encounter procedure 10/03/2024 11:00 AM EDT Office Visit Cardiology [address] [place] [address] [place] [address] [place] [address] 6 month Cardiology Comment on above: 6 month Start: 07-30-2024 End: 07-30-2024 Patient encounter procedure 07/30/2024 3:00 PM EDT Office Visit Cardiology [address] [place] [address] Huseyin Meehan MD [address] [place], [place] [id number] referral for AFIB per Dr. Taylor Cardiology Comment on above: referral for AFIB per Dr. Taylor Start: 04-03-2024 End: 07-03-2024 LIPID PANEL, NONFASTING [facility] Work Phone: Comment on above: Expected: 04/03/2024, Expires: Start: 04-03-2024 End: 04-03-2024 Patient encounter procedure Cardiology Comment on above: follow up PCI; afib at cardiac rehab; re cords in file cabinet follow up PCI; afib at cardiac rehab; records in file cabinet- ok per Start: 03-10-2024 End: 06-09-2024 Alanine aminotransferase [Enzymatic activity/volume] in Serum or Plasma ALANINE AMINOTRANSFERASE / SGPT Lab Routine Pure hypercholesterolemia Expected: 03/10/2024, Expires: 06/09/2024 [facility] Comment on above: Expected: 03/10/2024, Expires: Start: 03-10-2024 End: 06-09-2024 Aspartate aminotransferase [Enzymatic activity/volume] in Serum or Plasma ASPARTATE AMINOTRANSFERASE/SGOT Lab Routine Pure hypercholesterolemia Expected: 03/10/2024, Expires: 06/09/2024 [facility] Comment on above: Expected: 03/10/2024, Expires: Start: 03-10-2024 End: 06-09-2024 Lipid 1996 panel - Serum or Plasma LIPID PANEL BASIC Lab Routine Pure hypercholesterolemia Expected: 03/10/2024, Expires: 06/09/2024 [facility] Work Phone: Comment on above: Expected: 03/10/2024, Expires: Start: 02-10-2024 End: 02-10-2024 Patient encounter procedure 02/10/2024 9:20 AM EST Office Visit [facility] [address] [place], [place] [id number] Fili Juarez MD [address] [place] [address] ABN Stress, PVC'S, Chest Pains [facility] Comment on above: ABN Stress, PVC'S, Chest Pains Start: 01-25-2024 End: 01-25-2024 Patient encounter procedure 01/25/2024 2:30 PM EST Office Visit Cardiology [address] [place] [id number] Mervat Hoffmann APRN.VICE PRESIDENT BIOSTATISTICS [address] [place] [address] hospital follow up Cardiology Comment on above: hospital follow up Start: 01-13-2024 End: 01-13-2024 Admission to same day surgery center 01/13/2024 10:30 AM EST - 01/13/2024 12:00 PM EST Surgery [facility] [address] [facility] [place] [address] Noman Barajas MD [address] [facility] [facility] [address] [place], [place] [id number] INSERT INTRACORONARY STENT-PER MAJOR VESSEL OR BRANCH [facility] [place] Comment on above: INSERT INTRACORONARY STENT-PER MAJOR VES DAHIANA OR BRANCH Start: 01-13-2024 End: 01-13-2024 Prq trluml coronary stent w/angio one art/brnch INSERT INTRACORONARY STENT-PER MAJOR VESSEL OR BRANCH Abnormal stress test 01/13/2024 10:30 AM EST [facility] Start: 01-13-2024 Subsequent hospital visit by physician 01/13/2024 10:30 AM EST Hospital Encounter [facility] [place] [address] [place] [address] Noman Barajas MD [address] [facility] [place] [address] Abnormal stress test [R94.39] [facility] [place] Comment on above: Abnormal stress test [R94.39] Start: 01-02-2024 End: 04-02-2024 Comprehensive metabolic 2000 panel - Serum or Plasma [facility] Comment on above: Expected: 01/02/2024, Expires: 5 Start: 01-02-2024 End: 01-02-2024 Patient encounter procedure 01/02/2024 1:40 PM EST Office Visit Cardiology [address] [place] [address] [place] [address] [place], [place] [id number] NEW (ok Per Dr Taylor ) Cardiology Comment on above: NEW (ok Per Dr Taylor ) Start: 10-09-2023 Covid-19 Vaccine () Covid-19 Vaccine () [facility] Start: 10-09-2023 Influenza vaccination Influenza Vaccine (#1) [facility] Start: 02-07-2023 Behavioral Health Screening Behavioral Health Screening [facility] Start: 10-08-2022 Covid-19 Vaccine () Covid-19 Vaccine () [facility] Start: 02-07-2022 DEPRESSION ASSESSMENT DEPRESSION ASSESSMENT [facility] Start: 01-11-2022 End: 01-25-2022 SARS-CoV-2 (COVID-19) RNA [Presence] in Respiratory specimen by ABY with probe detection 2019 CORONAVIRUS Microbiology Routine Suspected COVID-19 virus infection Expected: 01/11/2022, Expires: 01/25/2022 [facility] Work Phone: Comment on above: Expected: 01/11/2022, Expires: 2 Start: 10-08-2021 Influenza vaccination INFLUENZA (#1) [facility] Start: 2021 RSV Vaccine (1 - 1-dose 60+ series) RSV Vaccine (1 - 1-dose 60+ series) [facility] Start: 07-01-2021 COVID-19 VACCINE (4 - Booster for Pfizer series) COVID-19 VACCINE (4 - Booster for Pfizer series) [facility] Start: 04-28-2021 COVID-19 VACCINE (4 - Booster for Pfizer series) COVID-19 VACCINE (4 - Booster for Pfizer series) [facility] Start: 02-07-2021 DEPRESSION ASSESSMENT DEPRESSION ASSESSMENT [facility] Start: 01-07-2017 Urine microalbumin profile DTaP,Tdap,Td Vaccine (2 - Td or Tdap) [facility] Start: 2016 PROSTATE CANCER SCREENING DISCUSSION PROSTATE CANCER SCREENING DISCUSSION [facility] Start: 2016 Prostate specific antigen measurement Prostate Cancer Screening Discussion [facility] Start: 04-10-2015 Colonoscopy COLONOSCOPY [facility] Start: 04-10-2015 COLORECTAL CANCER SCREENING COLORECTAL CANCER SCREENING [facility] Start: 04-10-2015 Screening for malignant neoplasm of colon [facility] Start: 10-08-2011 Pneumococcal Vaccine: 50+ (1 of 1 - PCV) Pneumococcal Vaccine: 50+ (1 of 1 - PCV) [facility] Start: 10-08-2011 SHINGRIX VACCINE (1 of 2) SHINGRIX VACCINE (1 of 2) [facility] Start: 2006 COLOGUARD (FIT-DNA) COLOGUARD (FIT-DNA) [facility] Start: 2006 Colonoscopy COLONOSCOPY [facility] Start: 2006 COLORECTAL CANCER SCREENING COLORECTAL CANCER SCREENING [facility] Start: [address] COLONOGRAPHY [facility] Start: 2006 DIABETES SCREEN DIABETES SCREEN [facility] Start: 2006 Diabetes Screening Diabetes Screening [facility] Start: 2006 FECAL OCCULT BLOOD FECAL OCCULT BLOOD [facility] Start: 2006 Screening for malignant neoplasm of colon [facility] Start: 2006 SIGMOIDOSCOPY SIGMOIDOSCOPY [facility] Start: 1996 Lipid panel Lipid Screening [facility] Start: 1996 LIPID SCREEN LIPID SCREEN [facility] Start: 1980 Urine microalbumin profile [facility] Start: 10-08-1979 Annual PCP Team Chronic Disease Visit Annual PCP Team Chronic Disease Visit [facility] Start: 10-08-1979 Anxiety Screening Anxiety Screening [facility] Start: 10-08-1979 Depression Screening Depression Screening [facility] Start: 10-08-1979 Hepatitis B surface antibody level LDL Cholesterol [facility] Start: 10-08-1979 HEPATITIS C SCREENING HEPATITIS C SCREENING [facility] Start: 10-08-1979 Hepatitis C screening Hepatitis C Screening [facility] Start: 10-08-1979 HIV SCREENING HIV SCREENING [facility] Start: 10-08-1979 HIV screening HIV Screening [facility] Start: 1973 Adult depression screening assessment DEPRESSION SCREENING [facility] COVID & INFLUENZA A/ B & RSV NAAT, ROUTINE COVID & INFLUENZA A/B & RSV NAAT, ROUTINE Microbiology Routine URI, acute Ordered: 07/31/2023 [facility] Work Phone: Comment on above: Ordered: 07/31/2023 End: 01-01-2025 ECG COMPLETE ECG COMPLETE ECG Routine Coronary artery disease involving coyote [place] coronary artery of coyote [place] heart without angina pectoris 1 Occurrences starting 01/02/2024 until 01/01/2025 [facility] Work Phone: Comment on above: 1 Occurrences starting 01/02/2024 until 01/01/2025 ECG COMPLETE ECG COMPLETE ECG 04/03/2024 12:03 PM EST [facility] Influenza virus A an d B RNA and SARS-CoV-2 (COVID-19) N gene panel - Respiratory specimen by ABY with probe detection COVID WITH FLUA+B, ROUTINE Microbiology Routine Viral URI with cough Ordered: 05/03/2022 [facility] Work Phone: Comment on above: Ordered: 05/03/2022 Patient Education ED Sleep Apnea , Obstructive ED Fainting, Vagal Reaction [facility] Work Phone: Patient referral [facility] Work Phone: Removal impacted cer umen irrigation/lvg unilat AMBULATORY EAR LAVAGE/IRRIGATION Procedures Routine Impacted cerumen of left ear Ordered: 06/04/2023 [facility] Work Phone: Comment on above: Ordered: 06/04/2023 Immunizations Immunization Date Immunization Notes Care Provider Fa cili 11-01-2022 influenza virus vacc ine, unspecified formulation Madelin COSME Work Phone: [facility] 05-07-2020 COVID-19 original vaccine, age 12+ yr, monovalent (PFIZER-BIONTTextMaster - PURPLE TOP) Chelsey Guadalupe APRN.CNP Work Phone: [facility] 04-16-2020 COVID-19 original vaccine, age 12+ yr, monovalent (PFIZER-MessageMeNTTextMaster - PURPLE TOP) Chelsey Guadalupe APRN.VICE PRESIDENT BIOSTATISTICS Work Phone: [facility] Payers Date Payer Category Payer Unknown [id number] 15 2023 Self-pay [id number] 2019 Unknown HOSPITAL/MEDICAL GENERIC MEDICAL GENERIC [id number] 2019-Present [phone] [address] [address] [place] [address] Indemnity [id number] 2018 Unknown [id number] [address] ([address] [facility] or Medicaid) [id number] 2017 Unknown [facility] [id number] 2017-Present [phone] [address] [place] [address] Indemnity [id number] 2017 Unknown [id number]. [id number] 2017 Unknown [id number] Unknown [id number] 2.16.840.1.552911.3.579. 2.462 Unknown [id number] 2.16.840.1.894810.3.579. 2.462 Unknown [id number] 2.16.840.1.678266.3.579. 2.462 Unknown [id number] 2.16.840.1.198474.3.579. 2.462 Unknown [id number] 2.16.840.1.442965.3.579. 2.462 Unknown [id number] 2.16840.1.372696.3.579. 2.462 Unknown [id number] 2.16840.1.124888.3.579. 2.462 Unknown [id number] 2.16840.1.497459.3.579. 2.462 Unknown [id number] 2.16840.1.583845.3.579. 2.462 Unknown [id number] 2.840.1.768691.3.579. 2.462 Unknown [id number] 2.840.1.193195.3.579. 2.462 Unknown [id number] 2.840.1.810135.3.579. 2.462 Unknown [id number] 2.840.1.157118.3.579. 2.462 Unknown [id number] 2.840.1.035989.3.579. 2.462 Unknown [id number] 2.840.1.158251.3.579. 2.462 Unknown [id number] 2.840.1.115168.3.579. 2.462 Unknown [id number] 2.840.1.374556.3.579. 2.462 Unknown [id number] 2.840.1.958352.3.579. 2.462 Unknown [id number] 2.840.1.967746.3.579. 2.462 Unknown [id number] 2.840.1.395227.3.579. 2.462 Unknown [id number] 2.840.1.741186.3.579. 2.462 Unknown [id number] 2.840.1.477439.3.579. 2.462 Unknown [id number] 2.16840.1.257236.3.579. 2.462 Social History Date Type Detail Facility Start: 09-11-2015 End: 03-05-2024 Tobacco smoking status NHIS Never smoked tobacco [facility] Start: 09-11-2015 End: 01-11-2022 Tobacco use and exposure Smokeless tobacco non-user [facility] Start: 05-11-2021 End: 08-09-2023 Alcohol intake Not Asked [facility] Start: 1960 Sex Assigned At Not on file [facility] Start: 11-23-2020 End: 01-11-2022 Exposure to SARS-CoV-2 (event) Not sure [facility] Work Phone: Start: 09-18-2016 Tobacco smoking stat us NHIS Unknown if ever smoked [facility] Start: 12-02-2012 None [facility] Start: 12-02-2012 Spouse/ Signif icant Other [facility] Start: 1960 Sex Assigned At Male W [facility] Start: 06-04-2023 End: 01-02-2024 History of Social function [facility] Start: 06-04-2023 End: 01-02-2024 Tobacco use panel [facility] National Score (1-100), lower number is lower risk Not on file [facility] Start: 01-02-2024 End: 04-03-2024 Alcoholic beverage intake Lifetime non-drinker (finding) [facility] Start: 05-08-2024 Sex Male (finding) [facility] Functional Status Date Assessment Result Facility 01-14-2024 Are you deaf, or do you have serious difficulty hearing No 01/14/2024 11:40 AM Prakash Leon RN No [facility] 01-14-2024 Are you blind, or do you have serious difficulty seeing, even when wearing glasses No 01/14/2024 11:40 AM Prakash Leon RN No [facility] 01-14-2024 Do you have serious difficulty walking or climbing stairs No 01/14/2024 11:40 AM Prakash Leon, JIGAR No [facility] 01-14-2024 Do you have difficul ty dressing or bathing No 01/14/2024 11:40 AM Prakash Leon RN No [facility] 01-14-2024 Because of a physica l, mental, or emotional condition, do you have difficulty doing errands alone such as visiting a physician's office or shopping No 01/14/2024 11:40 AM Prakash Leon RN No [facility] Mental Status Date Assessment Result Facility 03-05-2024 Cognitive function Level Of Cons ciousness Awake;Alert;Appropriate;Fol lows Commands [facility] Work Phone: 01-14-2024 Because of a physica l, mental, or emotional condition, do you have serious difficulty concentrating, remembering, or making decisions No 01/14/2024 11:40 AM Prakash Leon RN No [facility] Clinical Notes 12-23-2020 to 05-25-2024 Telephone Encounter - Dale Devries - 05/25/2024 9:31 AM EDTTelephone Encounter - Dale Devries - 05/25/2024 9:31 AM EDTTelephone Encounter - Connie Taylor MD - 05/24/2024 12:30 PM EDT Note Date & Type Note Facility 05-25-2024 Telephone encounter Note Called and spoke with patient to schedule CASE MONITOR appt with Dr. Meehan per Dr. Taylor referral for AFIB. CARO Ramon [facility] 05-25-2024 Miscellaneous Notes Called and spoke with patient to schedule CASE MONITOR appt with Dr. Meehan per Dr. Taylor referral for AFIB. CARO Ramon documented in this encounter [facility] 05-24-2024 Telephone encounter Note Please schedule new patient consultation for atrial fibrillation with Dr. Meehan. He has a Milabra 30-day heart monitor scanned under scanned charts tab in [employer] from 05/24/2024. [facility] 05-24-2024 Miscellaneous Notes Please schedule new patient consultation for atrial fibrillation with Dr. Meehan. He has a [employer]ra 30-day heart monitor scanned under scanned charts tab in [facility] from 05/24/2024. Fax placed in Dr. Taylor's office for review yesterday, routing to Dr. Taylor. 04/03/24 Plan: Patient Instructions You are doing very well from a heart standpoint No angina since your stent in January No bleeding on dual anti-platelet therapy Tolerating a good dose of atorvastatin Blood pressure is normal You are still experiencing intermittent episodes of atrial fibrillation with good control of your heart rate and mild symptoms of palpitations; I do not think that you need additional anticoagulation due lack of stroke risk factors (CHADS-VASc = 1) Atrial fibrillation may improve with treatment of your central sleep apnea I agree with the 14 day Zio monitor ordered by Dr. Franco I would recommend: No changes to medications Have blood work to check cholesterol (goal LDL less than 70 mg/dL) If you continue to have intermittent afib despite 3 months of treatment of your sleep apnea, I would recommend that you see an arrhythmia specialist (supervisor shuttle preparation) To prevent further episodes of syncope, exercise while well hydrated and have something to eat as well See me again in 6 months; we can stop Plavix at that visit documented in this encounter [facility] 05-23-2024 Telephone encounter Note Fax placed in Dr. Taylor's office for review yesterday, routing to Dr. Taylor. 04/03/24 Plan: Patient Instructions You are doing very well from a heart standpoint No angina since your stent in January No bleeding on dual anti-platelet therapy Tolerating a good dose of atorvastatin Blood pressure is normal You are still experiencing intermittent episodes of atrial fibrillation with good control of your heart rate and mild symptoms of palpitations; I do not think that you need additional anticoagulation due lack of stroke risk factors (CHADS-VASc = 1) Atrial fibrillation may improve with treatment of your central sleep apnea I agree with the 14 day Zio monitor ordered by Dr. Franco I would recommend: No changes to medications Have blood work to check cholesterol (goal LDL less than 70 mg/dL) If you continue to have intermittent afib despite 3 months of treatment of your sleep apnea, I would recommend that you see an arrhythmia specialist (supervisor shuttle preparation) To prevent further episodes of syncope, exercise while well hydrated and have something to eat as well See me again in 6 months; we can stop Plavix at that visit [facility] 05-22-2024 Telephone encounter Note [employer] mobile Cardiac telemetry report from 05/22/24 received via fax and placed in Dr. Taylor's office for review. Copy to scanning. Yolanda Canas RN [facility] 05-22-2024 Miscellaneous Notes [employer] mobile Cardiac telemetry report from 05/22/24 received via fax and placed in Dr. Taylor's office for review. Copy to scanning. Yolanda Canas RN documented in this encounter [facility] 05-09-2024 Telephone encounter Note [employer] mobile Cardiac telemetry report from 04/06/24-04/19/24 received via fax and placed in Dr. Taylor's office for review. Copy to scanning. Harish Erwin RN [facility] 05-09-2024 Miscellaneous Notes [employer] mobile Cardiac telemetry report from 04/06/24-04/19/24 received via fax and placed in Dr. Taylor's office for review. Copy to scanning. Harish Erwin RN documented in this encounter [facility] 04-03-2024 Instructions Connie Taylor MD - 04/03/2024 12:30 PM EST You are doing very well from a heart standpoint No angina since your stent in January No bleeding on dual anti-platelet therapy Tolerating a good dose of atorvastatin Blood pressure is normal You are still experiencing intermittent episodes of atrial fibrillation with good control of your heart rate and mild symptoms of palpitations; I do not think that you need additional anticoagulation due lack of stroke risk factors (CHADS-VASc = 1) Atrial fibrillation may improve with treatment of your central sleep apnea I agree with the 14 day Zio monitor ordered by Dr. Franco I would recommend: No changes to medications Have blood work to check cholesterol (goal LDL less than 70 mg/dL) If you continue to have intermittent afib despite 3 months of treatment of your sleep apnea, I would recommend that you see an arrhythmia specialist (supervisor shuttle preparation) To prevent further episodes of syncope, exercise while well hydrated and have something to eat as well See me again in 6 months; we can stop Plavix at that visit documented in this encounter [facility] 04-03-2024 History of Present illness Narrative Images from the original note were not included. [facility] [facility] Zhao Department of Cardiovascular Medicine SECTION OF CLINICAL CARDIOLOGY OUTPATIENT VISIT DATE April 03, 2024 OUTPATIENT VISIT TYPE ESTABLISHED PATIENT: Mio Simmons DATE OF : 1960 DATE: 04/03/2024 INTERVAL HISTORY: Mr. Simmons comes for a follow up visit for CAD, PAF, syncope. The last visit with me was prior to his stent in January. He has been doing well. He had an episode of syncope at cardiac rehab in [place] and went to the ER. This was felt to be vasovagal syncope - he was on the monitor at the time and had a several second pause. He had a prodrome for a few minutes prior to syncope where he felt very fatigued and light headed and then the staff was unable to measure blood pressure just before he had syncope. He was tested for sleep apnea and has been diagnosed with central sleep apnea - he has not yet been started on PAP therapy. He continues to have episodes of atrial fibrillation - he feels mild palpitations. Episodes typically resolve after about 30 minutes. ROS: Negative for cough, wheezing, shortness of breath and chest pain Negative for leg swelling, palpitations, claudication, orthopnea, paroxysmal nocturnal dyspnea, syncope. All other reviewed and negative other than HPI. CURRENT MEDICATIONS: clopidogrel (PLAVIX) 75 mg tablet Take 1 tablet by mouth once daily. metoprolol tartrate, short acting, (LOPRESSOR) 25 mg tablet Take 2 tablets by mouth every 12 hours. MULTIVITAMIN ORAL Take by mouth. atorvastatin (LIPITOR) 40 mg tablet Take 1 tablet by mouth once daily. nitroglycerin sublingual (NITROQUICK) 0.4 mg SL tablet Dissolve 1 tablet under the tongue as needed for chest pain. (Patient not taking: Reported on 01/25/2024) aspirin (ASPIR-81 ORAL) Take 81 mg by mouth once daily. krill oil 500 mg cap Take 500 mg by mouth once daily. psyllium husk 0.4 gram cap Take 0.4 g by mouth once daily. PHYSICAL EXAMINATION: General: No distress, alert and oriented Vital signs: BP 112/70 Pulse 64 Ht 5' 11 (1.80m) Wt 213 lb 13.5 oz (97.0kg) BMI 29.84 kg/(m^2). Neck: no JVD Lungs: clear to auscultation Cardiac exam: RRR normal S1, S2 no murmurs Extremities: warm, well perfused, no edema EKG: normal sinus rhythm and left axis deviation and low voltage; rate of 64 ECG at [facility] ER Feb 24 2024 CARDIAC STUDIES: Treadmill nuclear stress test 12/15/2023 @[facility] Echocardiogram 12/15/2023 @[facility]-images personally reviewed Normal LVEF 65% no regional wall motion abnormalities Normal RV size and function No significant valvular heart disease Left heart catheterization December 23 2023 LAST LABS: Latest Ref Rng & Units 01/02/2024 01/14/2024 CMP Sodium 136 - 144 mmol/L 140 140 Potassium 3.7 - 5.1 mmol/L 4.6 3.8 Chloride 98 - 107 mmol/L 102 105 CO2 22 - 30 mmol/L 27 27 Glucose 74 - 99 mg/dL 89 104 BUN 9 - 24 mg/dL 19 14 Creatinine 0.73 - 1.22 mg/dL 1.25 1.13 EGFR >=60 mL/min/1.73m 65 73 Protein, Total 6.3 - 8.0 g/dL 7.1 Albumin 3.9 - 4.9 g/dL 4.4 Calcium 8.5 - 10.2 mg/dL 9.9 9.0 Bilirubin, Total 0.2 - 1.3 mg/dL 0.4 AST 14 - 40 U/L 19 ALT 10 - 54 U/L 13 Alkaline Phosphatase 38 - 113 U/L 51 Hemoglobin (g/dL) Date Value 01/14/2024 13.8 Hematocrit (%) Date Value 01/14/2024 41.2 WBC (k/uL) Date Value 01/14/2024 5.80 Impression: Encounter Diagnosis ICD-10-CM 1. Coronary artery disease involving [place] coronary artery of [place] heart without angina pectoris I25.10 2. Stented coronary artery - MARCIAL to LAD 01/13/24 Z95.5 3. PAF (paroxysmal atrial fibrillation) ([facility]) I48.0 4. PVC (premature ventricular contraction) I49.3 5. Vasovagal syncope R55 6. Pure hypercholesterolemia E78.00 7. Central sleep apnea associated with atrial fibrillation (HCC) ([facility]) I48.91 G47.37 Plan: Patient Instructions You are doing very well from a heart standpoint No angina since your stent in January No bleeding on dual anti-platelet therapy Tolerating a good dose of atorvastatin Blood pressure is normal You are still experiencing intermittent episodes of atrial fibrillation with good control of your heart rate and mild symptoms of palpitations; I do not think that you need additional anticoagulation due lack of stroke risk factors (CHADS-VASc = 1) Atrial fibrillation may improve with treatment of your central sleep apnea I agree with the 14 day Zio monitor ordered by Dr. Franco I would recommend: No changes to medications Have blood work to check cholesterol (goal LDL less than 70 mg/dL) If you continue to have intermittent afib despite 3 months of treatment of your sleep apnea, I would recommend that you see an arrhythmia specialist (supervisor shuttle preparation) To prevent further episodes of syncope, exercise while well hydrated and have something to eat as well See me again in 6 months; we can stop Plavix at that visit Medical Decision Making: Problems: Moderate: 2+ stable chronic illnesses Risk: Moderate: Moderate risk from testing/treatment Medical Decision Making Level: 4 - Moderate Thank you very much for allowing me to assist in the care of Mio Simmons. Please do not hesitate to contact me if you have questions or concerns. Connie Taylor MD CC: Bonita Rao ([facility]) [address] [place] [address] documented in this encounter [facility] 04-03-2024 Note HNO ID: [id number] Author: CONNIE TAYLOR MD Service: ? Author Type: Physician Type: Progress Notes Filed: 04/03/2024 12:34 Note Text: [facility] [place] Oks[facility] Zhao Department of Cardiovascular Medicine SECTION OF CLINICAL CARDIOLOGY OUTPATIENT VISIT DATE April 03, 2024 OUTPATIENT VISIT TYPE ESTABLISHED PATIENT: Mio Simmons DATE OF : 1960 DATE: 04/03/2024 INTERVAL HISTORY: Mr. Simmons comes for a follow up visit for CAD, PAF, syncope. The last visit with me was prior to his stent in January. He has been doing well. He had an episode of syncope at cardiac rehab in [place] and went to the ER. This was felt to be vasovagal syncope - he was on the monitor at the time and had a several second pause. He had a prodrome for a few minutes prior to syncope where he felt very fatigued and light headed and then the staff was unable to measure blood pressure just before he had syncope. He was tested for sleep apnea and has been diagnosed with central sleep apnea - he has not yet been started on PAP therapy. He continues to have episodes of atrial fibrillation - he feels mild palpitations. Episodes typically resolve after about 30 minutes. ROS: Negative for cough, wheezing, shortness of breath and chest pain Negative for leg swelling, palpitations, claudication, orthopnea, paroxysmal nocturnal dyspnea, syncope. All other reviewed and negative other than HPI. CURRENT MEDICATIONS: clopidogrel (PLAVIX) 75 mg tablet Take 1 tablet by mouth once daily. metoprolol tartrate, short acting, (LOPRESSOR) 25 mg tablet Take 2 tablets by mouth every 12 hours. MULTIVITAMIN ORAL Take by mouth. atorvastatin (LIPITOR) 40 mg tablet Take 1 tablet by mouth once daily. nitroglycerin sublingual (NITROQUICK) 0.4 mg SL tablet Dissolve 1 tablet under the tongue as needed for chest pain. (Patient not taking: Reported on 01/25/2024) aspirin (ASPIR-81 ORAL) Take 81 mg by mouth once daily. krill oil 500 mg cap Take 500 mg by mouth once daily. psyllium husk 0.4 gram cap Take 0.4 g by mouth once daily. PHYSICAL EXAMINATION: General: No distress, alert and oriented Vital signs: BP 112/70 Pulse 64 Ht 5' 11 (1.80m) Wt 213 lb 13.5 oz (97.0kg) BMI 29.84 kg/(m2). Neck: no JVD Lungs: clear to auscultation Cardiac exam: RRR normal S1, S2 no murmurs Extremities: warm, well perfused, no edema EKG: normal sinus rhythm and left axis deviation and low voltage; rate of 64 ECG at [facility] ER Feb 24 2024 CARDIAC STUDIES: Treadmill nuclear stress test 12/15/2023 @[facility] Echocardiogram 12/15/2023 @[facility]-images personally reviewed Normal LVEF 65% no regional wall motion abnormalities Normal RV size and function No significant valvular heart disease Left heart catheterization December 23 2023 LAST LABS: Latest Ref Rng AND Units 01/02/2024 01/14/2024 CMP Sodium 136 - 144 mmol/L 140 140 Potassium 3.7 - 5.1 mmol/L 4.6 3.8 Chloride 98 - 107 mmol/L 102 105 CO2 22 - 30 mmol/L 27 27 Glucose 74 - 99 mg/dL 89 104 BUN 9 - 24 mg/dL 19 14 Creatinine 0.73 - 1.22 mg/dL 1.25 1.13 EGFR >=60 mL/min/1.73m? 65 73 Protein, Total 6.3 - 8.0 g/dL 7.1 Albumin 3.9 - 4.9 g/dL 4.4 Calcium 8.5 - 10.2 mg/dL 9.9 9.0 Bilirubin, Total 0.2 - 1.3 mg/dL 0.4 AST 14 - 40 U/L 19 ALT 10 - 54 U/L 13 Alkaline Phosphatase 38 - 113 U/L 51 Hemoglobin (g/dL) Date Value 01/14/2024 13.8 Hematocrit (%) Date Value 01/14/2024 41.2 WBC (k/uL) Date Value 01/14/2024 5.80 Impression: Encounter Diagnosis ICD-10-CM 1. Coronary artery disease involving [place] coronary artery of [place] heart without angina pectoris I25.10 2. Stented coronary artery - MARCIAL to LAD 01/13/24 Z95.5 3. PAF (paroxysmal atrial fibrillation) ([facility]) I48.0 4. PVC (premature ventricular contraction) I49.3 5. Vasovagal syncope R55 6. Pure hypercholesterolemia E78.00 7. Central sleep apnea associated with atrial fibrillation (HCC) ([facility]) I48.91 G47.37 Plan: Patient Instructions You are doing very well from a heart standpoint No angina since your stent in January No bleeding on dual anti-platelet therapy Tolerating a good dose of atorvastatin Blood pressure is normal You are still experiencing intermittent episodes of atrial fibrillation with good control of your heart rate and mild symptoms of palpitations; I do not think that you need additional anticoagulation due lack of stroke risk factors (CHADS-VASc = 1) Atrial fibrillation may improve with treatment of your central sleep apnea I agree with the 14 day Zio monitor ordered by Dr. Franco I would recommend: No changes to medications Have blood work to check cholesterol (goal LDL less than 70 mg/dL) If you continue to have intermittent afib despite 3 months of treatment of your sleep apnea, I would recommend that you see an arrhythmia specialist (supervisor shuttle preparation) To prevent further episodes of (more content not included)... [facility] 04-02-2024 Telephone encounter Note [facility] cardiac rehab report and ED visit from 03/05/2024 placed in appointment folder for OV 04/03/2024. Harish Erwin, RN [facility] 04-02-2024 Miscellaneous Notes [facility] cardiac rehab report and ED visit from 03/05/2024 placed in appointment folder for OV 04/03/2024. Harish Erwin RN documented in this encounter [facility] 03-29-2024 Telephone encounter Note The following approved medication requests have been transmitted electronically. Requested Prescriptions Signed Prescriptions Disp Refills clopidogrel (PLAVIX) 75 mg tablet 90 tablet 3 Sig: Take 1 tablet by mouth once daily. Authorizing Provider: CONNIE TAYLOR Ordering User: MERVAT KELLY APRN.VICE PRESIDENT BIOSTATISTICS [facility] Work Phone: 03-29-2024 Miscellaneous Notes The following approved medication requests have been transmitted electronically. Requested Prescriptions Signed Prescriptions Disp Refills clopidogrel (PLAVIX) 75 mg tablet 90 tablet 3 Sig: Take 1 tablet by mouth once daily. Authorizing Provider: CONNIE TAYLOR Ordering User: MERVAT KELLY APRN.VICE PRESIDENT BIOSTATISTICS Patient has been identified by name and date of : Yes Patient phoned to request the following prescription(s) If there are any questions regarding this prescription request, call at home at: [phone] (home) [phone] (cell) RX INSTRUCTIONS: Patient aware RX will be sent to pharmacy. No need to notify patient. Date of last office visit: 01/02/24 Date of last [facility] visit: Visit date not found Date of future office visit: 04/03/24 Requested Prescriptions Pending Prescriptions Disp Refills clopidogrel (PLAVIX) 75 mg tablet 90 tablet 3 Sig: Take 1 tablet by mouth once daily. Prescriptions are usually addressed within 24-48 business hours. If patient states they cannot wait 24-48 business hours, please document details. Last 2 Encounter Wt Readings: Date: Wt: 01/25/2024 100 kg (220 lb 7.4 oz) 01/02/2024 94.3 kg (208 lb) Last 2 Encounter BP Readings: Date: BP: 01/25/2024 120/74 01/02/2024 119/74 CMP: Glucose 104 01/14/2024 BUN 14 01/14/2024 Creatinine 1.13 01/14/2024 Sodium 140 01/14/2024 Potassium 3.8 01/14/2024 Chloride 105 01/14/2024 CO2 27 01/14/2024 Protein, Total 7.1 01/02/2024 Albumin 4.4 01/02/2024 Calcium, Total 9.0 01/14/2024 Alkaline Phosphatase 51 01/02/2024 Bilirubin, Total 0.4 01/02/2024 AST 19 01/02/2024 ALT 13 01/02/2024 No results found for: CHOL No results found for: HDL No results found for: LDL No results found for: TG Yolanda Canas RN documented in this encounter [facility] 03-29-2024 Telephone encounter Note Patient has been identified by name and date of : Yes Patient phoned to request the following prescription(s) If there are any questions regarding this prescription request, call at home at: [phone] (home) [phone] (cell) RX INSTRUCTIONS: Patient aware RX will be sent to pharmacy. No need to notify patient. Date of last office visit: 01/02/24 Date of last [facility] visit: Visit date not found Date of future office visit: 04/03/24 Requested Prescriptions Pending Prescriptions Disp Refills clopidogrel (PLAVIX) 75 mg tablet 90 tablet 3 Sig: Take 1 tablet by mouth once daily. Prescriptions are usually addressed within 24-48 business hours. If patient states they cannot wait 24-48 business hours, please document details. Last 2 Encounter Wt Readings: Date: Wt: 01/25/2024 100 kg (220 lb 7.4 oz) 01/02/2024 94.3 kg (208 lb) Last 2 Encounter BP Readings: Date: BP: 01/25/2024 120/74 01/02/2024 119/74 CMP: Glucose 104 01/14/2024 BUN 14 01/14/2024 Creatinine 1.13 01/14/2024 Sodium 140 01/14/2024 Potassium 3.8 01/14/2024 Chloride 105 01/14/2024 CO2 27 01/14/2024 Protein, Total 7.1 01/02/2024 Albumin 4.4 01/02/2024 Calcium, Total 9.0 01/14/2024 Alkaline Phosphatase 51 01/02/2024 Bilirubin, Total 0.4 01/02/2024 AST 19 01/02/2024 ALT 13 01/02/2024 No results found for: CHOL No results found for: HDL No results found for: LDL No results found for: TG Yolanda Canas RN [facility] 02-28-2024 Telephone encounter Note [employer] message sent to patient. Makayla Hodge RN [facility] 02-28-2024 Miscellaneous Notes [employer] message sent to patient. Makayla Hodge RN Agree with taking metoprolol 50 mg twice daily. I see that this has been updated in his chart. I would not do anything differently for the time being unless he has recurrent atrial fibrillation prior to our appointment in March. Thank you Fax received from [facility] from Dr. Humberto Franco noting an emergent visit on 02/24/2024 due to patient going in to afib RVR in 120 bpm range during a cardiac rehab session. Per Dr. Franco note, he recommended increasing metoprolol to 50 mg twice daily and monitor heart rate with possible cardioversion if patient does not convert. Ankit score noted at per Dr. Franco with no anticoagulation recommended. Patient on aspirin and plavix s/p MARCIAL to LAD 01/13/2024. Also noted follow up with Dr. Taylor in March 2024. No follow up appointment in chart. Spoke to patient who states he went home after cardiac rehab and took a nap. After he nap he was in Sinus rhythm per his apple watch and has had no recurrence of afib. He states he thinks it was due to dehydration. Patient states someone from our office called him scheduling him for 04/03 appointment (see telephone encounter per Dr. Taylor). Note from [facility]SS in encounter states waiting insurance approval. Placed patient on schedule for 04/03 at noon and notified patient to contact his insurance to assure that it is approved. Update sent to Dr. Taylor regarding afib episode and med increase to 50mg Lopressor twice daily. Patient states resting heart rate in 59 with up to 118 at cardiac rehab today with exercise. Med update to Dr. Taylor. Note from Dr. Franco sent for scanning and copy in file cabinet for 04/03/[address] Taylor. Harish Erwin, RN documented in this encounter [facility] 02-28-2024 Telephone encounter Note Agree with taking metoprolol 50 mg twice daily. I see that this has been updated in his chart. I would not do anything differently for the time being unless he has recurrent atrial fibrillation prior to our appointment in March. Thank you [facility] 02-27-2024 Telephone encounter Note Fax received from [facility] from Dr. Humberto Franco noting an emergent visit on 02/24/2024 due to patient going in to afib RVR in 120 bpm range during a cardiac rehab session. Per Dr. Franco note, he recommended increasing metoprolol to 50 mg twice daily and monitor heart rate with possible cardioversion if patient does not convert. Ankit score noted at [address] Franco with no anticoagulation recommended. Patient on aspirin and plavix s/p MARCIAL to LAD 01/13/2024. Also noted follow up with Dr. Taylor in March 2024. No follow up appointment in chart. Spoke to patient who states he went home after cardiac rehab and took a nap. After he nap he was in Sinus rhythm per his apple watch and has had no recurrence of afib. He states he thinks it was due to dehydration. Patient states someone from our office called him scheduling him for 04/03 appointment (see telephone encounter per Dr. Taylor). Note from [facility] in encounter states waiting insurance approval. Placed patient on schedule for 04/03 at noon and notified patient to contact his insurance to assure that it is approved. Update sent to Dr. Taylor regarding afib episode and med increase to 50mg Lopressor twice daily. Patient states resting heart rate in 59 with up to 118 at cardiac rehab today with exercise. Med update to Dr. Taylor. Note from Dr. Franco sent for scanning and copy in file cabinet for 04/03/[address] Taylor. Harish Erwin RN [facility] 02-24-2024 Evaluation note Diagnosis Onset Date Resolution CAD (coronary atherosclerotic disease) without angina pectoris acute February 24, 2024 8:44am Paroxysmal atrial fibrillation acute February 23 8:44am [facility] Work Phone: 1(673) 351-235601-03-2025 Telephone encounter Note* Telephone Encounter - Phu Hart APRN.CNP - 02/10/2024 11:38 AM EST The following approved medication requests have been transmitted electronically. Requested Prescriptions Signed Prescriptions Disp Refills metoprolol tartrate, short acting, (LOPRESSOR) 25 mg tablet 180 tablet 3 Sig: Take 1 tablet by mouth every 12 hours. Authorizing Provider: CONNIE TAYLOR Ordering User: PHU HART APRN.CNP [facility]01-03-2025 Miscellaneous Notes* Telephone Encounter - Phu Hart APRN.CNP - 02/10/2024 11:38 AM EST The following approved medication requests have been transmitted electronically. Requested Prescriptions Signed Prescriptions Disp Refills metoprolol tartrate, short acting, (LOPRESSOR) 25 mg tablet 180 tablet 3 Sig: Take 1 tablet by mouth every 12 hours. Authorizing Provider: CONNIE TAYLOR Ordering User: PHU HART APRN.VICE PRESIDENT BIOSTATISTICS * Telephone Encounter - Harish Erwin RN - 02/10/2024 11:15 AM EST Patient has been identified by name and date of : Yes Patient phoned to request the following prescription(s) If there are any questions regarding this prescription request, call at: [phone] (home) [phone] (cell) RX INSTRUCTIONS: Patient aware RX will be sent to pharmacy. No need to notify patient. Date of last office visit: 01/25/2024 Date of last [facility] visit: Visit date not found Date of future office visit: Not Scheduled Requested Prescriptions Pending Prescriptions Disp Refills metoprolol tartrate, short acting, (LOPRESSOR) 25 mg tablet 180 tablet 3 Sig: Take 1 tablet by mouth every 12 hours. Prescriptions are usually addressed within 24-48 business hours. If patient states they cannot [id number] business hours, please document details. Last 2 Encounter Wt Readings: Date: Wt: 01/25/2024 100 kg (220 lb 7.4 oz) 01/02/2024 94.3 kg (208 lb) Last 2 Encounter BP Readings: Date: BP: 01/25/2024 120/74 01/02/2024 119/74 CMP: Glucose 104 01/14/2024 BUN 14 01/14/2024 Creatinine 1.13 01/14/2024 Sodium 140 01/14/2024 Potassium 3.8 01/14/2024 Chloride 105 01/14/2024 CO2 27 01/14/2024 Protein, Total 7.1 01/02/2024 Albumin 4.4 01/02/2024 Calcium, Total 9.0 01/14/2024 Alkaline Phosphatase 51 01/02/2024 Bilirubin, Total 0.4 01/02/2024 AST 19 01/02/2024 ALT 13 01/02/2024 No results found for: CHOL No results found for: HDL No results found for: LDL No results found for: TG Hairsh Erwin RN * Telephone Encounter - Meron Avila - 02/10/2024 11:02 AM EST Prescription Refill Information The patient has been identified by name and date of : Yes Caregiver verified no other encounters exist for this prescription request: Yes Caregiver confirmed with patient/requestor that no other refills are due, in the near future, with this provider at this time: Yes The last office visit in the department: Does the patient have a future office visit with this provider/department: No PATIENT ATTEMPTED TO GET THIS SCRIPT REFILLED AND WAS TOLD THAT IT NEEDED TO BE REFILLED BY DR. TAYLOR IF DR. TAYLOR WANTED HIM TO REMAIN ON SCRIPT. PLEASE CALL TO CONFIRM. Requested Prescriptions Pending Prescriptions Disp Refills metoprolol tartrate, short acting, (LOPRESSOR) 25 mg tablet 60 tablet 3 Sig: Take 1 tablet by mouth every 12 hours. Meron Avila February 10, 2024 11:04 AM documented in [facility] Telephone encounter Note * Telephone Encounter - Harish Erwin RN - 02/10/2024 11:15 AM EST Patient has been identified by name and date of : Yes Patient phoned to request the following prescription(s) If there are any questions regarding this prescription request, call at: [phone] (home) [phone] (cell) RX INSTRUCTIONS: Patient aware RX will be sent to pharmacy. No need to notify patient. Date of last office visit: 01/25/2024 Date of last [facility] visit: Visit date not found Date of future office visit: Not Scheduled Requested Prescriptions Pending Prescriptions Disp Refills metoprolol tartrate, short acting, (LOPRESSOR) 25 mg tablet 180 tablet 3 Sig: Take 1 tablet by mouth every 12 hours. Prescriptions are usually addressed within 24-48 business hours. If patient states they cannot [id number] business hours, please document details. Last 2 Encounter Wt Readings: Date: Wt: 01/25/2024 100 kg (220 lb 7.4 oz) 01/02/2024 94.3 kg (208 lb) Last 2 Encounter BP Readings: Date: BP: 01/25/2024 120/74 01/02/2024 119/74 CMP: Glucose 104 01/14/2024 BUN 14 01/14/2024 Creatinine 1.13 01/14/2024 Sodium 140 01/14/2024 Potassium 3.8 01/14/2024 Chloride 105 01/14/2024 CO2 27 01/14/2024 Protein, Total 7.1 01/02/2024 Albumin 4.4 01/02/2024 Calcium, Total 9.0 01/14/2024 Alkaline Phosphatase 51 01/02/2024 Bilirubin, Total 0.4 01/02/2024 AST 19 01/02/2024 ALT 13 01/02/2024 No results found for: CHOL No results found for: HDL No results found for: LDL No results found for: TG Harish Erwin RN [facility]01-03-[facility] Telephone encounter Note* Telephone Encounter - Meron Avila - 02/10/2024 11:02 AM EST Prescription Refill Information The patient has been identified by name and date of : Yes Caregiver verified no other encounters exist for this prescription request: Yes Caregiver confirmed with patient/requestor that no other refills are due, in the near future, with this provider at this time: Yes The last office visit in the department: Does the patient have a future office visit with this provider/department: No PATIENT ATTEMPTED TO GET THIS SCRIPT REFILLED AND WAS TOLD THAT IT NEEDED TO BE REFILLED BY DR. TAYLOR IF DR. TAYLOR WANTED HIM TO REMAIN ON SCRIPT. PLEASE CALL TO CONFIRM. Requested Prescriptions Pending Prescriptions Disp Refills metoprolol tartrate, short acting, (LOPRESSOR) 25 mg tablet 60 tablet 3 Sig: Take 1 tablet by mouth every 12 hours. Meron Avila February 10, 2024 11:04 AM [facility]12-18-[facility] History of Present illness Narrative* Mervat Hoffmann APRN.VICE PRESIDENT BIOSTATISTICS - 01/25/2024 2:30 PM EST [facility] [place] Oksana Zhao Department of Cardiovascular Medicine SECTION OF REGIONAL CARDIOLOGY Mio Simmons is a 63 year old male here today for follow up cardiac cath/PCI. HPI: Mio Simmons is a (an) 63 year old year old male patient of Dr. Taylor with PMH: CAD s/p MARCIAL to LAD 01/13/24, pAfib, PVC, vasovagal syncope, dyslipidemia . Last visit 01/02/24 Today, patient denies exertional chest pain/tightness, worsening SOB, palpitations, pre-syncope, syncope, and edema. Planning to complete cardiac rehab at [facility] PAST MEDICAL HISTORY Diagnosis Date Abnormal cardiovascular function study Abnormal ECG Deep vein thrombosis (DVT) (HCC) Incomplete right bundle branch block (RBBB) Intermittent chest pain Syncope Syncope due to orthostatic hypotension Varicose veins of legs No past surgical history on file. FAMILY HISTORY Problem Relation Age of Onset other (atrial fibirillation) Mother Heart disease Father Cancer Father other (atrial fib) Brother SOCIAL HISTORY Social History Tobacco Use Smoking status: Never Smokeless tobacco: Never Vaping Use Vaping status: Never Used Substance Use Topics Alcohol use: Never Drug use: Never ALLERGIES: Patient has no known allergies. CURRENT MEDICATIONS: Current Outpatient Medications Medication Sig atorvastatin (LIPITOR) 40 mg tablet Take 1 tablet by mouth once daily. metoprolol tartrate, short acting, (LOPRESSOR) 25 mg tablet Take 1 tablet by mouth every 12 hours. nitroglycerin sublingual (NITROQUICK) 0.4 mg SL tablet Dissolve 1 tablet under the tongue as neededfor chest pain. aspirin (ASPIR-81 ORAL) Take 81 mg by mouth once daily. clopidogrel (PLAVIX) 75 mg tablet Take 1 tablet by mouth once daily. krill oil 500 mg cap Take 500 mg by mouth once daily. psyllium husk 0.4 gram cap Take 0.4 g by mouth once daily. No current facility-administered medications for this visit. CARDIAC TESTING: Last EKG Result Conclusion ECG COMPLETE Collected: 01/14/2024 8:34 AM (Final result) Impression: SINUS BRADYCARDIA LEFT AXIS DEVIATION RIGHT BUNDLE BRANCH BLOCK ABNORMAL ECG WHEN COMPARED WITH ECG OF 13-Jan-2024 11:52, RIGHT BUNDLE BRANCH BLOCK IS NOW PRESENT Confirmed by CRUZITO BYERS M.D. ([id number]) on 01/16/2024 9:34:44 AM 01/13/24 Cardiac Cath Intervention LAD Lesion Type: Class C Guiding Catheter(s): EBU 3.5 90% Stenosis Location: Proximal, Mid, Calcified Pre IGNACIO Blood Flow: 3 Using 0.012 Viperwire advanced to distal segment of the vessel and orbital atherectomy was done using 1.25 mm [place], 4 passes at 80,000 RPM, and 1 pass at 120,000 RPM. Pre Dilatation Balloon Size: 3.0 mm X 15 mm score flex balloon Proximal mid Stent Placed: Type: Xience (Drug Eluting Stent) Size: 3.0 mm Length: 32 mm Post Dilatation Balloon Size: 3.75 mm X 12 mm Post IGNACIO Blood Flow: 3 Result: Successful. ADDITIONAL PROCEDURES INTERROGATION & ASSESSMENT OF LESION: The guidewire engaged the LAD. The guide wire was advanced crossing the lesion and OCT device was advanced over the guide wire. The lesion was interrogated; images were obtained and recorded. Measurements were completed for lumen and vessel diameter/area, greater than 270 degree calcified arc with nodule noted. Post stent deployment OCT revealed well-expanded and deployed stent except in the ostial proximal segment of the stent was slightly under deployed for which PTCA using 3.75 x 12 mm NC balloon was done. The sheath was removed and hemostatsis was established using manual pressure using wrist band. There was no bleeding at the end of the procedure. The pt was returned to the recovery room in a stable condition. ESTIMATED BLOOD LOSS: Less Than Minimal Unless Noted Here. COMPLICATIONS: None SPECIMENS: No specimens obtained unless noted here. CONDITION: Stable RECOMMENDATIONS: Follow protocol of post-op orders. Aggressive modification of risk factors. 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 [employer] Medical Management. Stop aspirin following the initiation of apixaban. LABS: No results found for: CHOL, HDL, LDL, TG AST (U/L) Date Value 01/02/2024 19 ALT (U/L) Date Value 01/02/2024 13 No results found for: CK No results found for: TSH No results found for: INR No results found for: BNP No results found for: PBNP No components found for: MAGNESIU No results found for: HSCRP Hemoglobin (g/dL) Date Value 01/14/2024 13.8 Hematocrit (%) Date Value 01/14/2024 41.2 WBC (k/uL) Date Value 01/14/2024 5.80 Platelet Count (k/uL) Date Value 01/14/2024 144 Glucose (mg/dL) Date Value 01/14/2024 104 Potassium (mmol/L) Date Value 01/14/2024 3.8 Sodium (mmol/L) Date Value 01/14/2024 140 Chloride (mmol/L) Date Value 01/14/2024 105 CO2 (mmol/L) Date Value 01/14/2024 27 Creatinine (mg/dL) Date Value 01/14/2024 1.13 BUN (mg/dL) Date Value 01/14/2024 14 Anion Gap (mmol/L) Date Value 01/14/2024 8 Calcium, Total (mg/dL) Date Value 01/14/2024 9.0 PHYSICAL EXAMINATION: BP 120/74 (BP Site: Left Arm, BP Position: Sitting, BP Cuff Size: Large Adult) Pulse 68 Wt 100 kg (220 lb 7.4 oz) BMI 30.75 kg/m Last 3 Encounter BP Readings: Date: BP: 01/02/2024 119/74 01/02/2024 120/80 08/09/2023 108/66 Last 3 Encounter Pulse Readings: Date: Pulse: 01/02/2024 66 01/02/2024 74 08/09/2023 90 Last 3 Encounter Wt Readings: Date: Wt: 01/02/2024 94.3 kg (208 lb) 01/02/2024 96 kg (211 lb 10.3 oz) 08/09/2023 96.9 kg (213 lb 10 oz) GENERAL: alert cooperative, pleasant oriented x 3 (self, time and place) in no acute distress HEENT: normocephalic, EOMI Heart: regular rhythm , no murmur, rub or gallop Lungs: clear to auscultation Abdomen: bowel sounds present Extremities: no edema Musculoskeletal: chest wall nontender Neurological: alert and oriented Psychiatric: appropriate and cooperative Skin: no rash, cellulitis or lesions appreciated IMPRESSION/PLAN: (I25.10) Coronary artery disease involving [place] coronary artery of [place] heart without angina pectoris (primary encounter diagnosis) - Denies cardiac symptoms - Taking medications as ordered. Compliant with DAPT - Planning to complete cardiac rehab at [facility] - Mediterranean diet handout provided - continue aspirin, plavix, atorvastatin, metoprolol (I48.0) PAF (paroxysmal atrial fibrillation) (HCC) - denies palpitations - CHADS2-Vasc Score = 1. Does not require anticoagulation - continue beta jose a (E78.00) Pure hypercholesterolemia Plan: LIPID PANEL BASIC, ALANINE AMINOTRANSFERASE / SGPT, ASPARTATE AMINOTRANSFERASE/SGOT - Fasting labs ordered to be done in Mar prior to next visit Planning to see Dr. Taylor 04/03 @ holley Hoffmann APRN.CNP CC: Bonita Rao (Rachel) [address] [place] [address] documented in this encounterMer[facility]12-18-2024 NoteHNO ID: [id number] Author: MERVAT HOFFMANN APRN.CNP Service: ? Author Type: Nurse Practitioner Type: Progress Notes Filed: 01/25/2024 14:34 Note Text: [facility] [place] Oksana Zhao Department of Cardiovascular Medicine SECTION OF REGIONAL CARDIOLOGY Mio Simmons is a 63 year old male here today for follow up cardiac cath/PCI. HPI: Mio Simmons is a (an) 63 year old year old male patient of Dr. Claudia with PMH: CAD s/p MARCIAL to LAD 01/13/24, pAfib, PVC, vasovagal syncope, dyslipidemia . Last visit 01/02/24 Today, patient denies exertional chest pain/tightness, worsening SOB, palpitations, pre-syncope, syncope, and edema. Planning to complete cardiac rehab at [facility] PAST MEDICAL HISTORY Diagnosis Date Abnormal cardiovascular function study Abnormal ECG Deep vein thrombosis (DVT) (HCC) Incomplete right bundle branch block (RBBB) Intermittent chest pain Syncope Syncope due to orthostatic hypotension Varicose veins of legs No past surgical history on file. FAMILY HISTORY Problem Relation Age of Onset other (atrial fibirillation) Mother Heart disease Father Cancer Father other (atrial fib) Brother SOCIAL HISTORY Social History Tobacco Use Smoking status: Never Smokeless tobacco: Never Vaping Use Vaping status: Never Used Substance Use Topics Alcohol use: Never Drug use: Never ALLERGIES: Patient has no known allergies. CURRENT MEDICATIONS: Current Outpatient Medications Medication Sig atorvastatin (LIPITOR) 40 mg tablet Take 1 tablet by mouth once daily. metoprolol tartrate, short acting, (LOPRESSOR) 25 mg tablet Take 1 tablet by mouth every 12 hours. nitroglycerin sublingual (NITROQUICK) 0.4 mg SL tablet Dissolve 1 tablet under the tongue as needed for chest pain. aspirin (ASPIR-81 ORAL) Take 81 mg by mouth once daily. clopidogrel (PLAVIX) 75 mg tablet Take 1 tablet by mouth once daily. krill oil 500 mg cap Take 500 mg by mouth once daily. psyllium husk 0.4 gram cap Take 0.4 g by mouth once daily. No current facility-administered medications for this visit. CARDIAC TESTING: Last EKG Result Conclusion ECG COMPLETE Collected: 01/14/2024 8:34 AM (Final result) Impression: SINUS BRADYCARDIA LEFT AXIS DEVIATION RIGHT BUNDLE BRANCH BLOCK ABNORMAL ECG WHEN COMPARED WITH ECG OF 13-Jan-2024 11:52, RIGHT BUNDLE BRANCH BLOCK IS NOW PRESENT Confirmed by CRUZITO BYERS M.D. ([id number]) on 01/16/2024 9:34:44 AM 01/13/24 Cardiac Cath Intervention LAD Lesion Type: Class C Guiding Catheter(s): EBU 3.5 90% Stenosis Location: Proximal, Mid, Calcified Pre IGNACIO Blood Flow: 3 Using 0.012 Viperwire advanced to distal segment of the vessel and orbital atherectomy was done using 1.25 mm Dae, 4 passes at 80,000 RPM, and 1 pass at 120,000 RPM. Pre Dilatation Balloon Size: 3.0 mm X 15 mm score flex balloon Proximal mid Stent Placed: Type: Xience (Drug Eluting Stent) Size: 3.0 mm Length: 32 mm Post Dilatation Balloon Size: 3.75 mm X 12 mm Post IGNACIO Blood Flow: 3 Result: Successful. ADDITIONAL PROCEDURES INTERROGATION AND ASSESSMENT OF LESION: The guidewire engaged the LAD. The guide wire was advanced crossing the lesion and OCT device was advanced over the guide wire. The lesion was interrogated; images were obtained and recorded. Measurements were completed for lumen and vessel diameter/area, greater than 270 degree calcified arc with nodule noted. Post stent deployment OCT revealed well-expanded and deployed stent except in the ostial proximal segment of the stent was slightly under deployed for which PTCA using 3.75 x 12 mm NC balloon was done. The sheath was removed and hemostatsis was established using manual pressure using wrist band. There was no bleeding at the end of the procedure. The pt was returned to the recovery room in a stable condition. ESTIMATED BLOOD LOSS: Less Than Minimal Unless Noted Here. COMPLICATIONS: None SPECIMENS: No specimens obtained unless noted here. CONDITION: Stable RECOMMENDATIONS: Follow protocol of post-op orders. Aggressive modification of risk factors. Dual Antiplatelet Therapy (DAPT) for MARCIAL Stent fdc. Optimize Medical Management. Stop aspirin following the initiation of apixaban. LABS: No results found for: CHOL, HDL, LDL, TG AST (U/L) Date Value 01/02/2024 19 ALT (U/L) Date Value 01/02/2024 13 No results found for: CK No results found for: TSH No results found for: INR No results found for: BNP No results found for: PBNP No components found for: MAGNESIU No results found for: HSCRP Hemoglobin (g/dL) Date Value 01/14/2024 13.8 Hematocrit (%) Date Value 01/14/2024 41.2 WBC (k/uL) Date Value 01/14/2024 5.80 Platelet Count (k/uL) Date Value 01/14/2024 144 Glucose ( (more content not included)...[facility]12-18-2024 Instructions* Patient Instructions* Mervat Hoffmann APRN.CNP - 01/25/2024 2:29 PM EST - Continue current medications - Mediterranean diet - Cardiac rehab - Fasting labs in March prior to appt with Dr. Taylor documented in this encounterMercy [facility]12-18-2024 Telephone encounter Note * Telephone Encounter - Yolanda Canas RN - 01/25/2024 1:05 PM EST Per Zahra PSS - Waiting on referral to be approved pt knows about appt Yolanda Canas RN [facility]12-18-2024 Miscellaneous Notes* Telephone Encounter - Yolanda Canas RN - 01/25/2024 1:05 PM EST Per Zahra PSS - Waiting on referral to be approved pt knows about appt Yolanda Canas RN * Telephone Encounter - Connie Taylor MD - 01/23/2024 5:01 PM EST Patient had PCI to his LAD with Dr. Barajas earlier in January. 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 I could accommodate him noon on Apr 03 Thanks MK documented in this encounterMercy [facility]12-16-2024 Telephone encounter Note * Telephone Encounter - Connie Taylor MD - 01/23/2024 5:01 PM EST Patient had PCI to his LAD with Dr. Barajas earlier in January. 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 I could accommodate him noon on Apr 03 Thanks MK [facility]12-11-2024 Telephone encounter Note* Telephone Encounter - Bre Bacon RN - 01/18/2024 2:09 PM EST Contacted patient, scheduled for hospital follow up with Mervat on 01/24 at 2:30pm. No further questions at this time. Bre Bacon RN [facility]12-11-2024 Miscellaneous Notes* Telephone Encounter - Bre Bacon RN - 01/18/2024 2:09 PM EST Contacted patient, scheduled for hospital follow up with Mervat on 01/24 at 2:30pm. No further questions at this time. Bre Bacon RN * Telephone Encounter - Connie Haskins - 01/18/2024 1:03 PM EST Pt called as he just had a cardiac procedure and was told to see dr taylor within 2 weeks. As there are no openings with or the [facility] during this time (or ANYTIME soon) pT would lieka call re: what should be done. Please call pt at [phone] documented in this encounterMercy [facility]12-11-2024 Telephone encounter Note * Telephone Encounter - Connie Haskins - 01/18/2024 1:03 PM EST Pt called as he just had a cardiac procedure and was told to see dr taylor within 2 weeks. As there are no openings with or the tem during this time (or ANYTIME soon) pT would lieka call re: what should be done. Please call pt at [phone] [facility]12-11-2024 Telephone encounter Note* Telephone Encounter - Teresita Padilla - 01/18/2024 8:58 AM EST Spoke with patient regarding Cardiac Rehab referral. Patient prefers [facility]. Sent via FAX. [facility]12-11-[facility] Miscellaneous Notes* Telephone Encounter - Teresita Padilla - 01/18/2024 8:58 AM EST Spoke with patient regarding Cardiac Rehab referral. Patient prefers [facility]. Sent via FAX. documented in this encounterMercy Health [facility]field [facility]12-07-2024 NoteHNO ID: [id number] Author: KELLY QUEVEDO RN Service: Care Management Author Type: Registered Nurse Type: Care Mgt Progress Note Filed: 01/14/2024 11:04 Note Text: CARE MANAGEMENT DISCHARGE NOTE SERVICE DATE: January 14, 2024 SERVICE TIME: 11:03 AM Admission Date: 01/13/2024 LOS: 0 days Discharge Arrangement Discharge Arrangement: Home with Self Care Caregiver Assessment Caregiver is ready, willing and able to meet the patient's needs as recommended by the inter-professional team: No Caregiver needed Transportation Arrangements Transportation Arrangements: Car Pt EXT RECOVERY S/P Cardiac cath w/ PCI Pt is medically clear for discharge today; no post-acute skilled needs identified or ordered. Patient returning home with self care and follow up appointments as ordered SIGNATURE: Kelly Quevedo RN PATIENT NAME: Mio Simmons DATE: January 14, 2024 TIME: 11:03 AM CONTACT #: [phone] or [facility]12-07-2024 NoteHNO ID: [id number] Author: TUAN KEATING APRN.CNP Service: Clinical Cardiology Author Type: Nurse Practitioner Type: Progress Notes Filed: 01/14/2024 08:12 Note Text: CONSULT PROGRESS NOTES CARDIOVASCULAR MEDICINE [facility] Patient Name: Mio Simmons SERVICE DATE: 01/14/2024 SERVICE TIME: 8:09 AM CONSULTING SERVICE: CVM TEAM B Part of this note was copied from my service's previous note, all content has been individually reviewed, updated as necessary, and thoroughly reviewed, and patient assessed with updates/ changes documented/adjusted. INTERVAL HPI: Alert. Feeling well. NO CP or SOB. In NSR 60s. BP stable. ASSESSMENT AND RECOMMENDATIONS Current presentation for Abnormal stress test. S/p LHC with PCI to LAD. Brief new onset A fib CHADS2-Vasc Score Breakdown 1 Total Score 1 History of vascular disease Chads score is only 1, so will not start Eliquis Continue DAPT with ASA and Plavix Continue statin, started on BB Follow up with Phu Hart CNP in 2-3 weeks post discharge Stable for DC Assessment and Recommendations discussed and collaborated with Dr. Taylor MEDICATIONS: Current Facility-Administered Medications Medication Dose Route Frequency atorvastatin 40 mg tab(s) (LIPITOR) 40 mg ORAL DAILY clopidogrel 75 mg tab(s) (PLAVIX) 75 mg ORAL DAILY NaCl 0.9% iv flush bag 20 mL INTRAVENOUS PRN atropine 1 mg injection 1 mg INTRAVENOUS PRN NaCl 0.9% 1,000 mL iv bolus 1,000 mL INTRAVENOUS PRN PHENYLephrine 100 mcg injection (ELINOR-SYNEPHRINE) 100 mcg INTRAVENOUS PRN lidocaine 1%-EPINEPHrine 1:100,000 10 mL injection 10 mL SUBCUTANEOUS PRN NaCl 0.9% iv infusion 75 mL/hr INTRAVENOUS CONTINUOUS acetaminophen 650 mg tab(s) (TYLENOL) 650 mg ORAL q 6 H PRN Or acetaminophen 650 mg CUP (TYLENOL) 650 mg NASOGASTRIC q 6 H PRN oxyCODONE-acetaminophen 5-325 mg 1 tablet (PERCOCET) 1 tablet ORAL q 4 H PRN morphine 2 mg injection 2 mg INTRAVENOUS q 2 H PRN LORazepam 1 mg tab(s) (ATIVAN) 1 mg ORAL q 4 H PRN Or LORazepam 1 mg injection (ATIVAN) 1 mg INTRAVENOUS q 4 H PRN nitroglycerin sublingual 0.4 mg tab(s) (NITROQUICK) 0.4 mg SUBLINGUAL PRN docusate sodium 100 mg cap(s) (COLACE) 100 mg ORAL AT BEDTIME magnesium hydroxide 400 mg/5 mL 30 mL (MOM) 30 mL ORAL AT BEDTIME PRN aluminum AND magnesium hydroxide-simethicone 400-400-40 mg/5 mL 20 mL oral liquid (MAALOX PLUS EXTRA STRENGTH) 20 mL ORAL q 6 H PRN ondansetron (PF) 4 mg injection (ZOFRAN) 4 mg INTRAVENOUS q 6 H PRN metoprolol tartrate (short acting) 25 mg tab(s) (LOPRESSOR) 25 mg ORAL q 12 H psyllium 1 Packet (METAMUCIL) 1 Packet ORAL DAILY aspirin, enteric coated 81 mg tab(s) 81 mg ORAL DAILY PHYSICAL EXAM: BP 119/74 Pulse 66 Temp 36.6 ?C (97.9 ?F) (Oral) Resp 18 Ht 180.3 cm (5' 11) Wt 94.3 kg (208 lb) SpO2 94% BMI 29.01 kg/m? Body mass index is 29.01 kg/m?. GENERAL: no distress NEURO: AANDOx3 and moves all extremities x 4 HEENT: Head normocephalic NECK: no jugulovenous distention LUNGS: Lungs clear to auscultation. CARDIAC: normal S1 and S2; with no murmur EXTREMITIES: Extremities with no edema DATA: Telemetry: Reviewed Diagnostic tests reviewed for today's visit: Most recent labs Most recent imaging Most recent EKG SIGNATURE: Tuan Keating APRN.CNP DATE: January 14, 2024 TIME: 8:09 AM CONTACTING [facility] CARDIOVASCULAR MEDICINE: Team A: (M-F 8:00 am - 5:00 pm) Eliana Regan Miller, Rogers, Scharfstein, Sparano, Vekstein, Wiseman - PAGE [id number] Team B: (M-F 8:00 am - 5:00 pm) Andrew Kwok Kaminski, Kruithoff, Laczay, Mattina, [place], [place] - [place] [phone] Night and Weekend Cardiovascular Medicine (consults, inpatient management questions, transfers, etc.): CALL [phone] (not the physician listed) - All calls triaged via answering service. Please include the patient's name, location, MRN, and 10-digit call-back number. [facility]12-06-2024 NoteHNO ID: [id number] Author: PRAKASH WARNER RN Service: Nursing Author Type: Registered Nurse Type: Nursing Progress Note Filed: 01/13/2024 15:19 Note Text: Other: 1510 patient arrived to the floor; care resumed.[facility]12-06-2024 Evaluation note* Diagnosis Coronary artery disease involving coyote valley coronary artery of coyote valley heart without angina pectoris- Primary Stented coronary artery - MARCIAL to LAD 01/13/24 Postsurgical percutaneous transluminal coronary angioplasty status PAF (paroxysmal atrial fibrillation) (HCC) Atrial fibrillation PVC (premature ventricular contraction) Other premature beats Vasovagal syncope Syncope and collapse Pure hypercholesterolemia Central sleep apnea associated with atrial fibrillation (HCC) (HCC) documented in this encounter [facility]11-25-2024 Note* Addendum Note - Connie Taylor MD - 01/02/2024 5:02 PM ESTAddended by: CONNIE TAYLOR on: 01/02/2024 05:02 PM Modules accepted: Orders [facility]11-25-2024 Miscellaneous Notes* Addendum Note - Connie Taylor MD - 01/02/2024 5:02 PM ESTAddended by: CONNIE TAYLOR on: 01/02/2024 05:02 PM Modules accepted: Orders * Telephone Encounter - Connie Taylor MD - 01/02/2024 5:00 PM EST He will also need to start clopidogrel prior to his heart catheterization and stent.. I sent in a 90-day supply for him to his local pharmacy. He should start taking 75 mg once daily once he picks this up this week. He should take this along with aspirin 81 mg daily thanks * Telephone Encounter - Bre Bacon RN - 01/02/2024 2:[address] Taylor spoke with Maritza at [facility] to schedule patient for catheterization. Spoke with patient in office and relayed date/time and instructions. Patient understood and had no additional questions at this time. Instructions sent via [employer] for additional review. Bre Bacon RN Cardiac Catheterization at [facility] Address: [address], [place] [id number] Date: 01/13/24 Time: 10:30am, 9am arrival Physician: Dr Barajas Contrast Dye/Iodine allergy: No Arrive one and a half hours prior to procedure time and check in at [facility] You need to have a designated food mobile driver to take you home. If you have a coronary intervention (angioplasty/stent) you will stay overnight, otherwise you willbe discharged home later that day. Please have lab work drawn within 1 week prior to procedure. Nothing to eat or drink after midnight except medications with a small sip of water. Please take Aspirin if prescribed. If you need to cancel or have any questions/concerns please call the [place] cardiology office [phone]. documented [facility] Telephone encounter Note * Telephone Encounter - Connie Taylor MD - 01/02/2024 5:00 PM EST He will also need to start clopidogrel prior to his heart catheterization and stent.. I sent in a 90-day supply for him to his local pharmacy. He should start taking 75 mg once daily once he picks this up this week. He should take this along with aspirin 81 mg daily thanks [facility]11-25-2024 Telephone encounter Note* Telephone Encounter - Bre Bacon RN - 01/02/2024 2:[address] Taylor spoke with Maritza at [facility] to schedule patient for catheterization. Spoke with patient in office and relayed date/time and instructions. Patient understood and had no additional questions at this time. Instructions sent via [employer] for additional review. Bre Bacon RN Cardiac Catheterization at [facility] Address: [address], [place] [address] Date: 01/13/24 Time: 10:30am, 9am arrival Physician: Dr Barajas Contrast Dye/Iodine allergy: No Arrive one and a half hours prior to procedure time and check in at the [facility] You need to have a designated food mobile driver to take you home. If you have a coronary intervention (angioplasty/stent) you will stay overnight, otherwise you willbe discharged home later that day. Please have lab work drawn within 1 week prior to procedure. Nothing to eat or drink after midnight except medications with a small sip of water. Please take Aspirin if prescribed. If you need to cancel or have any questions/concerns please call the [place] cardiology office [phone]. 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 Noman Barajas at [facility] likely the week of January You do NOT need oral anticoagulation for your intermittent atrial fibrillation since you have only 1 stroke risk factor (CHADS-VASc2 = 1) I would recommend: Have an ECG and blood work today before you leave Start atorvastatin 40 mg daily Continue aspirin 81 mg daily Our office will reach out with an appointment time at [facility] for your stent You may require an additional coronary angiogram and likely additional arrhyhtmia monitoring after your stent before you are clear to fly again Set up appt in 6 months documented in this [facility] History of Present illness Narrative* Connie Taylor MD - 01/02/2024 1:40 PM EST Images from the original note were not included. [facility] [place] Oksana Zhao Department of Cardiovascular Medicine SECTION OF CLINICAL CARDIOLOGY OUTPATIENT VISIT DATE January 02, 2024 OUTPATIENT VISIT TYPE CONSULTATION PRIMARY CARE PHYSICIAN: Bonita Rao ([facility]) [address] [place] [address] REFERRING PHYSICIAN Bonita Rao ([facility]) [address] [facility] [address] CHIEF COMPLAINT: Coronary artery disease HISTORY OF PRESENT ILLNESS: Cardiac consultation at the request of Dr. Bonita Rao. A copy of this consultation note will be provided to the requesting physician by way of shared Medical record or letter to requesting physician via US mail. Mr. Simmons is a 63 year old male who is seen today for CAD. 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 This was felt to be a vasovagal episode after evaluation in the emergency department. He subsequently presented to his [facility], as he is acommercial airplane pilot photogrammetry. He was noted to have a complete right bundle branch block on ECG. Due to the syncope and abnormal EKG, he underwent consultation with a local real estate coordinator at [facility], Dr. Humberto Franco. He subsequently had an echocardiogram and stress test. During the stress test, he hadshort self terminating runs of atrial fibrillation in the recovery period. He also had nuclear SPECT images suggestive of a small territory of inferior wall ischemia. Echocardiogram showed preserved LV systolic function with no wall motion abnormalities and no valve disease. He subsequently underwent left heart catheterization on December 22 at [facility]. This showed single-vessel disease with severe 80% stenosis of the proximal LAD. The procedure was terminated at this point with intent for further discussion as to the best mode of revascularization-percutaneous versus surgical. Due to the stress test findings, he subsequently wore a Holter monitor. I reviewed a report of thismonitor. The patient wore a Holter for 7 days with 6 days and 20 hours available for analysis. Thisoccurred between November 29 and December 07, 2023. He was in sinus rhythm but did have 2.6% atrial fibrillation. There were a total of 4 episodes with the longest episode lasting 4.2 hours with heart rate ranging between 70 to 174 bpm with an average heart rate of 96 bpm. He had 16% PACs and 1.3% PVCs. The patient currently has no symptoms of angina even with heavy exertion. He denies any shortness of breath. He has had no further episodes of syncope. He denies any palpitations and his Apple Watch has not alerted him to any episodes of atrial fibrillation. He comes today for a second opinion regarding the optimal mode of revascularization for his coronary artery disease. I did have a chance to review his films with 2 of our [facility]ologists[facility] last week, both who felt that percutaneous revascularization was feasible andthe best option for him. He denies chest pain, shortness of breath, orthopnea, cough, edema, palpitations, PND, lightheadedness or syncope. PAST CARDIAC HISTORY: None PAST MEDICAL HISTORY Diagnosis Date Abnormal cardiovascular function study Abnormal ECG Deep vein thrombosis (DVT) (HCC) Incomplete right bundle branch block (RBBB) Intermittent chest pain Syncope Syncope due to orthostatic hypotension Varicose veins of legs No past surgical history on file. SOCIAL HISTORY Social History Tobacco Use Smoking status: Never Smokeless tobacco: Never Vaping Use Vaping status: Never Used Substance Use Topics Alcohol use: Never Drug use: Never FAMILY HISTORY Problem Relation Age of Onset other (atrial fibirillation) Mother Heart disease Father Cancer Father ALLERGIES: ALLERGIES No Known Allergies MEDICATIONS: aspirin (ASPIR-81 ORAL) Take 81 mg by mouth once daily. krill oil 500 mg cap Take 500 mg by mouth once daily. psyllium husk 0.4 gram cap Take 0.4 g by mouth once daily. multivitamin tablet Take 1 tablet by mouth once daily. sildenafil (VIAGRA) 50 mg tablet Take 50 mg by mouth as needed. REVIEW OF SYSTEMS: GENERAL: Negative for: Weight loss or gain, Fever or Chills, Weakness and Sleep difficulties. HEENT: Negative for: Headache, Impaired Vision, Glasses, Hearing Impairment, Ringing in Ears, Nosebleeds, Poor dental care, Bleeding Gums, Dentures NECK: Negative for: Swelling, Pain, Stiffness RESPIRATORY: Negative for: Cough, Blood in Sputum, Shortness of breath, Wheezing, Apnea GASTROINTESTINAL: Negative for: Trouble swallowing, Heartburn, Change in bowel habits, Blood in stool, Dark black stools MUSCULOSKELETAL: Negative for: Muscle or joint pain, Stiffness , Joint swelling NEUROLOGIC/PSYCHIATRIC: Negative for: Weakness, Paralysis, Numbness, Tingling, Tremor, Nervousness,Depressed mood, Memory loss SKIN: Negative for: Rashes, Itching HEMATOLOGICAL/LYMPHATIC: Negative for: Easy bruising , Easy bleeding ENDOCRINE: Negative for: Heat or cold intolerance, Excessive sweating, Frequent urination, Frequentthirst PHYSICAL EXAMINATION: BP 120/80 Pulse 74 Ht 180.3 cm (5' 11) Wt 96 kg (211 lb 10.3 oz) BMI 29.52 kg/m General: Well appearing, in no acute distress. Skin: No clubbing, no cyanosis. Eyes: Extra ocular movements intact Oropharynx: Teeth in good repair. Neck: No jugular venous distention, no carotid bruits, carotids have a normal upstroke, no palpablethyromegaly. Lungs: Clear to auscultation bilaterally, no wheezing or rhonchi. Heart: Regular rhythm, PMI not displaced, S1, S2 normal, no S3, no S4, no heaves, no rub and no murmur. Abdomen: Soft, nontender, bowel sounds normal, no palpable organomegaly, no bruits. Extremities: No peripheral edema . Grade 2/4 distal pulses bilaterally. Neuro: Oriented to person, place and time, alert, cooperative, gait coordinated. CARDIOVASCULAR MEDICINE TESTING: ECG today January 02, 2024 Treadmill nuclear stress test 12/15/2023 @[facility] Echocardiogram 12/15/2023 @[facility]-images personally reviewed Normal LVEF 65% no regional wall motion abnormalities Normal RV size and function No significant valvular heart disease Left heart catheterization December 23 2023 IMPRESSION: Encounter Diagnosis ICD-10-CM 1. Coronary artery disease involving coyote valley coronary artery of coyote valley heart without angina [id number] 2. PAF (paroxysmal atrial fibrillation) (HCC) I48.0 3. PVC (premature ventricular contraction) I49.3 4. Vasovagal syncope R55 5. 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 Noman Barajas at [facility] likely the 2nd week of January You do NOT need oral anticoagulation for your intermittent atrial fibrillation since you have only 1 stroke risk factor (CHADS-VASc2 = 1) I would recommend: Have an ECG and blood work today before you leave Start atorvastatin 40 mg daily Continue aspirin 81 mg daily Our office will reach out with an appointment time at [facility] for your stent You may require an additional coronary angiogram and likely additional arrhyhtmia monitoring after your stent before you are clear to fly again Set up appt in 6 months Medical Decision Making: Data: Unique test result(s) reviewed: 2 Unique test(s) ordered: 2 Independent interpretation of test from other physician/QHCP Risk: Moderate: Drug management High: High risk from testing/treatment Medical Decision Making Level: 5 - High Thank you very much for allowing me to assist in the care of Mio Simmons. Please do not hesitate tocontact me if you have questions or concerns. Connie Taylor MD CC: Bonita Rao ([facility]) [address] [place] [id number] documented in this encounterMer[facility]24 NoteHNO ID: [id number] Author: CONNIE TAYLOR MD Service: ? Author Type: Physician Type: Progress Notes Filed: 01/02/2024 17:00 Note Text: [facility] [place] Oksana Zhao Department of Cardiovascular Medicine SECTION OF CLINICAL CARDIOLOGY OUTPATIENT VISIT DATE January 02, 2024 OUTPATIENT VISIT TYPE CONSULTATION PRIMARY CARE PHYSICIAN: Bonita Rao ([facility]) [address] [place] [address] REFERRING PHYSICIAN Bonita Ibrahim) [address] [facility] [address] CHIEF COMPLAINT: Coronary artery disease HISTORY OF PRESENT ILLNESS: Cardiac consultation at the request of Dr. Bonita Rao. A copy of this consultation note will be provided to the requesting physician by way of shared Medical record or letter to requesting physician via US mail. Mr. Simmons is a 63 year old male who is seen today for CAD. 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 This was felt to be a vasovagal episode after evaluation in the emergency department. 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 He was noted to have a complete right bundle branch block on ECG. Due to the syncope and abnormal EKG, he underwent consultation with a local real estate coordinator at [facility], Dr. Humberto Franco. He subsequently had an echocardiogram and stress test. During the stress test, he had short self terminating runs of atrial fibrillation in the recovery period. He also had nuclear SPECT images suggestive of a small territory of inferior wall ischemia. Echocardiogram showed preserved LV systolic function with no wall motion abnormalities and no valve disease. He subsequently underwent left heart catheterization on December 22 at [facility]. This showed single-vessel disease with severe 80% stenosis of the proximal LAD. The procedure was terminated at this point with intent for further discussion as to the best mode of revascularization-percutaneous versus surgical. Due to the stress test findings, he subsequently wore a Holter monitor. I reviewed a report of this monitor. The patient wore a Holter for 7 days with 6 days and 20 hours available for analysis. This occurred between November 29 and December 07, 2023. He was in sinus rhythm but did have 2.6% atrial fibrillation. There were a total of 4 episodes with the longest episode lasting 4.2 hours with heart rate ranging between 70 to 174 bpm with an average heart rate of 96 bpm. He had 16% PACs and 1.3% PVCs. The patient currently has no symptoms of angina even with heavy exertion. He denies any shortness of breath. He has had no further episodes of syncope. He denies any palpitations and his Apple Watch has not alerted him to any episodes of atrial fibrillation. He comes today for a second opinion regarding the optimal mode of revascularization for his coronary artery disease. I did have a chance to review his films with 2 of our interventional cardiologists at [facility] last week, both who felt that percutaneous revascularization was feasible and the best option for him. He denies chest pain, shortness of breath, orthopnea, cough, edema, palpitations, PND, lightheadedness or syncope. PAST CARDIAC HISTORY: None PAST MEDICAL HISTORY Diagnosis Date Abnormal cardiovascular function study Abnormal ECG Deep vein thrombosis (DVT) (HCC) Incomplete right bundle branch block (RBBB) Intermittent chest pain Syncope Syncope due to orthostatic hypotension Varicose veins of legs No past surgical history on file. SOCIAL HISTORY Social History Tobacco Use Smoking status: Never Smokeless tobacco: Never Vaping Use Vaping status: Never Used Substance Use Topics Alcohol use: Never Drug use: Never FAMILY HISTORY Problem Relation Age of Onset other (atrial fibirillation) Mother Heart disease Father Cancer Father ALLERGIES: ALLERGIES No Known Allergies MEDICATIONS: aspirin (ASPIR-81 ORAL) Take 81 mg by mouth once daily. krill oil 500 mg cap Take 500 mg by mouth once daily. psyllium husk 0.4 gram cap Take 0.4 g by mouth once daily. multivitamin tablet Take 1 tablet by mouth once daily. sildenafil (VIAGRA) 50 mg tablet Take 50 mg by mouth as needed. REVIEW OF SYSTEMS: GENERAL: Negative for: Weight loss or gain, Fever or Chills, Weakness and Sleep difficulties. HEENT: Negative for: Headache, Impaired Vision, Glasses, Hearing Impairment, Ringing in Ears, Nosebleeds, Poor dental care, Bleeding Gums, Dentures NECK: Negative for: Swelling, Pain, Stiffness RESPIRATORY: Negative for: Cough, Blood in Sputum, Shortness of breath, Wheezing, Apnea GASTROINTESTINAL: Negative for: Trouble swallowing, Heartburn, Change in bowel habits, Blood in stool, Dark black stools MUSCULOSKELETAL: Negative for: Muscle or joint pain, Stiffness , Joint sw (more content not included)...[facility]11-18-2024 Telephone encounter Note* Telephone Encounter - Connie Haskins - 12/26/2023 12:38 PM EST PT was scheduled as requested [facility]11-18-2024 Miscellaneous Notes* Telephone Encounter - Connie Haskins - 12/26/2023 12:38 PM EST PT was scheduled as requested * Telephone Encounter - Yolanda Canas RN - 12/26/2023 11:53 AM EST Spoke with pt and added on Tuesday at 1:40pm - will have PSS add pt to schedule as I am unable Yolanda Canas RN * Telephone Encounter - Connie Taylor MD - 12/26/2023 11:48 AM EST This patient is going to drop off a CD of his heart catheterization that was done recently. He wants a second opinion from [facility] Please schedule him with me next week on Tuesday or Tuesday at 1:40 PM in the afternoon either day. documented in this encounterMer[facility]11-[facility]24 Telephone encounter Note * Telephone Encounter - Yolanda Canas RN - 12/26/2023 11:53 AM EST Spoke with pt and added on Tuesday at 1:40pm - will have PSS add pt to schedule as I am unable Yolanda Canas RN [facility]11-18-2024 Telephone encounter Note* Telephone Encounter - Connie Taylor MD - 12/26/2023 11:48 AM EST This patient is going to drop off a CD of his heart catheterization that was done recently. He wants a second opinion from [facility] Please schedule him with me next week on Tuesday or Tuesday at 1:40 PM in the afternoon either day. [facility] Work Phone: 1(415) 737-590407-02-2024 History of Present illness Narrative* Shira Poole, RT(R) - 08/09/2023 3:50 PM EDT Radiology Service Progress Note PATIENT NAME: Mio Simmons DATE OF SERVICE: August 09, 2023 TIME: 3:38 PM PATIENT IDENTITY VERIFICATION COMPLETED USING TWO (2) IDENTIFIERS: Name and Date of confirmedby patient verbally. FALL SCREENING: Has the patient had 2 falls in the last year or 1 fall with injury or currently using an Ambulatory Assistive Device (Walker, Cane, Wheelchair, Crutches, etc.)? No PATIENT GENDER DATA: Male PATIENT RELEVANT IMPLANT DATA REVIEWED: Yes PATIENT PRESENTS WITH AN IMPLANTABLE OR ATTACHED COMPUTER GRAPHIC ARTIST: No RADIOLOGY DEPARTMENT: General X-ray: Exam(s) Completed: Chest X-Ray PERIPHERAL IV DATA: Not applicable SIGNED BY: JOY Olson) August 09, 2023 3:38 PM documented in this encounterMer[facility]07-02-2024 NoteHNO ID: [id number] Author: SHIRA POOLE RT(R) Service: Radiology Author Type: Technologist Type: Progress Notes Filed: 08/09/2023 15:48 Note Text: Radiology Service Progress Note PATIENT NAME: Mio Simmons DATE OF SERVICE: August 09, 2023 TIME: 3:38 PM PATIENT IDENTITY VERIFICATION COMPLETED USING TWO (2) IDENTIFIERS: Name and Date of confirmed by patient verbally. FALL SCREENING: Has the patient had 2 falls in the last year or 1 fall with injury or currently using an Ambulatory Assistive Device (Walker, Cane, Wheelchair, Crutches, etc.)? No PATIENT GENDER DATA: Male PATIENT RELEVANT IMPLANT DATA REVIEWED: Yes PATIENT PRESENTS WITH AN IMPLANTABLE OR ATTACHED COMPUTER GRAPHIC ARTIST: No RADIOLOGY DEPARTMENT: General X-ray: Exam(s) Completed: Chest X-Ray PERIPHERAL IV DATA: Not applicable SIGNED BY: JOY Olson) August 09, 2023 3:38 [facility]07-02-2024 NoteHNO ID: [id number] Author: MADELIN SCHAFER PA Service: ? Author Type: Physician Shipping & Receiving Lead Type: Progress Notes Filed: 08/09/2023 16:01 Note Text: This note was created using [employer] Subjective Mio Simmons is a 62 year old male. HPI 62-year-old male presents for cough, fatigue, congestion x 10 days. Patient states that he started getting sick about 10 days ago. He was seen here on 07/30 and diagnosed with influenza A. He was not treated with Tamiflu as he was out of the window. Patient states that his cough is persistent and not getting any better. He states he occasionally he gets into coughing fits. His cough is dry. No chest pain or shortness of breath. No history of pneumonia, COPD or asthma. He denies any fevers. He states that he just feels rundown still as well. He has a little bit of nasal congestion. He has not taken any medications [id number] for the past several days. No other complaint. No past medical history on file. No past surgical history on file. ALLERGIES Patient has no known allergies. MEDICATIONS predniSONE (DELTASONE) 10 mg tablet Take 4 tabs daily for 3 days, then 2 tabs daily for 3 days, then 1 tab daily for 3 days with food. (Patient not taking: Reported on 07/31/2023) famotidine (PEPCID) 20 mg tablet Take 1 tablet by mouth at bedtime as needed. (Patient not taking: Reported on 07/31/2023) No family history on file. Social History Tobacco Use Smoking status: Never Smokeless tobacco: Never Review of Systems Constitutional: Positive for fatigue. Negative for chills and fever. HENT: Positive for congestion. Negative for sore throat. Respiratory: Positive for cough. Negative for shortness of breath. Gastrointestinal: Negative for diarrhea and vomiting. Objective BP 108/66 Pulse 90 Temp 36.3 ?C (97.3 ?F) Resp 16 Wt 96.9 kg (213 lb 10 oz) SpO2 97% Physical Exam Vitals and nursing note reviewed. Constitutional: General: He is not in acute distress. Appearance: Normal appearance. He is not toxic-appearing. HENT: Right Ear: Tympanic membrane and ear canal normal. Left Ear: Tympanic membrane and ear canal normal. Nose: Nose normal. No congestion. Mouth/Throat: Mouth: Mucous membranes are moist. Pharynx: Oropharynx is clear. No oropharyngeal exudate or posterior oropharyngeal erythema. Eyes: Conjunctiva/sclera: Conjunctivae normal. Cardiovascular: Rate and Rhythm: Normal rate and regular rhythm. Pulmonary: Effort: Pulmonary effort is normal. Breath sounds: Normal breath sounds. No wheezing, rhonchi or rales. Skin: General: Skin is warm and dry. Neurological: Mental Status: He is alert. Assessment and Plan ASSESSMENT/PLAN: 1. Acute cough - ICD9: 786.2, ICD10: R05.1 (primary diagnosis) - XR CHEST 2V FRONTAL/LAT-no acute radiographic abnormality. -Diagnosed with influenza A 10 days ago. -No pneumonia on CXR. -Suspect bronchitis. Rx for prednisone. Rx for Tessalon Perles. 2. Influenza A - ICD9: 487.1, ICD10: J10.1 -See above. Diagnosis and treatment plan were discussed and questions were answered to the patient's satisfaction. Pt acknowledged understanding of concepts and follow up plan. Specific signs and symptoms that would indicate the need for higher level of care were discussed in detail warranting prompt ER evaluation. Madelin Schafer [facility]07-02-2024 History of Present illness Narrative* Madelin Schafer PA - 08/09/2023 3:35 PM EDT This note was created using [employer]. Subjective Mio Simmons is a 62 year old male. HPI 62-year-old male presents for cough, fatigue, congestion x 10 days. Patient states that he started getting sick about 10 days ago. He was seen here on 07/30 and diagnosed with influenza A. He was not treated with Tamiflu as he was out of the window. Patient states that his cough is persistent and not getting any better. He states he occasionally he gets into coughing fits. His cough is dry. Nochest pain or shortness of breath. No history of pneumonia, COPD or asthma. He denies any fevers. He states that he just feels rundown still as well. He has a little bit of nasal congestion. He has not taken any medications [id number] for the past several days. No other complaint. No past medical history on file. No past surgical history on file. ALLERGIES Patient has no known allergies. MEDICATIONS predniSONE (DELTASONE) 10 mg tablet Take 4 tabs daily for 3 days, then 2 tabs daily for 3 days, then 1 tab daily for 3 days with food. (Patient not taking: Reported on 07/31/2023) famotidine (PEPCID) 20 mg tablet Take 1 tablet by mouth at bedtime as needed. (Patient not taking: Reported on 07/31/2023) No family history on file. Social History Tobacco Use Smoking status: Never Smokeless tobacco: Never Review of Systems Constitutional: Positive for fatigue. Negative for chills and fever. HENT: Positive for congestion. Negative for sore throat. Respiratory: Positive for cough. Negative for shortness of breath. Gastrointestinal: Negative for diarrhea and vomiting. Objective BP 108/66 Pulse 90 Temp 36.3 C (97.3 F) Resp 16 Wt 96.9 kg (213 lb 10 oz) SpO2 97% Physical Exam Vitals and nursing note reviewed. Constitutional: General: He is not in acute distress. Appearance: Normal appearance. He is not toxic-appearing. HENT: Right Ear: Tympanic membrane and ear canal normal. Left Ear: Tympanic membrane and ear canal normal. Nose: Nose normal. No congestion. Mouth/Throat: Mouth: Mucous membranes are moist. Pharynx: Oropharynx is clear. No oropharyngeal exudate or posterior oropharyngeal erythema. Eyes: Conjunctiva/sclera: Conjunctivae normal. Cardiovascular: Rate and Rhythm: Normal rate and regular rhythm. Pulmonary: Effort: Pulmonary effort is normal. Breath sounds: Normal breath sounds. No wheezing, rhonchi or rales. Skin: General: Skin is warm and dry. Neurological: Mental Status: He is alert. Assessment and Plan ASSESSMENT/PLAN: 1. Acute cough - ICD9: 786.2, ICD10: R05.1 (primary diagnosis) - XR CHEST 2V FRONTAL/LAT-no acute radiographic abnormality. -Diagnosed with influenza A 10 days ago. -No pneumonia on CXR. -Suspect bronchitis. Rx for prednisone. Rx for Tessalon Perles. 2. Influenza A - ICD9: 487.1, ICD10: J10.1 -See above. Diagnosis and treatment plan were discussed and questions were answered to the patient's satisfaction. Pt acknowledged understanding of concepts and follow up plan. Specific signs and symptoms that would indicate the need for higher level of care were discussed in detail warranting prompt ER evaluation. BA Carter documented [facility] NoteHNO ID: [id number] Author: HILTON CLEVELAND APRN.CANDI Service: ? Author Type: Nurse Practitioner Type: Progress Notes Filed: 07/31/2023 09:55 Note Text: This note was created using [employer] Subjective Mio Simmons is a 62 year old male. HPI About three days ago pt started with cough and sore throat. Over the last day or so he has developed fever, chills and ear pain. Patient did test for COVID yesterday but he notes that the test was old. Review of Systems Constitutional: Positive for fatigue and fever. HENT: Positive for ear pain and sore throat. Respiratory: Positive for cough. Musculoskeletal: Positive for arthralgias. Objective BP 125/86 Pulse 97 Temp 36.6 ?C (97.8 ?F) Resp 18 Wt 95 kg (209 lb 7 oz) SpO2 98% Physical Exam Vitals and nursing note reviewed. Constitutional: General: He is not in acute distress. Appearance: Normal appearance. He is not ill-appearing. HENT: Head: Normocephalic. Mouth/Throat: Mouth: Mucous membranes are moist. Pharynx: No posterior oropharyngeal erythema. Eyes: Conjunctiva/sclera: Conjunctivae normal. Cardiovascular: Rate and Rhythm: Normal rate and regular rhythm. Pulmonary: Effort: Pulmonary effort is normal. Breath sounds: Normal breath sounds. Musculoskeletal: General: Normal range of motion. Cervical back: Normal range of motion. Skin: General: Skin is warm and dry. Neurological: General: No focal deficit present. Mental Status: He is alert. Psychiatric: Mood and Affect: Mood normal. Behavior: Behavior normal. Assessment and Plan ASSESSMENT/PLAN: 1. URI, acute - ICD9: 465.9, ICD10: J06.9 - Discussed viral etiology and rationale for treatment. - Symptomatic treatment with prn analgesia - Supportive care with fluids and rest - Follow up in one week if symptoms persist or sooner if worsening of symptoms -Patient tested for influenza and COVID. - COVID AND INFLUENZA A/B AND RSV NAAT, ROUTINE Hilton DAYNE [place].[facility] History of Present illness Narrative* Hilton [place] APRN.CNP - 07/31/2023 9:48 AM EDT This note was created using [employer]. Subjective Mio Simmons is a 62 year old male. HPI About three days ago pt started with cough and sore throat. Over the last day or so he has developed fever, chills and ear pain. Patient did test for COVID yesterday but he notes that the test was old. Review of Systems Constitutional: Positive for fatigue and fever. HENT: Positive for ear pain and sore throat. Respiratory: Positive for cough. Musculoskeletal: Positive for arthralgias. Objective BP 125/86 Pulse 97 Temp 36.6 C (97.8 F) Resp 18 Wt 95 kg (209 lb 7 oz) SpO2 98% Physical Exam Vitals and nursing note reviewed. Constitutional: General: He is not in acute distress. Appearance: Normal appearance. He is not ill-appearing. HENT: Head: Normocephalic. Mouth/Throat: Mouth: Mucous membranes are moist. Pharynx: No posterior oropharyngeal erythema. Eyes: Conjunctiva/sclera: Conjunctivae normal. Cardiovascular: Rate and Rhythm: Normal rate and regular rhythm. Pulmonary: Effort: Pulmonary effort is normal. Breath sounds: Normal breath sounds. Musculoskeletal: General: Normal range of motion. Cervical back: Normal range of motion. Skin: General: Skin is warm and dry. Neurological: General: No focal deficit present. Mental Status: He is alert. Psychiatric: Mood and Affect: Mood normal. Behavior: Behavior normal. Assessment and Plan ASSESSMENT/PLAN: 1. URI, acute - ICD9: 465.9, ICD10: J06.9 - Discussed viral etiology and rationale for treatment. - Symptomatic treatment with prn analgesia - Supportive care with fluids and rest - Follow up in one week if symptoms persist or sooner if worsening of symptoms -Patient tested for influenza and COVID. - COVID & INFLUENZA A/B & RSV NAAT, ROUTINE Hilton DAYNE [place].[employer] documented in this encounterMer[facility]06-04-2024 NoteHNO ID: [id number] Author: OLIVIA MORENO APRN.[facility] Service: ? Author Type: Nurse Practitioner Type: Progress Notes Filed: 07/12/2023 09:13 Note Text: This note was created using [employer]. Subjective Mio Simmons is a 62 year old male. 62 year old male with no PMH presents for rash. Acute onset of symptoms was yesterday Left hand +red and itchy rash States that he was working in the garden the day prior +exposure to poison sandra Denies URI sx Denies fever or chills Denies malaise or fatigue Denies new lotions, soaps, or medicines The history is provided by the patient. No cotton bag clipper was used. Rash This is a new problem. The current episode started yesterday. The problem is unchanged. Location: left hand. The rash is characterized by redness and itchiness. He was exposed to plant contact. Pertinent negatives include no anorexia, congestion, cough, diarrhea, eye pain, facial edema, fatigue, fever, joint pain, nail changes, rhinorrhea, shortness of breath, sore throat or vomiting. Past treatments include nothing. The treatment provided no relief. There is no history of allergies, asthma, eczema or varicella. No past medical history on file. No past surgical history on file. ALLERGIES Patient has no known allergies. MEDICATIONS predniSONE (DELTASONE) 10 mg tablet Take 4 tabs daily for 3 days, then 2 tabs daily for 3 days, then 1 tab daily for 3 days with food. famotidine (PEPCID) 20 mg tablet Take 1 tablet by mouth at bedtime as needed. No family history on file. Social History Tobacco Use Smoking status: Never Smokeless tobacco: Never Review of Systems Constitutional: Negative for activity change, appetite change, fatigue and fever. HENT: Negative for congestion, rhinorrhea and sore throat. Eyes: Negative for pain, discharge and itching. Respiratory: Negative for apnea, cough, chest tightness and shortness of breath. Cardiovascular: Negative for chest pain, palpitations and leg swelling. Gastrointestinal: Negative for anorexia, diarrhea and vomiting. Musculoskeletal: Negative for arthralgias, back pain, gait problem and joint pain. Skin: Positive for rash. Negative for nail changes. Allergic/Immunologic: Negative for environmental allergies, food allergies and immunocompromised state. Neurological: Negative for dizziness, facial asymmetry, light-headedness and headaches. Hematological: Negative for adenopathy. Does not bruise/bleed easily. Psychiatric/Behavioral: Negative for agitation and behavioral problems. Objective BP 118/78 Pulse (!) 50 Temp 36.3 ?C (97.4 ?F) (Tympanic) Resp 16 Wt 100.6 kg (221 lb 12.5 oz) SpO2 97% Physical Exam Vitals and nursing note reviewed. Constitutional: General: He is not in acute distress. Appearance: Normal appearance. He is not ill-appearing, toxic-appearing or diaphoretic. HENT: Head: Normocephalic and atraumatic. Right Ear: External ear normal. Left Ear: External ear normal. Nose: Nose normal. No congestion or rhinorrhea. Mouth/Throat: Mouth: Mucous membranes are moist. Pharynx: Oropharynx is clear. No oropharyngeal exudate or posterior oropharyngeal erythema. Eyes: General: Right eye: No discharge. Left eye: No discharge. Extraocular Movements: Extraocular movements intact. Conjunctiva/sclera: Conjunctivae normal. Pupils: Pupils are equal, round, and reactive to light. Cardiovascular: Rate and Rhythm: Normal rate and regular rhythm. Pulses: Normal pulses. Heart sounds: Normal heart sounds. No murmur heard. No friction rub. No gallop. Pulmonary: Effort: Pulmonary effort is normal. No respiratory distress. Breath sounds: Normal breath sounds. No stridor. No wheezing, rhonchi or rales. Chest: Chest wall: No tenderness. Abdominal: General: Abdomen is flat. There is no distension. Palpations: Abdomen is soft. There is no mass. Tenderness: There is no abdominal tenderness. There is no guarding or rebound. Hernia: No hernia is present. Musculoskeletal: General: No swelling, tenderness, deformity or signs of injury. Normal range of motion. Cervical back: Normal range of motion and neck supple. No rigidity or tenderness. Right lower leg: No edema. Left lower leg: No edema. Lymphadenopathy: Cervical: No cervical adenopathy. Skin: General: Skin is warm and dry. Capillary Refill: Capillary refill takes less than 2 seconds. Coloration: Skin is not jaundiced or pale. Findings: Rash (Left middle finger with pruritic erythemetic streak like rash. Similiar noted to index finger and thumb) present. No bruising or lesion. Neurological: General: No focal deficit present. Mental Status: He is alert and oriented to person, place, and time. Cranial Nerves: No cranial nerve deficit. Sensory: No sensory deficit. Motor: No weakness. Coordination: Coordination normal. Gait: Gait normal. Deep Tendon Reflexes: Reflexes normal. Psychiatri (more content not included)...[facility]06-04-2024 History of Present illness Narrative* Olivia Moreno APRN.[facility] - 07/12/2023 9:04 AM EDT This note was created using [employer]. Subjective Mio Simmons is a 62 year old male. 62 year old male with no PMH presents for rash. Acute onset of symptoms was yesterday Left hand +red and itchy rash States that he was working in the garden the day prior +exposure to poison sandra Denies URI sx Denies fever or chills Denies malaise or fatigue Denies new lotions, soaps, or medicines The history is provided by the patient. No cotton bag clipper was used. Rash This is a new problem. The current episode started yesterday. The problem is unchanged. Location: left hand. The rash is characterized by redness and itchiness. He was exposed to plant contact. Pertinent negatives include no anorexia, congestion, cough, diarrhea, eye pain, facial edema, fatigue, fever, joint pain, nail changes, rhinorrhea, shortness of breath, sore throat or vomiting. Past treatments include nothing. The treatment provided no relief. There is no history of allergies, asthma, eczema or varicella. No past medical history on file. No past surgical history on file. ALLERGIES Patient has no known allergies. MEDICATIONS predniSONE (DELTASONE) 10 mg tablet Take 4 tabs daily for 3 days, then 2 tabs daily for 3 days, then 1 tab daily for 3 days with food. famotidine (PEPCID) 20 mg tablet Take 1 tablet by mouth at bedtime as needed. No family history on file. Social History Tobacco Use Smoking status: Never Smokeless tobacco: Never Review of Systems Constitutional: Negative for activity change, appetite change, fatigue and fever. HENT: Negative for congestion, rhinorrhea and sore throat. Eyes: Negative for pain, discharge and itching. Respiratory: Negative for apnea, cough, chest tightness and shortness of breath. Cardiovascular: Negative for chest pain, palpitations and leg swelling. Gastrointestinal: Negative for anorexia, diarrhea and vomiting. Musculoskeletal: Negative for arthralgias, back pain, gait problem and joint pain. Skin: Positive for rash. Negative for nail changes. Allergic/Immunologic: Negative for environmental allergies, food allergies and immunocompromised state. Neurological: Negative for dizziness, facial asymmetry, light-headedness and headaches. Hematological: Negative for adenopathy. Does not bruise/bleed easily. Psychiatric/Behavioral: Negative for agitation and behavioral problems. Objective BP 118/78 Pulse (!) 50 Temp 36.3 C (97.4 F) (Tympanic) Resp 16 Wt 100.6 kg (221 lb 12.5 oz) SpO2 97% Physical Exam Vitals and nursing note reviewed. Constitutional: General: He is not in acute distress. Appearance: Normal appearance. He is not ill-appearing, toxic-appearing or diaphoretic. HENT: Head: Normocephalic and atraumatic. Right Ear: External ear normal. Left Ear: External ear normal. Nose: Nose normal. No congestion or rhinorrhea. Mouth/Throat: Mouth: Mucous membranes are moist. Pharynx: Oropharynx is clear. No oropharyngeal exudate or posterior oropharyngeal erythema. Eyes: General: Right eye: No discharge. Left eye: No discharge. Extraocular Movements: Extraocular movements intact. Conjunctiva/sclera: Conjunctivae normal. Pupils: Pupils are equal, round, and reactive to light. Cardiovascular: Rate and Rhythm: Normal rate and regular rhythm. Pulses: Normal pulses. Heart sounds: Normal heart sounds. No murmur heard. No friction rub. No gallop. Pulmonary: Effort: Pulmonary effort is normal. No respiratory distress. Breath sounds: Normal breath sounds. No stridor. No wheezing, rhonchi or rales. Chest: Chest wall: No tenderness. Abdominal: General: Abdomen is flat. There is no distension. Palpations: Abdomen is soft. There is no mass. Tenderness: There is no abdominal tenderness. There is no guarding or rebound. Hernia: No hernia is present. Musculoskeletal: General: No swelling, tenderness, deformity or signs of injury. Normal range of motion. Cervical back: Normal range of motion and neck supple. No rigidity or tenderness. Right lower leg: No edema. Left lower leg: No edema. Lymphadenopathy: Cervical: No cervical adenopathy. Skin: General: Skin is warm and dry. Capillary Refill: Capillary refill takes less than 2 seconds. Coloration: Skin is not jaundiced or pale. Findings: Rash (Left middle finger with pruritic erythemetic streak like rash. Similiar noted to index finger and thumb) present. No bruising or lesion. Neurological: General: No focal deficit present. Mental Status: He is alert and oriented to person, place, and time. Cranial Nerves: No cranial nerve deficit. Sensory: No sensory deficit. Motor: No weakness. Coordination: Coordination normal. Gait: Gait normal. Deep Tendon Reflexes: Reflexes normal. Psychiatric: Mood and Affect: Mood normal. Behavior: Behavior normal. Thought Content: Thought content normal. Assessment and Plan ASSESSMENT/PLAN: 1. Contact dermatitis due to plant - ICD9: 692.6, ICD10: L25.5 X 1 day No red flags - Oral Steriod tx -Prednisone taper Discussed topical steroids with patient, but he endorses that never works, I can feel it spreading RX Pepcid as well. - Topical steriod tx with OTC 1% Hydrocortisone cream - Anti itch therapy of Oatmeal baths and Oral Benydryl recommended prn - discussed skin care of rash - follow up if symptoms persist or worsen. Olivia oMreno APRN.[employer] documented in this encounterMer[facility]04-27-2024 NoteHNO ID: [id number] Author: INOCENCIO RIVERA MD Service: ? Author Type: Physician Type: Progress Notes Filed: 06/04/2023 10:54 Note Text: Patient presents with: Ear Pain: left x this am HPI: Left ear pain: Duration: woke him up overnight Location: left ear Character: aching Radiation: No. Relieving: peroxide Pain relievers: none Associated: Hx of cerumen impaction Pertinent negatives: Denies otorrhea, fever, hearing loss, nasal congestion, sinus pressure, sore throat, cough MEDICATIONS: No prescriptions on file. ALLERGIES: ALLERGIES No Known Allergies VITALS: BP 124/64 Pulse 78 Temp 36.6 ?C (97.8 ?F) Resp 16 Wt 99 kg (218 lb 4.1 oz) SpO2 95% PHYSICAL EXAM: GEN: pleasant, alert, no acute distress Eyes: PERRL, EOMI, sclera clear Ears: left Canal clear. No TMJ tenderness. TMs without erythema, bulge, or effusion after removal. Sinuses: non-tender frontal, non-tender maxillary Mouth/throat: MMM, no pharyngeal erythema or exudate Neck: Supple, no thyromegaly, nontender, no lymphadenopathy Heart: regular rate and rhythm, no murmurs Lungs: clear to auscultation ASSESSMENT/PLAN: 1. Impacted cerumen of left ear - ICD9: 380.4, ICD10: H61.22 - AMBULATORY EAR LAVAGE/IRRIGATION -successful removal by staff water lavage. Symptoms improved after procedure. Inocencio Rivera, [facility]04-27-2024 History of Present illness Narrative* Inocencio Rivera MD - 06/04/2023 10:27 AM EDT Patient presents with: Ear Pain: left x this am HPI: Left ear pain: Duration: woke him up overnight Location: left ear Character: aching Radiation: No. Relieving: peroxide Pain relievers: none Associated: Hx of cerumen impaction Pertinent negatives: Denies otorrhea, fever, hearing loss, nasal congestion, sinus pressure, sore throat, cough MEDICATIONS: No prescriptions on file. ALLERGIES: ALLERGIES No Known Allergies VITALS: BP 124/64 Pulse 78 Temp 36.6 C (97.8 F) Resp 16 Wt 99 kg (218 lb 4.1 oz) SpO2 95% PHYSICAL EXAM: GEN: pleasant, alert, no acute distress Eyes: PERRL, EOMI, sclera clear Ears: left Canal clear. No TMJ tenderness. TMs without erythema, bulge, or effusion after removal. Sinuses: non-tender frontal, non-tender maxillary Mouth/throat: MMM, no pharyngeal erythema or exudate Neck: Supple, no thyromegaly, nontender, no lymphadenopathy Heart: regular rate and rhythm, no murmurs Lungs: clear to auscultation ASSESSMENT/PLAN: 1. Impacted cerumen of left ear - ICD9: 380.4, ICD10: H61.22 - AMBULATORY EAR LAVAGE/IRRIGATION -successful removal by staff water lavage. Symptoms improved after procedure. Inocencio Rivera MD documented in this encounterMer[facility]03-27-2023 History of Present illness Narrative* Chelsey Guadalupe APRN.[facility] - 05/03/2022 12:01 PM EDT Subjective Sinus Problem Associated symptoms include congestion, coughing and a sore throat. Pertinent negatives include no chills, fever or myalgias. Mio Simmons is a 61 year old male who presents with one day of cough, sinus congestion, sore throat, left ear feels clogged. He has not had a fever. He has not had any knownsick contacts. He has taken Dayquil at home for his symptoms. Review of Systems Constitutional: Negative for chills and fever. HENT: Positive for congestion, hearing loss and sore throat. Negative for ear pain. Respiratory: Positive for cough. Cardiovascular: Negative. Musculoskeletal: Negative for myalgias. BP 104/64 Pulse 80 Temp 36.1 C (97 F) Resp 21 Wt 96.7 kg (213 lb 3.2 oz) SpO2 99% No past medical history on file. No past surgical history on file. ALLERGIES Patient has no known allergies. MEDICATIONS benzonatate (TESSALON PERLE) 100 mg capsule Take 2 capsules by mouth three times daily as needed. (Patient not taking: Reported on 05/11/2021 ) fluticasone (FLONASE) 50 mcg/actuation nasal spray Use 2 Sprays in each nostril once daily. Rinse mouth after use. (Patient not taking: Reported on 05/11/2021 ) triamcinolone acetonide (KENALOG) 0.1 % cream Apply 1 application to affected area three times daily. Apply sparingly to area for rash/itching. (Patient not taking: Reported on 12/20/2017 ) albuterol HFA (VENTOLIN HFA) 90 mcg/actuation inhaler Inhale 2 Puffs as instructed every 4 hours asneeded for Wheezing/Shortness of Breath. (Patient not taking: Reported on 08/14/2016) No family history on file. Social History Tobacco Use Smoking status: Never Smokeless tobacco: Never Objective Physical Exam Vitals and nursing note reviewed. Constitutional: General: He is not in acute distress. Appearance: Normal appearance. He is not toxic-appearing. HENT: Right Ear: Tympanic membrane, ear canal and external ear normal. Left Ear: Tympanic membrane, ear canal and external ear normal. Nose: Nose normal. Mouth/Throat: Pharynx: Uvula midline. No oropharyngeal exudate or posterior oropharyngeal erythema. Cardiovascular: Rate and Rhythm: Normal rate and regular rhythm. Heart sounds: Normal heart sounds. Pulmonary: Effort: Pulmonary effort is normal. No respiratory distress. Breath sounds: Normal breath sounds. No wheezing or rales. Musculoskeletal: Cervical back: Neck supple. Lymphadenopathy: Cervical: No cervical adenopathy. Skin: General: Skin is warm and dry. Findings: No erythema or rash. Neurological: Mental Status: He is alert. ASSESSMENT/PLAN: 1. Viral URI with cough - ICD9: 465.9, ICD10: J06.9 - Discussed viral etiology and rationale for treatment. - Symptomatic treatment with prn analgesia - Supportive care with fluids and rest - may use flonase nasal spray for nasal congestion. - COVID WITH FLUA+B, ROUTINE - Follow-up with your PCP in 3-5 days if symptoms have not improved or sooner if symptoms worsen - Discussed red flags and need for immediate medical evaluation if any occur. - Discussed supportive care treatment with fluids, rest and analgesia. - Discussed expected course of illness Chelsey Guadalupe APRN.CNP documented in this [facility] Instructions* Patient Instructions* Chelsey Guadalupe APRN.CNP - 05/03/2022 12:01 PM EDT ASSESSMENT/PLAN: 1. Viral URI with cough - ICD9: 465.9, ICD10: J06.9 - Discussed viral etiology and rationale for treatment. - Symptomatic treatment with prn analgesia - Supportive care with fluids and rest - may use flonase nasal spray for nasal congestion. - COVID WITH FLUA+B, ROUTINE - Follow-up with your PCP in 3-5 days if symptoms have not improved or sooner if symptoms worsen - Discussed red flags and need for immediate medical evaluation if any occur. - Discussed supportive care treatment with fluids, rest and analgesia. - Discussed expected course of illness Chelsey Guadalupe APRN.CNP Treatment for Viral Upper Respiratory Tract Infections Your body will kill off the virus by itself. Additionally, you can prime your body's immune system.This may help you get better more quickly. Drink lots of fluids Make sure you are eating well Get plenty of rest We do not have any medications that kill off these viruses. Antibiotics are used to treat bacterialinfections; however, they are not active against viral infections. There are some things that mighthelp you feel better, though. Vaporizers, humidifiers, hot showers, and hot fluids help open respiratory and sinus passages [place] may offer relief of nasal and head congestion Brien's Vapor Rub may relieve congestion Tylenol and Advil help control fevers and headaches Salt water gargles help relieve sore throats Chloraceptic spray or throat lozenges may also help relieve sore throat symptoms Occasionally, viral infections turn into something more serious. You should see your doctor or return to the Urgent Care if: You have fevers for longer than five days You have fevers above 102 degrees You are still sick after 10 days You have shortness of breath or wheezing After several days you are getting worse rather than better documented in this [facility]22 Miscellaneous Notes* Telephone Encounter - Teresita Montesinos - 01/12/2022 10:56 AM EST Patient given results and verbalized understanding of instructions given. Teresita Montesinos * Telephone Encounter - Radha Bhat APRN.CNP - 01/12/2022 10:39 AM EST Patient is positive for COVID patient should quarantine for the first 5 days of symptoms mask for another 5 days of symptoms if symptoms are getting worse patient should follow-up with his primary care provider. documented in this encounterMer[facility]12-05-2022 Instructions* Patient Instructions* Sean Pink APRN.CANDI - 01/11/2022 7:24 AM EST How to Manage Common Symptoms Associated with COVID for Adults Fever- Fever is a temperature over 100.4 F and can occur when the body is fighting an infection. Tohelp treat a fever: Drink plenty of fluids and stay well hydrated. Eat small amounts of easy to digest food. Rest. Your body needs rest to recover, but getting up and moving around the house frequently is a good idea. You should try to continue doing your normal daily activities (bathing, toileting, grooming, cooking), though you will probably feel tired, and need to rest often. Avoid any heavy activity or exercise, as this will increase your body temperature. Dress in light clothing and stay covered in a light sheet. Keep the room temperature cool. Take a slightly warm (not cold or cool) bath, or apply damp washcloths to the forehead and wrists. Cough- Cough is a common symptom associated with COVID and can be bothersome. To help treat a cough: Stay well hydrated. Try warm water or tea with lemon and/or honey to help soothe the cough. Use a humidifier to add moisture to the air. Try a product with menthol, like a cough drop or a rub for your chest such as Vicks, which can helpreduce cough. Try cough drops. Avoid smoking and other strong odors or perfumes. Try breathing exercises to keep your lungs open and clear. Take a big deep breath through your noseand hold for 5 seconds before slowly releasing. Repeat frequently, while you are awake. Congestion- Runny nose or nasal congestion can occur with COVID. Treatment can help relieve symptoms: Try OTC nasal saline spray, or nasal saline rinse to relieve mucus congestion. Nasal strips can help keep nasal passages open, to increase airflow. Elevating your head with an extra pillow in bed can help reduce congestion. Using a humidifier can increase moisture in the air, and make breathing easier. Sore Throat- Another common symptom with COVID, can be managed at home by: Stay well hydrated. Gargle with salt water - mix teaspoon salt with 1 cup of warm water and gargle. This helps to loosen mucus in the back of the throat and may reduce discomfort. Try ice chips, popsicles or lozenges to soothe the throat. Nausea/Vomiting/Diarrhea- These are common symptoms, and staying hydrated is most important. If you are nauseous or vomiting, start with small sips of water every 10-15 minutes and increase astolerated. You can try sucking an ice cube too. If tolerating, you can try pedialyte or Gatorade, or flat sprite or tre-gregorio. Start slowly and increase as you are able to. Instead of meals, try smaller, more frequent snacks. Try eating bland foods like crackers, toast, rice, and applesauce. Avoid spicy, greasy or fried foods and dairy containing foods. Even if you aren't feeling hungry due to lack of smell or taste, it is important to try to take in some food when you are able. After drinking and eating, rest in an upright position for up to two hours as needed to help decrease nauseous feelings. Try closing your eyes, avoid moving and watching TV. Avoid strong odors that can make you feel more nauseated. When to seek emergency medical attention Look for emergency warning signs for COVID-19. If having any of these symptoms, seek emergency medical care immediately: Trouble breathing Persistent pain or pressure in the chest New confusion Inability to wake or stay awake Bluish lips or face *This list is not all possible symptoms. Please call your medical provider for any other symptoms that are severe or concerning to you. documented in this encounterMer[facility]12-05-2022 History of Present illness Narrative* Sean Pink APRN.CNP - 01/11/2022 7:16 AM EST Subjective HPI Nontoxic-appearing male presents urgent care chief complaint COVID-19 concerns. Duration of symptoms 1 day. Associated symptoms head congestion sore throat fever body aches chills. Patient states he did have COVID-19 twice before this feels similar. Did take a positive COVID-19 home rapid test. Presents today for PCR testing. Patient states he did receive 2 COVID-19 vaccines and 1 booster. Deniesany significant dyspnea comfort currently. No OTC medication use. Denies any high fevers productivecough chest pain shortness of breath pleuritic pain hemoptysis nausea vomiting abdominal pain or rashes. Past medical history prescription medication use allergies reviewed. .Patient presents with: Head Congestion: left ear pain, sore throat, fever and chills x 1 day History reviewed. No pertinent past medical history. History reviewed. No pertinent surgical history. ALLERGIES Patient has no known allergies. MEDICATIONS benzonatate (TESSALON PERLE) 100 mg capsule Take 2 capsules by mouth three times daily as needed. (Patient not taking: Reported on 05/11/2021 ) fluticasone (FLONASE) 50 mcg/actuation nasal spray Use 2 Sprays in each nostril once daily. Rinse mouth after use. (Patient not taking: Reported on 05/11/2021 ) triamcinolone acetonide (KENALOG) 0.1 % cream Apply 1 application to affected area three times daily. Apply sparingly to area for rash/itching. (Patient not taking: Reported on 12/20/2017 ) albuterol HFA (VENTOLIN HFA) 90 mcg/actuation inhaler Inhale 2 Puffs as instructed every 4 hours asneeded for Wheezing/Shortness of Breath. (Patient not taking: Reported on 08/14/2016) History reviewed. No pertinent family history. Social History Tobacco Use Smoking status: Never Smokeless tobacco: Never BP 132/80 Pulse 92 Temp 36.7 C (98.1 F) Resp 16 Wt 93.9 kg (207 lb) SpO2 98% Review of Systems Constitutional: Positive for chills, fever and malaise/fatigue. HENT: Positive for congestion, ear pain and sore throat. Negative for ear discharge and sinus pain. Eyes: Negative for blurred vision, pain, discharge and redness. Respiratory: Negative for cough, hemoptysis, sputum production, shortness of breath, wheezing and stridor. Cardiovascular: Negative for chest pain. Gastrointestinal: Negative for abdominal pain, diarrhea, nausea and vomiting. Musculoskeletal: Negative for myalgias. Skin: Negative for itching and rash. Neurological: Positive for headaches. Negative for dizziness. Objective Physical Exam Constitutional: General: He is not in acute distress. Appearance: He is not diaphoretic. HENT: Head: Normocephalic. Nose: Congestion present. Mouth/Throat: Mouth: Mucous membranes are moist. Pharynx: Oropharynx is clear. No oropharyngeal exudate or posterior oropharyngeal erythema. Eyes: Conjunctiva/sclera: Conjunctivae normal. Pupils: Pupils are equal, round, and reactive to light. Cardiovascular: Rate and Rhythm: Normal rate and regular rhythm. Heart sounds: Normal heart sounds. Pulmonary: Effort: Pulmonary effort is normal. No tachypnea, accessory muscle usage or respiratory distress. Breath sounds: Normal breath sounds. No stridor. No wheezing, rhonchi or rales. Abdominal: Palpations: Abdomen is soft. Tenderness: There is no abdominal tenderness. Musculoskeletal: Cervical back: Normal range of motion and neck supple. No rigidity or tenderness. Lymphadenopathy: Cervical: No cervical adenopathy. Skin: General: Skin is warm and dry. Neurological: Mental Status: He is alert and oriented to person, place, and time. ASSESSMENT/PLAN: 1. Suspected COVID-19 virus infection - ICD9: V01.79, ICD10: Z20.822 - 2019 CORONAVIRUS Patient diagnosed with suspected COVID-19. Positive home rapid test. We will obtain a PCR test today. We discussed antiviral therapy treatment. Patient states he will think about it and contact his PCP if he is interested in pursuing treatment for COVID-19. Red flags for prompt reevaluation discussed. Patient was educated on supportive therapies. Patient will follow up with primary care provider as needed. Patient was instructed to immediately proceed to emergency room for any new, worsening, or symptoms lasting longer than anticipated. The patient's clinical presentation is otherwise unremarkable at this time. Based on exam and clinical finding, the patient is stable for discharge. Plan ofcare was discussed with patient. Patient verbalizes understanding and agrees to plan of care. This note was generated using [employer] software. It may contain errors in wording, punctuation, or spelling. Sean Pink APRN.CANDI documented in this encounterMer[facility]06-21-2022 History of Present illness Narrative* Radha Bhat APRN.CANDI - 07/28/2021 7:22 AM EDT Images from the original note were not included. Subjective Patient has been dealing with poison sandra on bilateral arms and chest for about 3 weeks. Said it seems like its going away then comes back up. Denies any other symptoms at this time. The history is provided by the patient. No cotton bag clipper was used. Review of Systems Constitutional: Negative. Skin: Positive for itching and rash. Objective Physical Exam Constitutional: Appearance: Normal appearance. Pulmonary: Effort: Pulmonary effort is normal. Skin: Comments: Patient has vesicular rash noted where marked above. Neurological: Mental Status: He is alert. History reviewed. No pertinent past medical history. No past surgical history on file. ALLERGIES Patient has no known allergies. MEDICATIONS predniSONE (DELTASONE) 10 mg tablet Take 4 tabs daily for 3 days, then 2 tabs daily for 3 days, then 1 tab daily for 3 days with food. benzonatate (TESSALON PERLE) 100 mg capsule Take 2 capsules by mouth three times daily as needed. fluticasone (FLONASE) 50 mcg/actuation nasal spray Use 2 Sprays in each nostril once daily. Rinse mouth after use. triamcinolone acetonide (KENALOG) 0.1 % cream Apply 1 application to affected area three times daily. Apply sparingly to area for rash/itching. albuterol HFA (VENTOLIN HFA) 90 mcg/actuation inhaler Inhale 2 Puffs as instructed every 4 hours asneeded for Wheezing/Shortness of Breath. No family history on file. Social History Tobacco Use Smoking status: Never Smoker Smokeless tobacco: Never Used Substance Use Topics Alcohol use: Not on file Drug use: Not on file ASSESSMENT/PLAN: 1. Rash - ICD9: 782.1, ICD10: R21 At this time patient is being prescribed 9 day prednisone taper. Educated about medication does notwant discharge summery. Okay with care plan. Radha Bhat APRN.CNP documented in this encounterMer[facility]04-04-2022 Instructions* Patient Instructions* Radha Bhat APRN.CNP - 05/11/2021 9:00 AM EDT Ear Infection The inside or outside of your ear can become infected. If your outer ear or ear canal is swollen and infected, you have an outer ear infection. Your ear may itch or be red and swollen. Your ear may hurt or have drainage as well. This infection happens if germs enter your ears and cause a problem. This is more likely to happen if you have a wound in your ear. It can also happen if there is something in your ear or if your ear is wet for a long time. You may have signs a few days after swimming. This is why outer ear infections are often called swimmers ear. Long-term outer ear infections may be caused by: Allergic reaction Skin problems, such as eczema or psoriasis Chronic middle ear infections What care is needed at home? Ask your doctor what you need to do when you go home. Make sure you ask questions if you do not understand what the doctor says. This way you will know what you need to do. Take your drugs as ordered by your doctor. Be sure to treat an infection right away. This will help to keep it from spreading to other parts of your ear. Heat may help ease your ear pain. If your doctor tells you to use heat, put a heating pad or hot water bottle on your ear for no more than 20 minutes at a time. Never go to sleep with a heating pad on as this can cause acevedo. What follow-up care is needed? Your doctor may ask you to make visits to the office to check on your progress. Be sure to keep these visits. What problems could happen? Very bad infection Hearing problems What can be done to prevent this health problem? Keep your ears dry: Use a bathing cap or ear plugs when swimming. Use a towel to dry your ears when they are wet. Do not swim in dirty or polluted water. Avoid getting soap or other items in your ears. Do not scratch your ears. Do not put swabs or other objects in your ears. When do I need to call the doctor? Signs of infection. These include a fever of 100.4 F (38 C) or higher, chills, very bad sore throat, ear or sinus pain. Signs get worse You feel pain and there is redness of the bone behind your ear Drugs you are taking are not working for you Health problem is not better or you are feeling worse Helpful tips Talk to your doctor to see if there are drops you can use to help prevent the growth of germs. Outer ear infections are not contagious, but need treatment. documented in this encounterMer[facility]04-04-2022 History of Present illness Narrative* Radha Bhat APRN.[employer] - 05/11/2021 8:58 AM EDT CC: Patient presents with: Ear Pain: left ear pain x 1 week HPI: Mio Simmons is a 60 year old male who presents to the office with complaint of ear symptoms for a week. Symptoms are worsening Associated symptoms includes ear pain and ear pressure . Denies headache, body aches, fever, nausea, vomiting and diarrhea. Treatments tried include nothing so far. with no relief of symptoms. Sick contacts: unknown. History of asthma, frequent episodes of bronchitis, chronic bronchitis, bronchiectasis or COPD: No Smoker: No Seasonal/environmental allergies: No The ROS is otherwise negative. The patient's pmh, medications, allergies, and past visits are reviewed. PHYSICAL EXAM: BP 118/82 Pulse 76 Temp (!) 35.8 C (96.5 F) Resp 21 Wt 97.5 kg (215 lb) SpO2 98% General appearance: alert, cooperative, pleasant, in no acute distress Head: Normocephalic Eyes: EOM's intact, conjunctiva pink and moist, no icterus, sclera white, non-injected Ears: Right ear: External ear/canal- Normal, TM - clear with good landmarks. Left ear: External ear/canal- Normal, TM - erythematous Oropharynx:moist without lesions, No erythema, exudates or tonsillar hypertrophy. Heart: Negative. RRR without obvious murmur, gallop, or rubs. No ectopy. Lungs: clear to auscultation, without rales or wheeze, good air exchange No past medical history on file. No past surgical history on file. ALLERGIES Patient has no known allergies. MEDICATIONS amoxicillin (AMOXIL) 875 mg tablet Take 1 tablet by mouth twice daily for 7 days. benzonatate (TESSALON PERLE) 100 mg capsule Take 2 capsules by mouth three times daily as needed. fluticasone (FLONASE) 50 mcg/actuation nasal spray Use 2 Sprays in each nostril once daily. Rinse mouth after use. triamcinolone acetonide (KENALOG) 0.1 % cream Apply 1 application to affected area three times daily. Apply sparingly to area for rash/itching. albuterol HFA (VENTOLIN HFA) 90 mcg/actuation inhaler Inhale 2 Puffs as instructed every 4 hours asneeded for Wheezing/Shortness of Breath. No family history on file. Social History Tobacco Use Smoking status: Never Smoker Smokeless tobacco: Never Used Substance Use Topics Alcohol use: Not on file Drug use: Not on file ASSESSMENT/PLAN: 1. Non-recurrent acute suppurative otitis media of left ear without spontaneous rupture of tympanicmembrane - ICD9: 382.00, ICD10: H66.002 - Will begin treatment with Amoxicillin for 7 days Prescription instructions reviewed with patient as applicable. Potential red flag symptoms discussed with the patient. Reviewed appropriate action plan to take if red flag symptoms occur. Patient agreeable to treatment plan. Radha Bhat APRN.CANDI documented in this encounterMer[facility]11-16-2021 History of Present illness Narrative* Shira Poole RT(R) - 12/23/2020 10:20 AM EST Radiology Service Progress Note PATIENT NAME: Mio Simmons DATE OF SERVICE: December 23, 2020 TIME: 10:26 AM PATIENT IDENTITY VERIFICATION COMPLETED USING TWO (2) IDENTIFIERS: Name and Date of confirmedby patient verbally. FALL SCREENING: Has the patient had 2 falls in the last year or 1 fall with injury or currently using an Ambulatory Assistive Device (Walker, Cane, Wheelchair, Crutches, etc.)? No PATIENT GENDER DATA: Male PATIENT RELEVANT IMPLANT DATA REVIEWED: Yes RADIOLOGY DEPARTMENT: General X-ray: Exam(s) Completed: Chest X-Ray PERIPHERAL IV DATA: Not applicable SIGNED BY: RT Wesley(R) December 23, 2020 10:26 AM [facility]* Diagnosis Non-recurrent acute suppurative otitis media of left ear without spontaneous rupture of tympanic membrane- [facility] Diagnosis Rash- Primary Rash and other nonspecific skin eruption documented in this encounter [facility] note* Diagnosis Suspected COVID-19 virus infection- Primary documented in [facility] encounter [facility] noteNo assessment information availableWMercy [facility] Work Phone: Evaluation note* Diagnosis Viral URI with cough- Primary Acute upper respiratory infections of unspecified site documented in this encounter [facility] note* Diagnosis Impacted cerumen of left ear- Primary Impacted cerumen documented in this encounter [facility] note* Diagnosis Contact dermatitis due to plant- Primary Contact dermatitis and other eczema due to plants (except food) [facility]* Diagnosis URI, acute- Primary Acute upper respiratory infections of unspecified site documented in this encounter [facility] note* Diagnosis Acute cough- Primary Influenza A Influenza with other respiratory manifestations Acute cough documented in this encounter [facility] note* Diagnosis Acute cough documented in [facility] encounter [facility] note* Diagnosis Persistent cough for 3 weeks or longer documented in this encounter [facility] note* Diagnosis Coronary artery disease involving [place] coronary artery of [place] heart without angina pectoris- Primary PAF (paroxysmal atrial fibrillation) (HCC) Atrial fibrillation PVC (premature ventricular contraction) Other premature beats Vasovagal syncope Syncope and collapse Pure hypercholesterolemia Abnormal stress test Other nonspecific abnormal cardiovascular system function study documented in [facility]* Diagnosis Coronary artery disease involving [place] coronary artery of [place] heart without angina pectoris- Primary PAF (paroxysmal atrial fibrillation) (HCC) Atrial fibrillation Pure hypercholesterolemia documented in this encounter [facility] note* Diagnosis Coronary artery disease involving [place] coronary artery of [place] heart without angina pectoris- Primary PAF (paroxysmal atrial fibrillation) (HCC) Atrial fibrillation documented in this encounter [facility] note* Diagnosis Coronary artery disease involving [place] coronary artery of [place] heart without angina pectoris- Primary documented in this encounter [facility] for referral (narrative)* Outpatient Procedure (Routine) - New Request Specialty Diagnoses / Procedures Referred By Contac t Referred To [facility] Diagnoses Coronary artery disease involving [place] coronary artery of [place] heart without angina pectoris Procedures ECG COMPLETE ECG ROUTINE ECG W/LEAST 12 LDS W/I&[place] [address] [place] [address] [facility] [address] [place] [address] Referral ID Status Reason Start Date Expiration Date Visits Requested Visits Authorized [id number] New Request Auto-Generat ed Referral 01/01/2025 1 1 [facility] (n[facility])No reason for referral information availableWMercy Health [facility] Work Phone: Health Concerns Infection Onset Date Last Indicated Resolved Time COVID-19 Rule-Out 01/11/2022 01/11/2022 Infection Onset Date Last Indicated Resolved Time COVID-19 Rule-Out 01/11/2022 01/11/2022 01/12/2022 12:03 AM EST COVID-19 Confirmed 01/11/2022 01/11/2022 Chief Complaint and Reason for Visit Chief Complaint E ORDERS Chief Complaint Admit Date PTCA or Stent January 30, 2024 7:50am PTCA or stent February 06, 2024 8:00am Tachycardia February 24, 2024 8 :44am PTCA or stent March 05, 2024 8 :00am SYNCOPAL March 05, 2024 8 :45am PTCA or stent April 06, 2024 8:00am near syncope April 06, 2024 2:08pm PTCA or stent May 07, 2024 8:0 0am Reason for Visit Admit Date CAD (coronary atheroscleroti c disease) without angina pectoris February 24, 2024 8:44am Paroxysmal atrial fibrillation February 072024 8:44am Chief Complaint Admit Date PTCA or stent April 06, 2024 8:00am near syncope April 06, 2024 2:08pm PTCA or stent May 07, 2024 8:0 0am PTCA or stent May 09, 2024 6:58 am PH III cardiac rehab maintenance free mo nth June 05, 2024 8:00am PH III cardiac rehab maintenance free mo nth June 21, 2024 8:00am Advance Directives No Advanced Directives Records Found Advance Directive Response Recorded Date/ Time Advance Directives Yes December 02, 2012 10:24pm Living Will No September 18 7 5:18am Power of Dressing Room Porter No September 18 017 5:18am Advance Directive Response Recorded Date/ Time Advance Directives on File No Decem 2023 9:08am Living Will Yes January 29, 024 9:16am Do you have a Healthcare Power of Dressing Room Porter? Yes January 30, 2024 9:16am Living Will Yes March 05 9:51am Do you have a Healthcare Power of Dressing Room Porter? Yes March 05, 2024 9:51am Name of Medical Power of Dressing Room Porter -JENNI March 05, 2024 9:51am Advance Directives Yes December 8:33am Advance Directive Response Recorded Date/ Time Advance Directives Yes December 8:33am Summary Purpose Family History No Family History Records Found Relationship Condition Age at Onset Recorded Date/T lacey father Cardiac disease Unknown Malignant neoplasm Unknown mother Atrial fibrillation Unknown Additional Source Comments Source Comments (unrecognize d section and content) In the event this informatio n is protected by the Federal Confidentiality of Alcohol and Drug Abuse Patient Records regulations: The Federal rules restrict any use of the information to criminally investigate or prosecute any alcohol or drug abuse patient.[facility] the event this information is protected by the Federal Confidentiality of Alcohol and Drug Abuse Patient Records regulations: The Federal rules restrict any use of the information to criminally investigate or prosecute any alcohol or drug abuse patient.[facility] HospitalIn the event this information is protected by the Federal Confidentiality of Alcohol and Drug Abuse Patient Records regulations: The Federal rules restrict any use of the information to criminally investigate or prosecute any alcohol or drug abuse patient.[facility] HospitalIn the event this information is protected by the Federal Confidentiality of Alcohol and Drug Abuse Patient Records regulations: The Federal rules restrict any use of the information to criminally investigate or prosecute any alcohol or drug abuse patient.[facility] HospitalIn the event this information is protected by the Federal Confidentiality of Alcohol and Drug Abuse Patient Records regulations: The Federal rules restrict any use of the information to criminally investigate or prosecute any alcohol or drug abuse patient.[facility] HospitalIn the event this information is protected by the Federal Confidentiality of Alcohol and Drug Abuse Patient Records regulations: The Federal rules restrict any use of the information to criminally investigate or prosecute any alcohol or drug abuse patient.[facility] HospitalIn the event this information is protected by the Federal Confidentiality of Alcohol and Drug Abuse Patient Records regulations: The Federal rules restrict any use of the information to criminally investigate or prosecute any alcohol or drug abuse patient.[facility] HospitalIn the event this information is protected by the Federal Confidentiality of Alcohol and Drug Abuse Patient Records regulations: The Federal rules restrict any use of the information to criminally investigate or prosecute any alcohol or drug abuse patient.[facility] HospitalIn the event this information is protected by the Federal Confidentiality of Alcohol and Drug Abuse Patient Records regulations: The Federal rules restrict any use of the information to criminally investigate or prosecute any alcohol or drug abuse patient.[facility] HospitalIn the event this information is protected by the Federal Confidentiality of Alcohol and Drug Abuse Patient Records regulations: The Federal rules restrict any use of the information to criminally investigate or prosecute any alcohol or drug abuse patient.[facility] HospitalIn the event this information is protected by the Federal Confidentiality of Alcohol and Drug Abuse Patient Records regulations: The Federal rules restrict any use of the information to criminally investigate or prosecute any alcohol or drug abuse patient.[facility] HospitalIn the event this information is protected by the Federal Confidentiality of Alcohol and Drug Abuse Patient Records regulations: The Federal rules restrict any use of the information to criminally investigate or prosecute any alcohol or drug abuse patient.[facility] HospitalIn the event this information is protected by the Federal Confidentiality of Alcohol and Drug Abuse Patient Records regulations: The Federal rules restrict any use of the information to criminally investigate or prosecute any alcohol or drug abuse patient.[facility] HospitalIn the event this information is protected by the Federal Confidentiality of Alcohol and Drug Abuse Patient Records regulations: The Federal rules restrict any use of the information to criminally investigate or prosecute any alcohol or drug abuse patient.[facility] HospitalIn the event this information is protected by the Federal Confidentiality of Alcohol and Drug Abuse Patient Records regulations: The Federal rules restrict any use of the information to criminally investigate or prosecute any alcohol or drug abuse patient.[facility] HospitalIn the event this information is protected by the Federal Confidentiality of Alcohol and Drug Abuse Patient Records regulations: The Federal rules restrict any use of the information to criminally investigate or prosecute any alcohol or drug abuse patient.[facility] HospitalIn the event this information is protected by the Federal Confidentiality of Alcohol and Drug Abuse Patient Records regulations: The Federal rules restrict any use of the information to criminally investigate or prosecute any alcohol or drug abuse patient.[facility] HospitalIn the event this information is protected by the Federal Confidentiality of Alcohol and Drug Abuse Patient Records regulations: The Federal rules restrict any use of the information to criminally investigate or prosecute any alcohol or drug abuse patient.[facility] HospitalIn the event this information is protected by the Federal Confidentiality of Alcohol and Drug Abuse Patient Records regulations: The Federal rules restrict any use of the information to criminally investigate or prosecute any alcohol or drug abuse patient.[facility] HospitalIn the event this information is protected by the Federal Confidentiality of Alcohol and Drug Abuse Patient Records regulations: The Federal rules restrict any use of the information to criminally investigate or prosecute any alcohol or drug abuse patient.[facility] HospitalIn the event this information is protected by the Federal Confidentiality of Alcohol and Drug Abuse Patient Records regulations: The Federal rules restrict any use of the information to criminally investigate or prosecute any alcohol or drug abuse patient.[facility] HospitalIn the event this information is protected by the Federal Confidentiality of Alcohol and Drug Abuse Patient Records regulations: The Federal rules restrict any use of the information to criminally investigate or prosecute any alcohol or drug abuse patient.[facility] HospitalIn the event this information is protected by the Federal Confidentiality of Alcohol and Drug Abuse Patient Records regulations: The Federal rules restrict any use of the information to criminally investigate or prosecute any alcohol or drug abuse patient.[facility] HospitalIn the event this information is protected by the Federal Confidentiality of Alcohol and Drug Abuse Patient Records regulations: The Federal rules restrict any use of the information to criminally investigate or prosecute any alcohol or drug abuse patient.[facility] HospitalIn the event this information is protected by the Federal Confidentiality of Alcohol and Drug Abuse Patient Records regulations: The Federal rules restrict any use of the information to criminally investigate or prosecute any alcohol or drug abuse patient.[facility] HospitalIn the event this information is protected by the Federal Confidentiality of Alcohol and Drug Abuse Patient Records regulations: The Federal rules restrict any use of the information to criminally investigate or prosecute any alcohol or drug abuse patient.[facility] HospitalIn the event this information is protected by the Federal Confidentiality of Alcohol and Drug Abuse Patient Records regulations: The Federal rules restrict any use of the information to criminally investigate or prosecute any alcohol or drug abuse patient.[facility] HospitalIn the event this information is protected by the Federal Confidentiality of Alcohol and Drug Abuse Patient Records regulations: The Federal rules restrict any use of the information to criminally investigate or prosecute any alcohol or drug abuse patient.[facility] HospitalIn the event this information is protected by the Federal Confidentiality of Alcohol and Drug Abuse Patient Records regulations: The Federal rules restrict any use of the information to criminally investigate or prosecute any alcohol or drug abuse patient.[facility] Reason for Visit (unrecogniz ed section and content) Reason Comments Ear Pain left ear pain x 1 we ek Reason Comments poison sandra x 3 weeks on arms an d chest Reason Comments Head Congestion left ear pain, sore throat, fever and chills x 1 day Reason Comments Results Reason Comments Sinus Problem Congestion, sore thr oat, ears clogged x 1 day Reason Comments Ear Pain left x this am Reason Comments poison sandra Between fingers x 1 day Reason Comments Cough Chest congestion, fe bethanie, chills, dry cough, ear pain, bilat, x 3 days increasing Has been traveling Reason Comments Nasal Congestion chest congestion, co ugh, fatigue x 10 days, seen on 07/30 dx with flu A Reason Comments Appointment Reason Comments Follow Up Specialty Diagnoses / Procedures Referred By Contac t Referred To Contact Cardiology / CARD REPLACED BY [facility] Diagnoses Encounter for general adult medical examination without abnormal findings NEW (ok Per Dr Taylor ) Procedures OFFICE/OUTPATIENT NEW HIGH MDM 60 MINUTES OFFICE/OUTPATIENT ESTABLISHED HIGH MDM 40 MIN NEW/CON PATIENT Bonita Rao MD [address] [place] [address] [place] [address] [place] [address] Referral ID Status Reason Start Date Expiration Date V isits Requested Visits Authorized [id number] Authorized 02/07/2023 02/07/2024 99 99 Reason Comments Cardiac Catheterization at [facility] Reason Comments Cardiac Rehab Pt prefers [facility] Reason Comments Future Appointment Reason Comments Hospital F/U Specialty Diagnoses / Procedures Referred By Contac t Referred To Contact Cardiology / [facility] Diagnoses Hospital discharge follow-up hospital follow up Procedures OFFICE/OUTPATIENT ESTABLISHED HIGH [facility] 40 MIN HOSPITAL FOLLOW UP Mervat Hoffmann, MUSIC VIDEO DIRECTOR.VICE PRESIDENT [employer]STATIST[employer] [address] [place] [address] Mervat Hoffmann MUSIC VIDEO DIRECTOR.VICE PRESIDENT [employer]IOSTATIST[employer] [address] [place] [address] Referral ID Status Reason Start Date Expiration Date Visits Re quested Visits Authorized [id number] Closed 01/19/2024 02/06/2025 1 1 Reason Onset Date Comments Refill Request 02/06/2024 Reason Onset Date Comments Refill Request 02/10/2024 Reason Onset Date Comments Refill Request 03/28/2024 Specialty Diagnoses / Procedures Referred By Contac t Referred To Contact Cardiology / CARD REPLACED BY [facility] Diagnoses Follow-up exam follow up PCI; afib at cardiac rehab; records in file cabinet- ok per Procedures OFFICE/OUTPATIENT ESTABLISHED HIGH MDM 40 MIN [place] [address] [place] [address] Phone: tel: fax: [place] [address] [place] [address] Phone: tel: fax: Referral ID Status Reason Start Date Expiration Date Visits Re quested Visits Authorized [id number] Closed 03/21/2024 02/06/2025 1 1 Reason Comments Results [employer] repo rt Care Teams (unrecognized sec tion and content) Razor Sharpener Relationship Specialty Start Date End Date Bonita Rao MD [address] [place] [address] [id number] PCP - General Family Practice 05/18/17 Razor Sharpener Relationship Specialty Start Date End Date Bonita Rao MD [address] [place] [address] [id number] PCP - General Family Practice 05/18/17 Razor Sharpener Relationship Specialty Start Date End Date Bonita Rao MD [address] [place] [address] [id number] PCP - General Family Medicine 05/18/17 Razor Sharpener Relationship Specialty Start Date End Date Bonita Rao MD [address] [place], [place] [address] [place], [place] [id number] PCP - General Family Medicine 05/18/17 Team Status: Active Member Role Status Dates Dr. David Rao MD Family Provider Active Dr. David Rao MD Primary Care Provider Activ e Team Status: Inactive Member Role Status Dates Dr. David Rao MD Primary Care Provider, Attending Provider, Referring Provider Active Razor Sharpener Relationship Specialty Start Date End Date Bonita Rao MD [address] [place], [place] [id number] PCP - General Family Medicine 05/18/17 Razor Sharpener Relationship Specialty Start Date End Date Bonita Rao MD [address] [place] [address] PCP - General Family Medicine 05/18/17 Razor Sharpener Relationship Specialty Start Date End Date Bonita Rao MD [address] [place] [address] PCP - General Family Medicine 05/18/17 Razor Sharpener Relationship Specialty Start Date End Date Bonita Rao MD [address] [place] [address] PCP - General Family Medicine 05/18/17 Razor Sharpener Relationship Specialty Start Date End Date Bonita Rao MD [address] [place] [address] PCP - General Family Medicine 05/18/17 Razor Sharpener Relationship Specialty Start Date End Date Bonita Rao MD [address] [place] [address] PCP - General Family Medicine 05/18/17 Razor Sharpener Relationship Specialty Start Date End Date Bonita Rao MD [address] [place] [address] PCP - General Family Medicine 05/18/17 Razor Sharpener Relationship Specialty Start Date End Date Bonita Rao MD [address] [place] [address] PCP - General Family Medicine 05/18/17 Razor Sharpener Relationship Specialty Start Date End Date Bonita Rao MD [address] [place] [address] PCP - General Family Medicine 05/18/17 Razor Sharpener Relationship Specialty Start Date End Date Bonita Rao MD [address] [place] [address] PCP - General Family Medicine 05/18/17 Razor Sharpener Relationship Specialty Start Date End Date Bonita Rao MD [address] [place] [address] PCP - General Family Medicine 05/18/17 Razor Sharpener Relationship Specialty Start Date End Date Bonita Rao MD [address] [place] [address] PCP - General Family Medicine 05/18/17 Razor Sharpener Relationship Specialty Start Date End Date Bonita Rao MD [address] [place] [address] PCP - General Family Medicine 05/18/17 Razor Sharpener Relationship Specialty Start Date End Date Bonita Rao MD [address] [place] [address] PCP - General Family Medicine 05/18/17 Razor Sharpener Relationship Specialty Start Date End Date Bonita Rao MD [address] [place] [address] PCP - General Family Medicine 05/18/17 Team Status: Active Member Role Status Dates Dr. Bonita Rao MD Primary Care Provider Acti ve Team Status: Inactive Member Role Status Dates Dr. Bonita Rao MD Primary Care Provider Acti ve Start: January 30, 2024 End: January 30, 2024 AMIR, TARABEN Attending Provider Active Start: D ec2023 End: January 30, 2024 AMIR, TARABEN Referring Provider Active Start: D ec2023 End: January 30, 2024 Team Status: Inactive Member Role Status Dates Dr. Bonita Rao MD Primary Care Provider Acti ve Start: February 06, 2024 End: February 07, 2024 AMIR, TARABEN Attending Provider Active Start: D ec2023 End: February 07, 2024 AMIR, TARABEN Referring Provider Active Start: D ec2023 End: February 07, 2024 Team Status: Inactive Member Role Status Dates Dr. Bonita Rao MD Primary Care Provider Acti ve Start: February 24, 2024 End: February 24, 2024 Dr. Bonita Rao MD Referring Provider Active Start: February 24, 2024 End: February 24, 2024 Dr. Humberto Franco MD Attending Provider Active Start: February 24, 2024 End: February 24, 2024 Team Status: Inactive Member Role Status Dates Dr. Bonita Rao MD Primary Care Provider Acti ve Start: March 05, 2024 End: March 09, 2024 AMIR, TARABEN Attending Provider Active Start: J anuary 2024 End: March 09, 2024 AMIR, TARABEN Referring Provider Active Start: J anuary 2024 End: March 09, 2024 Team Status: Inactive Member Role Status Dates Dr. Bonita Rao MD Primary Care Provider Acti ve Start: March 05, 2024 End: March 05, 2024 Dr. Danny iGlman MD Attending Provider Active Sta rt: March 05, 2024 End: March 05, 2024 Dr. Danny Gilman MD Emergency Provider Active Sta rt: March 05, 2024 End: March 05, 2024 Team Status: Inactive Member Role Status Dates Dr. Bonita Rao MD Primary Care Provider Acti ve Start: April 06, 2024 End: April 06, 2024 AMIR, TARABEN Attending Provider Active Start: F ebruary 2024 End: April 06, 2024 AMIR, TARABEN Referring Provider Active Start: F ebruary 2024 End: April 06, 2024 Team Status: Active Member Role Status Dates Dr. Bonita Rao MD Primary Care Provider Acti ve Start: April 06, 2024 Dr. Humberto Franco MD Attending Provider Active Start: April 06, 2024 Dr. Humberto Franco MD Referring Provider Active Start: April 06, 2024 Team Status: Inactive Member Role Status Dates Dr. Bonita Rao MD Primary Care Provider Acti ve Start: May 07, 2024 End: May 07, 2024 AMIR, TARABEN Attending Provider Active Start: M arch 2024 End: May 07, 2024 AMIR, TARABEN Referring Provider Active Start: M arch 2024 End: May 07, 2024 Team Status: Inactive Member Role Status Dates Dr. Bonita Rao MD Primary Care Provider Acti ve Start: May 09, 2024 End: June 06, 2024 AMIR, TARABEN Attending Provider Active Start: A pril 2024 End: June 06, 2024 AMIR, TARABEN Referring Provider Active Start: A pril 2024 End: June 06, 2024 Team Status: Inactive Member Role Status Dates Dr. Bonita Rao MD Primary Care Provider Acti ve Start: June 05, 2024 End: June 06, 2024 Dr. Humberto Franco MD Attending Provider Active Start: June 05, 2024 End: June 06, 2024 Dr. Humberto Franco MD Referring Provider Active Start: June 05, 2024 End: June 06, 2024 Team Status: Inactive Member Role Status Dates Dr. Bonita Rao MD Primary Care Provider Acti ve Start: June 21, 2024 End: July 07, 2024 Dr. Humberto Franco MD Attending Provider Active Start: June 21, 2024 End: July 07, 2024 Dr. Humberto Franco MD Referring Provider Active Start: June 21, 2024 End: July 07, 2024 Team Status: Active Member Role Status Dates Dr. Bonita Rao MD Primary Care Provider Acti ve Start: July 06, 2024 Dr. Bonita Rao MD Attending Provider Active Start: July 06, 2024 Goals (unrecognized section and content) Goals may be documented in a n alternate sectionGoals may be documented in an alternate sectionGoals may be documented in an alternate section (unrecognized sect ion and content) No Status Records FoundNo Status Records FoundNo Status Records FoundNo Status Records Found INFORMATION SOURCE (unrecogn ized section and content) DATE CREATED AUTHOR 01/17/2024 [facility] DATE CREATED AUTHOR AUTHOR'S ORGANIZ ATION 01/21/2024 [facility] DATE CREATED AUTHOR AUTHOR'S ORGANIZ ATION 05/27/2024 [facility] DATE CREATED AUTHOR AUTHOR'S ORGANIZ ATION 07/11/2024 [facility] FOR RECORDS PERTAINING TO PATIENTS WHO ARE OR HAVE BEEN ENROLLED IN A CHEMICAL DEPENDENCY/SUBSTANCEABUSE PROGRAM, SOME INFORMATION MAY BE OMITTED. This clinical summary was aggregated from multiple sources. Caution should be exercised in using it in the provision of clinical care. This summary normalizes information from multiple sources, and as a consequence, information in this document may materially change the coding, format and clinical context of patient data. In addition, data may be omitted in some cases. CLINICAL DECISIONS SHOULD BE BASED ON THE PRIMARY CLINICAL RECORDS. [facility]. provides no warranty or guarantee of the accuracy or completeness of information in this document.
--- NOTE | 2024-07-13 07:48 | US_ITS ---
PROCEDURE: ABDOMEN LIMITED 07/13/2024 REASON FOR EXAM: RUQ PAIN COMPARISON: None FINDINGS: Liver: Grossly normal size and echotexture. 16.5 cm in length Gallbladder: No stones, sludge, wall thickening, pericholecystic fluid, or tenderness. There is a nonshadowing echogenic focus along the wall measuring 3 mm. Common bile duct: Normal measuring 3 mm. Pancreas: Visualized portions are sonographically unremarkable. Other: Visualized portions of the right kidney are unremarkable. No right upper quadrant ascites. US/Abdomen Limited IMPRESSION: 1. No evidence of cholelithiasis or acute cholecystitis. 2. Tiny gallbladder polyp measuring 3 mm, which does not require follow-up per SRU guidelines. Reading Location: [place]
== END | disposition home or self-care (01) ==
LOC: US 07:41
PROVIDERS: PCP Family Medicine; Referring Provider Family Medicine; Visit Provider Family Medicine
DX: R10.11 Right upper quadrant pain (principal)
CPT/HCPCS: 76705